=== PATIENT | female | born 1985 | race Caucasian/White ===

== ENCOUNTER 2018-03-12 16:42 | Outpatient (CLI) | payer MEDICAID, SELFPAY ==
[2018-03-12 17:05] LABS: Bilirubin Small (Negative); Blood Trace-intact (Negative); Clarity Sl Cloudy; Glucose 500 mg/dL (Negative); Ketones 15 mg/dL (Negative); Leukocyte Esterase Negative (Negative); Nitrite Negative (Negative); Specific Gravity >= 1.030 (1.005-1.025); Urobilinogen 0.2 EU/dL (Up TO 0.2)
[2018-03-12 17:17] LABS: Bacteria Moderate HPF (Negative); C & S Indicated? No/Sq. Contamination; Crystals Negative HPF (Negative); Epithelial Cells Many HPF (Negative); Mucus Trace (Negative); Other Cells Rare Renal (Negative)
[2018-03-12 18:11] LABS: CREATININE 0.64 mg/dL (0.55-1.02)
[2018-03-12 18:21] LABS: COMMENT (LAB VIEW ONLY) 282.91 mg/dL; Microalb ug/mg Crea 7.2 ug/mg Cr
[2018-03-12 18:53] LABS: Hemoglobin A1C 8.1 % (4.5-6.2)
== END 2018-03-12 17:02 ==
PROVIDERS: PCP Family Medicine; Visit Provider Family Medicine
DX: E11.9 Type 2 diabetes mellitus without complications (principal); Z79.84 Long term (current) use of oral hypoglycemic drugs
CPT/HCPCS: 36415; 81003; 81015; 82043; 82565; 82570; 83036

== ENCOUNTER 2018-07-11 13:03 | Outpatient (REF) | payer MEDICAID, SELFPAY ==
--- NOTE | 2018-07-11 11:45 | PAPFT_PTH ---
PATIENT: Ariela Foreman LOC: [facility] U#:[id number] AGE/SX: 32/F ROOM: RE07/11/[address]: ERIKA Chow : 1985 BED: DIS: 07/11/2018 SPEC #: [id number] RECD: 07/11/18 13:12 STATUS: LISA HOFFMAN #: [id number] NUSRAT: 07/11/18 11:[address]: Kathy Argueta DEPT: [facility] Cytology RECD BY: Sandra Lebron ENTERED: 07/11/18 13:12 SP TYPE: PAPFT OT DR: Pascual Forrest MD Tissues: 1 - CX/ENDOCX FOR PAP SMEARS Procedures: PAP THIN PREP/UVM Screening HPV DNA PROBE Comments: [id number]
== END 2018-07-11 13:23 ==
LOC: LBN 13:03
PROVIDERS: PCP Family Medicine; Visit Provider Nurse Practitioner Family
DX: Z12.4 Encounter for screening for malignant neoplasm of cervix (principal); Z11.51 Encounter for screening for human papillomavirus (HPV)
CPT/HCPCS: 88142; 87624

== ENCOUNTER 2019-01-30 11:51 | Outpatient (CLI) | payer MEDICAID, SELFPAY ==
[2019-01-30 12:48] LABS: Hemoglobin A1C 8.8 % (4.5-6.2)
[2019-01-30 14:57] LABS: Cholesterol 229 mg/dL (50-200); HDL Cholesterol 34 mg/dL (40-60); Triglyceride 556 mg/dL (30-150)
[2019-01-30 15:35] LABS: LDL CHOLESTEROL 118 mg/dL (<100)
== END 2019-01-30 12:11 ==
PROVIDERS: PCP Family Medicine; Visit Provider Family Medicine
DX: E11.9 Type 2 diabetes mellitus without complications (principal); E78.5 Hyperlipidemia, unspecified
CPT/HCPCS: 36415; 80061; 83721; 83036

== ENCOUNTER 2019-02-09 13:56 | Outpatient (CLI) | payer MEDICAID, SELFPAY ==
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
== END 2019-02-09 14:16 ==
PROVIDERS: PCP Family Medicine; Visit Provider Nurse Practitioner
DX: M79.605 Pain in left leg (principal); Z47.89 Encounter for other orthopedic aftercare; Z87.81 Personal history of (healed) traumatic fracture
CPT/HCPCS: 73590

== ENCOUNTER 2019-09-02 05:45 | Outpatient (CLI) | payer MEDICAID, SELFPAY ==
[2019-09-05 10:20] LABS: SARS-CoV-2 RNA Undetected (Undetected); SARS-CoV-2 Specimen Source Nasopharynx
== END 2019-09-02 06:05 ==
PROVIDERS: PCP Family Medicine; Visit Provider Family Medicine
DX: Z11.59 Encounter for screening for other viral diseases (principal)
CPT/HCPCS: U0003

== ENCOUNTER 2020-01-26 01:56 | Outpatient (CLI) | payer MEDICAID, SELFPAY ==
[2020-01-26 13:06] LABS: C-Reactive Protein 1.89 mg/dL (0.0-0.3)
[2020-01-26 13:35] LABS: ESR 22 mm/hr (0-20)
[2020-01-27 15:41] LABS: ANA Interpretation Negative (Negative)
[2020-01-29 17:56] LABS: Calculated LDL 170 mg/dL (<100); Cholesterol 278 mg/dL (<200); HDL Cholesterol 54 mg/dL (40-60); Triglyceride 271 mg/dL (<150)
[2020-01-29 18:03] LABS: Hemoglobin A1C 6.7 % (<5.7)
== END 2020-01-26 02:16 ==
PROVIDERS: PCP Family Medicine; Visit Provider Family Medicine
DX: M79.642 Pain in left hand (principal); E11.9 Type 2 diabetes mellitus without complications; M13.0 Polyarthritis, unspecified
CPT/HCPCS: 36415; 80061; 85652; 83036; 86038; 86140

== ENCOUNTER 2020-05-03 19:28 | Outpatient (REF) | payer MEDICAID, SELFPAY ==
[2020-05-03 22:15] LABS: Bilirubin Negative (Negative); Blood Small (Negative); Clarity Sl Cloudy (Clear); Glucose 500 mg/dL (Negative); Ketones Negative (Negative); Leukocyte Esterase Negative (Negative); Nitrite Negative (Negative); Urobilinogen 0.2 EU/dL (Up TO 0.2)
[2020-05-03 22:26] LABS: Bacteria Few HPF (Negative); C & S Indicated? Yes; Casts Negative LPF (Negative); Crystals Negative HPF (Negative); Epithelial Cells Few HPF (Negative); Mucus Negative (Negative); WBC 20-50 HPF (0-5)
== END 2020-05-03 19:48 ==
LOC: LBN 19:28
PROVIDERS: PCP Family Medicine; Visit Provider Family Medicine
DX: R30.0 Dysuria (principal)
CPT/HCPCS: 87077; 81003; 81015; 87086; 87186

== ENCOUNTER 2020-05-05 21:13 | Emergency (ER) | payer MEDICAID, SELFPAY ==
[2020-05-05 21:16] VITALS: BP 135/92; PULSE 99; RESP 16; TEMP 36.3; O2SAT 98
--- NOTE | 2020-05-05 21:19 | W.ED.GENAD ---
Discharge Plan Disposition Patient Disposition: HOME Condition: Good Discharge Details Clinical Impression: UTI (urinary tract infection) Primary Care Provider: Pascual Forrest ED Provider: Bryson Estrella Home Meds and New Rx's Prescriptions: New nitrofurantoin monohyd/m-cryst [Macrobid] 100 mg capsule 100 mg PO Q12H Qty: 8 RF: 0 phenazopyridine [Pyridium] 100 mg tablet 100 mg PO TID Qty: 4 RF: 0 No Action Victoza 3-Barry 0.6 mg/0.1 mL (18 mg/3 mL) pen injector 1.8 mg subcut DAILY Qty: 9 RF: 11 (DME) blood-glucose meter [Accu-Chek Shanta Plus Meter] Misc See Rx Instructions .ROUTE .MEDSUPPLY Qty: 1 RF: 0 Dramamine 50 mg tablet,chewable 50 mg PO Q4H PRN Qty: 15 RF: 0 meclizine 25 mg tablet 25 mg PO DAILY PRN (Reason: motion sickness) Qty: 30 RF: 0 (DME) pen needle, diabetic 29 gauge x 1/2 needle 1 ea Miscellaneous DAILY Qty: 100 RF: 3 propranolol 80 mg capsule,extended release 24 hr 80 mg PO DAILY Qty: 90 RF: 3 (DME) blood-glucose meter [OneTouch Ultra2 Meter] Misc See Rx Instructions .ROUTE .MEDSUPPLY Qty: 1 RF: 1 (DME) OneTouch Ultra Blue Test Strip Strip See Rx Instructions .ROUTE .MEDSUPPLY Qty: 300 RF: 3 (DME) lancets [OneTouch UltraSoft Lancets] Misc See Rx Instructions .ROUTE .MEDSUPPLY Qty: 300 RF: 3 albuterol sulfate [ProAir HFA] 90 mcg/actuation HFA aerosol inhaler 1 - 2 puff Inhalation q 4 h PRN (Reason: bronchospasm) Qty: 1 RF: 1 phentermine 15 mg capsule 15 mg PO DAILY Qty: 30 RF: 5 Jardiance 25 mg tablet 25 mg PO QAM Qty: 30 RF: 11 glipizide 10 mg tablet extended release 24hr 20 mg PO DAILY Qty: 180 RF: 3 metformin 1,000 mg tablet 1,000 mg PO BID Qty: 180 RF: 3 norgestimate-ethinyl estradiol 0.18/0.215/0.25 mg-35 mcg (28) tablet 1 tab PO DAILY Qty: 28 RF: 11 Claritin-D 12 Hour 1 EACH tablet extended release 12 hr 1 tab PO PRN PRNRF: 0 ibuprofen [Advil] 200 MG tablet 200 mg PO PRN RF: 0 montelukast [Singulair] 10 mg tablet 10 mg PO DAILY PRNRF: 0 Discharge Instructions Instructions: Urinary Tract Infection in Women (ED) Additional Instructions: Your urine culture from the office on the first is positive. Sensitivities for antibiotic are still pending. Macrobid should work. Pyridium should help your discomfort. May continue acetaminophen or ibuprofen as well. Contact primary care early next week if continued symptoms when medications are done. Return to ED if you develop spiking high fever, shaking chills, persistent vomiting or flank pain. Referrals: Pascual Forrest [Primary Care Provider] - Medical Decision Making In reviewing the patient's visit as well as labs, it appears that the urine was sent to lab despite negative dip at the office. The urine dip positive for blood in the lab. Micro reveals white cells. Culture currently growing greater than 100,000 staph species. Sensitivities pending. It would appear that Macrobid was called in. However, I cannot find a note confirming this. Patient unaware of results or the fact that antibiotics may have been called in. She is not here. She has no CVAT. She is not febrile. She does not look toxic. Her abdomen is completely benign. We will start her on Macrobid and provide prescription here just in case it is not available at the pharmacy. We will also start her on Pyridium for control of symptoms. Patient to follow-up with primary care next week if not doing better. Return to ED if worse. Medical Records Medical records reviewed: Yes I reviewed the patient's medical records. Lab Data Lab results reviewed: Yes I reviewed the patient's lab results. HPI General Mode of arrival: ambulatory. Date/Time Provider Initiated Documentation: 05/05/20 21:14. Limitations to Documentation: no limitations. Information obtained by: patient, RN notes reviewed and old records reviewed. HPI Narrative: Patient presents to ED with complaint of lower abdominal and back pain. 2 days ago patient was seen in primary care office. At that time she was complaining of dysuria. She was told her urine dip was negative. She has not heard back from the office any further. She has less dysuria but now constant dull ache in the suprapubic area and low back. She denies fevers or shaking chills. She has nausea but no vomiting. She has no mid back pain. She has had previous bladder infection and reports that this really feels the same. However she is under the assumption that her urine was negative. Patient denies . Related Data Home Medications Medication Instructions Recorded Confirmed Claritin-D 12 Hour 1 tab PO PRN PRN 11/16/13 05/05/20 ibuprofen [Advil] 200 mg PO PRN 11/16/13 05/05/20 dimenhydrinate 50 mg chewable 50 mg PO Q4H PRN #15 tab-cap 03/10/19 05/05/20 tablet meclizine 25 mg tablet 25 mg PO DAILY PRN #30 tab-cap 03/10/19 05/05/20 pen needle, diabetic 29 gauge x #100 ndl 03/10/19 05/03/20 1/2 blood-glucose meter #1 each 07/16/19 05/03/20 blood sugar diagnostic #300 each 07/20/19 05/03/20 blood-glucose meter #1 each 07/20/19 05/03/20 lancets #300 each 07/20/19 05/03/20 liraglutide 0.6 mg/0.1 mL (18 mg/3 1.8 mg SUBCUT DAILY #9 ml 08/19/19 05/05/20 mL) subcutaneous pen injector albuterol sulfate 90 mcg/actuation 1 - 2 puff INHALATION q 4 h PRN #1 09/01/19 05/05/20 aerosol inhaler inhaler propranolol 80 mg capsule,24 80 mg PO DAILY #90 cap 11/17/19 05/05/20 hr,extended release phentermine 15 mg capsule 15 mg PO DAILY #30 cap 12/21/19 05/05/20 empagliflozin 25 mg tablet 25 mg PO QAM #30 tab 02/15/20 05/05/20 glipizide 10 mg tablet, extended 20 mg PO DAILY #180 tab-cap 02/15/20 05/05/20 release 24 hr metformin 1,000 mg tablet 1,000 mg PO BID #180 tab 02/15/20 05/05/20 norgestimate-ethinyl estradiol 1 tab PO DAILY #28 tab-cap 02/19/20 05/05/20 0.18 mg/0.215mg/0.25mg-35 mcg(28)tablet montelukast [Singulair] 10 mg PO DAILY PRN 05/05/20 05/05/20 nitrofurantoin monohyd/m-cryst 100 mg PO Q12H #8 cap 05/05/20 [Macrobid] phenazopyridine [Pyridium] 100 mg PO TID #4 tab 05/05/20 Previous Rx's Medication Instructions Recorded dimenhydrinate 50 mg chewable 50 mg PO Q4H PRN #15 tab-cap 03/10/19 tablet meclizine 25 mg tablet 25 mg PO DAILY PRN #30 tab-cap 03/10/19 pen needle, diabetic 29 gauge x #100 ndl 03/10/19 1/2 blood-glucose meter #1 each 07/16/19 blood sugar diagnostic #300 each 07/20/19 blood-glucose meter #1 each 07/20/19 lancets #300 each 07/20/19 liraglutide 0.6 mg/0.1 mL (18 mg/3 1.8 mg SUBCUT DAILY #9 ml 08/19/19 mL) subcutaneous pen injector albuterol sulfate 90 mcg/actuation 1 - 2 puff INHALATION q 4 h PRN #1 09/01/19 aerosol inhaler inhaler propranolol 80 mg capsule,24 80 mg PO DAILY #90 cap 11/17/19 hr,extended release phentermine 15 mg capsule 15 mg PO DAILY #30 cap 12/21/19 empagliflozin 25 mg tablet 25 mg PO QAM #30 tab 02/15/20 glipizide 10 mg tablet, extended 20 mg PO DAILY #180 tab-cap 02/15/20 release 24 hr metformin 1,000 mg tablet 1,000 mg PO BID #180 tab 02/15/20 norgestimate-ethinyl estradiol 1 tab PO DAILY #28 tab-cap 02/19/20 0.18 mg/0.215mg/0.25mg-35 mcg(28)tablet nitrofurantoin monohyd/m-cryst 100 mg PO Q12H #8 cap 05/05/20 [Macrobid] phenazopyridine [Pyridium] 100 mg PO TID #4 tab 05/05/20 Allergies Allergy/AdvReac Type Severity Reaction Status Date / Time cefuroxime axetil Allergy Severe Anaphylaxsi Verified 05/03/20 14:03 [From Ceftin] s sodium nitrite Allergy Severe Throat Verified 05/03/20 14:03 Swelling Influenza Virus Vaccines Allergy Intermediate Verified 05/05/20 21:20 shellfish derived Allergy Unknown Verified 05/05/20 21:20 acetaminophen [From Tylenol] AdvReac Intermediate Nausea Verified 05/03/20 14:03 albuterol AdvReac Intermediate Tremor, Verified 05/03/20 14:03 weakness codeine AdvReac Intermediate Nausea Verified 05/03/20 14:03 morphine AdvReac Intermediate pains in Verified 05/03/20 14:03 her head Sulfa (Sulfonamide AdvReac Intermediate Nausea Verified 05/03/20 14:03 Antibiotics) sulfacetamide AdvReac Intermediate GI Symptoms Verified 05/03/20 14:03 maple Allergy Severe Anaphylaxsi Uncoded 05/03/20 14:03 s Review of Systems Narrative: As documented in HPI otherwise negative as below. Const: no fever, chills, weakness Resp: no cough, SOB, pleuritic pain CV: no CP, diaphoresis, edema, syncope GI: no vomiting, diarrhea Neuro: no headache, numbness, focal weakness, confusion PFSH Medical History Asthma Hypermobility arthralgia Obesity Polycystic ovarian syndrome Type II diabetes mellitus with complication, uncontrolled DX AGE 14 Surgical History Cholecystectomy Laparoscopic, Ovarian Cystectomy LEG FRACTURE 08/2014 Family History Mother Diabetes Hyperlipidemia Asthma Depression Father , AGE 56 Diabetes Depression Heart disease Sister Diabetes Maternal Grandfather Lung cancer Paternal Grandfather No problems noted. Maternal Grandmother , AGE 78 Diabetes Hyperlipidemia Brother No problems noted. Social History Smoking/Tobacco Use Status: Never Smoking risk assessment performed?: Yes Alcohol Intake: never Drug use: Never Household members: significant other Housing: apartment Communication Needs: Corrective Lenses Do you need help understanding health information?: Never current occupation: [employer] Pets and animals: Yes Pets and animals: cat(s) and dog(s) Sexually active: Yes Do you think of yourself as: straight/heterosexual Current gender identity: female What is your relationship status?: living with partner How often do you talk on the phone with friends or family?: three or more times per week How often do you get together with friends or relatives?: once per week How often do you attend voodoo or christianity services?: decline to answer Do you belong to any clubs or organized social groups?: no Panel score (0-1 are the most socially isolated patients): 2 What type of physical activity do you participate in: other Details: ELIPTICAL Duration: < 15 minutes/day Frequency: 3-4 times per week Joceline/Christianity: Other Special joceline needs: No Seatbelt use: always Helmet use: Yes Helmet use: always Drive intox or ride w/intox electric train driver: No Do you feel safe in your relationship?: Yes Exam Narrative Exam Narrative: Const: WDWN female in NAD. HEENT: NC/AT. Normal facial exam. Eyes: Normal conjunctiva and sclera. Neck: Supple. Trachea midline. Lungs: Normal respiratory effort. GI: Soft. NT/ND. No guarding or rebound. Back: No CVAT Neuro: A+O x 3. Normal speech, mentation, gait. Cranial nerves II - XII grossly intact. No gross motor or sensory deficit. Ext: No C/C/E. Skin: Warm and dry without rash.
[2020-05-05] MEDS: MacroBID 100 MG CAP, 2 CAPS/BTL PO (21:48)
[2020-05-05] MEDS: Phenazopyridine 100 MG TAB, 2 TABS/BTL PO (21:49)
== END 2020-05-05 21:50 | disposition home or self-care (01) ==
LOC: ER 21:43
PROVIDERS: Emergency Provider Emergency Medicine; PCP Family Medicine
DX: N39.0 Urinary tract infection, site not specified (principal); R10.30 Lower abdominal pain, unspecified; M54.5 Low back pain; Z87.440 Personal history of urinary (tract) infections; E11.9 Type 2 diabetes mellitus without complications; Z79.84 Long term (current) use of oral hypoglycemic drugs
CPT/HCPCS: 81025; 99283

== ENCOUNTER 2020-08-23 03:45 | Outpatient (CLI) | payer MEDICAID, SELFPAY ==
[2020-08-23 11:41] LABS: Hemoglobin A1C 7.3 % (<5.7)
[2020-08-23 12:16] LABS: Calculated LDL 69 mg/dL (<100); Cholesterol 179 mg/dL (<200); HDL Cholesterol 45 mg/dL (40-60); Triglyceride 325 mg/dL (<150)
[2020-08-23 17:00] LABS: Rheumatoid Factor <8.6 IU/mL (<12.0)
== END 2020-08-23 03:46 | disposition home or self-care (01) ==
LOC: LBO 03:45
PROVIDERS: PCP Family Medicine; Visit Provider Family Medicine
DX: R73.9 Hyperglycemia, unspecified (principal); E78.5 Hyperlipidemia, unspecified; M13.88 Other specified arthritis, other site
CPT/HCPCS: 36415; 80061; 83036; 86431

== ENCOUNTER 2021-01-12 15:37 | Outpatient (CLI) | payer MEDICAID, SELFPAY ==
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
--- NOTE | 2021-01-12 16:27 | DI.VRAD_ITS ---
PROCEDURE INFORMATION: Exam: XR Right Shoulder Exam date and time: 01/12/2021 3:52 PM Age: 35 years old Clinical indication: Pain; Shoulder; Right TECHNIQUE: Imaging protocol: XR Right shoulder. Views: 2 or more views. COMPARISON: No relevant prior studies available. FINDINGS: Bones/joints: Normal. Soft tissues: Normal. IMPRESSION: No acute findings. Dictated and Authenticated by: Sandee Davis MD. Ordering:TUTU Sahni MD
== END 2021-01-12 15:57 ==
PROVIDERS: PCP Family Medicine; Visit Provider Physician Assistant Medical
DX: M25.511 Pain in right shoulder (principal)
CPT/HCPCS: 73030

== ENCOUNTER 2021-01-28 14:32 | Outpatient (CLI) | payer MEDICAID, SELFPAY ==
--- NOTE | 2021-01-28 | DI.RAD_ITS ---
Exam(s) XR ANKLE RT COMPLETE EXAM: XR ANKLE RT COMPLETE CLINICAL HISTORY: ANKLE PAIN. TECHNIQUE: 2D digital imaging was performed. COMPARISON: No exams were available for comparison FINDINGS: BONES: No acute fracture is present. No bony destructive lesion is seen. JOINTS: The ankle mortise is normally aligned. SOFT TISSUE: Normal. IMPRESSION: Unremarkable radiographs of the right ankle. DATA REPOSITORY: RADIATION DOSE DELIVERED:
--- NOTE | 2021-01-28 15:40 | DI.VRAD_ITS ---
PROCEDURE INFORMATION: Exam: XR Right Ankle Exam date and time: 01/28/2021 2:37 PM Age: 35 years old Clinical indication: Other: Ankle pain TECHNIQUE: Imaging protocol: XR Right ankle. Views: 3 or more views. COMPARISON: CR RIGHT KNEE 3 VIEWS 05/10/2016 3:35 PM FINDINGS: Bones/joints: No acute fracture or dislocation. The ankle mortise is well preserved. Soft tissues: Normal. IMPRESSION: No acute fracture or dislocation. Dictated and Authenticated by: Layla Phillips MD. Ordering:KURT Bishop MD
== END 2021-01-28 14:52 ==
PROVIDERS: PCP Family Medicine; Visit Provider Nurse Practitioner Family
DX: M25.571 Pain in right ankle and joints of right foot (principal)
CPT/HCPCS: 73610

== ENCOUNTER 2021-03-07 03:44 | Outpatient (CLI) | payer BC, MEDICAID, SELFPAY ==
[2021-03-07 07:58] LABS: ESR 9 mm/hr (0-20)
[2021-03-07 08:43] LABS: Hemoglobin A1C 7.3 % (<5.7)
[2021-03-07 09:21] LABS: C-Reactive Protein 2.51 mg/dL (0.0-0.3)
== END 2021-03-07 03:45 | disposition home or self-care (01) ==
PROVIDERS: PCP Family Medicine; Visit Provider Family Medicine
DX: E11.9 Type 2 diabetes mellitus without complications (principal); R41.89 Other symptoms and signs involving cognitive functions and awareness; M25.50 Pain in unspecified joint
CPT/HCPCS: 36415; 85652; 83036; 86140

== ENCOUNTER 2021-05-01 11:09 | Outpatient (CLI) | payer BC, MEDICAID, SELFPAY ==
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
== END 2021-05-01 11:29 ==
PROVIDERS: PCP Family Medicine; Visit Provider Nurse Practitioner Family
DX: M25.521 Pain in right elbow (principal); M25.532 Pain in left wrist
CPT/HCPCS: 73080; 73110

== ENCOUNTER 2021-06-23 19:30 | Emergency (ER) | payer BC, SELFPAY ==
[2021-06-23] VITALS (8 sets, daily range): BP systolic 113–132; BP diastolic 62–95; PULSE 109–122; RESP 12–26; TEMP 37.4; O2SAT 97–98
--- NOTE | 2021-06-23 20:30 | DI.CT_ITS ---
Exam(s) CT NECK W EXAM: CT NECK W CLINICAL HISTORY: Sore throat R/O peritonsillar abscess. TECHNIQUE: Imaging Protocol: Axial computed tomography images with coronal and sagittal reformatted images were created and reviewed. CONTRAST MATERIAL: Intravenous: Omnipaque 350 Contrast volume:100 mL COMPARISON: No exams were available for comparison FINDINGS: Orbits and orbital soft tissues: Within normal limits. Visualized paranasal sinuses: There is complete opacification of the right maxillary sinus. The rem aining visualized paranasal sinuses and mastoid air cells are clear. Nasopharynx: Within normal limits. Oropharynx: Enlarged heterogeneous tonsils bilaterally, right greater than left. No definite focal f luid collection is identified. Hypopharynx: Within normal limits. Larynx: Within normal limits. Retropharyngeal space: Within normal limits. Parotids/submandibular: Within normal limits. Thyroid gland: Within normal limits. Lymphadenopathy: Mildly enlarged lymph nodes in the neck bilaterally. This is likely reactive. Trachea: Within normal limits. Lung apices: Within normal limits. Bones: Within normal limits. Carotids/Jugular: Within normal limits. Soft tissues: Within normal limits. IMPRESSION: 1. Bilateral heterogeneity of the palatine tonsils consistent with tonsillitis. No definite focal fl uid collection is seen to suggest an abscess. 2. Mildly enlarged lymph nodes in the neck which are likely reactive. 3. Right maxillary sinusitis. RADIATION DOSE DELIVERED: 456.28mGy.cm Total DLP 456.28mGy.cm Total DLP DATA REPOSITORY: All CT scans at this facility are submitted to the National Radiology Data Registry (NRDR) Dose Index Registry (DIR) with the [employer] ([employer]). RADIATION OPTIMIZATION: All CT scans at this facility use at least one of these dose optimization te chniques: automated exposure control; mA and/or kV adjustment per patient size (includes targeted exa ms where dose is matched to clinical indication); or iterative reconstruction.
[2021-06-23] MEDS: Omnipaque 350 MG/ML 100 ML BTL IJ (20:53)
[2021-06-23 21:02] LABS: HCT 50.2 % (36.0-46.0); HGB 15.9 g/dL (11.2-15.7); MCH 25.6 pg (27.0-33.0); MCHC 31.7 % (32.0-36.0); MCV 80.8 fL (80-95); MPV 9.6 fL (8.0-11.0); Nucleated RBC 0 %; Platelet Count 404 10^3/uL (130-400); RBC 6.21 10^6/uL (3.93-5.22); RDW 13.7 % (11.7-14.6); RDW-SD 39.4 fL
[2021-06-23 21:07] LABS: WBC 28.51 10^3/uL (4.4-10.8)
[2021-06-23 21:12] LABS: ALT 12 U/L (14-59); AST 12 U/L (15-37); Albumin 3.6 g/dL (3.4-5.0); Alkaline Phosphatase 123 U/L (46-116); Anion Gap 13.6 mmol/L (3-11); BUN 10 mg/dL (7-18); Bilirubin, Total 0.6 mg/dL (0.2-1.0); CO2 25.4 mmol/L (21.0-32.0); CREATININE 0.8 mg/dL (0.55-1.02); Calcium 9.7 mg/dL (8.5-10.1); Chloride 95 mmol/L (98-107); Glucose 148 mg/dL (74-106); Potassium 3.5 mmol/L (3.5-5.1); Sodium 134 mmol/L (136-145); Total Protein 9.6 g/dL (6.4-8.2)
--- NOTE | 2021-06-23 21:17 | DI.VRAD_ITS ---
PROCEDURE INFORMATION: Exam: CT Neck With Contrast Exam date and time: 06/23/2021 8:41 PM Age: 35 years old Clinical indication: Throat pain; Patient HX: Sore throat; Additional info: R/O peritonsillar abscess TECHNIQUE: Imaging protocol: Computed tomography images of the neck with contrast. COMPARISON: No relevant prior studies available. FINDINGS: Paranasal sinuses: Complete opacification of the right maxillary sinus with sinus atelectasis. Nasopharynx: Unremarkable. Oropharynx: Enlargement and striated hyperenhancement of the palatine tonsils consistent with acute tonsillitis. No evidence of tonsillar or peritonsillar abscess. Hypopharynx: Unremarkable. Larynx: Unremarkable. Normal epiglottis. Retropharyngeal space: Unremarkable. Submandibular/Parotid glands: Normal. Glands are normal in size. Thyroid: Normal. No enlarged or calcified nodules. Lymph nodes: Bilateral level 2A lymphadenopathy. There is more mild lymphadenopathy of the lower neck. Trachea: Visualized trachea is unremarkable. Lungs: Unremarkable as visualized. Bones/joints: Unremarkable. No acute fracture. Soft tissues: Unremarkable. No significant soft tissue swelling. IMPRESSION: 1. Findings consistent with palatine tonsillitis. No evidence of tonsillar abscess. 2. Cervical lymphadenopathy, likely reactive in nature. 3. Right maxillary sinus atelectasis. Dictated and Authenticated by: Bryson Mcclain MD. Ordering:FARTUN Ramos MD
[2021-06-23] MEDS: Normal Saline 1,000 ML 1000 ML IV (21:19)
[2021-06-23 21:23] LABS: Mono Screening Negative (Negative)
--- NOTE | 2021-06-23 21:28 | ED.GENADUL_ITS ---
Discharge Plan Disposition Patient Disposition: HOME Condition: Fair Discharge Details Clinical Impression: Acute tonsillitis, unspecified Primary Care Provider: Pascual Forrest ED Provider: Richard Segura Home Meds and New Rx's Prescriptions: New clindamycin HCl [Cleocin HCl] 150 mg capsule 450 mg PO TID 6 Days Qty: 54 RF: 0 Continued (DME) blood-glucose meter [Accu-Chek Shanta Plus Meter] Misc See Rx Instructions .ROUTE .MEDSUPPLY Qty: 1 RF: 0 glipizide 10 mg tablet extended release 24hr 20 mg PO DAILY Qty: 180 RF: 3 norgestimate-ethinyl estradiol 0.18/0.215/0.25 mg-35 mcg (28) tablet 1 tab PO DAILY Qty: 28 RF: 11 Dramamine 50 mg tablet,chewable 50 mg PO Q4H PRN Qty: 15 RF: 0 meclizine 25 mg tablet 25 mg PO DAILY PRN (Reason: motion sickness) Qty: 30 RF: 0 albuterol sulfate [ProAir HFA] 90 mcg/actuation HFA aerosol inhaler 1 - 2 puff Inhalation q 4 h PRN (Reason: bronchospasm) Qty: 1 RF: 1 Victoza 3-Barry 0.6 mg/0.1 mL (18 mg/3 mL) pen injector 1.8 mg subcut DAILY Qty: 9 RF: 11 meloxicam 15 mg tablet 15 mg PO DAILY PRNRF: 0 phentermine 30 mg capsule 30 mg PO DAILY Qty: 30 RF: 2 ondansetron 4 mg tablet,disintegrating 4 mg PO .Q6-8H PRNRF: 0 lidocaine 4 % aerosol,spray 1 spray topical Q2H PRN (Reason: sore throat) Qty: 113 RF: 0 (DME) blood-glucose meter [OneTouch Ultra2 Meter] Misc See Rx Instructions .ROUTE .MEDSUPPLY Qty: 1 RF: 1 (DME) OneTouch Ultra Blue Test Strip Strip See Rx Instructions .ROUTE .MEDSUPPLY Qty: 300 RF: 3 (DME) lancets [OneTouch UltraSoft Lancets] Misc See Rx Instructions .ROUTE .MEDSUPPLY Qty: 300 RF: 3 (DME) pen needle, diabetic 29 gauge x 1/2 needle 1 ea Miscellaneous DAILY Qty: 100 RF: 3 Jardiance 25 mg tablet 25 mg PO QAM Qty: 90 RF: 1 propranolol 80 mg capsule,extended release 24 hr 80 mg PO DAILY Qty: 90 RF: 3 montelukast [Singulair] 10 mg tablet 10 mg PO DAILY PRN (Reason: allergic symptoms) Qty: 90 RF: 1 metformin 1,000 mg tablet 1,000 mg PO BID Qty: 180 RF: 3 Claritin-D 12 Hour 1 EACH tablet extended release 12 hr 1 tab PO PRN PRNRF: 0 Discontinued amoxicillin 875 mg tablet 875 mg PO BID 7 Days Qty: 14 RF: 0 Discharge Instructions Instructions: Clindamycin (By mouth), Oxycodone, Rapid Release (By mouth), Pharyngitis (ED) Additional Instructions: It is very important that you stay well-hydrated and take medications as prescribed. Given that you were given steroids you should monitor your blood sugar very closely. Please return to the emergency department tomorrow morning for recheck of your lab work along with reassessment of your sore throat. Throughout the night if you have any significant worsening of your condition or any further concerns immediately return to the emergency department for reassess. Referrals: [facility] [Provider Group] - 1 day Discharge Data Discharge Date/Time-TO BE ENTERED AT DEPARTURE: 06/23/21 23:49 Medical Decision Making Patient presenting to the emergency department for chief complaint of worsening sore throat. She states over the last couple days she has had a headache, fever, and sore throat. Patient states that she has been seen [facility] and was prescribed antibiotics and had send out COVID test earlier today but has not started antibiotics and came here due to worsening of symptoms. Physical exam shows right tonsillary exudate with erythema and hypertrophy. Mild erythema noted on the left tonsil. Patient does have significant lymphadenopathy on the right side and muffled voice. I am concerned for possible peritonsillar abscess so labs and IV access was obtained. Patient swab for strep again along with strep culture. Did give patient IV fluids given tachycardia and steroids. Did discuss with patient need to monitor blood sugar given that she is a diabetic and received steroids. Review of radiologist interpretation and imaging from CT shows findings consistent with tonsillitis without abscess and reactive lymphadenopathy. Labs show significant leukocytosis of 28 with shift. There are also signs of dehydration and hemoconcentration. All other labs nondiagnostic at this point. Given significantly laboratory findings and complaint of worsening condition patient given IV clindamycin due to history of anaphylaxis with Ceftin. Did discuss with patient potential for C. difficile and to monitor symptoms. Patient's tachycardia did slightly improved with heart rate in the low teens after 2 L of fluid. Patient states normal heart rate is 100-1 05. I did offer admission to patient but at this time she is refusing admission and requesting to go home. We agreed upon a plan of care to include patient to go home with antibiotic medication to take immediately tomorrow morning and to return to the emergency department for reassessment and repeat blood work. Patient is tolerating p.o. intake and was given narcotics to go home with given that she has extensive allergies and intolerances to medications. After discussion of diagnosis and plan of care patient has no further needs, questions, or concerns and states clear understanding to return to the emergency department for any worsening symptoms. HPI General Mode of arrival: ambulatory . Date/Time Provider Initiated Documentation: 06/23/21 19:58 . Limitations to Documentation: no limitations . Information obtained by: patient . History of Present Illness 35 year old F presents to the emergency department with the chief complaint of Sore throat and headache, described as moderate, with intensity rated at 8. Quality is described as aching, and is localized to the neck. Patient reports no radiation. Patient started experiencing this day(s) (2) and it has been constant. No relieving factors improve symptom(s), No exacerbating factors reported . Patient notes no other symptoms.. Patient did receive the following treatments prior to arrival, none Related Data Home Medications Medication Instructions Recorded Confirmed Claritin-D 12 Hour 1 tab PO PRN PRN 11/16/13 06/24/21 dimenhydrinate 50 mg chewable 50 mg PO Q4H PRN #15 tab-cap 03/10/19 06/24/21 tablet meclizine 25 mg tablet 25 mg PO DAILY PRN #30 tab-cap 03/10/19 06/24/21 blood-glucose meter #1 each 07/16/19 06/24/21 blood sugar diagnostic #300 each 07/20/19 06/24/21 blood-glucose meter #1 each 07/20/19 06/24/21 lancets #300 each 07/20/19 06/24/21 pen needle, diabetic 29 gauge x #100 ndl 05/30/20 06/24/21 1/2 albuterol sulfate 90 mcg/actuation 1 - 2 puff INHALATION q 4 h PRN #1 08/23/20 06/24/21 aerosol inhaler inhaler liraglutide 0.6 mg/0.1 mL (18 mg/3 1.8 mg SUBCUT DAILY #9 ml 08/23/20 06/24/21 mL) subcutaneous pen injector ondansetron 4 mg disintegrating 4 mg PO .Q6-8H PRN tab 12/29/20 06/24/21 tablet empagliflozin 25 mg tablet 25 mg PO QAM #90 tab 01/03/21 06/24/21 propranolol 80 mg capsule,24 80 mg PO DAILY #90 cap 01/20/21 06/24/21 hr,extended release glipizide 10 mg tablet, extended 20 mg PO DAILY #180 tab-cap 02/01/21 06/24/21 release 24 hr norgestimate-ethinyl estradiol 1 tab PO DAILY #28 tab-cap 02/01/21 06/24/21 0.18 mg/0.215mg/0.25mg-35 mcg(28)tablet metformin 1,000 mg tablet 1,000 mg PO BID #180 tab 02/22/21 06/24/21 montelukast 10 mg tablet 10 mg PO DAILY PRN #90 tab 02/22/21 06/24/21 meloxicam 15 mg tablet 15 mg PO DAILY PRN tab 03/07/21 06/24/21 phentermine 30 mg capsule 30 mg PO DAILY #30 cap 03/07/21 06/24/21 clindamycin HCl [Cleocin HCl] 450 mg PO TID 6 Days #54 cap 06/23/21 06/24/21 lidocaine 4 % topical spray 1 spray TOPICAL Q2H PRN #113 g 06/23/21 06/24/21 Previous Rx's Medication Instructions Recorded dimenhydrinate 50 mg chewable 50 mg PO Q4H PRN #15 tab-cap 03/10/19 tablet meclizine 25 mg tablet 25 mg PO DAILY PRN #30 tab-cap 03/10/19 blood-glucose meter #1 each 07/16/19 blood sugar diagnostic #300 each 07/20/19 blood-glucose meter #1 each 07/20/19 lancets #300 each 07/20/19 pen needle, diabetic 29 gauge x #100 ndl 05/30/20 1/2 albuterol sulfate 90 mcg/actuation 1 - 2 puff INHALATION q 4 h PRN #1 08/23/20 aerosol inhaler inhaler liraglutide 0.6 mg/0.1 mL (18 mg/3 1.8 mg SUBCUT DAILY #9 ml 08/23/20 mL) subcutaneous pen injector empagliflozin 25 mg tablet 25 mg PO QAM #90 tab 01/03/21 propranolol 80 mg capsule,24 80 mg PO DAILY #90 cap 01/20/21 hr,extended release glipizide 10 mg tablet, extended 20 mg PO DAILY #180 tab-cap 02/01/21 release 24 hr norgestimate-ethinyl estradiol 1 tab PO DAILY #28 tab-cap 02/01/21 0.18 mg/0.215mg/0.25mg-35 mcg(28)tablet metformin 1,000 mg tablet 1,000 mg PO BID #180 tab 02/22/21 montelukast 10 mg tablet 10 mg PO DAILY PRN #90 tab 02/22/21 phentermine 30 mg capsule 30 mg PO DAILY #30 cap 03/07/21 clindamycin HCl [Cleocin HCl] 450 mg PO TID 6 Days #54 cap 06/23/21 lidocaine 4 % topical spray 1 spray TOPICAL Q2H PRN #113 g 06/23/21 Allergies Allergy/AdvReac Type Severity Reaction Status Date / Time cefuroxime axetil Allergy Severe Anaphylaxsi Verified 06/24/21 10:35 [From Ceftin] s sodium nitrite Allergy Severe Throat Verified 06/24/21 10:35 Swelling Influenza Virus Vaccines Allergy Intermediate arm Verified 06/24/21 10:52 swelling acetaminophen [From Tylenol] AdvReac Intermediate Nausea Verified 06/24/21 10:35 albuterol AdvReac Intermediate Tremor, Verified 06/24/21 10:35 weakness codeine AdvReac Intermediate Nausea Verified 06/24/21 10:35 morphine AdvReac Intermediate pains in Verified 06/24/21 10:35 her head Sulfa (Sulfonamide AdvReac Intermediate Nausea Verified 06/24/21 10:35 Antibiotics) sulfacetamide AdvReac Intermediate GI Symptoms Verified 06/24/21 10:35 shellfish derived AdvReac Unknown Nausea Verified 06/24/21 10:52 tramadol AdvReac Severe Verified 06/24/21 10:35 headache maple Allergy Severe Anaphylaxsi Uncoded 06/24/21 10:35 s General Stated Complaint: RespSymp MARISOL: 3 Review of Systems Constitutional Constitutional: Denies chills, Denies fever(s), Reports headache(s) and Reports malaise ENT Ears, Nose, Mouth, and Throat: Denies change in voice, Denies dysphagia, Denies otalgia, Reports headache(s), Denies hoarseness, Denies lip swelling, Denies mouth lesions, Denies nasal congestion, Reports odynophagia, Reports sore throat, Denies throat swelling and Denies tongue swelling Cardiovascular Cardiovascular: Denies chest pain Respiratory Respiratory: Denies chest congestion and Denies cough Gastrointestinal Gastrointestinal: Denies dysphagia and Reports odynophagia Neurologic Neurologic: Reports headache(s) Allergic/Immunologic Allergic/Immunologic: Denies lip swelling, Denies throat swelling and Denies tongue swelling PFSH All Active Problems (Updated 06/24/21 @ 10:45 by MAGI Johnson) Acute tonsillitis, unspecified (Acute) Diabetic retinopathy (Acute ~04/2021) 05/01/21 SHIPPEE-MILD IN THE RIGHT EYE-KB Hypermobile joint syndrome of multiple sites (Acute) Arthralgia (Acute) Chronic seasonal allergic rhinitis due to pollen (Acute) Migraine (Chronic) History of vertigo (Acute) Abnormal auditory perception of both ears (Acute) Vertigo (Acute) Asthma (Chronic) Polycystic ovarian syndrome (Chronic) Type II diabetes mellitus with complication, uncontrolled (Chronic) DX AGE 14 Dysuria (Acute) Pain, joint, hip, left (Acute) Hypermobility arthralgia (Acute) Ulcer of toe of right foot (Acute) Polyarthropathy (Acute) Left hand pain (Acute) Obesity (Chronic) Fracture of lower extremity (Acute) Gastroesophageal reflux disease (Acute) Patellofemoral stress syndrome (Acute) Status post cholecystectomy (Acute) Status post ovarian cystectomy (Acute) Leg pain, left (Chronic) LGSIL (low grade squamous intraepithelial dysplasia) (Acute) 04/19/15 Benign essential tremor (Acute) Surgical History Cholecystectomy Laparoscopic, Ovarian Cystectomy LEG FRACTURE 08/2014 Family History Mother Diabetes Hyperlipidemia Asthma Depression Father , AGE 56 Diabetes Depression Heart disease Sister Diabetes Maternal Grandfather Lung cancer Paternal Grandfather No problems noted. Maternal Grandmother , AGE 78 Diabetes Hyperlipidemia Brother No problems noted. Social History Smoking/Tobacco Use Status: Never Second Hand Exposure: Yes Smoking risk assessment performed?: Yes Alcohol Intake: never Drug use: Never Substance use type: does not use Household members: significant other Housing: apartment Communication Needs: Corrective Lenses Do you need help understanding health information?: Never current occupation: [employer] Pets and animals: Yes Pets and animals: cat(s) and dog(s) Sexually active: Yes Do you think of yourself as: straight/heterosexual Current gender identity: female What is your relationship status?: living with partner How often do you talk on the phone with friends or family?: three or more times per week How often do you get together with friends or relatives?: once per week How often do you attend sikhism or holiness services?: decline to answer Do you belong to any clubs or organized social groups?: no Panel score (0-1 are the most socially isolated patients): 2 What type of physical activity do you participate in: other Details: ELIPTICAL Duration: < 15 minutes/day Frequency: 3-4 times per week Joceline/Zoroastrianism: Other Special joceline needs: No Seatbelt use: always Helmet use: Yes Helmet use: always Drive intox or ride w/intox certified driver examiner: No Do you feel safe at home: Yes Do you feel safe in your relationship?: Yes Exam Const General: cooperative, no acute distress and not ill appearing Orientation: alert, awake and oriented x3 HENMT Head: normal to inspection and normocephalic Ears: hearing grossly normal bilaterally, external ears normal, TM's normal bilaterally and mastoids normal General nose exam: external nose normal and nares normal Face and sinus: normal facial exam and sinuses nontender Mouth: oral mucosae normal, lip normal, tongue normal, no audible dysphonia, no drooling, muffled voice and no trismus Throat: uvula midline, abnormal tonsil on the right erythema, exudates and hypertrophy and on the left erythema, no peritonsillar masses, uvula not displaced and no uvular edema Neck Neck: normal visual inspection, full ROM, lymphadenopathy noted and no meningeal signs Resp Effort & Inspection: normal respiratory effort, able to speak in complete sentences and no stridor Auscultation: clear to auscultation bilaterally Cardio Rate: tachycardic Rhythm: regular rhythm Heart Sounds: S1 normal and S2 normal Skin General skin exam: no rashes or lesions noted Course Vital Signs Vital signs: Vital Signs Temperature 37.4 C 06/23/21 19:51 Pulse 122 H 06/23/21 19:51 Respiratory Rate 16 06/23/21 19:51 Blood Pressure 125/95 H 06/23/21 19:51 Pulse Oximetry 98 06/23/21 19:51 Temperature 37.4 C 06/23/21 19:51 Temperature Source Temporal Artery Scan 06/23/21 19:51 Pulse 122 H 06/23/21 19:51 Respiratory Rate 16 06/23/21 19:51 Respiratory Effort Non-Labored 06/23/21 19:48 Blood Pressure 125/95 H 06/23/21 19:51 Blood Pressure Position Sitting 06/23/21 19:39 Pulse Oximetry 98 06/23/21 19:51 Oxygen Delivery Method Room Air 06/23/21 19:51 Oxygen Flow Rate 0 06/23/21 19:51 Pain Level 8 06/23/21 19:39 Lab/Test Results Lab/Test Results: 06/23/21 21:10 Pharynx Group A Streptococcus Culture - Pending Laboratory Tests Range/Units 06/23/21 06/23/21 06/23/21 20:50 20:50 20:50 WBC (4.4-10.8) 10^3/uL 28.51 H* RBC (3.93-5.22) 10^6/uL 6.21 H Hgb (11.2-15.7) g/dL 15.9 H Hct (36.0-46.0) % 50.2 H MCV (80-95) fL 80.8 MCH (27.0-33.0) pg 25.6 L MCHC (32.0-36.0) % 31.7 L RDW (11.7-14.6) % 13.7 Plt Count (130-400) 10^3/uL 404 H MPV (8.0-11.0) fL 9.6 Sodium (136-145) mmol/L 134 L Potassium (3.5-5.1) mmol/L 3.5 Chloride (98-107) mmol/L 95 L Carbon Dioxide (21.0-32.0) mmol/L 25.4 Anion Gap (3-11) mmol/L 13.6 H BUN (7-18) mg/dL 10 Creatinine (0.55-1.02) mg/dL 0.8 Estimated GFR/1.73 m2 (mL/min/1.73m2) >= 60.00 Glucose (74-106) mg/dL 148 H Calcium (8.5-10.1) mg/dL 9.7 Total Bilirubin (0.2-1.0) mg/dL 0.6 AST (15-37) U/L 12 L ALT (14-59) U/L 12 L Alkaline Phosphatase (46-116) U/L 123 H Total Protein (6.4-8.2) g/dL 9.6 H Albumin (3.4-5.0) g/dL 3.6 Monoscreen (Negative) Negative POC Strep Test-SHWETA(Rapid) Start: 06/23/21 20:36 Freq: .Rapid Strep Test Status: Active Protocol: Document 06/23/21 21:18 (Rec: 06/23/21 21:18 [id number]) Strep test-SHWETA(Rapid)-POC POC-Strep test-SHWETA (Rapid) Negative POC-Strep test-SHWETA (Rapid) Negative
[2021-06-23 21:36] LABS: Absolute Lymphocyte Count 4.85 10^3/uL (1.2-3.4); Absolute Monocyte Count 2.57 10^3/uL (0.1-0.8); Atypical Lymphocytes % 3; Bands % 1
[2021-06-23 21:37] LABS: Diff Comment Manual Differential; RBC Morphology Normal
[2021-06-23] MEDS: Dexamethasone 10 MG/ML VIAL IVP (22:12)
[2021-06-23] MEDS: Normal Saline 500 ML 1000 ML IV (22:12)
[2021-06-23] MEDS: CLINDAMYCIN 900 MG/50 ML BAG 50 MG IVPB (22:13)
[2021-06-23] MEDS: Clindamycin 150 MG CAP, 12 CAPS/BTL 450 MG PO (23:36)
[2021-06-25 15:23] LABS: COVID-19 RT-PCR UVMMC Result Negative (Negative)
== END 2021-06-23 23:49 | disposition home or self-care (01) ==
PROVIDERS: Family Medicine; Emergency Provider Nurse Practitioner Family; PCP Family Medicine
DX: J03.90 Acute tonsillitis, unspecified; D72.829 Elevated white blood cell count, unspecified; E86.0 Dehydration; R00.0 Tachycardia, unspecified
CPT/HCPCS: 36415; 70491; 80053; 87880; 96361; 96365; 96375; 99285; U0003; 85025; 86308; 87081; 99284; J1100; J3490

== ENCOUNTER 2021-06-24 10:18 | Emergency (ER) | payer BC, SELFPAY ==
[2021-06-24 10:25] VITALS: BP 108/75; PULSE 97; RESP 16; TEMP 35.8; O2SAT 98
[2021-06-24 10:40] VITALS: RESP 16
--- NOTE | 2021-06-24 10:40 | ED.GENADUL_ITS ---
Discharge Plan Disposition Patient Disposition: HOME Condition: Stable Discharge Details Clinical Impression: Acute tonsillitis, unspecified Primary Care Provider: Pascual Forrest ED Provider: Sandra Skelton Home Meds and New Rx's Prescriptions: Continued (DME) blood-glucose meter [Accu-Chek Shanta Plus Meter] Misc See Rx Instructions .ROUTE .MEDSUPPLY Qty: 1 RF: 0 glipizide 10 mg tablet extended release 24hr 20 mg PO DAILY Qty: 180 RF: 3 norgestimate-ethinyl estradiol 0.18/0.215/0.25 mg-35 mcg (28) tablet 1 tab PO DAILY Qty: 28 RF: 11 Dramamine 50 mg tablet,chewable 50 mg PO Q4H PRN Qty: 15 RF: 0 meclizine 25 mg tablet 25 mg PO DAILY PRN (Reason: motion sickness) Qty: 30 RF: 0 albuterol sulfate [ProAir HFA] 90 mcg/actuation HFA aerosol inhaler 1 - 2 puff Inhalation q 4 h PRN (Reason: bronchospasm) Qty: 1 RF: 1 Victoza 3-Barry 0.6 mg/0.1 mL (18 mg/3 mL) pen injector 1.8 mg subcut DAILY Qty: 9 RF: 11 meloxicam 15 mg tablet 15 mg PO DAILY PRNRF: 0 phentermine 30 mg capsule 30 mg PO DAILY Qty: 30 RF: 2 ondansetron 4 mg tablet,disintegrating 4 mg PO .Q6-8H PRNRF: 0 lidocaine 4 % aerosol,spray 1 spray topical Q2H PRN (Reason: sore throat) Qty: 113 RF: 0 (DME) blood-glucose meter [OneTouch Ultra2 Meter] Misc See Rx Instructions .ROUTE .MEDSUPPLY Qty: 1 RF: 1 (DME) OneTouch Ultra Blue Test Strip Strip See Rx Instructions .ROUTE .MEDSUPPLY Qty: 300 RF: 3 (DME) lancets [OneTouch UltraSoft Lancets] Misc See Rx Instructions .ROUTE .MEDSUPPLY Qty: 300 RF: 3 (DME) pen needle, diabetic 29 gauge x 1/2 needle 1 ea Miscellaneous DAILY Qty: 100 RF: 3 Jardiance 25 mg tablet 25 mg PO QAM Qty: 90 RF: 1 propranolol 80 mg capsule,extended release 24 hr 80 mg PO DAILY Qty: 90 RF: 3 montelukast [Singulair] 10 mg tablet 10 mg PO DAILY PRN (Reason: allergic symptoms) Qty: 90 RF: 1 metformin 1,000 mg tablet 1,000 mg PO BID Qty: 180 RF: 3 Claritin-D 12 Hour 1 EACH tablet extended release 12 hr 1 tab PO PRN PRNRF: 0 clindamycin HCl [Cleocin HCl] 150 mg capsule 450 mg PO TID 6 Days Qty: 54 RF: 0 Discharge Instructions Instructions: Pharyngitis (ED) Additional Instructions: Please continue with the regimen that was discussed yesterday during your visit Yogurt daily while on antibiotic Take ibuprofen and Tylenol if you are able Take this medication as prescribed on the bottle Follow-up with ENT should he have persistent symptoms Should you have worsening symptoms, please return to the emergency room Referrals: Juan Simmons MD [ [facility] STAFF PHYSICIAN] - Pascual Forrest MD [Primary Care Provider] - Discharge Data Discharge Date/Time-TO BE ENTERED AT DEPARTURE: 06/24/21 10:55 Medical Decision Making Note including physical exam and diagnostic evaluation revaluated from yesterday with CT scan does not show evidence of peritonsillar retropharyngeal abscess Patient with normal phonation today and overall feeling improved from yesterday's visit I did review patient's leukocytosis, she does have marked elevation in her white blood cell count, she is instructed to follow-up closely with her PCP regarding this She has good outpatient reassessment She is given ENT referral She was given a full dose of Decadron which will likely last between 48 to 72 hours Return precautions were discussed and patient expressed understanding, she is discharged home in stable condition with stable vital with normal phonation and symptomatic improvement Medical Records Medical records reviewed: Yes I reviewed the patient's medical records. Lab Data Lab results reviewed: Yes I reviewed the patient's lab results. HPI General Mode of arrival: ambulatory . Date/Time Provider Initiated Documentation: 06/24/21 10:26 . Limitations to Documentation: no limitations . Information obtained by: patient . HPI Narrative: This 35-year-old female presents for reassessment of her tonsillitis. Patient was assessed yesterday, she had Morbidities but is otherwise feeling symptomatically improved. She denies any fever or chills today. She has been able to eat and drink without difficulty. Denies any vomiting. Related Data Home Medications Medication Instructions Recorded Confirmed Claritin-D 12 Hour 1 tab PO PRN PRN 11/16/13 06/24/21 dimenhydrinate 50 mg chewable 50 mg PO Q4H PRN #15 tab-cap 03/10/19 06/24/21 tablet meclizine 25 mg tablet 25 mg PO DAILY PRN #30 tab-cap 03/10/19 06/24/21 blood-glucose meter #1 each 07/16/19 06/24/21 blood sugar diagnostic #300 each 07/20/19 06/24/21 blood-glucose meter #1 each 07/20/19 06/24/21 lancets #300 each 07/20/19 06/24/21 pen needle, diabetic 29 gauge x #100 ndl 05/30/20 06/24/21 1/2 albuterol sulfate 90 mcg/actuation 1 - 2 puff INHALATION q 4 h PRN #1 08/23/20 06/24/21 aerosol inhaler inhaler liraglutide 0.6 mg/0.1 mL (18 mg/3 1.8 mg SUBCUT DAILY #9 ml 08/23/20 06/24/21 mL) subcutaneous pen injector ondansetron 4 mg disintegrating 4 mg PO .Q6-8H PRN tab 12/29/20 06/24/21 tablet empagliflozin 25 mg tablet 25 mg PO QAM #90 tab 01/03/21 06/24/21 propranolol 80 mg capsule,24 80 mg PO DAILY #90 cap 01/20/21 06/24/21 hr,extended release glipizide 10 mg tablet, extended 20 mg PO DAILY #180 tab-cap 02/01/21 06/24/21 release 24 hr norgestimate-ethinyl estradiol 1 tab PO DAILY #28 tab-cap 02/01/21 06/24/21 0.18 mg/0.215mg/0.25mg-35 mcg(28)tablet metformin 1,000 mg tablet 1,000 mg PO BID #180 tab 02/22/21 06/24/21 montelukast 10 mg tablet 10 mg PO DAILY PRN #90 tab 09/22/21 01/22/22 meloxicam 15 mg tablet 15 mg PO DAILY PRN tab 03/07/21 06/24/21 phentermine 30 mg capsule 30 mg PO DAILY #30 cap 03/07/21 06/24/21 clindamycin HCl [Cleocin HCl] 450 mg PO TID 6 Days #54 cap 06/23/21 06/24/21 lidocaine 4 % topical spray 1 spray TOPICAL Q2H PRN #113 g 06/23/21 06/24/21 Previous Rx's Medication Instructions Recorded dimenhydrinate 50 mg chewable 50 mg PO Q4H PRN #15 tab-cap 03/10/19 tablet meclizine 25 mg tablet 25 mg PO DAILY PRN #30 tab-cap 03/10/19 blood-glucose meter #1 each 07/16/19 blood sugar diagnostic #300 each 07/20/19 blood-glucose meter #1 each 07/20/19 lancets #300 each 07/20/19 pen needle, diabetic 29 gauge x #100 ndl 05/30/20 1/2 albuterol sulfate 90 mcg/actuation 1 - 2 puff INHALATION q 4 h PRN #1 08/23/20 aerosol inhaler inhaler liraglutide 0.6 mg/0.1 mL (18 mg/3 1.8 mg SUBCUT DAILY #9 ml 08/23/20 mL) subcutaneous pen injector empagliflozin 25 mg tablet 25 mg PO QAM #90 tab 01/03/21 propranolol 80 mg capsule,24 80 mg PO DAILY #90 cap 01/20/21 hr,extended release glipizide 10 mg tablet, extended 20 mg PO DAILY #180 tab-cap 02/01/21 release 24 hr norgestimate-ethinyl estradiol 1 tab PO DAILY #28 tab-cap 02/01/21 0.18 mg/0.215mg/0.25mg-35 mcg(28)tablet metformin 1,000 mg tablet 1,000 mg PO BID #180 tab 02/22/21 montelukast 10 mg tablet 10 mg PO DAILY PRN #90 tab 02/22/21 phentermine 30 mg capsule 30 mg PO DAILY #30 cap 03/07/21 clindamycin HCl [Cleocin HCl] 450 mg PO TID 6 Days #54 cap 06/23/21 lidocaine 4 % topical spray 1 spray TOPICAL Q2H PRN #113 g 06/23/21 Allergies Allergy/AdvReac Type Severity Reaction Status Date / Time cefuroxime axetil Allergy Severe Anaphylaxsi Verified 06/24/21 10:35 [From Ceftin] s sodium nitrite Allergy Severe Throat Verified 06/24/21 10:35 Swelling Influenza Virus Vaccines Allergy Intermediate arm Verified 06/24/21 10:52 swelling acetaminophen [From Tylenol] AdvReac Intermediate Nausea Verified 06/24/21 10:35 albuterol AdvReac Intermediate Tremor, Verified 06/24/21 10:35 weakness codeine AdvReac Intermediate Nausea Verified 06/24/21 10:35 morphine AdvReac Intermediate pains in Verified 06/24/21 10:35 her head Sulfa (Sulfonamide AdvReac Intermediate Nausea Verified 06/24/21 10:35 Antibiotics) sulfacetamide AdvReac Intermediate GI Symptoms Verified 06/24/21 10:35 shellfish derived AdvReac Unknown Nausea Verified 06/24/21 10:52 tramadol AdvReac Severe Verified 06/24/21 10:35 headache maple Allergy Severe Anaphylaxsi Uncoded 06/24/21 10:35 s General Stated Complaint: GenMedical MARISOL: 3 Review of Systems All systems reviewed & are unremarkable except as noted in HPI and below PFSH All Active Problems (Updated 06/24/21 @ 10:45 by MAGI Johnson) Acute tonsillitis, unspecified (Acute) Diabetic retinopathy (Acute ~04/2021) 05/01/21 SHIPPEE-MILD IN THE RIGHT EYE-KB Hypermobile joint syndrome of multiple sites (Acute) Arthralgia (Acute) Chronic seasonal allergic rhinitis due to pollen (Acute) Migraine (Chronic) History of vertigo (Acute) Abnormal auditory perception of both ears (Acute) Vertigo (Acute) Asthma (Chronic) Polycystic ovarian syndrome (Chronic) Type II diabetes mellitus with complication, uncontrolled (Chronic) DX AGE 14 Dysuria (Acute) Pain, joint, hip, left (Acute) Hypermobility arthralgia (Acute) Ulcer of toe of right foot (Acute) Polyarthropathy (Acute) Left hand pain (Acute) Obesity (Chronic) Fracture of lower extremity (Acute) Gastroesophageal reflux disease (Acute) Patellofemoral stress syndrome (Acute) Status post cholecystectomy (Acute) Status post ovarian cystectomy (Acute) Leg pain, left (Chronic) LGSIL (low grade squamous intraepithelial dysplasia) (Acute) 04/19/15 Benign essential tremor (Acute) Surgical History Cholecystectomy Laparoscopic, Ovarian Cystectomy LEG FRACTURE 08/2014 Family History Mother Diabetes Hyperlipidemia Asthma Depression Father , AGE 56 Diabetes Depression Heart disease Sister Diabetes Maternal Grandfather Lung cancer Paternal Grandfather No problems noted. Maternal Grandmother , AGE 78 Diabetes Hyperlipidemia Brother No problems noted. Social History Smoking/Tobacco Use Status: Never Second Hand Exposure: Yes Smoking risk assessment performed?: Yes Alcohol Intake: never Drug use: Never Substance use type: does not use Household members: significant other Housing: apartment Communication Needs: Corrective Lenses Do you need help understanding health information?: Never current occupation: [employer] Pets and animals: Yes Pets and animals: cat(s) and dog(s) Sexually active: Yes Do you think of yourself as: straight/heterosexual Current gender identity: female What is your relationship status?: living with partner How often do you talk on the phone with friends or family?: three or more times per week How often do you get together with friends or relatives?: once per week How often do you attend evangelical or zoroastrianism services?: decline to answer Do you belong to any clubs or organized social groups?: no Panel score (0-1 are the most socially isolated patients): 2 What type of physical activity do you participate in: other Details: ELIPTICAL Duration: < 15 minutes/day Frequency: 3-4 times per week Joceline/Amish: Other Special joceline needs: No Seatbelt use: always Helmet use: Yes Helmet use: always Drive intox or ride w/intox bus driver/monitor: No Do you feel safe at home: Yes Do you feel safe in your relationship?: Yes Exam Const General: cooperative, comfortable and no acute distress HENMT Other: Tonsillar exudate and mild swelling without uvular deviation or tonsillar involvement, normal phonation, maintaining secretions, oropharynx patent Eyes Sclera: sclerae normal Neck Other: No stridor Resp Effort & Inspection: normal respiratory effort Cardio Rate: regular rate Skin General skin exam: no rashes or lesions noted Neuro General: patient alert Course Vital Signs Vital signs: Vital Signs Temperature 35.8 C L 06/24/21 10:25 Pulse 97 H 06/24/21 10:25 Respiratory Rate 16 06/24/21 10:25 Blood Pressure 108/75 06/24/21 10:25 Pulse Oximetry 98 06/24/21 10:25 Temperature 35.8 C L 06/24/21 10:25 Temperature Source Oral 06/24/21 10:25 Pulse 97 H 06/24/21 10:25 Respiratory Rate 16 06/24/21 10:25 Respiratory Effort 06/24/21 10:25 Blood Pressure 108/75 06/24/21 10:25 Blood Pressure Position Sitting 06/24/21 10:25 Pulse Oximetry 98 06/24/21 10:25 Oxygen Delivery Method Room Air 06/24/21 10:25 Oxygen Flow Rate 0 06/24/21 10:25 Pain Level 4 06/24/21 10:25
== END 2021-06-24 10:55 | disposition home or self-care (01) ==
PROVIDERS: Emergency Provider Physician Assistant; PCP Family Medicine
DX: J03.90 Acute tonsillitis, unspecified (principal); Z77.22 Contact with and (suspected) exposure to environmental tobacco smoke (acute) (chronic); D72.829 Elevated white blood cell count, unspecified
CPT/HCPCS: 99283

== ENCOUNTER 2021-07-14 02:34 | Outpatient (CLI) | payer BC, SELFPAY ==
[2021-07-14 16:27] LABS: Abs Immature Grans 0.04 10^3/uL (0.0-0.06); Absolute Basophil Count 0.06 10^3/uL (0.0-0.2); Absolute Eosinophil Count 0.14 10^3/uL (0.0-0.7); Absolute Lymphocyte Count 4.11 10^3/uL (1.2-3.4); Absolute Monocyte Count 0.57 10^3/uL (0.1-0.8); Absolute Neutrophil Count 6.47 10^3/uL (1.2-6.7); Basophils % 0.5; Eosinophils % 1.2; HCT 42.8 % (36.0-46.0); HGB 13.6 g/dL (11.2-15.7); Immature Grans % 0.4; Lymphocytes % 36.1; MCH 26.1 pg (27.0-33.0); MCHC 31.8 % (32.0-36.0); MCV 82.1 fL (80-95); MPV 9.5 fL (8.0-11.0); Neutrophils % 56.8; Nucleated RBC 0 %; Platelet Count 423 10^3/uL (130-400); RBC 5.21 10^6/uL (3.93-5.22); RDW 13.7 % (11.7-14.6); RDW-SD 40.2 fL; WBC 11.39 10^3/uL (4.4-10.8)
[2021-07-14 17:25] LABS: ALT 16 U/L (14-59); AST 8 U/L (15-37); Albumin 3.3 g/dL (3.4-5.0); Alkaline Phosphatase 80 U/L (46-116); Anion Gap 7.9 mmol/L (3-11); BUN 12 mg/dL (7-18); Bilirubin, Total 0.3 mg/dL (0.2-1.0); CO2 28.1 mmol/L (21.0-32.0); CREATININE 0.7 mg/dL (0.55-1.02); Calcium 9.3 mg/dL (8.5-10.1); Chloride 102 mmol/L (98-107); Glucose 214 mg/dL (74-106); Potassium 4.1 mmol/L (3.5-5.1); Sodium 138 mmol/L (136-145); Total Protein 7.7 g/dL (6.4-8.2)
== END 2021-07-14 02:35 | disposition home or self-care (01) ==
LOC: LBO 02:35
PROVIDERS: PCP Family Medicine; Visit Provider Family Medicine
DX: D72.829 Elevated white blood cell count, unspecified (principal); R10.9 Unspecified abdominal pain
CPT/HCPCS: 36415; 80053; 85025

== ENCOUNTER 2021-09-07 02:04 | Outpatient (CLI) | payer BC, SELFPAY ==
[2021-09-07 09:42] LABS: Abs Immature Grans 0.07 10^3/uL (0.0-0.06); Absolute Basophil Count 0.08 10^3/uL (0.0-0.2); Absolute Eosinophil Count 0.15 10^3/uL (0.0-0.7); Absolute Lymphocyte Count 4.47 10^3/uL (1.2-3.4); Absolute Monocyte Count 0.82 10^3/uL (0.1-0.8); Absolute Neutrophil Count 9.55 10^3/uL (1.2-6.7); Basophils % 0.5; HGB 14.3 g/dL (11.2-15.7); Immature Grans % 0.5; Lymphocytes % 29.5; MCH 25.8 pg (27.0-33.0); MCHC 31.8 % (32.0-36.0); MCV 81.1 fL (80-95); MPV 9.3 fL (8.0-11.0); Monocytes % 5.4; Neutrophils % 63.1; Nucleated RBC 0 %; Platelet Count 475 10^3/uL (130-400); RBC 5.55 10^6/uL (3.93-5.22); RDW 13.2 % (11.7-14.6); RDW-SD 38.6 fL; WBC 15.14 10^3/uL (4.4-10.8)
== END 2021-09-07 02:05 | disposition home or self-care (01) ==
LOC: LBO 02:04
PROVIDERS: PCP Family Medicine; Visit Provider Family Medicine
DX: D72.829 Elevated white blood cell count, unspecified (principal)
CPT/HCPCS: 36415; 85025

== ENCOUNTER 2021-09-22 01:53 | Outpatient (CLI) | payer BC, SELFPAY ==
[2021-09-22 11:45] LABS: Abs Immature Grans 0.09 10^3/uL (0.0-0.06); Absolute Basophil Count 0.09 10^3/uL (0.0-0.2); Absolute Eosinophil Count 0.17 10^3/uL (0.0-0.7); Absolute Lymphocyte Count 4.73 10^3/uL (1.2-3.4); Absolute Monocyte Count 0.78 10^3/uL (0.1-0.8); Basophils % 0.6; Eosinophils % 1.1; HCT 45.6 % (36.0-46.0); HGB 14.3 g/dL (11.2-15.7); Immature Grans % 0.6; Lymphocytes % 31.4; MCH 25.5 pg (27.0-33.0); MCHC 31.4 % (32.0-36.0); MCV 81.3 fL (80-95); MPV 9.6 fL (8.0-11.0); Monocytes % 5.2; Neutrophils % 61.1; Platelet Count 388 10^3/uL (130-400); RBC 5.61 10^6/uL (3.93-5.22); RDW 12.7 % (11.7-14.6); RDW-SD 37.4 fL; WBC 15.07 10^3/uL (4.4-10.8)
[2021-09-22 11:46] LABS: Absolute Neutrophil Count 9.21 10^3/uL (1.2-6.7)
[2021-09-22 12:03] LABS: Diff Comment Diff Reviewed; RBC Morphology Normal
== END 2021-09-22 01:54 | disposition home or self-care (01) ==
LOC: LBO 01:53
PROVIDERS: PCP Family Medicine; Visit Provider Family Medicine
DX: D72.829 Elevated white blood cell count, unspecified (principal)
CPT/HCPCS: 36415; 85025

== ENCOUNTER → 2022-01-18 11:42 | Outpatient (CLI) | payer BC, SELFPAY ==
--- NOTE | 2022-01-18 10:45 | DI.RAD_ITS ---
Exam(s) XR HAND LT COMPLETE EXAM: XR HAND LT COMPLETE CLINICAL HISTORY: PAIN IN LT HAND--[id number]--. TECHNIQUE: 2D digital imaging was performed. Three views. COMPARISON: No exams were available for comparison FINDINGS: BONES: No acute fracture is present. No bony destructive lesion is seen. JOINTS: No dislocation present. SOFT TISSUE: Normal. IMPRESSION: Unremarkable radiographs of the left hand. DATA REPOSITORY: RADIATION DOSE DELIVERED:
--- OUTSIDE RECORDS SUMMARY | 2022-01-18 11:46 | XMS_ITS | Clinical Summary ---
:1985 Author Organization [facility] [employer] [place] [address] Care Team Providers Name Role Phone Pascual Forrest MD Primary Care Provider [phone] Allergies Active Allergy Reactions Severity Noted Date Comments Acetaminophen Nausea And Vomiting Cefuroxime Axetil Anaphylaxis High Codeine Phosphate Nausea And Vomiting Morphine Sulfate Pain gets w orse Sulfa (Sulfonamide Nausea And Vomiting Antibiotics) Tramadol Nausea Only 04/17/2019 Medications Medication Sig Dispensed Refills Start Date End Date Status Blood Sugar 320 each by Other 320 each 3 08/27/2014 Active Diagnostic route 4 times daily. (FREESTYLE LITE by Other route. 1 STRIPS) Strip box = 100 test strips; 3 boxes = 300 test strips. lancets (FREESTYLE 320 each by Other 320 each 3 08/27/2014 Active LANCETS) 28 gauge route 4 times daily. Misc by Other route. 1 box = 100 lancets; 3 boxes = 300 lancets. Blood-Glucose Meter by Other route. 1 = 1 each 0 08/27/2014 Active (FREESTYLE LITE 1 blood glucose METER) Kit meter kit. VICTOZA 3-STEPHY 0.6 INJECT 1.8 MILLIGRAM 8 03/05/2019 Active mg/0.1 mL (18 mg/3 SUBCUTANEOUSLY DAILY mL) Pen Injector meclizine (ANTIVERT) TAKE 1 TABLET BY 0 03/10/2019 Active 25 mg Tablet MOUTH ONCE DAILY NEEDED FOR MOTION SICKNESS TRI-SPRINTEC, 28, TK 1 T PO DAILY. 11 03/07/2019 Active 0.18/0.215/0.[address] SND AFTER mg-35 mcg (28) ONSET OF MENSES Tablet BD ULTRA-FINE SHORT USE DAILY 2 03/06/2019 Active PEN NEEDLE 31 gauge x 5/16 Needle phentermine 15 mg TK 1 C PO D 2 HOURS 0 03/13/2019 Active Capsule AFTER BREAKFAST propranolol (INDERAL Take 80 mg by mouth 2 9 Active LA) 60 mg daily. Capsule,Sustained Action 24 hr JANUMET 50-1,000 mg TAKE 1 TABLET BY 2 02/17/2019 Active Tablet MOUTH TWICE A DAY glipiZIDE (GLUCOTROL 0 01/14/2019 Active XL) 10 mg Tablet Extended Rel 24 hr montelukast as needed. 0 04/03/2019 Active (SINGULAIR) 10 mg Tablet metFORMIN Take 1,000 mg by 0 Act oliverio (Glucophage) 1,000 mouth 2 times daily mg Tablet (with meals). empagliflozin Take 10 mg by mouth 0 Active (Jardiance) 10 mg daily. 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 CIS - familial gall bladder disease CIS - Raynauds Encounters Date Type Specialty Care Team Description 12/15/2021 Office Visit Rheumatology Bryson Amin Fibromnadine shea MD Generalized hyp ermobility of joints 12/11/2021 Transcribe Orders Primary Care Pascual Forrest Infl kirstin James MD arthritis 11/03/2021 Office Visit Hematology and Nurys, Leukocytosis, unspecified type (Primary Dx); Oncology Hu Berman Fatigue, unspecified type Nupur Medina, [employer] PRES[employer] OF [employer]UITING from Last 3 Months Family History Medical History Relation Comments Diabetes Father Diabetes Maternal Aunt Diabetes Maternal Grandmother Diabetes Mother Cancer Neg Hx Relation Status Comments Father Maternal Aunt Maternal Grandmother Mother Social History Tobacco Use Types Packs/Day Years Used Date Never Smoker Smokeless Tobacco: Never Used Alcohol Use Standard Drinks/Week Comments No 0 (1 standard drink = 0.6 oz pure alcoho l) occ Alcohol Habits Answer Date Recorded How often do you have a drink containing alcohol? Never 03/20/2019 How many drinks containing alcohol do you have on a typical Not asked day when you are drinking? How often do you have six or more drinks on one occasion? No t asked Comment: occ 03/20/2019 Financial Resource Strain Answer Date Recorded How hard is it for you to pay for the very basics like Not v taye hard 11/03/2021 food, housing, medical care, and heating? Food Insecurity Answer Date Recorded Within the past 12 months, you worried that your food would Never true 11/03/2021 run out before you got money to buy more. Within the past 12 months, the food you bought just didn't N ever true 11/03/2021 last and you didn't have money to get more. Transportation Needs Answer Date Recorded In the past 12 months, has lack of transportation kept you f rom No 11/03/2021 medical appointments or from getting medications? In the past 12 months, has lack of transportation kept you f rom No 11/03/2021 meetings, work, or getting things needed for daily living? Housing Stability Answer Date Recorded In the last 12 months, was there a time when you were not ab le No 11/03/2021 to pay the mortgage or rent on time? In the last 12 months, how many places have you lived? 1 11/03/2021 In the last 12 months, was there a time when you did not hav e a No 11/03/[address] or slept in a residential (including now)? Sex Assigned at Date Recorded Not on file Last Filed Vital Signs Vital Sign Reading Time Taken Comments Blood Pressure 128/82 12/15/2021 2:36 PM EDT Pulse 83 12/15/2021 2:36 PM EDT Temperature 36.5 ??C (97.7 ??F) 12/15/2021 2:36 PM EDT Respiratory Rate 16 11/03/2021 2:56 PM EDT Oxygen Saturation 98% 12/15/2021 2:36 PM EDT Inhaled Oxygen Concentration - - Weight 96.5 kg (212 lb 12.8 oz) 12/15/2021 2:36 PM EDT Height 167.6 cm (5' 6) 12/15/2021 2:36 PM EDT Body Mass Index 34.35 12/15/2021 2:36 PM EDT Plan of Treatment Upcoming Encounters Date Type Specialty Care Team Description 02/20/2022 TH Visit (TeleHealth) Rheumatology Jeffery Amin MD [facility] [address] [place], [place] [address] (Wo rk) Health Maintenance Due Date Last Done Comments Covid-19 Vaccine (#1) 1989 Pneumococcal Vaccine: At-Risk 1990 5-64yrs (1 - PCV) DM Opthalmology Exam 1994 DM Urine Microalbumin yearly 1994 HIV screen 2002 Hepatitis C Screening 2002 Lipid Screening 2002 Tdap adult 09/27/2003 Tetanus vaccine 09/27/2003 HPV test 2014 PAP Smear 2014 DM Hemoglobin A1c 11/26/2014 08/26/2014 Influenza (Flu) vaccine (1 of - 02/01/2022 Influenza standard series) DM Creatinine yearly 12/15/2022 12/15/2021, 11/03/2021, 08/28/2014, Additional history exists Medical Devices Implanted Type Area Uncrater Device Shelf Model / Identifier Expiration Serial / Date Lot Screw,Lck,Stap,Ti,T25,4x36mm ([id number]) ([employer]oreq) - [id number] PLANTS Left: DO NOT USE 07/30/2022 [id number] / Implanted: Qty: 1 on 08/27/2014 by Bryson Mo MD at [facility] [employer] - / [id number] 8mm Ti Donald Tibial Nail-Ex W/Prox Bend 345mm [id number] / Implanted: Qty: 1 on 08/27/2014 by Bryson Mo MD at [facility] / [id number] Procedures Procedure Name Priority Date/Time Associated Diagnosis Comme nts HC UA W/OUT Routine 12/15/2021 4:32 Fibromyalgia Results for this MICROSCOPIC PM EDT procedure are i n the results section. DIFFERENTIAL, Routine 12/15/2021 4:18 Fibromyalgia Results for this AUTOMATED PM EDT procedure are i n the results section. HEMOGRAM Routine 12/15/2021 4:18 Fibromyalgia Results for this PM EDT procedure are i n the results section. HC ESR-SEDIMENTATION Routine 12/15/2021 4:18 Fibromyalgia Resu lts for this RATE, BLOOD PM EDT procedure are i n the results section. HC C-REACTIVE PROTEIN Routine 12/15/2021 4:18 Fibromyalgia Res ults for this PM EDT procedure are i n the results section. COMPREHENSIVE Routine 12/15/2021 4:18 Fibromyalgia Results for this METABOLIC PANEL PM EDT procedure ar e in (NON-FASTING) the results section. HC CBC,PLT & AUTO DIFF Routine 12/15/2021 4:18 Fibromyalgia PM EDT HC PCH ANATITRE Routine 12/15/2021 4:18 Fibromyalgia Results f or this (ANDPATTERN) PM EDT procedure are i n the results section. HC CYCLIC CITRULLINE Routine 12/15/2021 4:18 Fibromyalgia Resu lts for this PEPTIDE PM EDT procedure are i n the results section. LAB SCAN 12/01/2021 12:00 Results for this AM EDT procedure are i n the results section. SCAN, PERIPHERAL BLOOD STAT 11/03/2021 4:07 Re sults for this PM EDT procedure are i n the results section. DIFFERENTIAL, STAT 11/03/2021 4:07 Leukocytosis, Results fo r this AUTOMATED PM EDT unspecified type procedure a re in the results section. HEMOGRAM STAT 11/03/2021 4:07 Leukocytosis, Results for this PM EDT unspecified type procedure a re in the results section. HC LACTIC Routine 11/03/2021 4:07 Leukocytosis, Results for this DEHYDROGENASE PM EDT unspecified type procedure are in the results section. HC CBC,PLT & AUTO DIFF STAT 11/03/2021 4:07 Leukocytosis, PM EDT unspecified type COMPREHENSIVE Routine 11/03/2021 4:07 Leukocytosis, Results fo r this METABOLIC PANEL PM EDT unspecified type procedur e are in (NON-FASTING) the results section. HC ESR-SEDIMENTATION STAT 11/03/2021 4:07 Leukocytosis, Res ults for this RATE, BLOOD PM EDT unspecified type procedure a re in the results section. HC C-REACTIVE PROTEIN Routine 11/03/2021 4:07 Leukocytosis, Re sults for this PM EDT unspecified type procedure a re in the results section. HC VENIPUNCTURE STAT 11/03/2021 4:07 Leukocytosis, Results for this PM EDT unspecified type procedure a re in the results section. from Last 3 Months Results (ABNORMAL) Urinalysis without microscopic (12/15/2021 4:32 PM EDT) [facility] Method Time Signature Glucose UA >=1000 Negative [facility] (Critical) mg/dL [facility] Comment: Urinalysis result NOT critical without a combination of Glucose greater than or equal to 500 mg/dL AND Ketones greate r than or equal to 80 mg/dL Protein UA Negative Negative mg/dL [facility] Bilirubin UA Negative Negative mg/dL [facility] Comment: Clinical correlation required for positi ve Urine Bilirubin results as false positive may occur with some drugs and d rug related products. If a false positive is suspected a serum total bili mancera should be considered if clinically indicated. Urobilinogen UA Normal Normal mg/dL [facility] pH UA 5.5 5.0 - 8.0 [facility] Blood UA Trace (A) Negative mg/dL [facility] Ketones UA Negative Negative mg/dL [facility] Nitrite UA Negative Negative [facility] Leukocytes UA Negative Negative [facility] Appearance UA Clear Clear [facility] Spec Blaine UA >=1.030 (A) 1.005 - 1.030 [facility] Color UA Yellow Yellow [facility] Specimen Anatomical Collection Method Collection Time Receive d Time (Source) Location / / Volume Laterality Urine 12/15/2021 4:32 PM 2 4:48 EDT PM EDT Resulting Agency Comment Spec In Lab Bryson Amin MD URINE ORDERABLES Performing Organization Address City/State/[place] [address] [facility] (ABNORMAL) CRP, acute inflammation (12/15/2021 4:18 PM EDT)Only the most recent of2 resultswithin the time period is included. athologist Signature CRP 44.8 (H) <=4.9 mg/L [facility] Specimen Anatomical Collection Method Collection Time Receive d Time (Source) Location / / Volume Laterality Blood 12/15/2021 4:18 PM 2 4:34 EDT PM EDT Resulting Agency Comment Spec In Lab Bryson Amin MD CHEMISTRY ORDERABLES Performing Organization Address City/[facility]/ZIP Code Phon e Number [address] Cyclic Citrullinated Peptide (12/15/2021 4:18 PM EDT) athologist Signature Anti-Cyc Cit <8.0 <=16.9 [facility] Peptide unit/mL [facility] Specimen Anatomical Collection Method Collection Time Receive d Time (Source) Location / / Volume Laterality Blood 12/15/2021 4:18 PM 2 4:34 EDT PM EDT Resulting Agency Comment Spec In Lab Bryson Amin MD CHEMISTRY ORDERABLES Performing Organization Address City/[facility]/ZIP Code Phon e Number [address] (ABNORMAL) Hemogram (12/15/2021 4:18 PM EDT)Only the most recent of2 results within the time period is included. Analysis Performed At Patho logist Time Signature WBC 13.4 (H) 4.0 - 9.5 [facility] x10(3)/[facility] LABORATORY RBC 5.56 (H) 4.00 - [facility] 5.21 [facility] x10(6)/[facility] LABORATORY Hemoglobin 14.2 11.7 - [facility] 15.5 g/dL [facility] Hematocrit 43.7 35.7 - [facility] 45.8 % [facility] MCV 78.6 (L) 82.6 - [facility] 94.4 fL [facility] MCH 25.5 (L) 27.1 - [facility] 32.0 pg [facility] MCHC 32.5 31.7 - [facility] 35.[facility] g/dL [facility] Platelets 379 (H) 145 - 357 [facility] x10(3)/[facility] LABORATORY RDWSD 37.2 37.0 - [facility] 46.0 [facility] LABORATORY RDWCV 13.1 11.5 - [facility] 14.1 % [facility] MPV 9.8 7.6 - 12.9 [facility] LABORATORY nRBC % Auto 0.0 % [facility] nRBC Abs Auto 0.000 0.000 - [facility] 0.000 [facility] x10(3)/[facility] LABORATORY Specimen Anatomical Collection Method Collection Time Receive d Time (Source) Location / / Volume Laterality Blood 12/15/2021 4:18 PM 4:34 EDT PM EDT Resulting Agency Comment Spec In Lab Bryson Amin MD HEMATOLOGY ORDERABLES Performing Organization Address City/State/[place] [address] (ABNORMAL) Differential, Automated (12/15/2021 4:18 PM EDT)Only the most recent of2 resultswithin the time period is included. [facility] gist Method Time Signature Neutrophils % 58.1 % [facility] Neutr Abs (ANC) 7.79 (H) 1.70 - CHANELLE OLIVEROS 6.10 [facility] x10(3)/[facility] LABORATORY Lymphocytes % 33.6 % [facility] Lymphocytes Abs 4.5 (H) 0.9 - 3.2 [facility] x10(3)/[facility] LABORATORY Monocytes % 5.9 % [facility] Monocyte Abs 0.8 0.3 - 0.9 [facility] x10(3)/[facility] LABORATORY Eosinophils % 1.4 % [facility] Eosinophils Abs 0.2 0.0 - 0.4 [facility] x10(3)/[facility] LABORATORY Basophils % 0.6 % [facility] Basophils Abs 0.1 0.0 - 0.1 [facility] x10(3)/[facility] LABORATORY Immature Gran % 0.40 % [facility] Comment: Immature granulocytes(IG's)percentage an d absolute count will include metamyelocytes, myelocytes, and promyelo cytes. Blood smears from CBCs yielding IG's will be scanned manually for concor dance. If this scan disagrees with the automated IG or if promyelocytes are not ed, a manual differential will be performed. Rosamaria Gran Abs 0.06 (H) 0.00 - 0.04 x10(3)/[facility] LABORATORY Specimen Anatomical Collection Method Collection Time Receive d Time (Source) Location / / Volume Laterality Blood 12/15/2021 4:18 PM 2 4:34 EDT PM EDT Resulting Agency Comment Spec In Lab Bryson Amin MD HEMATOLOGY ORDERABLES Performing Organization Address City/[facility]/ZIP Code Phon e Number [address] (ABNORMAL) Sedimentation rate (12/15/2021 4:18 PM EDT)Only the most recent of2 resultswithin the time period is included. P athologist Signature Sed Rate 38 (H) 2 - 37 [facility] mm/hr [facility] Comment: Effective May 13, 2019 new capillar y photometric technology has resulted in a change in reference ranges. It is r ecommended that each ESR result be reviewed with its own age appropriate re ference range. Specimen Anatomical Collection Method Collection Time Receive d Time (Source) Location / / Volume Laterality Blood 12/15/2021 4:18 PM 2 4:34 EDT PM EDT Resulting Agency Comment Spec In Lab Bryson Amin MD HEMATOLOGY ORDERABLES Performing Organization Address City/[facility]/ZIP [place] [address] SHERRI (12/15/2021 4:18 PM EDT) Component Value Ref Test Analysis Performed At Patholo gist Range Method Time Signature Antinuclear Ab CHANELLE Test ?Result ? Flag ??Unit ??RefValue ARLIN [facility] Antinuclear Ab, HEp-2 ? <1:80 (Negative) ? <1:80 (Negative) HOSPITAL ??Substrate, S LABORATORY ? ADDITIONAL INFORMATION ------ ?Method: Immunofluorescence using HEp-2 cellular substr ate. ?Test Performed by: ?[facility] ?[address] [place] [address] ?Meat Curer: Ashwin Billings M.D. Ph.D.; CLIA# [id number] Specimen Anatomical Collection Method Collection Time Receive d Time (Source) Location / / Volume Laterality Blood 12/15/2021 4:18 PM 2 9:23 EDT AM EDT Resulting Agency Comment Spec In Lab Bryson Amin MD IMMUNOLOGY ORDERABLES Performing Organization Address City/State/[place] [address] (ABNORMAL) Comprehensive metabolic panel (non-fasting) (12/15/2021 4:18 PM EDT) Only the most recent of2 resultswithin the time period is included. athologist Signature Glucose Lvl 207 (H) 65 - 199 [facility] mg/dL [facility] Comment: Diabetes: >=200 mg/dL plus symp toms BUN 9 8 - 18 mg/dL [facility] Creatinine 0.67 (L) 0.70 - 1.20 mg/dL [facility] Sodium 135 135 - 145 mmol/L [facility] Potassium 3.9 3.5 - 5.0 mmol/L [facility] Comment: Please note: ??Patients with WBC >100,00 0 may have falsely elevated Potassium levels. ??For accurate Potassium quantif ication in these patients send serum separator tube (gold top) for subsequent determinations. ??Contact the Clinical Chemistry Laboratory if there are any qu estions. Chloride 99 98 - 107 mmol/L [facility] CO2 24 22 - 31 mmol/L [facility] Anion Gap 12 5 - 15 mmol/L [facility] Calcium 9.4 8.5 - 10.5 mg/dL [facility] Total Protein 7.4 6.1 - 8.0 g/dL [facility] Albumin 3.9 3.2 - 5.2 g/dL [facility] AST 10 0 - 30 unit/L [facility] ALT 8 0 - 30 unit/L [facility] Alk Phos 85 35 - 105 unit/L [facility] Total Bilirubin 0.4 0.2 - 1.3 mg/dL [facility] Estimated GFR 115 >=60 mL/min/1.73 m?? [facility] Comment: This patient's estimated GFR was calcula arpan using the 2020 CKD-EPI equation. The estimated GFR can vary from the christal ured GFR by up to 30% in the absence of rapidly changing kidney function. Assess ment of the estimated GFR is not appropriate when creatinine concentratio ns are rapidly changing. For clinical situations in which a more precise estim ate of GFR is necessary, consider alternative methods of GFR estimation hooks ch as a 24-hour urine creatinine clearance. Assignment of CKD stage 1-5 for patients with an eGFR near the transition point between stages may be based on clinical assessment of muscle mass and symptoms in addition to eGFR. Specimen Anatomical Collection Method Collection Time Receive d Time (Source) Location / / Volume Laterality Blood 12/15/2021 4:18 PM 2 4:34 EDT PM EDT Resulting Agency Comment Spec In Lab Bryson Amin MD CHEMISTRY ORDERABLES Performing Organization Address City/[facility]/ZIP [place] [address] SCAN DOC: LAB (12/01/2021 12:00 AM EDT) Narrative This result has an attachment that is no t available. Unknown MEDIA MGR SCAN EXT ORDR/RSLT Scan, Peripheral Blood (11/03/2021 4:07 PM EDT) Patholo gist Method Time Signature Plat Estimate Increased [facility] RBC Morphology Normal [facility] Specimen Anatomical Collection Method Collection Time Receive d Time (Source) Location / / Volume Laterality Blood 11/03/2021 4:07 PM 2 4:17 EDT PM EDT Resulting Agency Comment Spec In Lab Tanmay Nuno MD HEMATOLOGY ORDERABLES Performing Organization Address City/[facility]/ZIP [place] [address] TSH (11/03/2021 4:07 PM EDT) P athologist Signature TSH 1.73 0.27 - 4.20 [facility] mcIU/mL [facility] Comment: Reference Interval (mcIU/mL): Females: ??First Trimester: 0.23-3.88 ??Second Trimester: 0.22-3.90 ??Third Trimester: 0.44-4.66 Specimen Anatomical Collection Method Collection Time Receive d Time (Source) Location / / Volume Laterality Blood 11/03/2021 4:07 PM 2 4:17 EDT PM EDT Resulting Agency Comment Spec In Lab Tamnay Nuno MD CHEMISTRY ORDERABLES Performing Organization Address City/[facility]/ZIP [place] [address] Lactate Dehydrogenase (11/03/2021 4:07 PM EDT) P athologist Signature LDH 116 110 - 220 [facility] unit/L [facility] Specimen Anatomical Collection Method Collection Time Receive d Time (Source) Location / / Volume Laterality Blood 11/03/2021 4:07 PM 4:17 EDT PM EDT Resulting Agency Comment Spec In Lab Tanmay Nuno MD CHEMISTRY ORDERABLES Performing Organization Address City/State/ZIP [place] [address] from Last 3 Months Insurance Payer Benefit Plan Subscriber ID Effective Dates Phone Address Type / Group [employer] [place] [facility] [id number] 2021-Prese [phone] [address] [facility] [address] [place] [address] Advance Directives Latest Code Status on File Code Status Date Activated Date Inactivated Comments Full Code 08/26/2014 3:07 PM 08/28/2014 8:20 PM Order Status: Initial Order Does patient have decision making capacity? Yes, Order is based on Patients wishes. Care Teams Residential Program Manager Relationship Specialty Start Date End Date Pascual Forrest MD PCP - General Family Medicine 03/12/[address] [place] [address]
--- OUTSIDE RECORDS SUMMARY | 2022-01-18 11:47 | XMS_ITS | Encounter Summary ---
:1985 Author Organization [place] [address] Care Team Providers Name Role Phone Roxanna Sarmiento Primary Care Provider Reason for Visit Reason Onset Date Comments Appointment 02/14/2015 Encounter Details Date Type Department Care Team Description 02/14/2015 Telephone Orthopaedics at [facility] Bryson Mo MD Appointment [facility] [place] [address] ORTHOPAEDIC SURGERY [phone] [place], [place] [address] (Wo rk) Social History Tobacco Use Types Packs/Day Years Used Date Never Smoker Smokeless Tobacco: Never Used Alcohol Use Standard Drinks/Week Comments No 0 (1 standard drink = 0.6 oz pure alcoho l) Alcohol Habits Answer Date Recorded How often do you have a drink containing alcohol? Never 03/20/2019 How many drinks containing alcohol do you have on a typical Not asked day when you are drinking? How often do you have six or more drinks on one occasion? No t asked Comment: Not asked Financial Resource Strain Answer Date Recorded How [...] Assigned at Date Recorded Not on file documented as of this encounter Miscellaneous Notes Telephone Encounter - Emily Greenberg - 02/18/2015 10:21 AM EDT Unable to contact, letter sent Telephone Encounter - Emily Greenberg - 02/16/2015 9:41 AM EDT LM#2 to reschedule appt with Dr Mo Telephone Encounter - Emily Greenberg - 02/14/2015 11:32 AM EDT Lm#1 to reschedule appt with Dr Mo documented in this encounter Plan of Treatment Upcoming Encounters Date Type Specialty Care Team Description 02/20/2022 TH Visit (TeleHealth) Rheumatology Jeffery Amin MD [facility] [address] [place], [place] [address] (Wo rk) documented as of this encounter Visit Diagnoses Not on filedocumented in this encounter Care Teams Chrome Polisher Relationship Specialty Start Date End Date Roxanna Sarmiento PA PCP - General 06/14/10 05/02/[address] [place] [id number] documented as of this encounter
--- OUTSIDE RECORDS SUMMARY | 2022-01-18 11:47 | XMS_ITS | Encounter Summary ---
:1985 Author Organization [facility] [address] Care Team Providers Name Role Phone Roxanna Sarmiento Primary Care Provider Reason for Referral Physical Therapy (Routine) - Closed Specialty Diagnoses / Procedures Referred By Contact Refer red To Contact Physical Therapy Diagnoses Closed left tibial fracture, with routine healing, subsequent encounter Bryson Mo MD [facility] [place] [address] Referral ID Status Reason Start Date Expiration Date Visits V isits Requested Authorized [id number] Closed Evaluate and 10/19/2014 04/17/2015 12 12 Treat Reason for Visit Reason Comments Left Leg Fracture DOI 08/25/2014 IMN 5 Encounter Details Date Type Department Care Team Description 10/19/2014 Office Visit Orthopaedics at [facility] Bryson Mo V, Closed left tibial [facility] fracture, with [facility] routine healing, [place] [address] subsequent encounter [phone] ORTHOPAEDIC SURGERY [place] [id number] Social History Tobacco Use Types Packs/Day Years [...] to pay for the very basics like Jose kothari hard 11/03/2021 food, housing, medical care, and [...] place to sleep or slept in a care home (including now)? Sex Assigned at Date Recorded Not on file documented as of this encounter Last Filed Vital Signs Vital Sign Reading Time Taken Comments Blood Pressure 117/76 10/19/2014 1:36 PM EDT Pulse 101 10/19/2014 1:36 PM EDT Temperature - - Respiratory Rate - - Oxygen Saturation - - Inhaled Oxygen Concentration - - Weight 90.7 kg (200 lb) 10/19/2014 1:36 PM EDT Height 167.6 cm (5' 6) 10/19/2014 1:36 PM EDT Body Mass Index 32.28 10/19/2014 1:36 PM EDT documented in this encounter Progress Notes Bryson Mo MD - 10/19/2014 1:54 PM EDT Ms. Foreman returns in followup. Date of injury is 08/25/2014. She reports she is doing reasonably well. Her pain is well controlled. PHYSICAL EXAM: In general, well-developed female, in no apparent distress. Examination of the left ankle reveals incisions are well healed. Range of motion is 5 degrees dorsiflexion and 40 degrees plantarflexion. Calf is nontender. EHL and FHL are intact. X-RAYS: X-rays show hardware is intact. Alignment is well maintained. Fractures lines are less visible. ASSESSMENT AND PLAN: A 29-year-old female who is two months status post intramedullary nailing of her left distal tibial fracture. Clinically and radiographically, she is doing well. Plan at this point is to refer to outpatient physical therapy, 25% weightbearing events 25% per week. We will plan to see her back in two months with repeat x-rays. documented in this encounter Plan of Treatment Upcoming Encounters Date Type Specialty Care Team Description 02/20/2022 TH Visit (TeleHealth) Rheumatology Jeffery Amin MD [facility] [address] [place] [address] (Wo rk) Scheduled Referrals Name Type Priority Associated Diagnoses Order S chedule Referral to Outpatient Referral Routine Closed left tibial Or dered: Physical Therapy fracture, with 5 routine healing, subsequent encounter documented as of this encounter Results XR tibia fibula AP & lateral (12/21/2014 10:28 AM EDT) Anatomical Region Laterality Modality N/A Radiographic Imaging Specimen (Source) Anatomical Collection Method Collection Time Re ceived Time Location / / Volume Laterality 12/21/2014 10:28 AM EDT Impressions 12/21/2014 11:00 AM EDT IMPRESSION: Status post ORIF of distal tibial fracture which shows further interval healing and no radiographic lili dence of complication. Narrative 12/21/2014 11:00 AM EDT EXAMINATION: TIBIA and FIB AP and LAT/LEFT CLINICAL HISTORY: s/p fx TECHNIQUE: TIBIA and FIB AP and LAT/LEFT COMPARISON: 10/19/2014. FINDINGS: Patient is status post ORIF wi th an intramedullary tibial arabella and proximal and distal fixation screws brid ging a distal tibial fracture. There is been no interval change in position or a lignment. There has been further interval healing at the fracture site. T he adjacent fibular fracture appears solidly united. Procedure Note Riley Granados MD - 12/21/2014Format ting of this note might be different from the original. EXAMINATION: TIBIA and FIB AP and LAT/LE FT CLINICAL HISTORY: s/p fx TECHNIQUE: TIBIA and FIB AP and LAT/LEFT COMPARISON: 10/19/2014. FINDINGS: Patient is status post ORIF wi th an intramedullary tibial arabella and proximal and distal fixation screws brid ging a distal tibial fracture. There is been no interval change in position or a lignment. There has been further interval healing at the fracture site. T he adjacent fibular fracture appears solidly united. IMPRESSION IMPRESSION: Status post ORIF of distal t ibial fracture which shows further interval healing and no radiographic lili dence of complication. Bryson Abdi MD IMG DX ORDERABLES documented in this encounter Visit Diagnoses Diagnosis Closed left tibial fracture, with routin e healing, subsequent encounter Closed left tibial fracture, with routin e healing, subsequent encounter documented in this encounter Care Teams Seismic Prospecting Observer Relationship Specialty Start Date End Date Roxanna Sarmiento PA PCP - General 06/14/10 05/02/[address] [place] [phone] documented as of this encounter
--- OUTSIDE RECORDS SUMMARY | 2022-01-18 11:47 | XMS_ITS | Encounter Summary ---
:1985 Author Organization [facility] [address] Care Team Providers Name Role Phone Pascual Forrest MD Primary Care Provider [phone] Reason for Visit Consultation (Routine) - Authorized Specialty Diagnoses / Procedures Referred By Contact Refer red To Contact Rheumatology Diagnoses Inflammatory arthritis Pain in unspecified joint Pascual Forrest, [facility] [address] [id number] [place], [place] [address] 1 Referral ID Status Reason Start Expiration Visits Visits Date Date Requested Authorized [id number] Authorized Consult, 12/11/2021 12/11/2022 6 6 Test & Treat PCP Updated and/or Approved Encounter Details Date Type Department Care Team Description 12/15/2021 Office Visit Rheumatology at [facility] Bryson Amin, Fibromyalgia; [facility] Generalized [place] [address] Center [phone] [place], [place] [address] Social History Tobacco Use Types Packs/Day Years [...] place to sleep or slept in a [place] facility (including now)? Sex Assigned at Date Recorded Not on file documented as of this encounter Last Filed Vital Signs Vital Sign Reading Time Taken Comments Blood Pressure 128/82 12/15/2021 2:36 PM EDT Pulse 83 12/15/2021 2:36 PM EDT Temperature 36.5 ??C (97.7 ??F) 12/15/2021 2:36 PM EDT Respiratory Rate - - Oxygen Saturation 98% 12/15/2021 2:36 PM EDT Inhaled Oxygen Concentration - - Weight 96.5 kg (212 lb 12.8 oz) 12/15/2021 2:36 PM EDT Height 167.6 cm (5' 6) 12/15/2021 2:36 PM EDT Body Mass Index 34.35 12/15/2021 2:36 PM EDT documented in this encounter Progress Notes Bryson Amin MD - 12/15/2021 3:00 PM EDT This is an initial rheumatology consultation visit for Ms. Foreman who is a 36-year-old woman who is referred for evaluation of an elevated white blood count and inflammatory markers (ESR 53 CRP 52 11/03/2021). Ms. Foreman reports that a voice had weird joint pain: Rolling my ankles dislocating my kneecaps and chronic pain in the shoulders elbows and fingers. She reports that many family members have joint hypermobility and possible EDS. She describes having pain all over primarily in the joints and this is been associated with easy bruisability. She reports having pain virtually 24/ and the absence of days off from chronic pain. She also reports longstanding chronic fatigue. Additionally she reports cold induced urticaria and Raynaud's phenomenon for many years without ulceration. She has a history ofstretch miranda/striae but is also had weight loss. She reports that meloxicam at 15 mg daily helps take the edge off her chronic joint pain. She reports no history of recurrent mouth sores, hair loss, photosensitivity. Past medical history: Essential tremor, asthma, type 2 diabetes mellitus since age 4 with retinopathy. Status post hardware removal following tibial fracture 2014. History of Raynaud's phenomenon diabetic retinopathy, joint hypermobility syndrome, polycystic ovary syndrome, GERD. Medications were reviewed: Current Outpatient Medications on File Prior to Visit Medication Sig Dispense Refill ??? metFORMIN (GLUCOPHAGE) 1,000 mg Tablet Take 1,000 mg by mouth 2 times daily (with meals). ??? empagliflozin (Jardiance) 10 mg Tablet Take 10 mg by mouth daily. ??? montelukast (SINGULAIR) 10 mg Tablet as needed. 0 ??? VICTOZA 3-STEPHY 0.6 mg/0.1 mL (18 mg/3 mL) Pen Injector INJECT 1.8 MILLIGRAM SUBCUTANEOUSLY DAILY 8 ??? meclizine (ANTIVERT) 25 mg Tablet TAKE 1 TABLET BY MOUTH ONCE DAILY NEEDED FOR MOTION SICKNESS 0 ??? TRI-SPRINTEC, 28, 0.18/0.215/0.25 mg-35 mcg (28) Tablet TK 1 T PO DAILY. START [address] ST SND AFTER ONSET OF MENSES 11 ??? BD ULTRA-FINE SHORT PEN NEEDLE 31 gauge x 5/16 Needle USE DAILY 2 ??? phentermine 15 mg Capsule TK 1 C PO D 2 HOURS AFTER BREAKFAST 0 ??? propranolol (INDERAL LA) 60 mg Capsule,Sustained Action 24 hr TK ONE C PO ONCE D 2 ??? JANUMET 50-1,000 mg Tablet TAKE 1 TABLET BY MOUTH TWICE A DAY 2 ??? glipiZIDE (GLUCOTROL XL) 10 mg Tablet Extended Rel 24 hr 0 ??? Blood Sugar Diagnostic (FREESTYLE LITE STRIPS) Strip 320 each by Other route 4 times daily. by Other route. 1 box = 100 test strips; 3 boxes = 300 test strips. 320 each 3 ??? lancets (FREESTYLE LANCETS) 28 gauge Misc 320 each by Other route 4 times daily. by Other route.1 box = 100 lancets; 3 boxes = 300 lancets. 320 each 3 ??? Blood-Glucose Meter (FREESTYLE LITE METER) Kit by Other route. 1 = 1 blood glucose meter kit. 1 each 0 No current facility-administered medications on file prior to visit. 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 Family history: Father of untreated diabetes mother with diabetes question fibromyalgia syndrome, half sister with PCOS, prediabetes. Physical examination:BP 128/82 Pulse 83 Temp 36.5 ??C (97.7 ??F) (Temporal) Ht 167.6 cm (5' 6) Wt 96.5 kg (212 lb 12.8 oz) SpO2 98% BMI 34.35 kg/m?? The skin examination showed multiple areas of striae especially numbness on the trunk but also thighs. There was no sclerodactyly no proximal skin sclerosis and no digital tip ulcers, telangiectasia orpetechiae. The chest showed clear lung sarah the cardiac examination normal heart sounds. The comprehensive musculoskeletal examination showed no synovitis or deformity either in the upper or lower extremities. The trigger point examination showed multiple areas of increased trigger point tenderness at sites typical of fibromyalgia syndrome, including the lateral epicondyles the biceps tendon insertion, the midpoint of the trapezius, the posterior superior iliac crests and the anserine bursa bilaterally. There was evidence of significant joint hypermobility, the Beighton score (thumb to forearm, elbow and knee hyperextension ability to touch palms to floor) measured at least 7. Review of outside laboratory data: ESR 53, CRP 52, 11/03/2021. Rheumatoid factor - 08/23/2020 SHERRI - 01/26/2020 white blood count 14.1 hemoglobin 13.1 hematocrit 39.5 platelet count 362 11/25/2017. White blood count 15.7 hemoglobin 14.3, platelets 423 09/22/2021. 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 The etiology of the patient's elevated ESR and CRP is uncertain but there appears to be no inflammatory arthropathy clinically apparent chronic infection or clear history of nephrotic syndrome. Diabetic nephropathy and obesity certainly produce elevated inflammatory markers but not to the degree seen in Ms. Foreman typically. At this time further evaluation is indicated and we will plan repeat inflammatory markers as well as serologic studies andurinalysis today. We discussed treatment of fibromyalgia syndrome and Ms. Foreman's questions were answ ered she would like to hold off on pharmacologic treatment at this time. We will plan on a follow-uptelehealth visit to review the laboratory results from today's visit within the next few weeks. Total visit time 60 minutes. documented in this encounter Plan of Treatment Upcoming Encounters Date Type Specialty Care Team Description 02/20/2022 TH Visit (TeleHealth) Rheumatology Jeffery Amin MD [facility] [place] [address] (Wo rk) documented as of this encounter Procedures Procedure Name Priority Date/Time Associated Diagnosis [...] are i n the results section. HC CBC,PLT & AUTO DIFF Routine 12/15/2021 4:18 Fibromyalgia PM EDT HC PCH ANATITRE Routine 12/15/2021 4:18 Fibromyalgia Results f or this (ANDPATTERN) PM EDT procedure are i n the results section. COMPREHENSIVE Routine 12/15/2021 4:18 Fibromyalgia Results for this METABOLIC PANEL PM EDT procedure ar e in (NON-FASTING) the results section. documented in this encounter Results (ABNORMAL) Urinalysis without microscopic (12/15/2021 4:32 PM EDT) [facility] Method Time Signature Glucose UA >=1000 Negative [facility] (Critical) mg/dL [facility] Comment: Urinalysis result NOT critical without a combination of Glucose greater than or equal to 500 mg/dL AND Ketones greate r than or equal to 80 mg/dL Protein UA Negative Negative mg/dL [facility] Bilirubin UA Negative Negative mg/dL [facility] Comment: Clinical correlation required for positi ve Urine Bilirubin results as false positive may occur with some drugs and d rug related products. If a false positive is suspected a serum total bili mancera should be considered if clinically indicated. Urobilinogen UA Normal Normal mg/dL [facility] pH UA 5.5 5.0 - 8.0 [facility] Blood UA Trace (A) Negative mg/dL [facility] Ketones UA Negative Negative mg/dL [facility] Nitrite UA Negative Negative [facility] Leukocytes UA Negative Negative [facility]ORY Appearance UA Clear Clear [facility] Spec [place] UA >=1.030 (A) 1.005 - 1.030 [facility] Color UA Yellow Yellow [facility] Specimen Anatomical Collection Method Collection Time Receive d Time (Source) Location / / Volume Laterality Urine 12/15/2021 4:32 PM 2 4:48 EDT PM EDT Resulting Agency Comment Spec In Lab Bryson Amin MD URINE ORDERABLES Performing Organization Address City/State/[place] [address] (ABNORMAL) Differential, Automated (12/15/2021 4:18 PM EDT) [facility] Method Time Signature Neutrophils % 58.1 % [facility] Neutr Abs (ANC) 7.79 (H) 1.70 - [facility] 6.10 [facility] x10(3)/[facility] LABORATORY Lymphocytes % 33.6 % [facility] Lymphocytes Abs 4.5 (H) 0.9 - 3.2 [facility] x10(3)/[facility] LABORATORY Monocytes % 5.9 % [facility] Monocyte Abs 0.8 0.3 - 0.9 [facility] x10(3)/[facility] LABORATORY Eosinophils % 1.4 % [facility] Eosinophils Abs 0.2 0.0 - 0.4 [facility] x10(3)/[facility] LABORATORY Basophils % 0.6 % [facility] Basophils Abs 0.1 0.0 - 0.1 [facility] x10(3)/[facility] LABORATORY Immature Gran % 0.40 % [facility] [...] Gran Abs 0.06 (H) 0.00 - 0.04 x10(3)/[facility] LABORATORY Specimen Anatomical Collection Method Collection Time Receive d Time (Source) Location / / Volume Laterality Blood 12/15/2021 4:18 PM 2 4:34 EDT PM EDT Resulting Agency Comment Spec In Lab Bryson Amin MD HEMATOLOGY ORDERABLES Performing Organization Address City/State/[place] [address] (ABNORMAL) Hemogram (12/15/2021 4:18 PM EDT) Analysis Performed At Patho logist Time Signature WBC 13.4 (H) 4.0 - 9.5 [facility] x[facility](3[facility] LABORATORY RBC 5.56 (H) 4.00 - CHANELLE [place] 5.21 [facility] x10(6)/[facility] LABORATORY Hemoglobin 14.2 11.7 - [facility] 15.5 g/dL [facility] Hematocrit 43.7 35.7 - [facility] 45.8 % [facility] MCV 78.6 (L) 82.6 - [facility] 94.4 [facility]ORATORY MCH 25.5 (L) 27.1 - [facility] 32.0 pg [facility] MCHC 32.5 31.7 - [facility] 35.0 g/dL [facility] Platelets 379 (H) 145 - 357 [facility] x10(3)/[facility] LABORATORY RDWSD 37.2 37.0 - [facility] 46.0 [facility] LABORATORY RDWCV 13.1 11.5 - [facility] 14.1 % [facility] MPV 9.8 7.6 - 12.9 [facility] LABORATORY nRBC % Auto 0.0 % [facility] nRBC Abs Auto 0.000 0.000 - [facility] [place]RLIN 0.000 [facility] x10(3)/[facility] LABORATORY Specimen Anatomical Collection Method Collection Time Receive d Time (Source) Location / / Volume Laterality Blood 12/15/2021 4:18 PM 4:34 EDT PM EDT Resulting Agency Comment Spec In Lab Bryson Amin MD HEMATOLOGY ORDERABLES Performing Organization Address City/State/[place] [address] Cyclic Citrullinated Peptide (12/15/2021 4:18 PM EDT) P athologist Signature Anti-Cyc Cit <8.0 <=16.9 [facility] Peptide unit/mL [facility] Specimen Anatomical Collection Method Collection Time Receive d Time (Source) Location / / Volume Laterality Blood 12/15/2021 4:18 PM 2 4:34 EDT PM EDT Resulting Agency Comment Spec In Lab Bryson Amin MD CHEMISTRY ORDERABLES Performing Organization Address City/State/ZIP Code Phon [place] [address] SHERRI (12/15/2021 4:18 PM EDT) Component Value Ref Test Analysis Performed At [facility] Method Time Signature Antinuclear Ab [facility] Test ?Result ? Flag ??Unit ??RefValue [place] [facility] Antinuclear Ab, HEp-2 ? <1:80 (Negative) ? <1:80 (Negative) HOSPITAL ??Substrate, S LABORATORY ? ADDITIONAL INFORMATION ------ ?Method: Immunofluorescence using HEp-2 cellular substr ate. ?Test Performed by: ?[facility] ?[address] [place] [address] ?[employer]plane Mechanic Apprentice: Ashwin Billings M.D. Ph.D.; CLIA# [id number] Specimen Anatomical Collection Method Collection Time Receive d Time (Source) Location / / Volume Laterality Blood 12/15/2021 4:18 PM 2 9:23 EDT AM EDT Resulting Agency Comment Spec In Lab Bryson Amin MD IMMUNOLOGY ORDERABLES Performing Organization Address City/State/[place] [address] (ABNORMAL) Comprehensive metabolic panel (non-fasting) (12/15/2021 4:18 PM EDT) P athologist Signature Glucose Lvl 207 (H) 65 - 199 [facility] mg/dL [facility] Comment: Diabetes: >=200 mg/dL plus symp toms BUN 9 8 - 18 mg/dL [facility] Creatinine 0.67 (L) 0.70 - 1.20 mg/dL [facility] Sodium 135 135 - 145 mmol/L [facility] Potassium 3.9 3.5 - 5.0 mmol/L [facility] Comment: Please note: ??Patients with [...] Anion Gap 12 5 - 15 mmol/L [facility] Calcium 9.4 8.5 - 10.5 mg/dL [facility] Total Protein 7.4 6.1 - 8.0 g/dL [facility] Albumin 3.9 3.2 - 5.2 g/dL [facility] AST 10 0 - 30 unit/L [facility] ALT 8 0 - 30 unit/L [facility] Alk Phos 85 35 - 105 unit/L [facility] Total Bilirubin 0.4 0.2 - 1.3 mg/dL [facility] Estimated GFR 115 >=60 mL/min/1.73 m?? [...] Amin MD CHEMISTRY ORDERABLES Performing Organization Address City/State/[place] [address] (ABNORMAL) CRP, acute inflammation (12/15/2021 4:18 PM EDT) P athologist Signature CRP 44.8 (H) <=4.9 mg/L [facility] Specimen Anatomical Collection Method Collection Time Receive d Time (Source) Location / / Volume Laterality Blood 12/15/2021 4:18 PM 2 4:34 EDT PM EDT Resulting Agency Comment Spec In Lab Bryson Amin MD CHEMISTRY ORDERABLES Performing Organization Address City/State/[place] [address] (ABNORMAL) Sedimentation rate (12/15/2021 4:18 PM EDT) P athologist Signature Sed Rate 38 (H) 2 - 37 [facility] mm/hr [facility] Comment: Effective May 13, 2019 new [...] Organization Address City/State/[place] [address] documented in this encounter Visit Diagnoses Diagnosis Fibromyalgia Mylagia and myositis, unspecified Generalized hypermobility of joints Other joint derangement, not elsewhere c lassified, multiple sites documented in this encounter Care Teams Production Control Coordinator Relationship Specialty Start Date End Date Pascual Forrest MD PCP - General Family Medicine 03/12/[address] [place] [address] documented as of this encounter
--- OUTSIDE RECORDS SUMMARY | 2022-01-18 11:47 | XMS_ITS | Encounter Summary ---
:1985 Author Organization [facility] Address [address] [facility] [place] [address] Care Team Providers Name Role Phone Pascual Forrest MD Primary Care Provider [phone] Encounter Details Date Type Department Care Team Description 03/20/2019 [place] En[place] [facility] Gabi Paul Closed fracture of [address] Patricia MD proximal end of left [place], [place] [facility] [place] [address] evans, unspecified [phone] [facility] fracture morpho logy, SUR[place]ERY [place] [address] Social History Tobacco Use Types Packs/Day Years [...] place to sleep or slept in a jail (including now)? Sex Assigned at Date Recorded Not on file documented as of this encounter Medications at Time of Discharge Medication Sig Dispensed Refills Start Date End Date VICTOZA 3-STEPHY 0.6 INJECT 1.8 MILLIGRAM 8 03/05/20 19 mg/0.1 mL (18 mg/3 SUBCUTANEOUSLY DAILY mL) Pen Injector meclizine (ANTIVERT) TAKE 1 TABLET BY MOUTH 0 01/2019 25 mg Tablet ONCE DAILY NEEDED FOR MOTION SICKNESS TRI-SPRINTEC, 28, TK 1 T PO DAILY. START 1 11 10/2018 0.18/0.215/0.25 mg-35 ST SND AFTER ONSET OF mcg (28) Tablet MENSES BD ULTRA-FINE SHORT USE DAILY 2 03/06/2019 PEN NEEDLE 31 gauge x 16 Needle phentermine 15 mg TK 1 C PO D 2 HOURS 0 9 Capsule AFTER BREAKFAST propranolol (INDERAL Take 80 mg by mouth 2 2018 LA) 60 mg daily. Capsule,Sustained Action 24 hr glipiZIDE (GLUCOTROL 0 01/14/2019 XL) 10 mg Tablet Extended Rel 24 hr Blood Sugar 320 each by Other route 320 each 3 08/27/2014 Diagnostic (FREESTYLE 4 times daily. by Other LITE STRIPS) Strip route. 1 box = 100 test strips; 3 boxes = 300 test strips. lancets (FREESTYLE 320 each by Other route 320 each 3 08/02 LANCETS) 28 gauge 4 times daily. by Other Misc route. 1 box = 100 lancets; 3 boxes = 300 lancets. Blood-Glucose Meter by Other route. 1 = 1 1 each 0 08/27 (FREESTYLE LITE blood glucose meter kit. METER) Kit JANUMET 50-1,000 mg TAKE 1 TABLET BY MOUTH 2 02/01 Tablet TWICE A DAY glipiZIDE (GLUCOTROL) Take 15 mg by mouth 0 04/17/2019 5 mg Tablet daily. documented as of this encounter Plan of Treatment Upcoming Encounters Date Type Specialty Care Team Description 02/20/2022 TH Visit (TeleHealth) Rheumatology Jeffery Amin MD [facility] [address] [place], [place] [address] (Wo rk) documented as of this encounter Procedures Procedure Name Priority Date/Time Associated Diagnosis Comme nts XR TIBIA FIBULA Routine 03/20/2019 1:56 PM Closed fracture of Results for this LEFT EDT proximal end of left procedu re are in tibia with routine the resul ts healing, unspecified section . fracture morphology, subsequent encounter documented in this encounter Results XR Tibia Fibula Left (Generic) (03/20/2019 1:56 PM EDT) Anatomical Region Laterality Modality Left Digital Radiography Specimen (Source) Anatomical Location Collection Method / Collectio n Time Received Time / Laterality Volume Impressions 03/20/2019 3:03 PM EDT Distal tibia and fibula deformities consistent with healed post ORIF fracture sites. No new fracture or other hardware complication identified. Thank you for letting us participate in the care of this patient. For questions regarding this report, please contact e number below. ? Electronically signed by: Jessa Devries [facility] ([phone]), at 03/20/2019 3:03 PM Narrative 03/20/2019 3:03 PM EDT EXAMINATION: XR TIBIA FIBULA LEFT (GENERIC) CLINICAL HISTORY: distal third tib fib f x post IMN placement. evalute for fx/hardware complication TECHNIQUE: 2 views LEFT tibia and fibula COMPARISON: 02/09/2019 radiographs at [facility]. FINDINGS: Intramedullary nail of the left tibia wi th proximal and distal transverse fixation screws in unchanged position. U nchanged osseous alignment. Findings compatible with distal tibia and fibula deformities consistent with healed fracture sites. No new fracture or other hardware complication is seen. Procedure Note Jessa Devries MD - 03/20/2019Formatt ing of this note might be different from the original. EXAMINATION: XR TIBIA FIBULA LEFT (GENER IC) CLINICAL HISTORY: distal third tib fib f x post IMN placement. evalute for fx/hardware complication TECHNIQUE: 2 views LEFT tibia and fibula COMPARISON: 02/09/2019 radiographs at [facility]. FINDINGS: Intramedullary nail of the left tibia wi th proximal and distal transverse fixation screws in unchanged position. U nchanged osseous alignment. Findings compatible with distal tibia and fibula deformities consistent with healed fracture sites. No new fracture or other hardware complication is seen. IMPRESSION Distal tibia and fibula deformities cons istent with healed post ORIF fracture sites. No new fracture or other hardware complication identified. Thank you for letting us participate in the care of this patient. For questions regarding this report, please contact e number below. Electronically signed by: Jessa Devries [facility] ([phone]), at 03/20/2019 3:03 PM Gabi Paul MD IMG DX ORDERABLES documented in this encounter Visit Diagnoses Diagnosis Closed fracture of proximal end of left tibia with routine healing, unspecified fracture morphology, subsequent encounte r documented in this encounter Care Teams Tax Examining Technician Relationship Specialty Start Date End Date Pascual Forrest MD PCP - General Family Medicine 03/12/[address] [place] [address] documented as of this encounter
--- OUTSIDE RECORDS SUMMARY | 2022-01-18 11:47 | XMS_ITS | Encounter Summary ---
:1985 Author Organization [facility] [place] [address] Care Team Providers Name Role Phone Roxanna Sarmiento Primary Care Provider Reason for Referral Consultation (Routine) - Closed Specialty Diagnoses / Procedures Referred By Contact Refer red To Contact Endocrinology Diagnoses Tibia fracture, left, initial encounter Riri Quinonez [facility] Endocrino logy 3b [facility] A[facility] [place] [address] [place] [address] Referral ID Status Reason Start Date Expiration Date Visits V isits Requested Authorized [id number] Closed Specialty 08/27/2014 08/27/2015 3 3 Service Requested Consultation (Routine) - Closed Specialty Diagnoses / Procedures Referred By Contact Refer red To Contact Endocrinology Diagnoses Tibia fracture, left, initial encounter Riri Quinonez [facility] Endocrino logy 3b [place] [address] [place] [address] Referral ID Status Reason Start Date Expiration Date Visits V isits Requested Authorized [id number] Closed Consult, 08/27/2014 08/27/2015 3 3 Test & Treat Encounter Details Date Type Department Care Team Description 08/26/2014 - Hospital Encounter 3 Enrrique Calderon MD [facility] [place] [address] Tibia fracture, 08/28/2014 [facility] Bryson Mo MD [facility] [place] [address] left, [place] [id number] Social History Tobacco Use Types Packs/Day Years [...] place to sleep or slept in a nursing home (including now)? Sex Assigned at Date Recorded Not on file documented as of this encounter Last Filed Vital Signs Vital Sign Reading Time Taken Comments Blood Pressure 120/75 08/28/2014 1:25 PM EDT Pulse 111 08/28/2014 1:25 PM EDT Temperature 36.7 ??C (98.1 ??F) 08/28/2014 1:25 PM EDT Respiratory Rate 16 08/28/2014 1:25 PM EDT Oxygen Saturation 99% 08/28/2014 1:25 PM EDT Inhaled Oxygen Concentration - - Weight 99.8 kg (220 lb) 08/26/2014 3:00 PM EDT Height 167.6 cm (5' 5.98) 08/26/2014 3:00 PM EDT Body Mass Index 35.53 08/26/2014 3:00 PM EDT documented in this encounter Discharge Summaries Katelin Fowler, [facility] AIDE - 08/27/2014 4:14 PM EDT Discharge Summary Patient Name: Ariela Foreman Patient Age: 28 y.o. Language: Citizen Of [place] Race: White Ethnicity: OR Admit date: 08/26/2014 Discharge date and time: 08/28/2014 Attending Physician: Bryson Mo MD Discharge Physician: Bryson Mo MD Follow-up Recommendations for Providers: See discharge instructions for additional details. Future Appointments Date Time Provider Department Center 09/09/2014 11:30 AM Enrrique Schreiber MD [facility] None 09/14/2014 11:00 AM Antonella Monet LD [facility] 09/14/2014 1:00 PM Paul Leyva MD [facility] 09/14/2014 1:30 PM Nancie Obrien MD [facility] Inpatient Provider Contact Information: Bryson Mo MD Trauma: [phone] After hours and weekends, call [facility] Meeting Coordinator, , and have the Orthopedic resident paged. Discharge Diagnoses (Hospital Problems) and Secondary Diagnoses (Chronic Problems): Active Hospital Problems Diagnosis ??? Closed left tibial fracture s/p IMN 08/27/14 ??? Type 2 diabetes mellitus Resolved Hospital Problems Diagnosis Date Resolved No resolved problems to display. Active Non-Hospital Problems Diagnosis ??? Tremor, essential ??? CIS - asthma ??? CIS - familial gall bladder disease ??? CIS - Raynauds ??? CIS - MDR bacterial overgrowth ??? CIS - PCOS ??? CIS - spinal injury Operations/Major Procedures: 08/27/2014 Surgeon(s) and Role: * Bryson Mo MD - Primary * Tunde Armstrong MD Procedure(s): INTRAMEDULLARY NAILING, TIBIA MODIFIER TIBIAL NAIL SYNTHES History of Presentation: Ariela Foreman is a 28 y.o. female who slipped and fell on the ice on 08/25/2014. She suffered a tibial shaft fracture. She was seen in [facility] and placed in a splint. She was home overnight and had significant and difficult to control pain. She has been taking oxycodone 10 mg every 4 hours. She denies numbness or tingling in her toes. She has a history of PCOS and diabetes mellitus diet controlled. We discussed in detail both operative and nonoperative management of her fracture. We discussed nonoperative management with a long-leg cast, and close monitoring. We discussed operative treatment with IM nailing. We discussed the ability for early her knee range of motion and some weightbearing with IM nailing. We discussed the operative risk of bleeding, infection, damage to nerves and vessels, need for reoperation. We discussed the risks of knee pain from IM nailing. Given her difficult to control pain, her long trip home, and the concern for excessive swelling, we will plan on admitting her to the hospital tonight for monitoring and pain control. We'll plan on IM nailing tomorrow with percutaneous screw fixation of the medial malleolus. Hospital Course: rAiela Foreman was admitted for evaluation and treatment of the above injury. On HD#2 she was taken to surgery for the above procedure. She tolerated the procedure and did well post-operatively. On POD#1 the LOCK MAINTENANCE SUPERVISOR was discontinued and the patient was started on oral pain medications. Thepatient was referred to PT for mobility training - touchdown weight bearing of left leg. She did nothave a bowel movement prior to discharge but was passing flatus and was taking po without difficulty. Patient was voiding spontaneously without issue. On POD#1 the patient was medically clear with stable vital signs and determined safe for discharge to home. Of Note: 1. Patient was seen by the Endocrinology Diabetes Management team while an inpatient. Metformin was started as well as SS Insulin while in the hospital. A prescription for Metformin was called in to her pharmacy by the Endocrinology TICKET BROKER and an appointment made for f/u with Endocrinology for lobsterman management. She is in the process of finding a PCP. Vital Signs at Discharge: Weight: Wt Readings from Last 1 Encounters: 08/26/ 99.791 kg (220 lb) Height: Ht Readings from Last 1 Encounters: // 167.6 cm (5' 5.98) HC: HC Readings from Last 1 Encounters: No data found for HC BMI: Body mass index is 35.53 kg/(m^2). Last value Range last 24 hrs Temperature Temp: 36.7 ??C (98.1 ??F) Temp: [36.6 ??C (97.9 ??F)-36.8 ??C (98.2 ??F)] Heart Rate Heart Rate: 111 Heart Rate: [83-111] Blood Pressure BP: 120/75 mmHg BP: (98-138)/(61-82) Respiratory Rate Resp: 16 Resp: [16] SpO2 SpO2: 99 % SpO2: [94 %-99 %] Art BP BP (Arterial Line): -- Functional and Cognitive Status: Patient mobilizing with a walker/crutches, cognitively intact. Important Studies and Lab Data: Labs: Last 3 wbc, hgb, hct plt Recent Labs 08/28/14 1042 08/26/14 1700 WBC 11.5* 14.0* HGB 11.6 14.0 HCT 34.7 41.2 PLATELET 223 283 Last 3 Lytes Recent Labs 08/28/14 1042 08/26/14 1700 NA 136 133* K 3.5 Not Perf CL 98 94* CO2 24 23 BUN 5* 8 CREATININE 0.51* 0.65* Last 3 LFTs No results for input(s): AST, ALT, ALKPHOS, BILITOT, BILIDIR in the last 7068 hours. Last 3 HgbA1C Recent Labs 08/26/14 1700 HA1C 10.5* Studies: Xr Left Tibia Fibula 08/27/2014 FINDINGS: Interval intramedullary arabella and interlocking screw fixation across the comminuted fracturethe distal tibia noted involving the posterior and medial malleolus. The fixation is intact. There is slightly improved alignment of the tibial metadiaphyseal fracture component. There is however slightly increased displacement of the posterior malleolar fracture fragment as seen on the lateral projection.A comminuted minimally displaced fracture of the distal third of the fibular diaphysis is similar to perhaps a slightly improved in overall alignment. No new fracture. IMPRESSION: 1. Interval ORIF of the tibial shaft fracture with intact fixation. The known fracture through the posterior malleolus appears slightly more displaced than on the preoperative comparison. Ct Left Lower Extremity Wo Contrast 08/26/2014 FINDINGS: As seen on the x-ray examination comminuted fractures are present at the distal third of the tibia and fibula. The tibial fracture is associated with approximately 50% anterior lateral displacement of the dominant distal fragment. The displaced portion of the fracture extends distally to position approximately 3 cm proximal to the joint line. Additional nondisplaced fractures are evident atthe joint line. Transverse fracture extends across the medial malleolus. A coronal plain fracture ispresent at the posterior malleolus. An additional coronal plane fracture extends across the width ofthe plafond. These 3 nondisplaced fracture lines are likely connected to one another. While I am unab le to see definite extension to the more proximal displaced fractures, I suspect that there is a communication between the intra-articular fracturing in the more proximal fracture. IMPRESSION: In addition to the comminuted and displaced distal third fractures of the fibula and tibia there are nondisplaced fractures involving the articular surface of the tibia. Transfusions: No Discharge Conditions/Prognosis: Stable, awake, and alert. Mobilizing with a walker/crutches, pain controlled on oral medications. Discharge to: Home with VNA. Updated Allergies/ADRs: Allergies Allergen Reactions ??? Cefuroxime Axetil Anaphylaxis ??? Acetaminophen Nausea And Vomiting ??? Codeine Phosphate Nausea And Vomiting ??? Morphine Sulfate Pain gets worse ??? Sulfa (Sulfonamide Antibiotics) Nausea And Vomiting Immunizations Given this Hospitalization: There is no immunization history on file for this patient. Discharge Medications: Your Medications New Medications Dose Details aspirin 325 mg Tbec Take 1 tablet by mouth 2 times daily. 325 mg Quantity: 30 tablet Refills: 1 Blood Sugar Diagnostic Strp Commonly known as: FREESTYLE LITE STRIPS 320 each by Other route 4 times daily. by Other route. 1 box = 100 test strips; 3 boxes = 300 test strips. 320 each Quantity: 320 each Refills: 3 Blood-Glucose Meter Kit Commonly known as: FREESTYLE LITE METER by Other route. 1 = 1 blood glucose meter kit. Quantity: 1 each Refills: 0 diaZEPam 5 mg Tab Commonly known as: VALIUM Take 1 tablet by mouth every 6 hours as needed (muscle spasms). 5 mg Quantity: 5 tablet Refills: 0 lancets 28 gauge Misc Commonly known as: FREESTYLE LANCETS 320 each by Other route 4 times daily. by Other route. 1 box = 100 lancets; 3 boxes = 300 lancets. 320 each Quantity: 320 each Refills: 3 metFORMIN 500 mg Tr24 Commonly known as: FORTAMET Take 2 tablets by mouth 2 times daily (with meals). Replaces: GLUCOPHAGE 1,000 mg Tab 1000 mg Quantity: 60 tablet Refills: 3 multivitamin Repx-Nv-HH-Min 27-0.4 mg Tab Commonly known as: THERAPEUTIC-M Take 1 tablet by mouth daily. 1 tablet Refills: 0 polyethylene glycol 17 gram Pwpk Commonly known as: MIRALAX Take 17 g by mouth 2 times daily. 17 g Refills: 0 senna-docusate 8.6-50 mg Tab Commonly known as: PERICOLACE Take 2 tablets by mouth 2 times daily. 2 tablet Quantity: 60 tablet Refills: 0 Continued medications with new dosing Dose Details oxyCODONE 5 mg Tab Commonly known as: ROXICODONE Take 1-3 tablets by mouth every 3 hours as needed for Pain (mild pain (1-3) take 5 mg, moderate pain(4-6) take 10 mg, severe pain (7-10) take 15 mg). What changed: - medication strength - how much to take - how to take this - when to take this - reasons to take this 5-15 mg Quantity: 90 tablet Refills: 0 STOPPED Medications GLUCOPHAGE 1,000 mg Tab Generic drug: metFORMIN Replaced by: metFORMIN 500 mg Tr24 ibuprofen 800 mg Tab Commonly known as: ADVIL;MOTRIN primidone 50 mg Tab Commonly known as: MYSOLINE Smoking Status at Discharge: History Smoking status ??? Never Smoker Smokeless tobacco ??? Never Used Instructions Given to Patient at Discharge: There are no Patient Instructions on file for this visit. General Instructions Activity level: 1. Touchdown weight bearing Left lower extremity. Remember to keep your Left leg elevated as much aspossible to decrease swelling and control pain. 2. Use the walker or crutches for safety and stability. 2. If possible, you should wear BALJIT hose on your right leg, until you are seen in followup. These should be removed at least once per day to inspect your skin. DVT Prevention: Aspirin - You are being discharged on enteric-coated Aspirin 325mg by mouth twice a day. Continue this until your follow-up appointment or are told to stop by your Orthopedic surgeon. Take the Aspirin with food or large amounts (240 ml) of water or milk to minimize GI irritation. Diet: Resume usual (diabetic diet) but increase your intake of fluids and fiber while you are on narcotic pain meds to prevent constipation. To help with wound healing increase your intake of high protein foods and fluids. Because your potassium is on the lower side of normal, increase your intake of foods higher in potassium for the next couple of days (see handout). Driving: None until you are cleared to do so by your Orthopedic surgeon. You should not drive while you are on narcotic pain meds as they can affect your judgement and reaction time. Call your surgeon with any questions/concerns. Medications: 1. The pain medication you are on can cause constipation so increase your intake of fluids and fiberwhile you are on them. The stool softener, Sennakot, that has been prescribed can also be taken to facilite a bowel movement. You can also take an dvbe-kvn-wtjaktc medication, Miralax if needed to combat constipation. 2. If you need a renewal on your narcotic pain medication, you need to give the Orthopedic clinic enough time to process your request. This can take up to three days, so plan accordingly. 3. Continue Tylenol 1,000mg every 8 hours around the clock until 09/06/14 - this can be effective in controlling pain along with your other medications. After that you can take Tylenol as needed per package insert. 4. You have been discharged on a short acting narcotic, Oxycodone. You will be on this medication for a limited period of time only. Take only enough pain medication to control your pain. As your pain lessens, taper down and off this medication as tolerated. 5. A prescription for Metformin as well as blood sugar testing supplies have been called in to your [facility] and are ready for you to case picker. Take the Meformin as prescribed and test your blood sugars as instructed by the Diabetes Nurse Practitioner. More Instructions From Endocrinology: Monitoring - continue BG three times a day, before meals and at bedtime. Diet - low fat/low carb diet Exercise - weight-bearing exercise 30 min/day, as tolerated Cast/Splint Care: 1. Keep the splint in place until your follow-upappointment with Orthopedics. 2. Keep the cast clean and dry. 3. It is easiest to sponge bathe, but if you must bathe, protect the cast/splint with a plastic bag high above the splint or cast and secure with adhesive tape. 4. Do not submerge the cast in water at anytime. 5. If the cast accidently gets wet, call the office immediately to have it replaced. A wet cast can cause severe skin and wound problems. Shower/Bath: See above, remember to observe your weight bearing status, (TDWB) when you shower so use a shower chair. A sponge bath may be easier. Wound Care: Suture/staple removal 12-14 days post-op. (approx September 10) Call your doctor (#[phone]) if you develop: 1. Fevers greater than 100.5 2. Severe nausea or vomiting 3. Increasing pain not controlled by pain medications 4. Increasing redness or drainage from incisions 5. Change in sensation Misc: 1. If you are a smoker, quitting is very important to help your fracture heal. You should contact your PCP to assist you with setting up a cessation program. FOLLOW-UP APPOINTMENTS: 1. You will have followup appointments at [facility] as indicated below in Future Appointment and Orders. 2. You will have x-rays prior to your appointment so please come to Radiology, desk 3T, at 8:30 AM, 1 hour BEFORE your appointment for those x-rays on 09/14/2014. Future Appointments Date Time Provider Department Center 09/14/2014 9:30 AM Bryson Mo MD [facility] 09/14/2014 11:00 AM Antonella Monet LD [facility] 09/14/2014 1:00 PM Paul Leyva MD [facility] 09/14/2014 1:30 PM Nancie Obrien MD [facility] If you have questions or concerns: Saturday through Saturday, 8 AM - 5 PM, please call Dr. Mo's office at . If it is after 5 PM or on the weekend, please call and ask to speak with the Orthopedic resident on-call. Referral to Home Health - at DISCHARGE Routine, Clinic Performed Agency name and contact information: [facility] Patient location post discharge: Home What services are requested: Registered Nurse, Physical Therapy, Occupational Therapy, Home Health Aide Start date: 08/30/2014 Responsible MD post discharge contact info: PCP/[facility] Orthopaedic Service DOCUMENTATION FOR VNA SERVICES PATIENT'S LOCATION: Ariela Foreman [address] [place] [address], [address] [place] [phone] (home) Supervisor Wall [employer] Department's Name: Self In discussion with the attending physician, it is certified that this patient is under their care and that they, or a Nurse Practitioner,Clinical Nurse specialist or Physician Supervisor [employer] who is working directly with them, had a face to faceencounter that meets the physician face to face encounter requirements with this patient on 08/28/2014. The encounter with the patient was in whole, or in part, for the following medical condition, which is the primary reason for home health care services: closed left tibial fracture s/p IMN. In discussion with the provider, it is certified that, based on their findings, the following services are medically necessary for home health services. To provide the following care/treatments with the clinicalfindings supporting the need for services as follows: HOME CARE ORDERS: RN ORDERS: Assess wound or incision, vital signs, cardiopulmonary status, nutrition, hydration, elimination, meds effectiveness and management; reinforce education re health issues. Reinforce checking blood sugars and taking Metformin as ordered. PT ORDERS: Continue rehab for endurance, gait stability and strength with mobility and transfers. Home safety evaluation. Home exercise program if appropriate. OT ORDERS: Assess and continue rehab for managing ADLs. CLINICAL DIETICIAN ORDERS: Assist with I/ADLs. HOME HEALTH CARE AGENCY: [facility], PHONE: [phone] FAX: [phone] Start of care: Wednesday 08/30 Please note that any additional orders needs or changes will need to be obtained from this patient's PCP: [facility] [place] [address] / [facility] [address] All VNA agencies which cover the area of patient's residence have been reviewed, either verbally or in writing, and patient/family have chosen the home health care agency noted. Future Appointments and Orders Future Appointments Provider Department Dept Phone 09/09/2014 11:30 AM Enrrique Schreiber MD Orthopaedics [phone] 09/14/2014 11:00 AM Antonella Monet LD Endocrinology [phone] 09/14/2014 1:00 PM Paul Leyva MD Endocrinology [phone] 09/14/2014 1:30 PM Nancie Obrien MD Endocrinology [phone] Future Orders Complete By Expires XR tibia fibula AP & lateral [77252 Custom] 09/10/2014 (Approximate) 08/28/2015 Process Instructions: Scheduling Instructions: Questions: Where will study be performed?: [facility] Laterality: Left Portable exam?: Reason for exam and clinical history: s/p left tibia IMN, eval alignment Other pertinent information: Is the patient ?: No Stat read required?: Date of injury if applicable: Requested Time: Should this service/procedure be billed to the research sponsor?: Referral to Diabetic Education [REF20 Custom] As directed Process Instructions: If requesting Insulin initiation, please provide Insulin order in the comments field. Scheduling Instructions: Questions: Date of diagonsis: Diabetes treated with: Exercise restrictions: Does patient have Complications or Comorbidities?: Yes (See Problem List) Type of Session: Special Needs for Individual Training: Type of Diabetes Self-Management Training: Initial DSMT DSMT Content: All content areas as appropriate Type Of Medical Nutrition Therapy (MNT): Initial MNT Referral to Endocrinology [REF22 Custom] As directed Process Instructions: If no progress note charted, please enter Clinical details in comments. Scheduling Instructions: Questions: My question or request is: PCOS age 12 DMT2 age 14 See my note 08/27/14 for details Referral to Home Health - at DISCHARGE [APR2481 CPT(R)] As directed Process Instructions: Scheduling Instructions: Questions: Agency name and contact information: [facility] Patient location post discharge: Home What services are requested: Registered Nurse Physical Therapy Occupational Therapy Home Health Aide Start date: 08/30/2014 Responsible MD post discharge contact info: PCP/[facility] Orthopaedic Service Primary Care Provider: [facility] [phone] Discharge References/Attachments None documented in this encounter Discharge Instructions Discharge InstructionsSaKatelin chung APRN - 08/28/2014 5:38 PM EDT Activity level: 1. Touchdown weight bearing Left lower extremity. Remember to keep your Left leg elevated as much aspossible to decrease swelling and control pain. 2. Use the walker or crutches for safety and stability. 2. If possible, you should wear BALJIT hose on your right leg, until you are seen in followup. These should be removed at least once per day to inspect your skin. DVT Prevention: Aspirin - You are being discharged on enteric-coated Aspirin 325mg by mouth twice a day. Continue this until your follow-up appointment or are told to stop by your Orthopedic surgeon. Take the Aspirin with food or large amounts (240 ml) of water or milk to minimize GI irritation. Diet: Resume usual (diabetic diet) but increase your intake of fluids and fiber while you are on narcotic pain meds to prevent constipation. To help with wound healing increase your intake of high protein foods and fluids. Because your potassium is on the lower side of normal, increase your intake of foods higher in potassium for the next couple of days (see handout). Driving: None until you are cleared to do so by your Orthopedic surgeon. You should not drive while you are on narcotic pain meds as they can affect your judgement and reaction time. Call your surgeon with any questions/concerns. Medications: 1. The pain medication you are on can cause constipation so increase your intake of fluids and fiberwhile you are on them. The stool softener, Sennakot, that has been prescribed can also be taken to facilite a bowel movement. You can also take an rsvm-dhk-dquxxqp medication, Miralax if needed to combat constipation. 2. If you need a renewal on your narcotic pain medication, you need to give the Orthopedic clinic enough time to process your request. This can take up to three days, so plan accordingly. 3. Continue Tylenol 1,000mg every 8 hours around the clock until 09/06/14 - this can be effective in controlling pain along with your other medications. After that you can take Tylenol as needed per package insert. 4. You have been discharged on a short acting narcotic, Oxycodone. You will be on this medication for a limited period of time only. Take only enough pain medication to control your pain. As your pain lessens, taper down and off this medication as tolerated. 5. A prescription for Metformin as well as blood sugar testing supplies have been called in to your [facility] and are ready for you to case picker. Take the Meformin as prescribed and test your blood sugars as instructed by the Diabetes Nurse Practitioner. More Instructions From Endocrinology: Monitoring - continue BG three times a day, before meals and at bedtime. Diet - low fat/low carb diet Exercise - weight-bearing exercise 30 min/day, as tolerated Cast/Splint Care: 1. Keep the splint in place until your follow-upappointment with Orthopedics. 2. Keep the cast clean and dry. 3. It is easiest to sponge bathe, but if you must bathe, protect the cast/splint with a plastic bag high above the splint or cast and secure with adhesive tape. 4. Do not submerge the cast in water at anytime. 5. If the cast accidently gets wet, call the office immediately to have it replaced. A wet cast can cause severe skin and wound problems. Shower/Bath: See above, remember to observe your weight bearing status, (TDWB) when you shower so use a shower chair. A sponge bath may be easier. Wound Care: Suture/staple removal 12-14 days post-op. (approx September 10) Call your doctor (#[phone]) if you develop: 1. Fevers greater than 100.5 2. Severe nausea or vomiting 3. Increasing pain not controlled by pain medications 4. Increasing redness or drainage from incisions 5. Change in sensation Misc: 1. If you are a smoker, quitting is very important to help your fracture heal. You should contact your PCP to assist you with setting up a cessation program. FOLLOW-UP APPOINTMENTS: 1. You will have followup appointments at [facility] [place] as indicated below in Future Appointment and Orders. 2. You will have x-rays prior to your appointment so please come to Radiology, desk 3T, at 8:30 AM, 1 hour BEFORE your appointment for those x-rays on 09/14/2014. Future Appointments Date Time Provider Department Center 09/14/2014 9:30 AM Bryson Mo MD [facility] 09/14/2014 11:00 AM Antonella Monet LD [facility] 09/14/2014 1:00 PM Paul Leyva MD [facility] 09/14/2014 1:30 PM Nancie Obrien MD [facility] If you have questions or concerns: Saturday through Saturday, 8 AM - 5 PM, please call Dr. Mo's office at . If it is after 5 PM or on the weekend, please call and ask to speak with the Orthopedic resident on-call. Referral to Home Health - at DISCHARGE Routine, Clinic Performed Agency name and contact information: [facility] Patient location post discharge: Home What services are requested: Registered Nurse, Physical Therapy, Occupational Therapy, Home Health Aide Start date: 08/30/2014 Responsible MD post discharge contact info: PCP/[facility] [facility] Orthopaedic Service DOCUMENTATION FOR VNA SERVICES PATIENT'S LOCATION: Ariela Foreman [address] [place] [address], [address] [facility] [phone] (home) Supervisor [employer] Department's Name: Self In discussion with the attending physician, it is certified that this patient is under their care and that they, or a Nurse Practitioner,Clinical Nurse specialist or Physician Supervisor Ben[employer] who is working directly with them, had a face to faceencounter that meets the physician face to face encounter requirements with this patient on 08/28/2014. The encounter with the patient was in whole, or in part, for the following medical condition, which is the primary reason for home health care services: closed left tibial fracture s/p IMN. In discussion with the provider, it is certified that, based on their findings, the following services are medically necessary for home health services. To provide the following care/treatments with the clinicalfindings supporting the need for services as follows: HOME CARE ORDERS: RN ORDERS: Assess wound or incision, vital signs, cardiopulmonary status, nutrition, hydration, elimination, meds effectiveness and management; reinforce education re health issues. Reinforce checking blood sugars and taking Metformin as ordered. PT ORDERS: Continue rehab for endurance, gait stability and strength with mobility and transfers. Home safety evaluation. Home exercise program if appropriate. OT ORDERS: Assess and continue rehab for managing ADLs. CLINICAL DIETICIAN ORDERS: Assist with I/ADLs. HOME HEALTH CARE AGENCY: [facility], PHONE: [phone] FAX: [phone] Start of care: Wednesday 08/30 Please note that any additional orders needs or changes will need to be obtained from this patient's PCP: [facility] [place] [id number] All VNA agencies which cover the area of patient's residence have been reviewed, either verbally or in writing, and patient/family have chosen the home health care agency noted. documented in this encounter Medications at Time of Discharge Medication Sig Dispensed Refills Start Date End Date Blood Sugar Diagnostic 320 each by Other 320 each 3 2014 (FREESTYLE LITE STRIPS) route 4 times daily. Strip by Other route. 1 box = 100 test strips; 3 boxes = 300 test strips. lancets (FREESTYLE 320 each by Other 320 each 08/27/2014 LANCETS) 28 gauge Misc route 4 times daily. by Other route. 1 box = 100 lancets; 3 boxes = 300 lancets. Blood-Glucose Meter by Other route. 1 = 1 each 0 015 (FREESTYLE LITE METER) 1 blood glucose Kit meter kit. multivitamin Take 1 tablet by 0 08/28/20142018 Nyav-Ap-DB-Min mouth daily. (THERAPEUTIC-M) 27-0.4 mg Tablet oxyCODONE (ROXICODONE) 5 Take 1-3 tablets by 90 tablet 0 09/06/2014 mg Tablet mouth every 3 hours as needed for Pain (mild pain (1-3) take 5 mg, moderate pain (4-6) take 10 mg, severe pain (7-10) take 15 mg). polyethylene glycol Take 17 g by mouth 2 0 201409/09/2014 (MIRALAX) 17 gram Powder times daily. in Packet diaZEPam (VALIUM) 5 mg Take 1 tablet by 5 tablet 0 015 10/19/2014 Tablet mouth every 6 hours as needed (muscle spasms). senna-docusate Take 2 tablets by 60 tablet 0 08/28/2014 (PERICOLACE) 8.6-50 mg mouth 2 times daily. Tablet aspirin 325 mg Tablet, Take 1 tablet by 30 tablet 1 015 10/19/2014 Delayed Release (E.C.) mouth 2 times daily. metFORMIN (FORTAMET) 500 Take 2 tablets by 60 tablet 3 08/0203/20/2019 mg Tablet Extended Rel 24 mouth 2 times daily hr (with meals). documented as of this encounter Progress Notes Fede Bird RN - 08/28/2014 6:06 PM EDT IV's removed. After visit summary reviewed @ bedside, verbalized understanding of material and follow up appointments dates/times. Discussed at length with patient's mother and patient pertaining to changes in medication (aspirin BID starting tomorrow a.m.) and OTC medications the patient should starttaking. Dressing kit given along with instruction on wound care and wound care completed prior to discharge. VNA faxed instructions, called and given report. Pt discharged with family member, providingtransportation with family owned vehicle. Pt denies SOB, chest pain, or nausea. Beto Segura RN - 08/28/2014 3:06 PM EDT Office of Care Management/Clinical Yard Associate (CRC)/Discharge Planning Note CRC Beto Segura, RN (pager [phone]) Patient: Ariela Foreman : 1985 (28 y.o.) Home: [facility] [id number]* LOS: 2 days Care reviewed with Katelin Fowler APRN and Roma Bailey PT. Reviewed record and interviewed patient. Reviewed CRC role and services accepted. ?? Anticipated barriers to discharge: None. Patient and family have arranged for patient to have / assistance at home between her friends Aroldo and Riley. ?? Identified patient/family concerns r/t discharge: None ?? Baseline functional status/mobility: Independent ?? Current functional status/mobility: Independent with walker ?? Admission status: 08/26/14 IPI Order to Admit is appropriate and signed by attending provider Dr. Enrrique Schreiber. ?? Anticipated discharge date: Today, Monday 08/28 ?? Anticipated discharge place: Home into care of roommate Aroldo ?? Anticipated discharge needs: Patient has own walker. She plans to acquire an elevated toilet seatfrom her local retail store. ?? Home health agency: [facility] RN/PT/OT/CLINICAL DIETICIAN orders pended. ?? Transportation at discharge: Parents ?? Family involved in discharge planning: Parents are at the bedside, supportive, and involved in discharge planning. ?? PCP: [facility], Future Appointments Date Time Provider Department Center 09/09/2014 11:30 AM Enrrique Schreiber MD [facility] 09/14/2014 11:00 AM Antonella Monet LD [facility] 09/14/2014 1:00 PM Paul Leyva MD [facility] 09/14/2014 1:30 PM Nancie Obrien MD [facility] Plan: Care Management will continue to monitor progress, follow for continuity of care, and assist with discharge planning. Patient Active Problem List Diagnosis Code ??? CIS - asthma T999.0 ??? Type 2 diabetes mellitus 250.00 ??? 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 CIS - PCOS T999.0 ??? CIS - Raynauds T999.0 ??? CIS - spinal injury T999.0 ??? Tremor, essential 333.1 ??? Closed left tibial fracture s/p IMN 08/27/14 823.80 Bryson Mo MD - 08/28/2014 6:40 AM EDT Orthopaedic Surgery Inpatient Progress Note Ariela Foreman is a 28 y.o. female who was admitted on 08/26/2014 with the following injuries: ?? Left tibia fracture s/p IMN on 08/27 Subjective: Did well post-op. Pain better controlled. Sugars have still been high. No new numbness or tingling. She has baseline limited motion of the foot and some decreased sensation. Objective: Last value Range last 24 hrs Temperature Temp: 36.7 ??C (98.1 ??F) Temp: [36.7 ??C (98.1 ??F)-37.1 ??C (98.8 ??F)] Heart Rate Heart Rate: 83 Heart Rate: [83-117] Blood Pressure BP: 103/61 mmHg BP: (103-163)/(61-99) Respiratory Rate Resp: 16 Resp: [13-19] SpO2 SpO2: 94 % SpO2: [94 %-100 %] Art BP BP (Arterial Line): -- I/O last 3 completed shifts: In: 3475.3 [P.O.:1460; I.V.:2015.3] Out: 2250 [Urine:2150; Blood:100] I/O this shift: In: 1293 [P.O.:360; I.V.:933] Out: 500 [Urine:500] Physical Exam: General: Well appearing, no acute distress LLE Extremity Exam: Sensation intact in toes and through leg, but diminished per baseline. +EHL/FHL No pain with passive stretch Compartments soft Brisk cap refill in toes. Laboratory Recent Labs 08/26/14 1700 WBC 14.0* HGB 14.0 HCT 41.2 PLATELET 283 NA 133* K Not Perf CL 94* CO2 23 BUN 8 CREATININE 0.65* INR 1.0 Assessment: 28 y.o. female with left tibia fractures s/p IMN. Dong well. Will continue to work on transition to PO pain meds and better glucose control. Home when clears PT and pain controlled. Plan: ?? NWB LLE, splint at all times. ?? Lovenox 40mg daily ?? Mod SSI ?? Physical Therapy consult ?? 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 Voiding spontaneously Gianluca Coon MD 08/28/2014 08/28/14 6:45am Patient seen and examined. Agree with findings and note by Dr. Coon. Coleen Choi RN - 08/27/2014 8:36 PM EDT Patient C/O left leg spasms from top to bottom. Would like something for it. paged. [phone]: Patient C/O increasing pain and spasms. Foot swollen, unable to do more thorough assessment because of cast and merlin wraps. paged. [phone]: MDs at bedside. Merlin wrap removed. Leg elevated. Per MDs, compartments are soft. Patient is more comfortable. Will monitor. Sharda Jewell RN - 08/27/2014 4:31 PM EDT 28 y.o. year old female POD#0 s/p left tibial nail with Dr Schreiber. Pt has [place] Primary care plus. Met briefly with pt and mom. Pt reclined in bed with IVF, ice grinder and o2 via NC. Pt not medically ready for d/c. Discharge needs to be determined. Fede Bird RN - 08/27/2014 12:52 PM EDT Patient returned to room via bed after LLE IMN. Patient A&O x 3, lungs clear, heart rate regular. Patient has a semi-hard merlin wrapped dressing to LLE, noted to be clean dry and intact. + DP pulse bilaterally, good CSMT to distal LLE. Patient has an IV of NS infusing at 100 mL/hr and has a dilaudidPCA @ .. Patient states their pain level is controlled at this time and is using dilaudid LOCK MAINTENANCE SUPERVISOR appropriately. Patient denies chest pain, shortness of breath, numbness or tingling. Patient oriented to room, call delroy IS. RN will monitor patient. Chandra Robin - 08/27/2014 12:39 PM EDT Orthopaedic Surgery Post-Op Check Note Surgery: Left tibial nail Patient Active Problem List Diagnosis Date Noted ??? Closed left tibial fracture s/p IMN 08/27/14 08/26/2014 ??? Tremor, essential 12/08/2010 ??? CIS - asthma ??? Type 2 diabetes mellitus ??? CIS - familial gall bladder disease ??? CIS - Raynauds ??? 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 CIS - PCOS 06/03/1999 ??? CIS - spinal injury 06/03/1987 S/Events: Denies CP, SOB, nausea, vomiting, abd pain, dizziness, headache. Patient reports that pain is increasing but reports she just hit her button. Patient did void since surgery. O: Vitals: Temp: [36.6 ??C (97.9 ??F)-37.1 ??C (98.8 ??F)] Heart Rate: [108-124] Resp: [13-19] BP: (124-163)/(79-99) SpO2: [96 %-100 %] I/O last 3 completed shifts: In: 740 [P.O.:740] Out: 550 [Urine:550] I/O this shift: In: 1133.3 [I.V.:1133.3] Out: 400 [Urine:300; Blood:100] Exam: General: NAD, awake/alert Resp: Breathing comfortably Abd: S/NT/ND LLE: Dressing c/d/i. Splint in place limiting exam. Sensation intact on dorsal and plantar toes thatcan be accessed distally. Toes wwp with brisk cap refill. Patient able to wiggle toes slightly but limited by splint and positioning. Compartments are soft to palpation. No pain with extension of greattoe. No ability to flex great toe in splint. Labs: Recent Labs 08/26/14 1700 WBC 14.0* HGB 14.0 HCT 41.2 PLATELET 283 NA 133* K Not Perf CL 94* CO2 23 BUN 8 CREATININE 0.65* Imagine: AP and lateral views show intramedullary nail in left tibia with interval reduction of fracture. Lateral and posterior malleoli fractures continue to be visualized with minimal interval displacement of posterior malleolus component. A/P: 28 y.o. year old female POD#0 s/p left tibial nail, progressing well with stable vitals and uop. - Orders reviewed - continue all post-operative care Maritza Tucker PT - 08/27/2014 8:29 AM EDT Physical Therapy Note PT consult received, chart received. Pt pending OR today for IMN of left tibia s/p left tibial fx. Will continue to follow pt and initiate evaluation when appropriate. Maritza Tucker PT Pager: [phone] Physical Therapy Inpatient Rehabilitation Tunde Armstrong - 08/27/2014 6:21 AM EDT Orthopaedic Surgery Inpatient Progress Note Ariela Foreman is a 28 y.o. female who was admitted on 08/26/2014 with the following injuries: ?? Left tibia fracture Subjective: Admitted yesterday. No acute issues overnight. Pain well-controlled. Had some nausea overnight. Denies CP/Sob. Sliding scale insulin increased overnight to moderate for elevated blood sugars. Objective: Last value Range last 24 hrs Temperature Temp: 36.6 ??C (97.9 ??F) Temp: [36.6 ??C (97.9 ??F)-37 ??C (98.6 ??F)] Heart Rate Heart Rate: 124 Heart Rate: [83-124] Blood Pressure BP: 124/79 mmHg BP: (118-140)/(78-90) Respiratory Rate Resp: 16 Resp: [16] SpO2 SpO2: 98 % SpO2: [97 %-99 %] Art BP BP (Arterial Line): -- I/O last 3 completed shifts: In: 240 [P.O.:240] Out: 200 [Urine:200] I/O this shift: In: 480 [P.O.:480] Out: 350 [Urine:350] Physical Exam: General: Well appearing, no acute distress LLE Extremity Exam: Sensation intact in toes. Long leg cast intact. Wiggles toes. Thigh soft Brisk cap refill in toes. Laboratory Recent Labs 08/26/14 1700 WBC 14.0* HGB 14.0 HCT 41.2 PLATELET 283 NA 133* K Not Perf CL 94* CO2 23 BUN 8 CREATININE 0.65* INR 1.[address] of L tibia demonstrates the distal 1/3 tibia fracture as seen on xrays as well as non-displaced medial and posterior malleoli fractures. Assessment: 28 y.o. female with left tibia fractures. NPO. Booked, marked, consented for surgery today. Plan: ?? NWB LLE ?? NPO for OR ?? Will begin lovenox starting Monday 08/28 Tunde Armstrong MD 08/27/2014 Coleen Choi RN - 08/27/2014 4:16 AM EDT Patient has been NPO since midnight. IV infusing as ordered. Patient has had 3 loose stools overnight. Pain medication adjusted and patient is comfortable. ISS also adjusted. Voiding without issue. Hasbeen OOB to the bathroom with a walker. Needs cues on safe use of same. Will monitor. Trevor Banda APRN - 08/26/2014 5:10 PM EDT Ariela Foreman is a 28 y.o. female with PMH notable for asthma, PCOS and DM2 who was just admitted w/a closed Left tibia fracture on-call for OR tomorrow for fixation. Interval History Long standing h/o DM2, reports she was worked up for both Type 1 and 2 and was dx w/ Type 2. In pasthas used Metformin (1000mg po bid) but not for past year as she was without insurance. She lives in [facility] and now has insurance but no PCP yet, working in this. Her random POCT BG was 273 todayupon admission. A Ha1c and BMP is pending. She reports insulin resistance in past. Denies excessive thirst or urination, does report cotton mouth past few days but attributes this to narcotic pain medication. Active Hospital Problems Diagnosis ??? Closed left tibial fracture Resolved Hospital Problems Diagnosis Date Resolved No resolved problems to display. Vitals last 8 hours: Temp: [36.7 ??C (98.1 ??F)] Heart Rate: [83-96] Resp: [16] BP: (118-140)/(84-90) SpO2: [97 %] A/P 28 y.o. female w/ PCOS, DM2 not currently on medication. #DM type 2- -Ha1c pending -SSI Q4h w/ sensitive scale, may need to increase scale -Hold off on oral agents for now, consider restarting Metformin -DM team cx (ordered) -Nutrition & Diabetes ACID TREATER cx (ordered) Trevor Banda APRN Inpatient Orthopaedics Pager #[phone] Fede Bird RN - 08/26/2014 3:32 PM EDT Patient arrived to floor via bed. Patient A&O x 3, lungs clear, heart rate regular. Patient has active bowel sounds and states their last BM was 08/24. Patient has a hard cast from below left knee to toes, noted to be clean dry and intact with no external damage present. Patient has no IV access and team paged to obtain one. Patient states their pain is controlled at this time. Patient states that her sensation to toes on left side are as numb as they usually are (pt has peripheral neuropathy and Raynaud's Disease). Patient denies chest pain, shortness of breath, numbness or tingling. Patient oriented to room, call LUIS M potts. RN will monitor patient. documented in this encounter Miscellaneous Notes Initial Assessments - Tom Katelin Arik, OT - 08/28/2014 2:12 PM EDT Occupational Therapy Evaluation Patient profile: Ariela Foreman is a 28 y.o. female patient of Bryson Lopez MD, admitted on 08/26/2014 with tibial shaft fracture, sustained in a fall on the ice while walking her dog. Seen in [facility], placed in a splint. To OR 08/27 for IM nail L Tibia fracture. Past Medical History Diagnosis Date ??? Tremor, essential 12/08/2010 Past Surgical History Procedure Laterality Date ??? Created by interface cholecystectomy Procedure Date: 1999 Social History: Patient lives with her roommate. Aunt will be arriving Saturday to assist. Home Setup: house. 4 steps to enter. Tub/shower, needs to step up and over. Low toilet. DME: walker, crutches Baseline ADL/Mobility: Independent with ADL???s and IADL???s. 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 Cognitive Status/Behavior: alert, oriented to person, place, and time Communication: No deficits Vision & Perception: functional with glasses Range of motion, strength, coordination: Hand dominance: left Bilateral UEs are within functional limitations Decreased ROM LLE Sensation: hands okay Activities of Daily Living: Self-feeding: independent Hygiene grooming: independent Upper and lower body dressing and bathing: ?? pt dressed in stretch pants. Discussed clothing options. Toileting: Toilet Transfer: modified independent Toilet Hygiene: Independent, including clothing management Functional Mobility: Supine to sit: not assessed Sit to stand: not assessed, was in bathroom when therapist arrived Ambulation: modified independent with walker, able to maintain NWB LLE Stand to sit: independent Sit to supine: min assist to lift LLE onto bed. 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 Fair+standing with BUE support on walker. IADL???s: Assistance available to patient. Endurance: Information taken from last recorded vitals in flowsheet. Last value Range last 8 hrs Heart Rate Heart Rate: 111 Heart Rate: [85-111] Blood Pressure BP: 120/75 mmHg BP: (98-120)/(64-75) SpO2 SpO2: 99 % SpO2: [96 %-99 %] Pain: Did not assign number but stated L knee was the worst, was killing her Skin: incision over L knee, splint on L foot Informed Consent: The patient agrees to and understands the OT treatment plan and goals. Education: patient educated on Role of occupational therapy/rehabilitation, Transfers, Adaptive equipment training, ADL, Positioning, Safety, Precautions/Protocol, Functional Mobility, Activity pacing/Energy conservation, Home Management, Balance and Recommendations and verbalizes and demonstrates understanding. Patient status, treatment, and mobility recommendations discussed with nursing. Assessment: Pt POD #1 IMN L tibia fracture. Pt able to maintain NWB LLE with functional mobility to/from bathroom. Pt with high pain in L knee this afternoon, hasn't yet found a happy medium. Has supportive familyat home, d/c either this afternoon or tomorrow. May benefit from home OT safety assessment. Recommendations: Equipment needs at discharge: raised toilet seat Discharge Recommendations: may benefit from home OT safety assessment Other Recommendations: none Plan: Pt with possible d/c home this afternoon. Has walker, issued groundskeeping maintenance. Declined need for walkerbag. Eval Date: 08/28/2014 Total time spent with patient: 24 minutes Total timed interventions: 0 minutes Pager: [phone] Katelin Santos OT 08/28/2014 Occupational Therapy Rehabilitation Department Initial Assessments - Emilee Bailey, PT - 08/28/2014 10:00 AM EDT Physical Therapy Evaluation Patient profile: Pt. is a 28 y.o. female admitted on 08/26/[address] Mo, Bryson Abdi MD . Pt slipped and fell on the ice 08/25/14 . She suffered a tibial shaft fracture. She was seen in [facility] placed in a splint. She was home overnight and had significant and difficult to control pain. She has been taking oxycodone 10 mg every 4 hours. She denies numbness or tingling in her toes. She hasa history of PCOS and diabetes mellitus diet controlled. Left tibia fracture s/p IMN on 08/27. PMH: Active Non-Hospital Problems Diagnosis ??? Tremor, essential ??? CIS - asthma ??? CIS - familial gall bladder disease ??? CIS - Raynauds ??? CIS - MDR bacterial overgrowth ??? CIS - PCOS ??? CIS - spinal injury Past Medical History Diagnosis Date ??? Tremor, essential 12/08/2010 Past Surgical History Procedure Laterality Date ??? Created by interface cholecystectomy Procedure Date: 1999 Social History: Patient lives with a male roommate. Her Aunt is also arriving on Saturday to assist Stairs: 4 with a rail to enter. Baseline Mobility: ind amb prior to slip on the ice. Pt had been mobilizing with FWW at home. Up anddown steps on buttock Equipment at home: has FWW Precautions/Special Considerations: TDWB L L/E Subjective: ???I was going up and down the steps on my bottom. I used a milk crate to help me get from the floor to a chair. . . . I haven't been drinking a lot because I don't want to have to get up Objective: Pt seen for evaluation today. Pain: mild, 3/10 at rest, 6/10 with mobilizing, premedicated Vital Signs: Sp02: WNL HR: WNL Mental Status: alert, oriented to person, place, and time Musculoskeletal: ROM: Impaired L ankle immobilized Strength: Impaired L ankle, +SAQ, +SLR Sensation: WFL Bed Mobility: Supine to Sit: ind, increase time Sit to Supine: ind Transfers: Sit to Stand: With supervision , FWW and NWB L L/E Stand to Sit: ind Bed <>Chair: ind with FWW Gait: Distance: approx 10 ft to and from BR (ind toileting) then approx 60 ft with FWW, NWB L L/E Device used: rolling walker Level of assist: supervision Gait pattern: NWB L L/E Pt instructed in how to go up and down steps using 1 railing and 1 crutch but declined to practice because her railing at home is very low. Instead she is planning to go up and down on her buttock as she had been doing. Instruction and demonstration provided. Pt 's male roommate can also assist. Pt. to utilize rolling walker and supervision for ambulation with nursing. Balance: Sitting: good Standing: good with FWW and NWB-TDWB L L/E Informed Consent: The patient agrees to and understands the PT treatment plan and goals. Education: patient have been educated on Bed mobility, Transfers, Assistive device/technique, Stairs, Exercise, Safety , Precautions/protocol, Gait , Role of therapy and Discharge planning and verbalizes understanding. Pt instructed in static quads/knee extension and knee flexion in sitting. Patient status, treatment, and mobility recommendations discussed with nursing. Assessment: Pt tolerated today???s evaluation well and is safe for d/c to home from the PT standpoint. She was somewhat lightheaded and admits to not drinking a lot of fluids. Plan: Home pending medical readiness Equipment needs: Patient has FWW. May benefit from 3 in -1 -commode (reports she was having trouble getting of toilet at home) Discharge Recommendations: No VNA PT indicated Total time spent with patient: 25 minutes Total timed interventions: 0 minutes eval Emilee Bailey, PT 08/28/2014 Pager: [phone] Physical Therapy Rehabilitation Department Plan of Care - Coleen Choi RN - 08/28/2014 2:06 AM EDT Problem: General Plan of Care Goal: Plan of Care Review Outcome: Ongoing (Interventions Implemented as Appropriate) 08/27/14 1437 08/28/14 0046 08/28/14 0205 Plan of Care Review Plan of Care Outcome Status -- -- ongoing (interventions implemented as appropriate) Progress improving -- -- Coping/Psychosocial Response Interventions Plan of Care Reviewed with -- patient -- OUTCOME EVALUATION NOTE: OUTCOME SUMMARY: Patient struggled with pain control and left leg spasms at the start of the shift. MDs prescribed some additional medications and once these were administered, she became very comfortable and has remained so. PLAN MOVING FORWARD: Stay on top of pain control, ambulation, PT/OT, discharge planning INDIVIDUALIZED FALL PREVENTION: Assistance: Patient is a 1 assist with a walker. She has not yet had PT and needs cueing for safety Supervision: Patient needs very little assistance with her ADLs Surveillance: Masimo, VS, blood glucose management, rounding CPG GOAL OUTCOME EVALUATION: Goal: Individualization and Mutuality Outcome: Ongoing (Interventions Implemented as Appropriate) 08/26/14 1500 08/27/145508/28/14204 Individualization Individualize the Plan of Care: -- -- keep ahead of pain Patient Specific Goals -- patient would like to go home after her surgery later this morning -- Mutuality/Individual Preferences What anxieties, fears or concerns do you have about your health or care? -- has some anxiety about pain -- What questions do you have about your health or care? -- surgery is at 0830 this morning -- What information would help us give you more personalized care? None -- -- Goal: Fall Prevention-Safe Patient Handling Outcome: Ongoing (Interventions Implemented as Appropriate) 08/28/141108/28/1445 Safety Interventions Safety Precautions/Fall Reduction assistive device;commode/urinal/bedpan at bedside;fall reduction program maintained;lighting adjusted for task/safety;low bed;nonskid shoes/slippers when out of bed -- Antony Fall Risk History of Falling -- 25 Secondary Diagnosis -- 15 Ambulatory Aids -- 15 Intravenous Therapy/Heparin/Saline Lock -- 20 Gait/Transferring -- 10 Mental Status -- 0 Score -- 85 Activity and Safety Assistive Device Front wheel walker -- OTHER Antony Fall Risk -- High Musculoskeletal Interventions Activity/Level of Assistance up in room;ambulated;with walker;with 1-person assist -- Positioning supine;other (see comments) (shifts weight in bed) -- Goal: Infection Control Outcome: Ongoing (Interventions Implemented as Appropriate) 08/28/141108/28/1445 Safety Interventions Isolation Precautions standard precautions maintained -- Infection Prevention -- blood glucose management;environmental surveillance Goal: Discharge Needs Assessment Outcome: Ongoing (Interventions Implemented as Appropriate) 08/27/1455 Discharge Needs Assessment Concerns to be Addressed no discharge needs identified Readmission Within the Last 30 Days no previous admission in last 30 days Equipment Needed After Discharge crutches, axillary;walker, rolling Current Discharge Risk dependent with mobility/activities of daily living Current Health Anticipated Changes Related to Illness inability to care for self;inability to work Living Environment Transportation Available car;family or friend will provide Problem: Pain, Acute (Adult, Obstetrics) Goal: Identify Signs and Symptoms and Related Risk Factors Signs and symptoms and related risk factors are identified upon initiation of Human Response Clinical Practice Guideline (CPG) Outcome: Ongoing (Interventions Implemented as Appropriate) 08/27/1455 Pain, Acute Related Risk Factors (Acute Pain) anxiety;fatigue;stress;surgery;trauma injury Signs and Symptoms (Acute Pain) facial mask of pain/grimace;sleep pattern alteration;verbalization of pain descriptors Goal: Acceptable Pain Control/Comfort Level Patient will demonstrate the desired outcomes. Outcome: Ongoing (Interventions Implemented as Appropriate) 08/27/1455 Pain, Acute (Adult, Obstetrics) Acceptable Pain Control/Comfort Level making progress toward outcome Consult Note - Riri Bauman APRN - 08/27/2014 3:50 PM EDT Diabetes Management Team Inpatient Consult Date of Consultation: 08/27/2014 Consult Requested by: Trevor Banda APRN orthopaedics Reason for Consultation: Ariela Foreman is a 28 y.o. years old female with PMH significant for PCOS and T2DM who was admitted on 08/26/2014 currently being treated for Closed left tibial fracture s/p IM/. We are being consulted to assist with diabetes management and to provide a review of [facility]. Diabetes History: Ariela Foreman has had diabetes since age 14. She was diagnosed with PCOS at age 12 and was told she was insulin resistant. They were able to control her BG with diet and exercise until age 14 when she started on Metformin. This was titrated up over time and she was taking the extended release 1000 mg po bid. She does experience 1 week of nausea when started or dose increased with the regular metformin, tolerates the extended release much better. The most recent Hgb A1C she had prior to today was 6.something > 1 year ago. She stopped taking her metformin and testing her BG about 1 year ago as shehad no insurance and no one to prescribe this medication for her. She is working with [facility] to obtain a PCP. 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 Current outpatient diabetes regimen: Medications: none Monitoring is not done Most recent HA1c was done on 08/26/14 and was 10.5%, suggesting an average glucose of 255 mg/dL for the past 6-8 weeks. Typical diet is: 2 meals and 1-2 snacks a day Breakfast- skips or scrambled eggs and bagel Lunch- skips snacks on cheese curls and pretzels Supper- meat veggies and rice or potato Typical exercise regimen is walks 20 twice daily on work days 45 min 4-5 times a day on non work days Trouble with hypoglycemia no Diabetes Complications Status: Eyes: None Kidneys: None Feet: None Sensory: None Autonomic: None Cardiac: None Current Hospital Diabetes Care: Medications: Novolog resistant sliding scale q 4 hrs Monitoring: q 4 hrs Diet: carb control level 2 ROS: Constitutional: No recent weight change Endocrine: No thyroid problems Eyes: No recent vision change ENT: No dysphagia, dental issues Cardiovascular: No chest pain Respiratory: No wheezing , shortness of breath GI: No nausea, vomiting, diarrhea, constipation : No frequent urinary tract infections Neurological: No weakness or numbness PMH Past Medical History Diagnosis Date ??? Tremor, essential 12/08/2010 Current Hospital Medications: ??? clindamycin 900 mg Intravenous Q8H ??? [START ON 08/28/2014] enoxaparin 40 mg Subcutaneous Daily ??? metFORMIN 500 mg Oral BID WC ??? insulin aspart 3-12 Units Subcutaneous Q4H VIRAL ??? [START ON 08/28/2014] metFORMIN 1,000 mg Oral BID WC ??? insulin detemir 20 Units Subcutaneous Once ??? primidone 25 mg Oral BID ??? sodium chloride 0.9 % 5 mL Intravenous BID ??? polyethylene glycol 17 g Oral BID ??? senna-docusate 2 tablet Oral BID ??? multivitamin Uvfr-Ri-IR-Min 1 tablet Oral Daily PRN: diphenhydrAMINE, ondansetron, nalOXone, LOCK MAINTENANCE SUPERVISOR eldridge, sodium chloride 0.9 %, lidocaine, ondansetron, dextrose 50% OR glucagon (human recombinant), oxyCODONE OR oxyCODONE OR oxyCODONE Allergy: Allergies Allergen Reactions ??? Cefuroxime Axetil Anaphylaxis ??? Acetaminophen Nausea And Vomiting ??? Codeine Phosphate Nausea And Vomiting ??? Morphine Sulfate Pain gets worse ??? Sulfa (Sulfonamide Antibiotics) Nausea And Vomiting Social history: History Substance Use Topics ??? Smoking status: Never Smoker ??? Smokeless tobacco: Never Used ??? Alcohol Use: No Family history: Family History Problem Relation Age of Onset ??? Cancer Neg Hx Vitals Last value Range last 24 hrs Temperature Temp: 36.9 ??C (98.4 ??F) Temp: [36.6 ??C (97.9 ??F)-37.1 ??C (98.8 ??F)] Heart Rate Heart Rate: 107 Heart Rate: [107-124] Blood Pressure BP: 138/90 mmHg BP: (121-163)/(78-99) Respiratory Rate Resp: 16 Resp: [13-19] SpO2 SpO2: 98 % SpO2: [96 %-100 %] Physical Exam: Gen: NAD, talking in clear sentences, groggy from anesthesia/pain meds Laying in bed comfortably HEENT: no LAD, no thyromegaly Heart: RRR, no murmurs. Radial pulses +2. Lungs: CTAB, breathing non-labored. No wheezes or rhonchi. Good aeration Abd: Soft, non-distended, non-tender x4 quadrants, +bs Ext: No edema LLE dressing cdi Neuro: Moving all extremities. Grossly non-focal Labs: Recent Labs 08/26/14 1700 WBC 14.0* HGB 14.0 HCT 41.2 PLATELET 283 NEUTROABS 8.60* Recent Labs 08/26/14 1700 NA 133* K Not Perf CL 94* CO2 23 BUN 8 CREATININE 0.65* GLUCOSE 270* Recent Labs 08/26/14 1700 CALCIUM 8.9 No results for input(s): PROT, ALBUMIN, AST, ALT, ALKPHOS, BILITOT, BILIDIR in the last 168 hours. Recent Labs 08/26/14 1700 INR 1.0 PT 13.8 No results for input(s): TROPONINT, CK in the last 168 hours. Recent Labs 08/26/14 1700 GLUCOSE 270* Assessment: Patient is a 28 y.o. years old female with PMH significant for DM (Last A1C of 10.5) who was admitted on 08/26/2014 for Left tibia fracture POD#0 left tibial nailing. Diabetes not controlled and complicated by inability to obtain medication, decadron given intraoperatively and decreased mobility due to fracture. . Currently with variability of blood glucose levels while hospitalized requiring adjustment of insulin regimen and DM medications. Ariela is motivated to regain control of her diabetes. Freestyle BG monitor provided. Hyperglycemia due to decadron and uncontrolled diabetes, one time dose of aspart 15 units and units to attempt to break glucose toxicity. The effects of decadron will continue for 2 to 3 daysincreasing BG levels. On discharge we hope to control BG with orals only. Will continue to monitor during hospital stay. Rx for Metformin ER 1000 mg po bid with meals and Freestyle lite meter [facility]. Appointment to establish care with [facility] [place] Endocrinology clinic, and with informatics educator made for 09/14/14 Plan: 1. Lantus 10 units once for steroid induced hyperglycemia 2. Novolog resistant sliding scale for BG>140 3. Metformin 500 mg po bid x 2 doses if tolerated increase to 1000 mg po bid 4. If additional medication needed consider glimepiride 2 mg po qd [facility] diabetes care: Medications - Outpatient treatment regimen recommendations pending based on the hospital course. Monitoring - continue BG tid ac & hs Diet - low fat/low carb diet Exercise - weight-bearing exercise 30 min/day, as tolerated Thank you for allowing us to provide care for your patient Consult Note - Palak Bernard LD - 08/27/2014 3:00 PM EDT Nutrition Consult Note: S: Per pt: Has been dealing with DM for a long time, knows what she needs to do Appetite: Fair Chewing/Swallowing: No issues reported N/V: None reported O: Patient Active Problem List Diagnosis Code ??? CIS - asthma T999.0 ??? Type 2 diabetes mellitus 250.00 ??? 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 CIS - PCOS T999.0 ??? CIS - Raynauds T999.0 ??? CIS - spinal injury T999.0 ??? Tremor, essential 333.1 ??? Closed left tibial fracture s/p IMN 08/27/14 823.80 Past Medical History Diagnosis Date ??? Tremor, essential 12/08/2010 Diet: CHO2 Admit Weight: 99.79 kg Estimated body mass index is 35.53 kg/(m^2) as calculated from the following: Height as of this encounter: 167.6 cm (5' 5.98). Weight as of this encounter: 99.791 kg (220 lb). Labs: Lab Results Component Value Date NA 133* 08/26/2014 K Not Perf 08/26/2014 CL 94* 08/26/2014 CO2 23 08/26/2014 BUN 8 08/26/2014 CREATININE 0.65* 08/26/2014 GLUCOSE 270* 08/26/2014 CALCIUM 8.9 08/26/2014 CRP 41.1 08/10/2010 Medications: Insulin, MVI, miralax, pericolace, others noted A: Pt seen for nutrition consult r/t DM2 diet education. Pt reports that she has been dealing with diabetes for many years now and that she has a good understanding of what she needs to do in terms of nutrition to manage it. R/t insurance issues, pt reports that she was, for a time, unable to get her metformin. Pt denies further nutrition education at this time. In conversation, pt notes that she is very sensitive to nitrites and maple containing products. Will make a note in computrition making dietary aware of these sensitivities. Encouraged pt to contact Food and Nutrition services with any questions that may arise. P: Please continue current diet Per pt request, no standard trays will not be sent civil engineering assistant will see pt daily to assist with menu choices Nutrition to follow throughout hospital stay [facility] Hernandez Plan of Care - Fede Bird RN - 08/27/2014 2:39 PM EDT Problem: General Plan of Care Goal: Plan of Care Review 08/27/14 3666 Plan of Care Review Plan of Care Outcome Status ongoing (interventions implemented as appropriate) Progress improving Coping/Psychosocial Response Interventions Plan of Care Reviewed with patient OUTCOME EVALUATION NOTE: OUTCOME SUMMARY: Patient was started on oral pain medication upon arrival from PACU. Patient tolerated 10 mg PO denying drowsiness, LOCK MAINTENANCE SUPERVISOR being used appropriately by patient (no education needed on use of this). Patient receiving 3 L O2 via NC with O2 sat >95%. PLAN MOVING FORWARD: Continue PRN pain medication, mobilize as tolerated, encourage coughing/deep breathing, d/c LOCK MAINTENANCE SUPERVISOR in the morning. INDIVIDUALIZED FALL PREVENTION: Assistance: x1 stand assist with a walker when out of bed Supervision: Hands on assist with all ADL's Surveillance: duy Colinful rounding CPG GOAL OUTCOME EVALUATION: Goal: Individualization and Mutuality 08/26/14 1500 08/27/14 005 Individualization Patient Specific Goals -- patient would like to go home after her surgery later this morning Mutuality/Individual Preferences What anxieties, fears or concerns do you have about your health or care? -- has some anxiety about pain What questions do you have about your health or care? -- surgery is at 0830 this morning What information would help us give you more personalized care? None -- Goal: Fall Prevention-Safe Patient Handling 08/26/14234408/27/14 1255 Safety Interventions Safety Precautions/Fall Reduction -- assistive device;environmental modification;fall reduction program maintained;nonskid shoes/slippers when out of bed Antony Fall Risk History of Falling -- 25 Secondary Diagnosis -- 15 Ambulatory Aids -- 15 Intravenous Therapy/Heparin/Saline Lock -- 20 Gait/Transferring -- 10 Mental Status -- 0 Score -- 85 Activity and Safety Assistive Device Front wheel walker -- OTHER Antony Fall Risk -- High Musculoskeletal Interventions Activity/Level of Assistance -- up in room;with stand by assist;with walker Positioning -- independent Goal: Infection Control 08/26/14 2345 08/27/14 0000 Safety Interventions Isolation Precautions standard precautions maintained -- Infection Prevention -- blood glucose management;environmental surveillance Goal: Discharge Needs Assessment 08/27/14 0056 Discharge Needs Assessment Concerns to be Addressed no discharge needs identified Readmission Within the Last 30 Days no previous admission in last 30 days Equipment Needed After Discharge crutches, axillary;walker, rolling Current Discharge Risk dependent with mobility/activities of daily living Current Health Anticipated Changes Related to Illness inability to care for self;inability to work Living Environment Transportation Available car;family or friend will provide Problem: Pain, Acute (Adult, Obstetrics) Intervention: Pain Management Interventions 08/27/14 0000 Pain/Comfort Interventions Pain Management Interventions multimodal measures utilized;pain care plan reviewed with patient/caregiver;awakened for pain meds per patient preference;multiple medication modalities Op Note - Bryson Mo MD - 08/27/2014 10:25 AM EDT [facility] [place] Operative Note Patient Name: Ariela Foreman : [id number] MR#: [id number] Case Date: 08/27/2014 Surgeon: Surgeon(s) and Role: * Bryson Mo MD - Primary * Tunde Armstrong MD Preoperative diagnosis: left tibia fracture Postoperative diagnosis: left tibia fracture Procedure(s): INTRAMEDULLARY NAILING, TIBIA left MODIFIER TIBIAL NAIL SYNTHES Anesthesia: General Estimated Blood Loss: * No values recorded between 08/27/2014 8:51 AM and 08/27/2014 10:18 AM * Specimens removed during surgery: None Drains: Surgical Closure: Primary Closure - closure of ALL tissue levels during the original surgery regardless of wires, wickes, drains, or other devices extruding through the incision Disposition: awakened from anesthesia, extubated and taken to the recovery room in a stable condition, having suffered no apparent untoward event. Condition: doing well without problems (Please see the Surgical Encounter Summary for any Implant and Specimen details pertinent to this patient.) HPI/Surgical Indications: Procedure Description: Attestation: Case Date: 08/27/2014 I was present and I participated during the entire procedure (does not need to include opening and closing). PREOPERATIVE DIAGNOSIS: Left distal tib fib fracture. POSTOPERATIVE DIAGNOSIS: Left distal tib fib fracture. PROCEDURE: IM nailing, left tibia (Synthes EX tibial nail 8 x 345 mm statically locked). SURGEON: Bryson Mo MD POLICY INTERN: Tunde Armstrong MD ANESTHESIA: General. EBL: 25 mL COMPLICATIONS: None. INDICATIONS: We were asked by Dr. Enrrique Abdoul to assist with the orthopedic care of this patient who fell sustaining a left distal tib fib fracture with nondisplaced medial and posterior malleolus fractures. Treatment options were discussed with the patient. Risk and benefits of the surgery were discussed. This include but not limited to pain, bleeding, infection, nonunion, malunion, injury to nerves or vessels, blood clots, and need for further surgery. She understood these risks and wished to proceed. SUMMARY OF PROCEDURE PERFORMED: The patient was taken to the operating room and given general anesthesia. The patient was given IV antibiotics. Left leg was prepped and draped in the usual sterile fashion. A 2-cm incision was made just interior to the patella. The incision was carried through the patellar tendon. Guide pin was then advance to the proximal tibia and confirmed with C-arm. This was then overdrilled. Beaded guidewire was advanced on the intramedullary canal and advanced across the fracture. The tibia was then reamed. The patient did have a very narrow canal and did require the use of an 8-mm reamer to began reaming. Good chatter was achieved. Throughout the reaming process, care was taken to restore proper length, rotation, and alignment. Synthes tibial EX nail was then placed over the guidewire and was locked proximally with one dynamic and one static screw. Nails then tapped to help compress the fracture. The nail was then locked distally using perfect match-e-be-nash-she-wish band technique with total of three screws. Again, care was taken throughout the case to maintain proper length, rotation, and alignment. Once the fracture was securely fixed, the incisions were copiously irrigated with saline. The patellar tendon was closed with 0 Vicryl, subcu with 3-0 Vicryl, and the skin was then closed with 3-0 nylon. The patient's calf was soft and easily compressible. A dry sterile dressing was placed, and a well-padded splint applied. The patient was awakened, transferred to a stretcher, and returned to the recovery room in stable condition. As the attending physician, I was present for the entire case. PROGNOSIS: The patient has now undergone IM nailing for left tibia fracture. Overall prognosis for healing is relatively good. The patient did receive preoperative antibiotics to try and minimize the risks for infection. Given the fact that there are fractures involving the posterior malleolus and medial malleolus, it does pose some risk for posttraumatic arthritis. This fractures remain essentially nondisplaced throughout the nailing process. The patient will be kept on Lovenox and then aspirin for DVT prophylaxis. Bryson Abdi MD 08/27/2014 Plan of Care - Coleen Choi RN - 08/27/2014 12:56 AM EDT Problem: General Plan of Care Goal: Plan of Care Review Outcome: Ongoing (Interventions Implemented as Appropriate) 08/26/14 1614 08/27/14 0000 Plan of Care Review Plan of Care Outcome Status ongoing (interventions implemented as appropriate) -- Progress improving -- Coping/Psychosocial Response Interventions Plan of Care Reviewed with -- patient OUTCOME EVALUATION NOTE: OUTCOME SUMMARY: Patient has had a good night. There have been some adjustments to her pain medication regimen and she now had good pain control. Her ISS had to be adjusted as her finger sticks have been high. PLAN MOVING FORWARD: Surgery, pain control post-op, INDIVIDUALIZED FALL PREVENTION: Assistance: Patient has been a SBA to the bathroom with the walker Supervision: Patient has needed minimal assistance with her ADLs Surveillance: Masimo, blood glucose management, VS, rounding CPG GOAL OUTCOME EVALUATION: Goal: Individualization and Mutuality Outcome: Ongoing (Interventions Implemented as Appropriate) 08/27/14 0056 Individualization Patient Specific Goals patient would like to go home after her surgery later this morning Mutuality/Individual Preferences What anxieties, fears or concerns do you have about your health or care? has some anxiety about pain What questions do you have about your health or care? surgery is at 0830 this morning Goal: Fall Prevention-Safe Patient Handling Outcome: Ongoing (Interventions Implemented as Appropriate) 08/26/14 2345 08/27/14 0000 Safety Interventions Safety Precautions/Fall Reduction assistive device;environmental modification;fall reduction programmaintained;lighting adjusted for task/safety;low bed;nonskid shoes/slippers when out of bed -- Antony Fall Risk History of Falling -- 25 Secondary Diagnosis -- 15 Ambulatory Aids -- 15 Intravenous Therapy/Heparin/Saline Lock -- 20 Gait/Transferring -- 10 Mental Status -- 0 Score -- 85 Activity and Safety Assistive Device Front wheel walker -- OTHER Antony Fall Risk -- High Musculoskeletal Interventions Activity/Level of Assistance up in room;ambulated;with walker;with stand by assist -- Positioning HOB up 30-45 degrees;supine;independent (shifts own weight in bed) -- Goal: Infection Control Outcome: Ongoing (Interventions Implemented as Appropriate) 08/26/14 2345 08/27/14 0000 Safety Interventions Isolation Precautions standard precautions maintained -- Infection Prevention -- blood glucose management;environmental surveillance Goal: Discharge Needs Assessment Outcome: Ongoing (Interventions Implemented as Appropriate) 08/27/1455 Discharge Needs Assessment Concerns to be Addressed no discharge needs identified Readmission Within the Last 30 Days no previous admission in last 30 days Equipment Needed After Discharge crutches, axillary;walker, rolling Current Discharge Risk dependent with mobility/activities of daily living Current Health Anticipated Changes Related to Illness inability to care for self;inability to work Living Environment Transportation Available car;family or friend will provide Problem: Pain, Acute (Adult, Obstetrics) Goal: Identify Signs and Symptoms and Related Risk Factors Signs and symptoms and related risk factors are identified upon initiation of Human Response Clinical Practice Guideline (CPG) Outcome: Ongoing (Interventions Implemented as Appropriate) 08/27/1455 Pain, Acute Related Risk Factors (Acute Pain) anxiety;fatigue;stress;surgery;trauma injury Signs and Symptoms (Acute Pain) facial mask of pain/grimace;sleep pattern alteration;verbalization of pain descriptors Goal: Acceptable Pain Control/Comfort Level Patient will demonstrate the desired outcomes. Outcome: Ongoing (Interventions Implemented as Appropriate) 08/27/1455 Pain, Acute (Adult, Obstetrics) Acceptable Pain Control/Comfort Level making progress toward outcome Plan of Care - Fede Bird RN - 08/26/2014 4:17 PM EDT Problem: General Plan of Care Goal: Plan of Care Review 08/26/14 7294 Plan of Care Review Plan of Care Outcome Status ongoing (interventions implemented as appropriate) Progress improving Coping/Psychosocial Response Interventions Plan of Care Reviewed with patient OUTCOME EVALUATION NOTE: OUTCOME SUMMARY: Patient has mobilized with x1 stand by assist and a walker, tolerated well with minimal complaints of increased pain. Has verbalized to RN that she has been taking 10 mg of oxycodone on a q4 hour PRN basis. Next due @ 1830, made patient aware if her pain increases at any time to alert staff. PLAN MOVING FORWARD: Continue PRN pain medication, mobilize as tolerated, encourage coughing/deep breathing, OR tomorrow for IMN. INDIVIDUALIZED FALL PREVENTION: Assistance: x1 stand assist when out of bed Supervision: Hands on assist with all ADL's Surveillance: Abbyimo, purposeful rounding CPG GOAL OUTCOME EVALUATION: Goal: Individualization and Mutuality 08/26/14 1500 Mutuality/Individual Preferences What anxieties, fears or concerns do you have about your health or care? Just being in the hospital in general What questions do you have about your health or care? When is my surgery? What information would help us give you more personalized care? None Goal: Fall Prevention-Safe Patient Handling 08/26/14 1600 Safety Interventions Safety Precautions/Fall Reduction assistive device;environmental modification;fall reduction programmaintained;nonskid shoes/slippers when out of bed Antony Fall Risk History of Falling 25 Secondary Diagnosis 15 Ambulatory Aids 15 Intravenous Therapy/Heparin/Saline Lock 0 Gait/Transferring 10 Mental Status 0 Score 65 OTHER Antony Fall Risk High Musculoskeletal Interventions Activity/Level of Assistance up in room;with stand by assist;with walker Positioning independent Goal: Infection Control 08/26/14 1614 Safety Interventions Isolation Precautions standard precautions maintained Goal: Discharge Needs Assessment 08/26/14 1500 Living Environment Transportation Available car;family or friend will provide Problem: Pain, Acute (Adult, Obstetrics) Intervention: Pain Management Interventions 08/26/14 1614 Pain/Comfort Interventions Pain Management Interventions multimodal measures utilized;[id number] dosing utilized;medication dose titrated to patient response;ambulated documented in this encounter Plan of Treatment Upcoming Encounters Date Type Specialty Care Team Description 02/20/2022 TH Visit (TeleHealth) Rheumatology Jeffery Amin MD [facility] [address] [place], [place] [address] (Wo rk) Pending Results Name Type Priority Associated Diagnoses Date/Ti me XR Fluoro OR c-arm Imaging Routine 5 10:05 AM EDT storage only Scheduled Orders Name Type Priority Associated Diagnoses Order S chedule XR Fluoro OR c-arm Imaging Routine Once PRN (for Radiant storage only use) for 1 Occu rrences starting 2014 until 08/27/2014 Scheduled Referrals Name Type Priority Associated Order Schedule Diagnoses Referral to Outpatient Referral Routine Tibia fracture, Order ed: Endocrinology left, initial 08/27/2014 encounter Referral to Diabetic Outpatient Referral Routine Tibia fractur e, Ordered: Education left, initial 08/27/2014 encounter documented as of this encounter Procedures Procedure Name Priority Date/Time Associated Comments Diagnosis IMPLANTABLE DEVICES 08/31/2014 12:00 SCAN AM EDT SHOE HANDLER SCAN 08/31/2014 12:00 AM EDT POCT GLUCOSE Routine 08/28/2014 4:05 PM Results f or this EDT procedure are i n the results section. POCT GLUCOSE Routine 08/28/2014 11:43 Results for this AM EDT procedure are i n the results section. HEMOGRAM Routine 08/28/2014 10:42 Results for this AM EDT procedure are i n the results section. DIFFERENTIAL, AUTOMATED Routine 08/28/2014 10:42 Results for this AM EDT procedure are i n the results section. CBC (WITH DIFF) Routine 08/28/2014 10:42 AM EDT BASIC METABOLIC PANEL Routine 08/28/2014 10:42 Re sults for this (NON-FASTING) AM EDT procedure are in the results section. POCT GLUCOSE Routine 08/28/2014 7:04 AM Results f or this EDT procedure are i n the results section. URINE, Routine 08/28/2014 4:19 AM Resul ts for this QUALITATIVE EDT procedure are i n ([place] [place]/[facility]) the res ults section. POCT GLUCOSE Routine 08/28/2014 3:47 AM Results f or this EDT procedure are i n the results section. POCT GLUCOSE Routine 08/27/2014 11:27 Results for this PM EDT procedure are i n the results section. POCT GLUCOSE Routine 08/27/2014 7:03 PM Results f or this EDT procedure are i n the results section. POCT GLUCOSE Routine 08/27/2014 6:03 PM Results f or this EDT procedure are i n the results section. POCT GLUCOSE Routine 08/27/2014 4:10 PM Results f or this EDT procedure are i n the results section. POCT GLUCOSE Routine 08/27/2014 3:05 PM Results f or this EDT procedure are i n the results section. XR TIBIA FIBULA AP AND STAT 08/27/2014 12:00 R esults for this LATERAL PM EDT procedure are i n the results section. POCT GLUCOSE Routine 08/27/2014 10:27 Results for this AM EDT procedure are i n the results section. MODIFIER TIBIAL NAIL Yes 08/27/2014 8:26 AM Tibia fracture , SYNTHES EDT left, initial encounter INTRAMEDULLARY NAILING, Yes 08/27/2014 8:26 AM Tibia fract ure, TIBIA (WRVU 14.45) EDT left, initial encounter POCT GLUCOSE Routine 08/27/2014 6:48 AM Results f or this EDT procedure are i n the results section. POCT GLUCOSE Routine 08/27/2014 4:22 AM Results f or this EDT procedure are i n the results section. POCT GLUCOSE Routine 08/27/2014 1:55 AM Results f or this EDT procedure are i n the results section. POCT GLUCOSE Routine 08/26/2014 11:43 Results for this PM EDT procedure are i n the results section. POCT GLUCOSE Routine 08/26/2014 9:10 PM Results f or this EDT procedure are i n the results section. POCT GLUCOSE Routine 08/26/2014 7:01 PM Results f or this EDT procedure are i n the results section. HEMOGRAM STAT 08/26/2014 5:00 PM Results f or this EDT procedure are i n the results section. DIFFERENTIAL, AUTOMATED STAT 08/26/2014 5:00 PM Results for this EDT procedure are i n the results section. ABO/RH TYPING STAT 08/26/2014 5:00 PM Results for this EDT procedure are i n the results section. PROTHROMBIN TIME STAT 08/26/2014 5:00 PM Resul ts for this EDT procedure are i n the results section. CBC (WITH DIFF) STAT 08/26/2014 5:00 PM EDT ANTIBODY SCREEN STAT 08/26/2014 5:00 PM Result s for this EDT procedure are i n the results section. TYPE AND SCREEN STAT 08/26/2014 5:00 PM ([facility]) EDT HEMOGLOBIN A1C STAT 08/26/2014 5:00 PM Results for this EDT procedure are i n the results section. BASIC METABOLIC PANEL STAT 08/26/2014 5:00 PM Results for this (NON-FASTING) EDT procedure are in the results section. POCT GLUCOSE Routine 08/26/2014 4:25 PM Results f or this EDT procedure are i n the results section. CT LOWER EXTREMITY WO Routine 08/26/2014 12:21 Tibia fracture, Results for this CONTRAST PM EDT left, initial procedure are in encounter the results section. documented in this encounter Results XR tibia fibula AP & lateral (09/09/2014 10:36 AM EDT) Anatomical Region Laterality Modality N/A Radiographic Imaging Specimen (Source) Anatomical Collection Method Collection Time Re ceived Time Location / / Volume Laterality 09/09/2014 10:36 AM EDT Impressions 09/09/2014 11:58 AM EDT IMPRESSION: Unchanged fracture alignment. Question m inimal/early healing change. Narrative 09/09/2014 11:58 AM EDT EXAMINATION: TIBIA and FIB AP and LAT/LEFT CLINICAL HISTORY: s/p left tibia IMN, ev al alignment TECHNIQUE: AP and lateral views of the l eft tibia and fibula. COMPARISON: 08/27/2014. FINDINGS: Splint material is present as before. Unchanged position of intramedullary nail and fixation screws of the tibia, with no appreciable change in distal tibia and fibular fracture sit es, including by the posterior malleolus, allowing for slight differenc es in patient positioning/radiographic projection. On the lateral view, questio n minimal/very early callus formation. Procedure Note Jessa Devries MD - 09/09/2014Formatt ing of this note might be different from the original. EXAMINATION: TIBIA and FIB AP and LAT/LE FT CLINICAL HISTORY: s/p left tibia IMN, ev al alignment TECHNIQUE: AP and lateral views of the l eft tibia and fibula. COMPARISON: 08/27/2014. FINDINGS: Splint material is present as before. Unchanged position of intramedullary nail and fixation screws of the tibia, with no appreciable change in distal tibia and fibular fracture sit es, including by the posterior malleolus, allowing for slight differenc es in patient positioning/radiographic projection. On the lateral view, questio n minimal/very early callus formation. IMPRESSION IMPRESSION: Unchanged fracture alignment. Question m inimal/early healing change. Enrrique Schreiber MD IMG DX ORDERABLES SCAN DOC: SHOE HANDLER (08/31/2014 12:00 AM EDT) Narrative This result has an attachment that is no t available. Scanning Provider MEDIA MGR SCAN EXT ORDR/RSLT SCAN DOC: IMPLANTABLE DEVICES (08/31/2014 12:00 AM EDT) Narrative This result has an attachment that is no t available. Scanning Provider MEDIA MGR SCAN EXT ORDR/RSLT (ABNORMAL) POCT Glucose (08/28/2014 4:05 PM EDT) athologist Signature POC Glucose 218 (H) 60 - 199 CERNER mg/dL MILLENNIUM Comment: Supplemental ranges: <140 mg/dL before meals <180 mg/dL all other times of the day Specimen Anatomical Collection Method Collection Time Receive d Time (Source) Location / / Volume Laterality Blood specimen 08/28/2014 4:05 PM 015 4:05 (specimen) EDT PM EDT Enrrique Schreiber MD POINT OF CARE TEST ORDERABLE S Performing Organization Address City/[facility]/[place] [address] CERNER MILLENNIUM (ABNORMAL) POCT Glucose (08/28/2014 11:43 AM EDT) athologist Signature POC Glucose 222 (H) 60 - 199 CERNER mg/dL MILLENNIUM Comment: Supplemental ranges: <140 mg/dL before meals <180 mg/dL all other times of the day Specimen Anatomical Collection Method Collection Time Receive d Time (Source) Location / / Volume Laterality Blood specimen 08/28/2014 11:43 5 (specimen) AM EDT 11:43 AM EDT Enrrique Schreiber MD POINT OF CARE TEST ORDERABLE S Performing Organization Address City/[facility]/ZIP Code Phon e Number [address] CERNER MILLENNIUM (ABNORMAL) Differential, Automated (08/28/2014 10:42 AM EDT) [facility] gist Method Time Signature Neutrophils % 58.7 % CERNER MILLENNIUM Neutr Abs (ANC) 6.75 (H) 1.50 - CERNER 6.30 MILLENNIUM x10(3)/mc L Lymphocytes % 32.4 % CERNER MILLENNIUM Lymphocytes Abs 3.7 (H) 1.0 - 3.6 CERNER x10(3)/mc MILLENNIUM L Monocytes % 7.7 % CERNER MILLENNIUM Monocyte Abs 0.9 0.2 - 1.0 CERNER x10(3)/mc MILLENNIUM L Eosinophils % 0.6 % CERNER MILLENNIUM Eosinophils Abs 0.1 0.0 - 0.5 CERNER x10(3)/mc MILLENNIUM L Basophils % 0.3 % CERNER MILLENNIUM Basophils Abs 0.0 0.0 - 0.2 CERNER x10(3)/mc MILLENNIUM L Immature Gran % 0.30 % CERNER MILLENNIUM Comment: Immature granulocytes(IG's)percentage an d absolute count will include metamyelocytes, myelocytes, and promyelo cytes. Blood smears from CBCs yielding IG's will be scanned manually for concor dance. If this scan disagrees with the automated IG or if promyelocytes are not ed, a manual differential will be performed. Rosamaria Gran Abs 0.03 0.00 - 0.05 x10(3)/mcL CER NER MILLENNIUM Specimen Anatomical Collection Method Collection Time Receive d Time (Source) Location / / Volume Laterality Blood specimen 08/28/2014 10:42 5 (specimen) AM EDT 10:48 AM EDT Resulting Agency Comment Spec In Lab Bryson Abdi MD HEMATOLOGY ORDERABLES Performing Organization Address City/State/ZIP Code Phon e Number [place] [phone] CERNER MILLENNIUM (ABNORMAL) Hemogram (08/28/2014 10:42 AM EDT) P athologist Signature WBC 11.5 (H) 4.0 - 10.0 CERNER x10(3)/mcL MILLENNIUM RBC 4.29 3.93 - CERNER 5.22 MILLENNIUM x10(6)/mcL Hemoglobin 11.6 11.2 - CERNER 15.7 gm/dL MILLENNIUM Hematocrit 34.7 34.0 - CERNER 45.0 % MILLENNIUM MCV 80.9 79.0 - CERNER 94.0 fL MILLENNIUM MCH 27.0 26.6 - CERNER 32.2 pg MILLENNIUM MCHC 33.4 32.0 - CERNER 36.5 gm/dL MILLENNIUM Platelets 223 145 - 370 CERNER x10(3)/mcL MILLENNIUM RDWSD 37.2 35.0 - CERNER 46.0 fL MILLENNIUM RDWCV 12.8 10.9 - CERNER 14.4 % MILLENNIUM MPV 10.3 9.0 - 12.0 CERNER fL MILLENNIUM Specimen Anatomical Collection Method Collection Time Receive d Time (Source) Location / / Volume Laterality Blood specimen 08/28/2014 10:42 5 (specimen) AM EDT 10:48 AM EDT Resulting Agency Comment Spec In Lab Bryson Abdi MD HEMATOLOGY ORDERABLES Performing Organization Address City/State/[place] [address] CERNER MILLENNIUM (ABNORMAL) Basic Metabolic Panel (non-fasting) (08/28/2014 10:42 AM EDT) athologist Signature Glucose Lvl 228 (H) 60 - 199 CERNER mg/dL MILLENNIUM Comment: Diabetes: >=200 mg/dL plus symp toms BUN 5 (L) 8 - 18 mg/dL CERNER MILLENNIUM Creatinine 0.51 (L) 0.70 - 1.20 mg/dL CERNER MILL ENNIUM Comment: Please note that the pediatric reference intervals supplied above were not validated at [facility] [place]. Results from pediatri c patients should be interpreted in conjunction to the patient's age, height and muscle mass. Sodium 136 135 - 145 mmol/L CERNER TYSHAWN NIUM Potassium 3.5 3.5 - 5.0 mmol/L CERNER TYSHAWN NIUM Comment: Please note: ??Patients with WBC >100,00 0 may have falsely elevated Potassium levels. ??For accurate Potassium quantif ication in these patients send serum separator tube (gold top) for subsequent determinations. ??Contact the Clinical Chemistry Laboratory if there are any qu estions. Chloride 98 98 - 107 mmol/L CERNER MILLENN IUM CO2 24 22 - 31 mmol/L CERNER MILLENNI UM Anion Gap 14 5 - 15 mmol/L CERNER MILLENNIU M Calcium 8.3 (L) 8.5 - 10.5 mg/dL CERNER TYSHAWN NIUM Estimated GFR >60 >=60 SHIVANI TREJO M Comment: This estimated GFR (eGFR) value was calc ulated using the MDRD equation which has been validated on patients between t he ages of 18 and 70. The MDRD should not be used to assess kidney function in patients < 18 years of age or in patients with extremes of body mass, or in patients with acute kidney failure. This value should be multiplied by 1.2 f or patients. For further information please copy and past e the following links into your internet browser. [email or web address] [email or web address] Specimen Anatomical Collection Method Collection Time Receive d Time (Source) Location / / Volume Laterality Blood specimen 08/28/2014 10:42 5 (specimen) AM EDT 10:48 AM EDT Resulting Agency Comment Spec In Lab Bryson Abdi MD CHEMISTRY ORDERABLES Performing Organization Address City/[facility]/ZIP Code Phon e Number [address] [facility] MILLENNIUM POCT Glucose (08/28/2014 7:04 AM EDT) athologist Signature POC Glucose 151 60 - 199 CERNER mg/dL MILLENNIUM Comment: Supplemental ranges: <140 mg/dL before meals <180 mg/dL all other times of the day Specimen Anatomical Collection Method Collection Time Receive d Time (Source) Location / / Volume Laterality Blood specimen 08/28/2014 7:04 AM 015 7:04 (specimen) EDT AM EDT Enrrique Schreiber MD POINT OF CARE TEST ORDERABLE S Performing Organization Address City/[facility]/ZIP Code Phon e Number [address] [facility] urine, qualitative (08/28/2014 4:19 AM EDT) athologist Signature SG Urine 1.025 1.002 - CERNER 1.030 MILLENNIUM HCG Qual Negative CERNER MILLENNIUM Comment: If Specific [place] is less than 1.010, a negative result is obtained, and is still suspect ed, a repeat on a first morning specimen is recommended. Specimen Anatomical Collection Method Collection Time Receive d Time (Source) Location / / Volume Laterality Urine specimen 08/28/2014 4:19 AM 015 4:47 (specimen) EDT AM EDT Resulting Agency Comment Spec In Lab Bryson Abdi MD URINE ORDERABLES Performing Organization Address City/[facility]/ZIP Code Phon e Number [address] CERNER MILLENNIUM POCT Glucose (08/28/2014 3:47 AM EDT) athologist Signature POC Glucose 156 60 - 199 CERNER mg/dL MILLENNIUM Comment: Supplemental ranges: <140 mg/dL before meals <180 mg/dL all other times of the day Specimen Anatomical Collection Method Collection Time Receive d Time (Source) Location / / Volume Laterality Blood specimen 08/28/2014 3:47 AM 015 3:47 (specimen) EDT AM EDT Enrrique Schreiber MD POINT OF CARE TEST ORDERABLE S Performing Organization Address City/[facility]/ZIP Code Phon e Number [address] CERNER MILLENNIUM POCT Glucose (08/27/2014 11:27 PM EDT) athologist Signature POC Glucose 177 60 - 199 CERNER mg/dL MILLENNIUM Comment: Supplemental ranges: <140 mg/dL before meals <180 mg/dL all other times of the day Specimen Anatomical Collection Method Collection Time Receive d Time (Source) Location / / Volume Laterality Blood specimen 08/27/2014 11:27 08/27/ 5 (specimen) PM EDT 11:27 PM EDT Enrrique Schreiber MD POINT OF CARE TEST ORDERABLE S Performing Organization Address City/State/ZIP Code Phon e Number [address] CERNER MILLENNIUM POCT Glucose (08/27/2014 7:03 PM EDT) athologist Signature POC Glucose 160 60 - 199 CERNER mg/dL MILLENNIUM Comment: Supplemental ranges: <140 mg/dL before meals <180 mg/dL all other times of the day Specimen Anatomical Collection Method Collection Time Receive d Time (Source) Location / / Volume Laterality Blood specimen 08/27/2014 7:03 PM 015 7:03 (specimen) EDT PM EDT Enrrique Schreiber MD POINT OF CARE TEST ORDERABLE S Performing Organization Address City/State/ZIP Code Phon e Number [address] CERNER MILLENNIUM (ABNORMAL) POCT Glucose (08/27/2014 6:03 PM EDT) P athologist Signature POC Glucose 216 (H) 60 - 199 CERNER mg/dL MILLENNIUM Comment: Supplemental ranges: <140 mg/dL before meals <180 mg/dL all other times of the day Specimen Anatomical Collection Method Collection Time Receive d Time (Source) Location / / Volume Laterality Blood specimen 08/27/2014 6:03 PM 015 6:03 (specimen) EDT PM EDT Enrrique Schreiber MD POINT OF CARE TEST ORDERABLE S Performing Organization Address City/[facility]/ZIP Code Phon e Number [address] CERNER MILLENNIUM (ABNORMAL) POCT Glucose (08/27/2014 4:10 PM EDT) athologist Signature POC Glucose 251 (H) 60 - 199 CERNER mg/dL MILLENNIUM Comment: Supplemental ranges: <140 mg/dL before meals <180 mg/dL all other times of the day Specimen Anatomical Collection Method Collection Time Receive d Time (Source) Location / / Volume Laterality Blood specimen 08/27/2014 4:10 PM 015 4:10 (specimen) EDT PM EDT Enrrique Schreiber MD POINT OF CARE TEST ORDERABLE S Performing Organization Address City/[facility]/ZIP Code Phon e Number [address] CERNER MILLENNIUM (ABNORMAL) POCT Glucose (08/27/2014 3:05 PM EDT) P athologist Signature POC Glucose 288 (H) 60 - 199 CERNER mg/dL MILLENNIUM Comment: Supplemental ranges: <140 mg/dL before meals <180 mg/dL all other times of the day Specimen Anatomical Collection Method Collection Time Receive d Time (Source) Location / / Volume Laterality Blood specimen 08/27/2014 3:05 PM 015 3:05 (specimen) EDT PM EDT Enrrique Schreiber MD POINT OF CARE TEST ORDERABLE S Performing Organization Address City/State/ZIP Code Phon e Number [place] [phone] CERNER MILLENNIUM XR tibia fibula AP & lateral (08/27/2014 12:00 PM EDT) Anatomical Region Laterality Modality N/A Radiographic Imaging Specimen (Source) Anatomical Collection Method Collection Time Re ceived Time Location / / Volume Laterality 08/27/2014 12:00 PM EDT Impressions 08/27/2014 12:21 PM EDT IMPRESSION: 1. Interval ORIF of the tibial shaft fra cture with intact fixation. The known fracture through the posterior malleolus appears slightly more displaced than on the preoperative comparison. Narrative 08/27/2014 12:21 PM EDT EXAMINATION: TIBIA and FIB AP and LAT/LEFT CLINICAL HISTORY: to be done in PACU, s/ p IMN left tibia TECHNIQUE: AP and crosstable lateral vie ws of the left tibia and fibula taken portably COMPARISON: 08/25/2014 FINDINGS: Interval intramedullary arabella and interloc mushtaq screw fixation across the comminuted fracture the distal tibia not ed involving the posterior and medial malleolus. The fixation is intact. There is slightly improved alignment of the tibial metadiaphyseal fracture component . There is however slightly increased displacement of the posterior malleolar fracture fragment as seen on the lateral projection.A comminuted minimally displa nicki fracture of the distal third of the fibular diaphysis is similar to perhaps a slightly improved in overall alignment. No new fracture. Procedure Note Lucio Tirado MD - 08/27/2014Formatti ng of this note might be different from the original. EXAMINATION: TIBIA and FIB AP and LAT/LE FT CLINICAL HISTORY: to be done in PACU, s/ p IMN left tibia TECHNIQUE: AP and crosstable lateral vie ws of the left tibia and fibula taken portably COMPARISON: 08/25/2014 FINDINGS: Interval intramedullary arabella and interloc mushtaq screw fixation across the comminuted fracture the distal tibia not ed involving the posterior and medial malleolus. The fixation is intact. There is slightly improved alignment of the tibial metadiaphyseal fracture component . There is however slightly increased displacement of the posterior malleolar fracture fragment as seen on the lateral projection.A comminuted minimally displa nicki fracture of the distal third of the fibular diaphysis is similar to perhaps a slightly improved in overall alignment. No new fracture. IMPRESSION IMPRESSION: 1. Interval ORIF of the tibial shaft fra cture with intact fixation. The known fracture through the posterior malleolus appears slightly more displaced than on the preoperative comparison. Enrrique Schreiber MD IMG DX ORDERABLES (ABNORMAL) POCT Glucose (08/27/2014 10:27 AM EDT) athologist Signature POC Glucose 256 (H) 60 - 199 CERNER mg/dL MILLENNIUM Comment: Supplemental ranges: <140 mg/dL before meals <180 mg/dL all other times of the day Specimen Anatomical Collection Method Collection Time Receive d Time (Source) Location / / Volume Laterality Blood specimen 08/27/2014 10:27 201 5 (specimen) AM EDT 10:27 AM EDT Enrrique Schreiber MD POINT OF CARE TEST ORDERABLE S Performing Organization Address City/[facility]/[place] [address] [address] Drive CERNER MILLENNIUM (ABNORMAL) POCT Glucose (08/27/2014 6:48 AM EDT) athologist Signature POC Glucose 204 (H) 60 - 199 CERNER mg/dL MILLENNIUM Comment: Supplemental ranges: <140 mg/dL before meals <180 mg/dL all other times of the day Specimen Anatomical Collection Method Collection Time Receive d Time (Source) Location / / Volume Laterality Blood specimen 08/27/2014 6:48 AM 015 6:48 (specimen) EDT AM EDT Enrrique Schreiber MD POINT OF CARE TEST ORDERABLE S Performing Organization Address City/State/[place] [address] CERNER MILLENNIUM (ABNORMAL) POCT Glucose (08/27/2014 4:22 AM EDT) athologist Signature POC Glucose 234 (H) 60 - 199 CERNER mg/dL MILLENNIUM Comment: Supplemental ranges: <140 mg/dL before meals <180 mg/dL all other times of the day Specimen Anatomical Collection Method Collection Time Receive d Time (Source) Location / / Volume Laterality Blood specimen 08/27/2014 4:22 AM 015 4:22 (specimen) EDT AM EDT Enrrique Schreiber MD POINT OF CARE TEST ORDERABLE S Performing Organization Address City/State/ZIP Code Phon e Number [address] CERNER MILLENNIUM POCT Glucose (08/27/2014 1:55 AM EDT) athologist Signature POC Glucose 196 60 - 199 CERNER mg/dL MILLENNIUM Comment: Supplemental ranges: <140 mg/dL before meals <180 mg/dL all other times of the day Specimen Anatomical Collection Method Collection Time Receive d Time (Source) Location / / Volume Laterality Blood specimen 08/27/2014 1:55 AM 015 1:55 (specimen) EDT AM EDT Enrrique Schreiber MD POINT OF CARE TEST ORDERABLE S Performing Organization Address City/[facility]/ZIP Code Phon e Number [address] CERNER MILLENNIUM (ABNORMAL) POCT Glucose (08/26/2014 11:43 PM EDT) athologist Signature POC Glucose 252 (H) 60 - 199 CERNER mg/dL MILLENNIUM Comment: Supplemental ranges: <140 mg/dL before meals <180 mg/dL all other times of the day Specimen Anatomical Collection Method Collection Time Receive d Time (Source) Location / / Volume Laterality Blood specimen 08/26/2014 11:43 5 (specimen) PM EDT 11:43 PM EDT Enrrique Schreiber MD POINT OF CARE TEST ORDERABLE S Performing Organization Address City/State/[place] [address] CERNER MILLENNIUM (ABNORMAL) POCT Glucose (08/26/2014 9:10 PM EDT) athologist Signature POC Glucose 257 (H) 60 - 199 CERNER mg/dL IUM Comment: Supplemental ranges: <140 mg/dL before meals <180 mg/dL all other times of the day Specimen Anatomical Collection Method Collection Time Receive d Time (Source) Location / / Volume Laterality Blood specimen 08/26/2014 9:10 PM 015 9:10 (specimen) EDT PM EDT Enrrique Schreiber MD POINT OF CARE TEST ORDERABLE S Performing Organization Address City/[facility]/ZIP Code Phon e Number [address] CERNER MILLENNIUM (ABNORMAL) POCT Glucose (08/26/2014 7:01 PM EDT) athologist Signature POC Glucose 285 (H) 60 - 199 CERNER mg/dL Comment: Supplemental ranges: <140 mg/dL before meals <180 mg/dL all other times of the day Specimen Anatomical Collection Method Collection Time Receive d Time (Source) Location / / Volume Laterality Blood specimen 08/26/2014 7:01 PM 015 7:01 (specimen) EDT PM EDT Enrrique Schreiber MD POINT OF CARE TEST ORDERABLE S Performing Organization Address City/[facility]/ZIP Code Phon e Number [address] C[facility]ER [facility] (ABNORMAL) Hemoglobin A1c (08/26/2014 5:00 PM EDT) [facility] Method Time Signature Hemoglobin A1C 10.5 (H) 4.3 - 5.6 CERNER % IUM Comment: Reference Range: 4.3 - 5.6% 5.7 - 6.4% - Increased Risk of Developin g Diabetes Mellitus >= 6.5% - Consistent with diagnosis of D iabetes Mellitus In the absence of hyperglycemia (i.e. pl asma glucose > 200 mg/dL) or classic symptoms of hyperglycemia a repeat measu rement of HbA1c should be performed on a separate sample to confirm the diagnos is. Diagnosis and Classification of Diabetes Mellitus, Diabetes Care 2013; 36: Suppl. 1, S67-10 Est Avg Gluc 255 mg/dL [facility] Comment: eAG equivalents for HbA1c percentages: HbA1c(%) ?eAG(mg/dL) 6.0 ?126 6.5 ?140 7.0 ?154 7.5 ?169 8.0 ?183 8.5 ?197 9.0 ?212 9.5 ?226 10.0 ? 240 Limitations: The eAG calculation has not been validated on women, individuals below 18 years old and above 70 years old, and individuals with hemoglobinopathies. Additional resources are available on [facility] website: [email or web address] Godfrey BAHENA, Ryan J, Kylie R, et al. ??Tr anslating the A1C assay into estimated average glucose values. ??Diabetes Care 2008:31(8):2854-9566. Specimen Anatomical Collection Method Collection Time Receive d Time (Source) Location / / Volume Laterality Blood specimen Venous Draw / 08/26/2014 5:00 PM 2014 5:30 (specimen) Unknown EDT PM EDT Resulting Agency Comment Spec In Lab Enrrique Schreiber MD CHEMISTRY ORDERABLES Performing Organization Address City/State/[place] [address] SHIVANI PUTNAM Antibody screen (08/26/2014 5:00 PM EDT) Analysis Performed At Patho logist Time Signature Ab Screen Negative SHIVANI Braden [facility] Expires at [id number] [facility] [id number] on: [facility] Specimen Anatomical Collection Method Collection Time Receive d Time (Source) Location / / Volume Laterality Blood specimen 08/26/2014 5:00 PM 015 5:31 (specimen) EDT PM EDT Resulting Agency Comment Spec In Lab Enrrique Schreiber MD BLOOD BANK ORDERABLES Performing Organization Address City/State/ZIP Code Phon e Number [address] CERNER MILLENNIUM ABO/Rh Typing (08/26/2014 5:00 PM EDT) P athologist Signature ABORh Type O Pos CERNER MILLENNIUM Specimen Anatomical Collection Method Collection Time Receive d Time (Source) Location / / Volume Laterality Blood specimen 08/26/2014 5:00 PM 015 5:31 (specimen) EDT PM EDT Resulting Agency Comment Spec In Lab Enrrique Schreiber MD BLOOD BANK ORDERABLES Performing Organization Address City/[facility]/ZIP Code Phon e Number [address] CERNER MILLENNIUM (ABNORMAL) Differential, Automated (08/26/2014 5:00 PM EDT) Patholo gist Method Time Signature Neutrophils % 61.5 % CERNER MILLENNIUM Neutr Abs (ANC) 8.60 (H) 1.50 - CERNER 6.30 MILLENNIUM x10(3)/mc L Lymphocytes % 30.5 % CERNER MILLENNIUM Lymphocytes Abs 4.3 (H) 1.0 - 3.6 CERNER x10(3)/mc MILLENNIUM L Monocytes % 6.4 % CERNER MILLENNIUM Monocyte Abs 0.9 0.2 - 1.0 CERNER x10(3)/mc MILLENNIUM L Eosinophils % 1.1 % CERNER MILLENNIUM Eosinophils Abs 0.2 0.0 - 0.5 CERNER x10(3)/mc MILLENNIUM L Basophils % 0.2 % CERNER MILLENNIUM Basophils Abs 0.0 0.0 - 0.2 CERNER x10(3)/mc MILLENNIUM L Immature Gran % 0.30 % CERNER MILLENNIUM Comment: Immature granulocytes(IG's)percentage an d absolute count will include metamyelocytes, myelocytes, and promyelo cytes. Blood smears from CBCs yielding IG's will be scanned manually for concor dance. If this scan disagrees with the automated IG or if promyelocytes are not ed, a manual differential will be performed. Rosamaria Gran Abs 0.04 0.00 - 0.05 x10(3)/mcL CER NER MILLENNIUM Specimen Anatomical Collection Method Collection Time Receive d Time (Source) Location / / Volume Laterality Blood specimen 08/26/2014 5:00 PM 015 5:18 (specimen) EDT PM EDT Resulting Agency Comment Spec In Lab Enrrique Schreiber MD HEMATOLOGY ORDERABLES Performing Organization Address City/[facility]/[place] [address] CERNER MILLENNIUM (ABNORMAL) Hemogram (08/26/2014 5:00 PM EDT) athologist Signature WBC 14.0 (H) 4.0 - 10.0 CERNER x10(3)/mcL MILLENNIUM RBC 5.11 3.93 - CERNER 5.22 MILLENNIUM x10(6)/mcL Hemoglobin 14.0 11.2 - CERNER 15.7 gm/dL MILLENNIUM Hematocrit 41.2 34.0 - CERNER 45.0 % MILLENNIUM MCV 80.6 79.0 - CERNER 94.0 fL MILLENNIUM MCH 27.4 26.6 - CERNER 32.2 pg MILLENNIUM MCHC 34.0 32.0 - CERNER 36.5 gm/dL MILLENNIUM Platelets 283 145 - 370 CERNER x10(3)/mcL MILLENNIUM RDWSD 37.4 35.0 - CERNER 46.0 fL MILLENNIUM RDWCV 12.8 10.9 - CERNER 14.4 % MILLENNIUM MPV 10.9 9.0 - 12.0 CERNER fL MILLENNIUM Specimen Anatomical Collection Method Collection Time Receive d Time (Source) Location / / Volume Laterality Blood specimen 08/26/2014 5:00 PM 015 5:18 (specimen) EDT PM EDT Resulting Agency Comment Spec In Lab Enrrique Schreiber MD HEMATOLOGY ORDERABLES Performing Organization Address City/[facility]/[place] [address] CERNER MILLENNIUM Prothrombin Time (08/26/2014 5:00 PM EDT) athologist Signature PT 13.8 12.5 - 15.5 CERNER sec MILLENNIUM Comment: Transfusion Committee Guidelines: INR less than 2.0, PTT less than OR equal to 43.5 seconds, or Fibrinogen greater t allred or equal to 100 mg/dl indicate adequate procoagulant activity for hemos tasis in patients without underlying bleeding disorders. INR 1.0 0.9 - 1.1 CERNER MILLENNIUM Specimen Anatomical Collection Method Collection Time Receive d Time (Source) Location / / Volume Laterality Blood specimen 08/26/2014 5:00 PM 015 5:18 (specimen) EDT PM EDT Resulting Agency Comment Spec In Lab Enrrique Schreiber MD HEMATOLOGY ORDERABLES Performing Organization Address City/State/[place] [address] CERNER JAYSONENNIUM (ABNORMAL) Basic Metabolic Panel (non-fasting) (08/26/2014 5:00 PM EDT) athologist Signature Glucose Lvl 270 (H) 60 - 199 CERNER mg/dL MILLENNIUM Comment: Diabetes: >=200 mg/dL plus symp toms BUN 8 8 - 18 mg/dL CERNER MILLENNIUM Creatinine 0.65 (L) 0.70 - 1.20 mg/dL CERNER MILL ENNIUM Comment: Please note that the pediatric reference intervals supplied above were not validated at [facility] [place]. Results from pediatri c patients should be interpreted in conjunction to the patient's age, height and muscle mass. Sodium 133 (L) 135 - 145 mmol/L CERNER TYSHAWN NIUM Potassium Not Perf 3.5 - 5.0 mmol/L CERNER TYSHAWN NIUM Comment: Called by: janak, Read back by: freda , Date/Time:08/26/14 17:46. Unable to quantitate due to sample hemol ysis. ??Sample redraw suggested. Please note: ??Patients with WBC >100,00 0 may have falsely elevated Potassium levels. ??For accurate Potassium quantif ication in these patients send serum separator tube (gold top) for subsequent determinations. ??Contact the Clinical Chemistry Laboratory if there are any qu estions. Chloride 94 (L) 98 - 107 mmol/L CERNER MILLENN IUM CO2 23 22 - 31 mmol/L CERNER MILLENNI UM Anion Gap 16 (H) 5 - 15 mmol/L CERNER MILLENNIU M Calcium 8.9 8.5 - 10.5 mg/dL CERNER TYSHAWN NIUM Estimated GFR >60 >=60 CERNER MILLENNIU M Comment: This estimated GFR (eGFR) value was calc ulated using the MDRD equation which has been validated on patients between t he ages of 18 and 70. The MDRD should not be used to assess kidney function in patients < 18 years of age or in patients with extremes of body mass, or in patients with acute kidney failure. This value should be multiplied by 1.2 f or patients. For further information please copy and past e the following links into your internet browser. [email or web address] Specimen Anatomical Collection Method Collection Time Receive d Time (Source) Location / / Volume Laterality Blood specimen 08/26/2014 5:00 PM 015 5:18 (specimen) EDT PM EDT Resulting Agency Comment Spec In Lab Enrrique Schreiber MD CHEMISTRY ORDERABLES Performing Organization Address City/[facility]/ZIP Code Phon e Number [address] CERNER MILLENNIUM (ABNORMAL) POCT Glucose (08/26/2014 4:25 PM EDT) P athologist Signature POC Glucose 273 (H) 60 - 199 CERNER mg/dL MILLENNIUM Comment: Supplemental ranges: <140 mg/dL before meals <180 mg/dL all other times of the day Specimen Anatomical Collection Method Collection Time Receive d Time (Source) Location / / Volume Laterality Blood specimen 08/26/2014 4:25 PM 015 4:25 (specimen) EDT PM EDT Enrrique Schreiber MD POINT OF CARE TEST ORDERABLE S Performing Organization Address City/State/[place] [address] lower extremity WO contrast (08/26/2014 12:21 PM EDT) Anatomical Region Laterality Modality Hip, Leg, Knee, Thigh, Ankle, Foot Compu baljit Tomography Specimen (Source) Anatomical Collection Method Collection Time Re ceived Time Location / / Volume Laterality 08/26/2014 12:21 PM EDT Impressions 08/26/2014 1:39 PM EDT IMPRESSION: In addition to the comminuted and displa nicki distal third fractures of the fibula and tibia there are nondisplaced fractur es involving the articular surface of the tibia. Narrative 08/26/2014 1:39 PM EDT EXAMINATION: CT Lower Extremity Without Contrast/LEFT CLINICAL HISTORY: Tib fib fractures- ? i f into the ankle joint TECHNIQUE: CT images of the left ankle w ere acquired without contrast. Images were reconstructed into multiplanar 2-di mensional images. In addition 3-dimensional model was created and revi ewed. COMPARISON: Comparison is made to x-rays performed on 08/25/2014. FINDINGS: As seen on the x-ray examination comminu baljit fractures are present at the distal third of the tibia and fibula. The tibia l fracture is associated with approximately 50% anterior lateral displ acement of the dominant distal fragment. The displaced portion of the fracture ex tends distally to position approximately 3 cm proximal to the joint line. Additional nondisplaced fractures are ev ident at the joint line. Transverse fracture extends across the m edial malleolus. A coronal plain fracture is present at t he posterior malleolus. An additional coronal plane fracture ext ends across the width of the plafond. These 3 nondisplaced fracture lines are likely connected to one another. While I am unable to see definite extension to t he more proximal displaced fractures, I suspect that there is a communication be tween the intra-articular fracturing in the more proximal fracture. Procedure Note Jerry Byrne MD - 08/26/2014Forma tting of this note might be different from the original. EXAMINATION: CT Lower Extremity Without Contrast/LEFT CLINICAL HISTORY: Tib fib fractures- ? i f into the ankle joint TECHNIQUE: CT images of the left ankle w ere acquired without contrast. Images were reconstructed into multiplanar 2-di mensional images. In addition 3-dimensional model was created and revi ewed. COMPARISON: Comparison is made to x-rays performed on 08/25/2014. FINDINGS: As seen on the x-ray examination comminu baljit fractures are present at the distal third of the tibia and fibula. The tibia l fracture is associated with approximately 50% anterior lateral displ acement of the dominant distal fragment. The displaced portion of the fracture ex tends distally to position approximately 3 cm proximal to the joint line. Additional nondisplaced fractures are ev ident at the joint line. Transverse fracture extends across the m edial malleolus. A coronal plain fracture is present at t he posterior malleolus. An additional coronal plane fracture ext ends across the width of the plafond. These 3 nondisplaced fracture lines are likely connected to one another. While I am unable to see definite extension to t he more proximal displaced fractures, I suspect that there is a communication be tween the intra-articular fracturing in the more proximal fracture. IMPRESSION IMPRESSION: In addition to the comminuted and displa nicki distal third fractures of the fibula and tibia there are nondisplaced fractur es involving the articular surface of the tibia. Enrrique Schreiber MD IMG CT ORDERABLES documented in this encounter Visit Diagnoses Diagnosis Closed left tibial fracture s/p IMN 08/27 - Primary Closed fracture of unspecified part of t ibia Tibia fracture, left, initial encounter Type 2 diabetes mellitus Type II or unspecified type diabetes emmett litus without mention of complication, not stated as uncontrolled Tibia fracture, left, initial encounter documented in this encounter Administered Medications Inactive Administered Medications - up to 3 most recent administrations Medication Order MAR Action Action Date Dose Rate Site clindamycin (CLEOCIN) 900mg Given 08/28/2014 8:12 AM EDT 900 mg 100 mL/hr in dextrose 5% 50mL 900 mg, Intravenous, EVERY 8 HOURS, 3 doses, First dose on Sat08/27/14 at 1630, Last dose on Sat08/28/14 at 0830, Administer over 30 Minutes, skein yarn drier to OR please, Indication for (Active or Suspected): Prophylaxis Given 08/28/2014 12:47 AM EDT 900 mg 100 mL/hr Given 08/27/2014 3:58 PM EDT 900 mg 100 mL/hr diaZEPam (VALIUM) tablet 5 mg Given 08/28/2014 8:14 AM EDT 5 mg 5 mg, Oral, EVERY 6 HOURS PRN, Starting on Sat08/27/14 at 2124, Until 08/28/14 at 2020, muscle spasms, Routine Given 08/27/2014 9:38 PM EDT 5 mg enoxaparin (LOVENOX) injection 40 mg Given 08/28/2014 8:12 AM EDT 40 mg 40 mg, Subcutaneous, EVERY 24 HOURS SCHEDULED (Daily), First dose on 08/28/14 at 0900, Until Discontinued, Routine HYDROmorphone (DILAUDID) 1 New Syringe/Cartridge 08/27/2014 10:41 AM 30 mg mg/mL [employer]OCK [employer]INTE[employer]CE SUPERVISOR 30 mL EDT Intravenous, LOCK MAINTENANCE SUPERVISOR ONLY, Starting on Sat08/27/14 at 1100, Until Sat08/27/14 at 2127, Recovery (Recovery-Hospital Unit) HYDROmorphone (DILAUDID) 1 mg/mL LOCK MAINTENANCE SUPERVISOR 30 Rate/Dose Change 015 9:44 PM EDT mL Intravenous, LOCK MAINTENANCE SUPERVISOR ONLY, Starting on Sat08/27/14 at 2145, Until 08/28/14 at 0645, Recovery (Recovery-Hospital Unit) HYDROmorphone (DILAUDID) syringe 0.2-0.4 mg Given 08/27/2014 11:10 AM EDT 0.4 mg 0.2-0.4 mg, Intravenous, EVERY 5 MIN PRN, Pain, Starting on Sat08/27/14 at 1007, Until Sat08/27/14 at 1208, For moderate pain (4-6) give: 0.2 mg every 5 minute prn For severe pain (7-10) give: 0.4 mg every 5 minutes prn Maximum dose: 4 mg per hour Hold for respiratory rate less than 10 per minute., PACU Recovery Given 08/27/2014 11:03 AM EDT 0.4 mg Given 08/27/2014 10:51 AM EDT 0.4 mg insulin aspart (novoLOG) VIAL injection 1-4 Given 08/02 7:04 PM EDT 4 Units Units 1-4 Units, Subcutaneous, EVERY 4 HOURS SCHEDULED, First dose on Sarah 08/26/14 at 1730, Until Discontinued, CORRECTION BOLUS Sensitive to insulin lean patient or total daily dose of all insulin needed to achieve glycemic control less than 30 units BG 140 - 160 Give 1 unit BG 161 - 200 Give 2 units BG 201 - 240 Give 3 units BG greater than 240, give 4 units and recheck BG in 2 hours. If BG remains greater than 240, repeat 4 units (no more than three times) & call for new basal insulin orders. If less than 240 after two hours, give no insulin and resume prior schedule. Given 08/26/2014 5:22 PM EDT 4 Units insulin aspart (novoLOG) VIAL injection 15 Given 08/27 3:15 PM EDT 15 Units Units 15 Units, Subcutaneous, ONCE, On Sat08/27/14 at 1530, 1 dose insulin aspart (novoLOG) VIAL injection 2-8 Given 08/02 11:21 AM EDT 8 Units Units 2-8 Units, Subcutaneous, EVERY 4 HOURS SCHEDULED, First dose on Sat08/26/14 at 2145, Until Discontinued, CORRECTION BOLUS Moderate BG 140 - 160 Give 2 units BG 161 - 200 Give 4 units BG 201 - 240 Give 6 units BG greater than 240, give 8 units and recheck BG in 2 hours. If BG remains greater than 240, repeat 8 units (no more than three times) & call for new basal insulin orders. If less than 240 after two hours, give no insulin and resume prior schedule. Given 08/27/2014 7:14 AM EDT 6 Units Given 08/27/2014 4:29 AM EDT 6 Units insulin aspart (novoLOG) VIAL injection 3-12 Given 4:10 PM EDT 9 Units Units 3-12 Units, Subcutaneous, EVERY 4 HOURS SCHEDULED, First dose (after last modification) on Sat08/27/14 at 1600, Until Discontinued, CORRECTION BOLUS Moderate BG 140 - 160 Give 3 units BG 161 - 200 Give 6 units BG 201 - 240 Give 9 units BG greater than 240, give 12 units and recheck BG in 2 hours. If BG remains greater than 240, repeat 12 units (no more than three times) & call for new basal insulin orders. If less than 240 after two hours, give no insulin and resume prior schedule. Given 08/28/2014 11:44 AM EDT 9 Units Given 08/28/2014 7:14 AM EDT 3 Units insulin detemir (LEVEMIR) VIAL injection 20 Given 08/02 4:54 PM EDT 20 Units Units 20 Units, Subcutaneous, ONCE, 1 dose, On Sat08/27/14 at 1700, STAT ketorolac (TORADOL) injection 15 mg Given 08/27/2014 9:38 PM EDT 15 mg 15 mg, Intravenous, ONCE, 1 dose, On Sat08/27/14 at 2145, Routine metFORMIN (GLUCOPHAGE) tablet 1,000 mg Given 08/28/2014 4:10 PM EDT 1,000 mg 1,000 mg, Oral, 2 TIMES DAILY WITH MEALS, First dose on Sat08/28/14 at 1700, Until Discontinued, Routine metFORMIN (GLUCOPHAGE) tablet 500 mg Given 08/28/2014 7:14 AM EDT 500 mg 500 mg, Oral, 2 TIMES DAILY WITH MEALS, 2 doses, First dose on Sat08/27/14 at 1700, Last dose on Sat08/28/14 at 0800, STAT Given 08/27/2014 4:54 PM EDT 500 mg multivitamin Kqas-Gw-GX-Min (THERAPEUTIC-M) Given 08/02 8:12 AM EDT 1 tablet 27-0.4 mg tablet 1 tablet 1 tablet, Oral, DAILY, First dose on Sat08/26/14 at 1530, Until Discontinued oxyCODONE (ROXICODONE) immediate release Given 08/26/2014 7:04 P M EDT 10 mg tablet 10 mg 10 mg, Oral, EVERY 4 HOURS PRN, Starting on Sat08/26/14 at 1507, Until Sat08/26/14 at 2211, Pain, moderate pain (4-6), For Moderate pain (4-6). Do not exceed 15 mg in 4 hours. If pain not relieved, call provider., Routine oxyCODONE (ROXICODONE) immediate release Given 08/28/2014 11:43 AM EDT 10 mg tablet 10 mg 10 mg, Oral, EVERY 3 HOURS PRN, Starting on Sat08/26/14 at 2215, Until Sat08/28/14 at 2020, Pain, moderate pain (4-6), For Moderate pain (4-6). Do not exceed 15 mg in 4 hours. If pain not relieved, call provider., Routine Given 08/28/2014 8:12 AM EDT 10 mg Given 08/27/2014 11:28 PM EDT 10 mg oxyCODONE (ROXICODONE) immediate release Given 08/28/2014 5:56 P M EDT 15 mg tablet 15 mg 15 mg, Oral, EVERY 3 HOURS PRN, Starting on Sat08/26/14 at 2215, Until 08/28/14 at 2020, Pain, severe pain (7-10), For severe pain (7-10). Do not exceed 15 mg in 4 hours. If pain not relieved, call provider., Routine Given 08/28/2014 2:49 PM EDT 15 mg Given 08/28/2014 4:31 AM EDT 15 mg polyethylene glycol (MIRALAX) packet 17 g Given 08/28/2014 8:13 AM EDT 17 g 17 g, Oral, 2 TIMES DAILY, First dose on Sarah 08/26/14 at 2100, Until Discontinued, Routine Given 08/26/2014 9:06 PM EDT 17 g primidone (MYSOLINE) tablet 25 mg Given 08/28/2014 8:13 AM EDT 25 mg 25 mg, Oral, 2 TIMES DAILY, First dose on Sat08/26/14 at 2100, Until Discontinued, Take with Food, Routine Given 08/27/2014 8:13 PM EDT 25 mg Given 08/26/2014 9:00 PM EDT 25 mg senna-docusate (PERICOLACE) 8.6-50 mg per Given 2014 8:12 AM EDT 2 tablets tablet 2 tablet 2 tablet, Oral, 2 TIMES DAILY, First dose on Sat08/26/14 at 2100, Until Discontinued, Routine Given 08/26/2014 9:05 PM EDT 2 tablets sodium chloride 0.9 % flush 5 mL Given 08/27/2014 8:09 PM EDT 5 mLs 5 mL, Intravenous, 2 TIMES DAILY, First dose on Sat08/26/14 at 2100, Until Discontinued, Routine Given 08/26/2014 9:06 PM EDT 5 mLs sodium chloride 0.9% infusion New Bag 08/26/2014 11:42 PM EDT 1,000 mLs 100 mL/hr 1,000 mL, at 100 mL/hr, Intravenous, CONTINUOUS, Starting on Sat08/27/14 at 0015, Until 08/28/14 at 0014 sodium chloride 0.9% infusion New Bag 08/28/2014 1:00 AM EDT 100 mL/hr 100 mL/hr 100 mL/hr, Intravenous, CONTINUOUS, Starting on Sat08/27/14 at 1100, Until 08/28/14 at 0659, Recovery (Recovery-Hospital Unit) New Bag 08/27/2014 1:24 PM EDT 100 mL/hr 100 mL/hr Restarted 08/27/2014 10:40 AM EDT 100 mL/hr 100 mL/hr documented in this encounter Active and Recently Administered Medications Times are shown in EDT. Scheduled Medication Order 08/26/2014 08/27/2014 08/28/2014 clindamycin (CLEOCIN) 900mg in dextrose 5% 50mL (COMPLETED) 1558 (Given - Provider: Fede Bird, SUHA) 0047 (Given - Provider: Coleen heck RN)0812 (Given - Provider: Fede Bird RN) 900 mg, Intravenous, EVERY 8 HOURS, 3 do ses, First dose on Sat08/27/14 at 1630, Last dose on Sat08/28/14 at 0830, for 30 Minutes, skein yarn drier to OR please, Indication for (Active or Suspected): Prophylaxis enoxaparin (LOVENOX) injection 40 mg (CANCELED) 811 (Given - Provider: Fede Bird, SUHA) 40 mg, Subcutaneous, EVERY 24 HOURS SCHE DULED (Daily), First dose on Sat08/28/14 at 0900, Until Discontinued, Routine insulin aspart (novoLOG) VIAL injection 1-4 Units (CAN CELED) 1722 (Given - Provider: Fede Bird, SUHA)1904 (Given - Provider: Fede Bird RN - Comment: FS 285) 1-4 Units, Subcutaneous, EVERY 4 HOURS S CHEDULED, First dose on Sat08/26/14 at 1730, Until Discontinued, CORRECTION BOLUS Sensitive to insulin lean patient or total daily dose of all insulin needed to achieve glycemic control less than 30 units BG 140 - 160 Give 1 unit BG 161 - 200 Give 2 units BG 201 - 240 Give 3 units BG greater than 240, give 4 units and recheck BG in 2 hours. If BG remains gre ater than 240, repeat 4 units (no more t allred three times) & call for new basal insulin orders. If less than 240 after two hours, give no insulin and resume prior schedule., Routine insulin aspart (novoLOG) VIAL injection 15 Units (COMPLETED) 1515 (Given - Provider: Fede Bird, SUHA) 15 Units, Subcutaneous, ONCE, 1 dose, 08/27/14 at 1530, Routi ne insulin aspart (novoLOG) VIAL injection 2-8 Units (CAN CELED) 2147 (Given - Provider: Coleen Choi, RN)2349 (Given - Provider: Coleen Choi, RN) 0227 (Given - Provider: Coleen Choi, RN)0429 (Given - Provider: Coleen Choi, RN)0714 (Given - Provider: Fede Bird, SUHA)0800 (AUG Hold - Provider: Admin Adt - Reason: Transfer to a Procedural area) 2-8 Units, Subcutaneous, EVERY 4 HOURS S CHEDULED, First dose on Sarah 08/26/14 at 2145, Until Discontinued, CORRECTION BOLUS Moderate BG 140 - 160 Give 2 units BG 161 - 200 Give 4 units BG 201 - 240 Gi 0836 ( MAR Unhold - Provider: Admin Adt)0837 ([facility] Hold - Provider: Admin Adt - Reason: Transfer to a Procedural area)1036 ([facility] Unhold - Provider: Sharda Obregon, SUHA)1121 (Given - Provider: Sharda Obregon, SUHA) ve 6 units BG greater than 240, give 8 u nits and recheck BG in 2 hours. If BG remains greater than 240, repeat 8 units (no more than three times) & call for new basal insulin orders. If less than 24 0 after two hours, give no insulin and resume prior schedule., R outine insulin aspart (novoLOG) VIAL injection 3-12 Units (CANCELED ) 1600 (Not Given - Provider: Fede Bird RN - Reason: See comment - Comment: One time dose of 15 mg will be given in substitute)1616 (Given - Provider: Fede Bird RN - Comment: per Nursing communication order) 0352 (Given - Provider: Coleen Choi, SUHA)0714 (Given - Provider: Fede Bird, SUHA)1144 (Given - Provider: Fede Bird RN - Comment: FS 222)1610 (Given - Provider: Fede Bird RN) 3-12 Units, Subcutaneous, EVERY 4 HOURS SCHEDULED, First dose on Sat08/27/14 at 1600, Until Discontinued, CORRECTION BOLUS Moderate BG 140 - 160 Give 3 units BG 161 - 200 Give 6 units BG 201 - 240 G 1806 (G iven - Provider: Fede Bird RN - Comment: 2 hour re-check, ok to give this due to nursing communication order from Riri)1916 (Given - Provider: Fede Bird, SUHA)2330 (Given - Provider: Coleen Choi, SUHA) oliverio 9 units BG greater than 240, give 12 units and recheck BG in 2 hours. If BG remains greater than 240, repeat 12 units (no more than three times) & call for new basal insulin orders. If less than 240 after two hours, give no insulin and resume prior schedule. , Routine insulin detemir (LEVEMIR) VIAL injection 20 Units (COMPLETED ) 1653 (Given - Provider: Fede Bird RN) 20 Units, Subcutaneous, ONCE, 1 dose, Sat08/27/14 at 1700, STAT ketorolac (TORADOL) injection 15 mg (COMPLETED) 2137 (Given - Provider: Coleen Choi, SUHA) 15 mg, Intravenous, ONCE, 1 dose, Sat08/27/14 at 2145, Routine metFORMIN (GLUCOPHAGE) tablet 1,000 mg (CANCELED) 1609 (Given - Provider: Fede Bird, SUHA) 1,000 mg, Oral, 2 TIMES DAILY WITH MEALS , First dose on Sat08/28/14 at 1700, Until Discontinued, Routine metFORMIN (GLUCOPHAGE) tablet 500 mg (COMPLETED) 1653 (Given - Provider: Fede Bird RN) 0714 (Given - Provider: Fede Bird , SUHA) 500 mg, Oral, 2 TIMES DAILY WITH MEALS, 2 doses, First dose on Sat08/27/14 at 1700, Last dose on Sat08/28/14 at 0800, STAT multivitamin Pufw-Cu-AG-Min (THERAPEUTIC-M) 27-0.4 mg tablet 1 tablet 1530 (Not Given - Provider: Fede Bird RN - Reason: Order parameters not met) 0800 (AUG Hold - Provider: Admin Adt - Reason: Transfer to a Procedural area)0836 ([facility] Unhold - Provider: Admin Adt)0837 ([facility] Hold - Provider: Admin Adt - Reason: Transfer to a Procedural area)0900 (Automatically Held - Provider: Admin Adt) 0812 (Given - Provider: Fede Bird, RN) 1 tablet, Oral, DAILY, First dose on Sarah 08/26/14 at 1530, Until Discontinued, Routine 1241 ([facility] Unhold - Provider: Admin Adt) polyethylene glycol (MIRALAX) packet 17 g 2105 (Given - Provider: Coleen Choi, SUHA) 0800 ([facility] Hold - Provider: Admin Adt - R kenan: Transfer to a Procedural area)0836 ([facility] Unhold - Provider: Admin Adt)0837 ([facility] Hold - Provider: Admin Adt - Reason: Transfer to a Procedural area)0900 (Automatically Held - Provider: Admin Adt) 0813 (Given - Provider: Fede Bird , RN) 17 g, Oral, 2 TIMES DAILY, First dose on Sarah 08/26/14 at 2100, Until Discontinued, Routine 1241 ([facility] Unhold - Provider: Admin Adt)2002 (Not Given - Provider: Coleen Choi, SUHA - Reason: Patient/family refused - Comment: mult. loose stools) primidone (MYSOLINE) tablet 25 mg (CANCELED) 2099 (Giv en - Provider: Coleen Choi, RN) 0800 ([facility] Hold - Provider: Admin Adt - R kenan: Transfer to a Procedural area)0836 ([facility] Unhold - Provider: Admin Adt)0837 ([facility] Hold - Provider: Admin Adt - Reason: Transfer to a Procedural area)0900 (Automatically Held - Provider: Admin Adt) 0813 (Given - Provider: Fede Bird , RN) 25 mg, Oral, 2 TIMES DAILY, First dose o n Sarah 08/26/14 at 2100, Until Discontinued, Take with Food, Routine 1241 ([facility] Unhold - Provider: Admin Adt)2012 (Given - Provider: Coleen Choi, SUHA) senna-docusate (PERICOLACE) 8.6-50 mg per tablet 2 tab let 2104 (Given - Provider: Coleen Choi, SUHA) 0800 ([facility] Hold - Provider: Admin Adt - R kenan: Transfer to a Procedural area)0836 ([facility] Unhold - Provider: Admin Adt)0837 ([facility] Hold - Provider: Admin Adt - Reason: Transfer to a Procedural area)0900 (A utomatically Held - Provider: Admin Adt) 0812 (Given - Provider: Fede Bird RN) 2 tablet, Oral, 2 TIMES DAILY, First dos e on Sarah 08/26/14 at 2100, Until Discontinued, Routine 1241 ([facility] Unhold - Provider: Admin Adt)2001 (Not Given - Provider: Coleen Choi, SUHA - Reason: See comment - Comment: mult. loose stools) sodium chloride 0.9 % flush 5 mL (CANCELED) 210 (Give n - Provider: Coleen Choi, SUHA) 0800 ([facility] Hold - Provider: Admin Adt - R kenan: Transfer to a Procedural area)0836 ([facility] Unhold - Provider: Admin Adt)0837 ([facility] Hold - Provider: Admin Adt - Reason: Transfer to a Procedural area)0900 (Automatically Held - Provider: Admin Adt) 0900 (Not Given - Provider: Fede Rodriguez RN - Reason: See comment - Comment: ivf infusing) 5 mL, Intravenous, 2 TIMES DAILY, First dose on Sarah 08/26/14 at 2100, Until Discontinued, Routine 1058 ([facility] Unhold - Provider: Sharda Obregon RN)2008 (Given - Provider: Coleen Choi, SUHA) Continuous Medication Order 08/26/2014 08/27/2014 08/28/2014 HYDROmorphone (DILAUDID) 1 mg/mL LOCK MAINTENANCE SUPERVISOR 30 mL (CANCELED) 104 (New Syringe/Cartridge - Provider: Sharda Obregon RN) Intravenous, LOCK MAINTENANCE SUPERVISOR ONLY, Starting 08/27 at 1100, Until 08/27/14 at 2127, Recovery (Recovery-Hospital Unit) HYDROmorphone (DILAUDID) 1 mg/mL LOCK MAINTENANCE SUPERVISOR 30 mL (CANCELED) 2143 (Rate/Dose Change - Provider: Coleen Choi, SUHA)2144 (Not Given - Provider: Coleen Choi, SUHA - Reason: See comment - Comment: LOCK MAINTENANCE SUPERVISOR rate and dose were changed. A new LOCK MAINTENANCE SUPERVISOR was not placed) Intravenous, LOCK MAINTENANCE SUPERVISOR ONLY, Starting Fri 08/27 at 2145, Until 3/28/15 at 0645, Recovery (Recovery-Hospital Unit) sodium chloride 0.9% infusion () 2342 (New Bag - Provider: Coleen Choi RN) 0800 (AUG Hold - Provider: Admin Adt - R kenan: Transfer to a Procedural area)0836 (AUG Unhold - Provider: Admin Adt)0837 (AUG Hold - Provider: Admin Adt - Reason: Transfer to a Procedural area)1058 (AUG Unhold - Provider: Sharda Obregon, SUHA) 1,000 mL, at 100 mL/hr, Intravenous, CON TINUOUS, Starting Sat08/27/14 at 0015, Until 08/28/14 at 0014 sodium chloride 0.9% infusion () 1040 (Restarted - Provider: Sharda Obregon RN)1100 (Not Given - Provider: Sharda Obregon RN - Reason: See comment - Comment: bag from floor restarted)1324 (New Bag - Provider: Fede Bird, SUHA) 0100 (New Bag - Provider: Coleen miranda RN) 100 mL/hr, at 100 mL/hr, Intravenous, CO NTINUOUS, Starting Sat08/27/14 at 1100, Until 08/28/14 at 0659, Recovery (Recovery-Hospital Unit) PRN Medication Order 08/26/2014 08/27/2014 08/28/2014 diaZEPam (VALIUM) tablet 5 mg 2138 (Given - Prov ider: Coleen Choi RN) 0814 (Given - Provider: Fede Bird, SUHA) 5 mg, Oral, EVERY 6 HOURS PRN, Starting Sat08/27/14 at 2124, Until 08/28/14 at 2020, muscle spasms, Routine HYDROmorphone (DILAUDID) syringe 0.2-0.4 mg (CANCELED) 1032 (Given - Provider: Sharda Obregon RN)1040 (Given - Provider: Sharda Obregon, SUHA)1051 (Given - Provider: Sharda Obregon, SUHA)1103 (Given - Provider: Sharda Obregon, SUHA)1110 (Given - Provider: Sharda Obregon, SUHA) 0.2-0.4 mg, Intravenous, EVERY 5 MIN PRN , Starting Sat08/27/14 at 1007, Until 08/27/14 at 1208, Pain, For moderate pain (4-6) give: 0.2 mg every 5 minute prn For severe pain (7-10) give: 0.4 mg every 5 minutes prn Maximum dose: 4 mg per ho ur Hold for respiratory rate less than 10 per minute., PACU Recovery, Routine oxyCODONE (ROXICODONE) immediate release tablet 10 mg (CANCELED) 1904 (Given - Provider: Fede Bird RN) 10 mg, Oral, EVERY 4 HOURS PRN, Starting Sarah 08/26/14 at 1507, Until Sarah 08/26/14 at 2211, Pain, moderate pain (4-6), For Moderate pain (4-6). Do not exceed 15 mg in 4 hours. If pain not relieved, call provider., Routine oxyCODONE (ROXICODONE) immediate release tablet 10 mg (CANCELED) 2223 (See Alternative - Provider: Coleen Choi RN) 0211 (See Alternative - Provider: Coleen Choi RN)0553 (See Alternative - Provider: Coleen Choi RN)0800 (AUG Hold - Provider: Admin Adt - Reason: Transfer to a Procedural area)0836 (AUG Unhold - Provider: Admin Adt) 0431 (See Alternative - Provider: Coleen Choi RN)0812 (Given - Provider: Fede Bird RN)1143 (Given - Provider: Fede Bird RN)1449 (See Alternative - Provider: Fede Bird RN) 10 mg, Oral, EVERY 3 HOURS PRN, Starting Sarah 08/26/14 at 2215, Until 08/28/14 at 2020, Pain, moderate pain (4-6), For Moderate pain (4-6). Do not exceed 15 mg in 4 hours. If pain not relieved, call provider., Routine 0837 (AUG Hold - Provider: Admin Adt - Reason: Transfer to a Procedural area)1058 (AUG Unhold - Provider: Sharda Obregon RN)1324 (Given - Provider: Fede Bird RN)2010 (See Alternative - Provider: Coleen Choi RN) 1756 (See Alternative - Provider: Fede Bird RN) 2328 (Given - Provider: Coleen Choi RN) oxyCODONE (ROXICODONE) immediate release tablet 15 mg (CANCELED) 2223 (Given - Provider: Coleen Choi RN) 0211 (Given - Provider: Coleen heck RN)0553 (Given - Provider: Coleen Choi RN)0800 (AUG Hold - Provider: Admin Adt - Reason: Transfer to a Procedural area)0836 (AUG Unhold - Provider: Admin Adt) 0431 (Given - Provider: Coleen heck RN)0812 (See Alternative - Provider: Fede Bird RN)1143 (See Alternative - Provider: Fede Bird RN)1449 (Given - Provider: Fede Bird RN)1756 (Given - Provider: Fede Bird RN) 15 mg, Oral, EVERY 3 HOURS PRN, Starting Sarah 08/26/14 at 2215, Until 08/28/14 at 2020, Pain, severe pain (7-10), For severe pain (7-10). Do not exceed 15 mg in 4 hours. If pain not relieved, call provider., Routine 0837 (AUG Hold - Provider: Admin Adt - Reason: Transfer to a Procedural area)1058 (AUG Unhold - Provider: Sharda Obregon RN)1324 (See Alternative - Provider: Fede Bird RN)2009 (Given - Provider: Coleen Choi RN) 2328 (See Alternative - Provider : Coleen Choi RN) oxyCODONE (ROXICODONE) immediate release tablet 5 mg 2 223 (See Alternative - Provider: Coleen Choi RN) 0211 (See Alternative - Provider: Lucina Choi RN)0553 (See Alternative - Provider: Coleen Choi RN)0800 (AUG Hold - Provider: Admin Adt - Reason: Transfer to a Procedural area)0836 (AUG U nhold - Provider: Admin Adt) 0431 (See Alternative - Provider: Lucina Choi RN)0812 (See Alternative - Provider: Fede Bird RN)1143 (See Alternative - Provider: Fede Bird RN)1449 (See Alternative - Provider: Fede Bird RN) 5 mg, Oral, EVERY 3 HOURS PRN, Starting Sarah 08/26/14 at 2215, Until 08/28/14 at 2020, Pain, mild pain (1-3), For mild pain (1-3). Do not exceed 15 mg in 4 hours. If pain not relieved, call provider, Routine 08 37 (AUG Hold - Provider: Admin Adt - Reason: Transfer to a Procedural area)1058 (AUG Unhold - Provider: Sharda Obregon RN)1324 (See Alternative - Provider: Fede Bird RN)2009 (See Alternative - Provider: Coleen Choi RN) 1756 (See Alternative - Provider: Fede Bird RN) 2328 (See Alternative - Provider : Coleen Choi RN) documented in this encounter Care Teams Planting Material Carrier Relationship Specialty Start Date End Date Roxanna Sarmiento PA PCP - General 06/14/10 05/02/[address] [place] [id number] documented as of this encounter
--- OUTSIDE RECORDS SUMMARY | 2022-01-18 11:47 | XMS_ITS | Encounter Summary ---
:1985 [place] [address] Care Team Providers Name Role Phone Roxanna Sarmiento Primary Care Provider Encounter Details Date Type Department Care Team Description 05/10/2016 Ancillary Procedure [facility] [place], Lorenzo Stearns [facility] [place] [facility] [place] [address] ORTHOPAEDIC SURGERY [phone] [place], [place] [address] (Wo rk) Social History Tobacco [...] place to sleep or slept in a detention (including now)? Sex Assigned at Date Recorded Not on file documented as of this encounter Plan of Treatment Upcoming Encounters Date Type Specialty Care Team Description 02/20/2022 TH Visit (TeleHealth) Rheumatology Jeffery Amin MD [facility] er [place] [address] (Wo rk) documented as of this encounter Procedures Procedure Name Priority Date/Time Associated Diagnosis Comme nts FILM LIBRARY Routine 05/10/2016 12:00 AM Results for this STORAGE ONLY DX EST procedure ar e in KNEE the results section. documented in this encounter Results Film Library- Storage Only DX Knee (05/10/2016 12:00 AM EST) Specimen (Source) Anatomical Location Collection Method / Collectio n Time Received Time / Laterality Volume Narrative RAD - 03/16/2019 6:34 PM EDT This exam is auto-finalizing. It's purpo se is for storage only. Lyle Kelsey MD IMG FILM LIBRARY ORDERABLES Performing Organization Address City/State/ZIP Code Phon e Number RAD [place] documented in this encounter Visit Diagnoses Not on filedocumented in this encounter Care Teams Earrings Fabricator Relationship Specialty Start Date End Date Roxanna Sarmiento PA PCP - General 06/14/10 05/02/[address] [place] [id number] documented as of this encounter
--- OUTSIDE RECORDS SUMMARY | 2022-01-18 11:47 | XMS_ITS | Encounter Summary ---
:1985 Author Organization [facility] Address [facility] [place] [address] Care Team Providers Name Role Phone Roxanna Sarmiento Primary Care Provider Encounter Details Date Type Department Care Team Description 12/21/2014 [place] [facility] [place] [address] [place] [address] [place], [place] [address] healing, subsequent [phone] encounter Social History Tobacco Use Types Packs/Day Years [...] place to sleep or slept in a long-term (including now)? Sex Assigned at Date Recorded [...] each by Other 320 each 3 08/27/2014 LANCETS) 28 gauge Misc route 4 times daily. by Other route. 1 box = 100 lancets; 3 boxes = 300 lancets. Blood-Glucose Meter by Other route. 1 = 1 each 0 015 (FREESTYLE LITE METER) 1 blood glucose Kit meter kit. glipiZIDE (GLUCOTROL) 5 Take 15 mg by mouth 0 04/17/2019 mg Tablet daily. traMADol (ULTRAM) 50 mg Take 1 tablet by 120 tablet 0 201403/20/2019 Tablet mouth every 6 hours as needed for Pain. oxyCODONE (ROXICODONE) 5 Take 1-2 tablets by 40 tablet 0 03/20/2019 mg TabletIndications: mouth every 4 hours Post-op pain as needed for Pain (mild pain (1-3) take 5 mg, moderate pain (4-6) take 10 mg, severe pain (7-10) take 15 mg). multivitamin Take 1 tablet by 0 08/28/20142018 Iyxc-Di-DU-Min mouth daily. (THERAPEUTIC-M) 27-0.4 mg Tablet metFORMIN (FORTAMET) 500 Take 2 tablets by 60 tablet 3 08/0203/20/2019 mg Tablet Extended Rel mouth 2 times daily 24 hr (with meals). documented as of this encounter Plan of Treatment Upcoming Encounters Date Type Specialty Care Team Description 02/20/2022 TH Visit (TeleHealth) Rheumatology Jeffery Amin MD [facility] [address] [place], [place] [address] (Wo rk) documented as of this encounter Procedures Procedure Name Priority Date/Time Associated Diagnosis Comme nts XR TIBIA FIBULA AP Routine 12/21/2014 10:28 AM Closed left tib ial Results for this AND LATERAL EDT fracture, with procedure are in routine healing, the results subsequent encounter section . documented in this encounter Results XR tibia [...] encounter documented in this encounter Care Teams Ore Bridge Operator Relationship Specialty Start Date End Date Roxanna Sarmiento PA PCP - General 06/14/10 05/02/[address] [place] [id number] documented as of this encounter
--- OUTSIDE RECORDS SUMMARY | 2022-01-18 11:47 | XMS_ITS | Encounter Summary ---
:1985 Author Organization [facility] Address [address] [place] [address] Care Team Providers Name Role Phone Pascual Forrest MD Primary Care Provider Reason for Visit Reason Comments Left Leg Fracture REMOVAL OF IMPLANT, DEEP, LO WER EXTREMITY (WRVU 5.96) (Left) tib fib fx L DOI 08/2014 Encounter Details Date Type Department Care Team Description 06/26/2019 Office Visit Orthopaedics at [facility] [place] Lorene Webb Closed fracture of [facility], [place] proximal end of left Drive [facility] [place] [place] [address] [place], unspecified [phone] ORTHOPAEDIC fracture morpho logy, SURGERY subsequent encounter RENAE GUNTER 0375 Social History Tobacco Use Types Packs/Day Years Used Date Never Smoker Smokeless Tobacco: Never Used Alcohol Use Standard Drinks/Week Comments No 0 (1 standard drink = 0.6 oz pure alcoho l) [facility] Alcohol Habits Answer Date Recorded How often [...] place to sleep or slept in a fci (including now)? Sex Assigned at Date Recorded Not on file documented as of this encounter Last Filed Vital Signs Vital Sign Reading Time Taken Comments Blood Pressure 126/93 06/26/2019 1:38 PM EST Pulse 81 06/26/2019 1:38 PM EST Temperature 36.4 ??C (97.5 ??F) 06/26/2019 1:38 PM EST Respiratory Rate - - Oxygen Saturation - - Inhaled Oxygen Concentration - - Weight 102.5 kg (226 lb) 06/26/2019 1:38 PM EST pt repo rted Height 167.6 cm (5' 6) 06/26/2019 1:38 PM EST pt repor arpan Body Mass Index 36.48 06/26/2019 1:38 PM EST documented in this encounter Progress Notes Lorene Webb PA - 06/26/2019 1:30 PM EST PATIENT NAME: Ariela Foreman AGE: 33 y.o. MR#: [id number] DATE OF VISIT: 06/26/2019 CHIEF COMPLAINT: 2 weeks Hospital check post 08/27/14 (Mo) Left tibia IMN (Gitajn) left ankle, STACEY HISTORY OF PRESENT ILLNESS: Ms. Foreman is a 33 y.o. female who comes into clinic today for evaluationof the left leg .Ariela Foreman has been doing well since surgery. She has been compliant with WB with crutches. She does not use the crutches when walking short distance. Denies fever, chills, drenching night sweats, calf pain or tightness. She has been using Advil and icefor manageing pain. She took some Oxy however has weaned herself offof them. She was not taking anything for blood thinner. Past medical history: Patient Active Problem List Diagnosis Date Noted ??? Painful orthopaedic hardware 04/17/2019 ??? Closed left tibial fracture s/p IMN 08/27/14 08/26/2014 ??? Tremor, essential 12/08/2010 ??? CIS - asthma ??? Type 2 diabetes mellitus ??? CIS - familial gall bladder disease ??? CIS - Raynauds ??? 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 CIS - PCOS 06/03/1999 ??? CIS - spinal injury 06/03/1987 Medications: ??? oxyCODONE (ROXICODONE) 5 mg Tablet ??? montelukast (SINGULAIR) 10 mg Tablet ??? VICTOZA 3-STEPHY 0.6 mg/0.1 mL (18 mg/3 mL) Pen Injector ??? meclizine (ANTIVERT) 25 mg Tablet ??? TRI-SPRINTEC, 28, 0.18/0.215/0.25 mg-35 mcg (28) Tablet ??? BD ULTRA-FINE SHORT PEN NEEDLE 31 gauge x 5/16 Needle ??? phentermine 15 mg Capsule ??? propranolol (INDERAL LA) 60 mg Capsule,Sustained Action 24 hr ??? JANUMET 50-1,000 mg Tablet ??? glipiZIDE (GLUCOTROL XL) 10 mg Tablet Extended Rel 24 hr ??? Blood Sugar Diagnostic (FREESTYLE LITE STRIPS) Strip ??? lancets (FREESTYLE LANCETS) 28 gauge Misc ??? Blood-Glucose Meter (FREESTYLE LITE METER) Kit Allergies: Allergies Allergen Reactions ??? Cefuroxime Axetil Anaphylaxis ??? Acetaminophen Nausea And Vomiting ??? Codeine Phosphate Nausea And Vomiting ??? Morphine Sulfate Pain gets worse ??? Sulfa (Sulfonamide Antibiotics) Nausea And Vomiting ??? Tramadol Nausea Only Social history: Social History Tobacco Use ??? Smoking status: Never Smoker ??? Smokeless tobacco: Never Used Substance Use Topics ??? Alcohol use: No Frequency: Never Comment: occ Review of systems: No chest pain or shortness of breath No fevers, night sweats or chills Vital signs: Blood pressure (!) 126/93, pulse 81, temperature 36.4 ??C (97.5 ??F), height 167.6 cm (5' 6), weight 102.5 kg (226 lb). Physical exam: Ms. Foreman is a 33 y.o. female who is alert and oriented. She is in no acute discomfort and is resting comfortably in the exam room. Knee extension 0 Flexion 130 No goldie-incisional erythema noted No bogginess or drainage to palpation about the incision Skin feels no warmer than surrounding tissue I am not able to part the skin with gentle palpation Calf is supple and non tender PT/DP pulses 2+. Superficial peroneal, deep peroneal, sural, saphenous, and tibial nerves intact to touch. Assessment and plan:: 33 y.o. year-old female now roughly 2 weeks out post 08/27/14 (Mo) Left tibia IMN (Gitajn) left ankle, STACEY We had a long discussion regarding the nature of Ariela Foreman's chief complaint. We reviewed the imaging together which is described above. Clinically Ariela Foreman incisions are doing well. Sutures were removed today in clinic. The pt handled this well. Steri strips need to remain in placefor at least one week. Showers are ok, however please do not submerge the incision until the scabs have been replaced by scars. She will need to work on active ankle ROM. This plan was discussed with the patient and they are in agreement. All of the patient's questions were answered. The patient understand to contact us if they have any other questions or concerns. FU: MARIA ELENA Webb PA-C The above dictation was made with voice recogonition software documented in this encounter Plan of Treatment Upcoming Encounters Date Type Specialty Care Team Description 02/20/2022 TH Visit (TeleHealth) Rheumatology Jeffery Amin MD [facility] [place], [place] [address] (Wo rk) documented as of this encounter Visit Diagnoses Diagnosis Closed fracture of proximal end of left tibia with routine healing, unspecified fracture morphology, subsequent encounte r documented in this encounter Care Teams Habilitation Training Specialist Relationship Specialty Start Date End Date Pascual Forrest MD PCP - General Family Medicine 03/12/19 [facility] [address] [place] [address] documented as of this encounter
--- OUTSIDE RECORDS SUMMARY | 2022-01-18 11:47 | XMS_ITS | Encounter Summary ---
:1985 Author Organization [facility] [place] [address] Care Team Providers Name Role Phone Roxanna Sarmiento Primary Care Provider Reason for Visit Reason Onset Date Comments Medication Refill 09/03/2014 Encounter Details Date Type Department Care Team Description 09/03/2014 Telephone Orthopaedics at [facility] Enrrique [place] [phone] ORTHOPAEDIC SURG [place], [place] [address] (Wo rk) Social History Tobacco [...] place to sleep or slept in a longterm (including now)? Sex Assigned at Date Recorded Not on file documented as of this encounter Miscellaneous Notes Telephone Encounter - Misty Barrientos RN - 09/06/2014 8:45 AM EDT TELEPHONE VCALL Patient called requesting refill on the Oxycodone. She is using the medication as prescribed and using Acetamiophen, rest and elevation. She denies any fever, chills or other problems. New rx Oxycodone done for #30 pills Telephone Encounter - Megan Noble - 09/03/2014 4:00 PM EDT Person calling?PATIENT What medication are you refilling? OXYCODONE Would you like this called into a pharmacy? If so, which one? N/A If not, are you coming to pick this up? N/A Or, would you like this mailed to your home. [address] [place] [address] Best number to reach person calling? [phone] The nurse will call you when your prescription is ready, please allow up to 72 hrs for processing. documented in this encounter Plan of Treatment Upcoming Encounters Date Type Specialty Care Team Description 02/20/2022 TH Visit (TeleHealth) Rheumatology Jeffery Amin MD [facility] [place] [address] (Wo rk) documented as of this encounter Visit Diagnoses Diagnosis Post-op pain Other acute postoperative pain documented in this encounter Care Teams Learning Disabilities Teacher Relationship Specialty Start Date End Date Roxanna Sarmiento PA PCP - General 06/14/10 05/02/[address] [place] [id number] documented as of this encounter
--- OUTSIDE RECORDS SUMMARY | 2022-01-18 11:47 | XMS_ITS | Encounter Summary ---
:1985 Author Organization [facility] [place] [address] Care Team Providers Name Role Phone Pascual Forrest MD Primary Care Provider [phone] Reason for Visit Auth/Cert Specialty Diagnoses / Procedures Referred By Contact Refer red To Contact Diagnoses left leg symptomatic hardware Procedures PRO REMOVAL DEEP IMPLANT REMOVAL OF IMPLANT, DEEP, LOWER EXTREMITY (WRVU 5.96) Referral ID Status Reason Start Date Expiration Date Visits Requ ested Visits Authorized [id number] 1 1 Encounter Details Date Type Department Care Team Description 06/15/2019 Surgery Main Operating Room Gabi Paul MD REMOVAL OF IMPLANT, [facility], LOWER EXTREMITY [facility] (WRVU 5.96) [place] [address] [place] [address] [phone] Social History Tobacco Use Types Packs/Day Years [...] place to sleep or slept in a senior living (including now)? Sex Assigned at Date Recorded Not on file documented as of this encounter Last Filed Vital Signs Vital Sign Reading Time Taken Comments Blood Pressure 107/68 06/15/2019 9:00 AM EST Pulse 94 06/15/2019 8:55 AM EST Temperature 36.2 ??C (97.2 ??F) 06/15/2019 8:55 AM EST Respiratory Rate 16 06/15/2019 9:00 AM EST Oxygen Saturation 100% 06/15/2019 9:00 AM EST Inhaled Oxygen Concentration - - Weight 102.8 kg (226 lb 11.2 oz) 06/15/2019 6:32 AM EST Height 167.6 cm (5' 6) 06/15/2019 6:32 AM EST Body Mass Index 36.59 06/15/2019 6:32 AM EST documented in this encounter Discharge Instructions Discharge InstructionsHannah Contreras RN - 06/15/2019 9:51 AM EST Next dose of narcotic pain med, __oxycodone can be taken at _1:30pm . Patient InstructionsWright, Enrrique Elise MD - 06/15/2019 8:57 AM EST Orthopaedic Discharge Instructions Below are general guidelines. You will need to be aware that these guidelines are only general, eachperson???s recovery may vary. If you have any questions after reading this sheet, please call us. 1. Problem: symptomatic hardware 2. Recommendations: ?? You are Weight bearing as tolerated in the left lower extremity. ?? Remember to keep your left lower extremity elevated as much as possible to decrease swelling and control pain. ?? You may use an over the counter analgesic as needed for pain control. You were also given a smallscript for a narcotic to supplement for the first few days. Taper off this medication as soon as possible. 3. Precautions: ?? Please contact your physician or present to the emergency department if you have any of the following: Fevers, redness, drainage, excessive pain, numbness, tingling, weakness 4. Follow-up: ?? 06/26/19 in the orthopaedic clinic at [facility] 5. Contact Info: ?? If you have any questions or concerns, please call the following: Orthopaedic Clinic Saturday thru Saturday 8am - 5pm: [phone] Orthopaedic Physician injection mold tooling technician - After 5pm and Weekends: [phone] Your care today was provided by Enrrique Seo MD documented in this encounter Medications at Time of Discharge Medication Sig Dispensed Refills Start Date End Date montelukast as needed. 0 04/03/2019 (SINGULAIR) 10 mg Tablet VICTOZA 3-STEPHY 0.6 INJECT 1.8 MILLIGRAM 8 [...] 2 03/06/2019 PEN NEEDLE 31 gauge x 5/16 Needle [...] MOUTH 2 02/01 Tablet TWICE A DAY oxyCODONE Take 1 tablet by mouth 10 tablet 0 06/15/2019 (ROXICODONE) 5 mg every 4 hours as needed Tablet for Pain. documented as of this encounter H&P Notes Enrrique Seo MD - 06/15/2019 7:23 AM EST PRE-OPERATIVE HISTORY AND PHYSICAL for ADMISSION, OBSERVATION OR PROCEDURE Date of : 1985 Age: 33 y.o. PCP: Pascual Forrest MD Presenting Diagnosis/Chief Complaint: symptomatic left tibia hardware History of Present Illness: Ariela Foreman is a 33 y.o. female who presents for removal of hardware for symptomatic L tibia nail. PMHx: Patient Active Problem List Diagnosis Code ??? CIS - asthma ??? Type 2 diabetes mellitus E11.9 ??? CIS - familial gall bladder disease ??? CIS - MDR bacterial overgrowth ??? CIS - PCOS ??? CIS - Raynauds ??? CIS - spinal injury ??? Tremor, essential G25.0 ??? Closed left tibial fracture s/p IMN 08/27/14 S82.202A ??? Painful orthopaedic hardware T84.84XA Past Medical History: Diagnosis Date ??? Tremor, essential 12/08/2010 Past Surgical History: Procedure Laterality Date ??? CREATED BY INTERFACE cholecystectomy Procedure Date: 1999 ??? PRO TREAT TIBIAL SHAFT FX, INTRAMED IMPLANT Left 08/27/2014 INTRAMEDULLARY NAILING, TIBIA performed by Bryson Mo MD at [facility] MAIN OR Home Medications: Medications Prior to Admission Medication Sig Dispense Refill Last Dose ??? VICTOZA 3-STEPHY 0.6 mg/0.1 mL (18 mg/3 mL) Pen Injector INJECT 1.8 MILLIGRAM SUBCUTANEOUSLY DAILY 8 06/14/2019 at Unknown time ??? TRI-SPRINTEC, 28, 0.18/0.215/0.25 mg-35 mcg (28) Tablet TK 1 T PO DAILY. START 1 [address] SND AFTER ONSET OF MENSES 11 06/14/2019 at Unknown time ??? phentermine 15 mg Capsule TK 1 C PO D 2 HOURS AFTER BREAKFAST 0 06/14/2019 at Unknown time ??? propranolol (INDERAL LA) 60 mg Capsule,Sustained Action 24 hr TK ONE C PO ONCE D 2 06/14/2019 at Unknown time ??? JANUMET 50-1,000 mg Tablet TAKE 1 TABLET BY MOUTH TWICE A DAY 2 06/14/2019 at Unknown time ??? glipiZIDE (GLUCOTROL XL) 10 mg Tablet Extended Rel 24 hr 0 06/14/2019 at Unknown time ??? montelukast (SINGULAIR) 10 mg Tablet TK 1 T PO D 0 More than a month at Unknown time ??? meclizine (ANTIVERT) 25 mg Tablet TAKE 1 TABLET BY MOUTH ONCE DAILY NEEDED FOR MOTION SICKNESS 0 More than a month at Unknown time ??? BD ULTRA-FINE SHORT PEN NEEDLE 31 gauge x 5/16 Needle USE DAILY 2 Unknown at Unknown time ??? Blood Sugar Diagnostic (FREESTYLE LITE STRIPS) Strip 320 each by Other route 4 times daily. by Other route. 1 box = 100 test strips; 3 boxes = 300 test strips. 320 each 3 Unknown at Unknown time ??? lancets (FREESTYLE LANCETS) 28 gauge Misc 320 each by Other route 4 times daily. by Other route.1 box = 100 lancets; 3 boxes = 300 lancets. 320 each 3 Unknown at Unknown time ??? Blood-Glucose Meter (FREESTYLE LITE METER) Kit by Other route. 1 = 1 blood glucose meter kit. 1 each 0 Unknown at Unknown time Allergies: Allergies Allergen Reactions ??? Cefuroxime Axetil Anaphylaxis ??? Acetaminophen Nausea And Vomiting ??? Codeine Phosphate Nausea And Vomiting ??? Morphine Sulfate Pain gets worse ??? Sulfa (Sulfonamide Antibiotics) Nausea And Vomiting ??? Tramadol Nausea Only Family History: Non contributory Family History Problem Relation Age of Onset ??? Diabetes Mother ??? Diabetes Father ??? Diabetes Maternal Aunt ??? Diabetes Maternal Grandmother ??? Cancer Neg Hx Social History: Alcohol: social drinker Tobacco: unknown tobacco use Drug: no history of illicit drug use Review of Systems: complete 10 system ROS performed with pertinent findings below. A comprehensive review of systems was negative. Physical Exam: VITALS: Temperature Temp: 36.4 ??C (97.5 ??F) Heart Rate Heart Rate: 97 Blood Pressure BP: 123/81 Respiratory Rate Resp: 16 SpO2 No intake/output data recorded. General: alert, appears stated age and cooperative Pulmonary: equal, clear breath sounds bilaterally Cardiovascular: Regular rate and rhythm or without murmur or extra heart sounds Assessment and Plan: 33 y.o. female with the above problem, plan to proceed to OR for STACEY L tibia. Enrrique Seo MD Orthopaedic Surgery, PGY-2 Associated attestation - Gabi Paul MD - 06/22/2019 9:25 AM EST I have seen the patient and reviewed the attached history/physical and I agree with the details as written. The assessment and plan were formulated in discussion with me and I agree with them as documented. Patricia Paul MD Department of Orthopaedics 06/22/2019 documented in this encounter Miscellaneous Notes Op Note - Enrrique Seo MD - 06/15/2019 11:[address] [facility] Operative Note Patient Name: Ariela Foreman : [id number] MR#: [id number] Case Date: 06/15/2019 Surgeon: Surgeon(s) and Role: * Gabi Paul MD - Primary * Enrrique Seo MD - Resident Preoperative diagnosis: left leg symptomatic hardware Postoperative diagnosis: left leg symptomatic hardware Procedure(s) (LRB): REMOVAL OF IMPLANT, DEEP, LOWER EXTREMITY (WRVU 5.96) (Left) Findings: 5 interlock screws removed (2 proximal, 3 distal) Anesthesia: General Estimated Blood Loss: 5 mL Specimens removed during surgery: * No orders in the log * Drains: none Surgical Closure: Primary Closure - skin incision is completely closed without any wires, micheline, drains or other devices Disposition: awakened from anesthesia, extubated and taken to the recovery room in a stable condition, having suffered no apparent untoward event. Condition: doing well without problems (Please see the Surgical Encounter Summary for any Implant and Specimen details pertinent to this patient.) HPI/Surgical Indications: This is a 33-year-old woman who underwent left tibia IMN in 2014 for a tibia shaft fracture. She has had continued pain referable to her hardware. After thorough discussion ofrisk benefits and alternatives to surgery she has decided to undergo removal of hardware. Written informed consent was obtained. Procedure Description: Patient was met and identified in the preoperative holding area. The correct operative extremity was marked. Written informed consent was reviewed. An updated history and physical exam was performed. She was taken to the operating room where she was transferred to the operative t able. All bony prominences were well-padded. General anesthesia was induced. She was prepped and draped in usual sterile fashion. A timeout was performed per [facility] protocol. All present were in agreement to proceed. Screw location was confirmed using C-arm fluoroscopy. Using the scars from her prior surgical fixation as a guide one incision was made over the anterior proximal aspect of the leg and three small incisions over the distal aspect of the leg approximately overlying the screw heads. Tissue was spread down to bone and bovie electrocautery was used to clear the screw heads of overlying tissue. Three interlocking screws were removed from the distal tibia. Two interlocking screws were removed from the proximal tibia. Hemostasis was achieved using bovie electrocautery. Wounds were thoroughly irrigated. They are then closed in a layered fashion using 0 Vicryl, 2-0 Vicryl, and 3-0 nylon sutures. The wound was then dressed with Xeroform gauze and sterile web roll. A short leg splint was applied. Patient was then awakened from anesthesia and transferred back to the hospital stretcher. She was taken to the postoperative recovery unit having suffered no apparent untoward events. All sponge and instrument counts were correct at the end of the case. Dr. Paul was present and scrubbed for all critical portions of the procedure. Infection Bundle used? N/A Associated attestation - Gabi Paul MD - 06/22/2019 3:14 PM EST Attestation: Case Date: 06/15/2019 I was present and I participated during the entire procedure (does not need to include opening and closing). Gbai Paul MD 06/22/2019 Brief Op Note - Enrrique Seo MD - 06/15/2019 9:04 AM EST Brief Operative Note Patient Name: Ariela Foreman : [id number] MR#: [id number] Case Date: 06/15/2019 Surgeon: Surgeon(s) and Role: * Gabi Paul MD - Primary * Enrrique Seo MD - Resident Preoperative diagnosis: left leg symptomatic hardware Postoperative diagnosis: left leg symptomatic hardware Procedure(s) (LRB): REMOVAL OF IMPLANT, DEEP, LOWER EXTREMITY (WRVU 5.96) (Left) Anesthesia: General Findings: 5 interlock screws removed (2 proximal, 3 distal) Complications: none Estimated Blood Loss: 5 mL Specimens removed during surgery: * No orders in the log * Fluids: Intraprocedure Crystalloid Total None PRBCs: none (See Anesthesia Record/Report for Other Blood Products) Urine Output: (no urine output recorded) Drains: none Disposition: awakened from anesthesia, extubated and taken to the recovery room in a stable condition, having suffered no apparent untoward event. Condition: doing well without problems (Please see the Surgical Encounter Summary for any Implant and Specimen details pertinent to this patient.) Infection Bundle used? N/A documented in this encounter Plan of Treatment Upcoming Encounters Date Type Specialty Care Team Description 02/20/2022 TH Visit (TeleHealth) Rheumatology Jeffery Amin MD [facility] [place], [place] [address] (Wo rk) documented as of this encounter Procedures Procedure Name Priority Date/Time Associated Diagnosis Comme nts POCT GLUCOSE Routine 06/15/2019 8:59 AM Results f or this EST procedure are i n the results section. XR FLUORO NO RAD Routine 06/15/2019 8:20 AM Resul ts for this <1HR - OR USE EST procedure are in the results section. REMOVAL OF IMPLANT, 06/15/2019 7:30 AM Painful orthopa edic DEEP, LOWER EST hardware EXTREMITY (WRVU 5.96) POCT GLUCOSE Routine 06/15/2019 6:57 AM Results f or this EST procedure are i n the results section. documented in this encounter Results POCT Glucose (06/15/2019 8:59 AM EST) P athologist Signature POC Glucose 138 65 - 199 [facility] mg/dL [facility] Comment: Supplemental ranges: <140 mg/dL before meals <180 mg/dL all other times of the day Specimen Anatomical Collection Method Collection Time Receive d Time (Source) Location / / Volume Laterality Blood specimen 06/15/2019 8:59 AM 020 8:59 (specimen) EST AM EST Gabi Paul MD POINT OF CARE TEST ORDERABLE S Performing Organization Address City/State/[place] [address] XR Fluoro No Rad <1Hr - OR Use (06/15/2019 8:20 AM EST) Specimen (Source) Anatomical Location Collection Method / Collectio n Time Received Time / Laterality Volume Narrative RAD - 06/15/2019 8:24 AM EST This exam is auto-finalizing. No interpr etation was done. Gabi Paul MD IMG FLUORO ORDERABLES Performing Organization Address City/State/ZIP Code Phon e Number [place], [place] POCT Glucose (06/15/2019 6:57 AM EST) P athologist Signature POC Glucose 142 65 - 199 [facility] mg/dL [facility] Comment: Supplemental ranges: <140 mg/dL before meals <180 mg/dL all other times of the day Specimen Anatomical Collection Method Collection Time Receive d Time (Source) Location / / Volume Laterality Blood specimen 06/15/2019 6:57 AM 020 6:57 (specimen) EST AM EST Gabi Paul MD POINT OF CARE TEST ORDERABLE S Performing Organization Address City/State/[place] [address] documented in this encounter Visit Diagnoses Diagnosis Painful orthopaedic hardware documented in this encounter Administered Medications Inactive Administered Medications - up to 3 most recent administrations Medication Order MAR Action Action Date Dose Rate Site BUpivacaine (PF) Given 06/15/2019 8:47 AM 10 mLs 19- Surgical Site (MARCAINE) 0.5 % (5 EST mg/mL) injection ONCE PRN, Starting on Sat06/15/19 at 0847, Until Sat06/15/19 at 1346, Intra-Operative (Intra-Procedure), Routine HYDROmorphone (DILAUDID) injection 0.2-0 .4 mg Given 06/15/2019 9:54 AM EST 0.4 mg 0.2-0.4 mg, Intravenous, EVERY 5 MIN PRN, Starting on Sat06/15/19 at 0859, Until Sat06/15/19 at 1025, Pain, Give 0.2 mg every 5 minutes PRN for mild to moderate pain (1-5) Give 0.4 mg every 5 minutes PRN for moderate to severe pain (6-10). Hold for respiratory rate less than 10 per minute. Maximum dose 4 mg over one hour. If multiple pain medications are ordered, start with hydromorphone or morphine and use fentanyl for breakthrough pain., PACU Recovery, Routine Given 06/15/2019 9:41 AM EST 0.4 mg Given 06/15/2019 9:30 AM EST 0.4 mg lactated ringers infusion New Bag 06/15/2019 7:30 AM EST 1,000 mL, at 100 mL/hr, Intravenous, CONTINUOUS, Starting on Sat06/15/19 at 0645, Until Sat06/15/19 at 1025, Day of Surgery (Day of Procedure) New Bag 06/15/2019 6:59 AM EST 1,000 mLs 100 mL/hr lidocaine (XYLOCAINE) 10 mg/mL (1 %) injection Given 0 06/15/2019 6:59 AM EST 3 mg 3 mg 3 mg (0.3 mL), Subcutaneous, ONCE PRN, 1 dose, Starting on Sat06/15/19 at 0628, Until Sat06/15/19 at 0659, for discomfort with PIV insertion, Day of Surgery (Day of Procedure), Routine oxyCODONE (Roxicodone) tablet 5 mg Given 06/15/2019 9:30 AM EST 5 mg 5 mg, Oral, ONCE, 1 dose, On Sat06/15/19 at 0945, STAT documented in this encounter Active and Recently Administered Medications Times are shown in EST. Scheduled Medication Order 06/13/2019 06/14/2019 06/15/2019 oxyCODONE (Roxicodone) tablet 5 mg (COMPLETED) 0930 (Given - Provider: Hannah Contreras RN) 5 mg, Oral, ONCE, 1 dose, On Sat06/15/19 at 0945, STAT Continuous Medication Order 06/13/2019 06/14/2019 06/15/2019 lactated ringers infusion (CANCELED) 0659 (New Bag - Provider: Abel Welch RN)0730 (New Bag - Provider: Mary Hunter CRNA)0817 (Anesthesia Volume Adjustment - Provider: Mary Hunter CRNA)0849 (Anesthesia Volume Adjustment - Provider: Mary Hunter CRNA) 1,000 mL, at 100 mL/hr, Intravenous, CON TINUOUS, Starting Sat06/15/19 at 0645, Until Sat06/15/19 at 1025, Day of Surgery (Day of Procedure) PRN Medication Order 06/13/2019 06/14/2019 06/15/2019 BUpivacaine (PF) (MARCAINE) 0.5 % (5 mg/mL) injection (CANCELED) 0847 (Given - Provider: Enrrique Seo MD) ONCE PRN, Starting Sat06/15/19 at 0847, Until Sat06/15/19 at 1346, Intra- Operative (Intra-Procedure), Routine HYDROmorphone (DILAUDID) injection 0.2-0.4 mg (CANCELED) 0912 (Given - Provider: Hannah Contreras RN)0919 (Given - Provider: Hannah Contreras, SUHA)0930 (Given - Provider: Hannah Contreras, SUHA)0941 (Given - Provider: Hannah Contreras, USHA)0954 (Given - Provider: Hannah Contreras RN) 0.2-0.4 mg, Intravenous, EVERY 5 MIN PRN , Starting Sat06/15/19 at 0859, Until Sat06/15/19 at 1025, Pain, Give 0.2 mg every 5 minutes PRN for mild to moderate pain (1-5) Give 0.4 mg every 5 minutes PRN f or moderate to severe pain (6-10). Hold for respiratory rate less than 10 per minute. Maximum dose 4 mg over one hour. If multiple pain medications are ordered, start with hydromorphone or morphine and use fentanyl for breakthrough pain., PACU Recovery, Routine lidocaine (XYLOCAINE) 10 mg/mL (1 %) injection 3 mg (COMPLETED) 0659 (Given - Provider: Abel Welch RN) 3 mg (0.3 mL), Subcutaneous, ONCE PRN, 1 dose, Starting Sat06/15/19 at 0628, Until Sat06/15/19 at 0659, for discomfort with PIV insertion, Day of Surgery (Day of Procedure), Routine documented in this encounter Care Teams Set Up Mechanic Stamping Machines Relationship Specialty Start Date End Date Pascual Forrest MD PCP - General Family Medicine 03/12/[address] [place] [address] [address] [place] [address] documented as of this encounter
--- OUTSIDE RECORDS SUMMARY | 2022-01-18 11:47 | XMS_ITS | Encounter Summary ---
:1985 Author Organization [facility] [place] [address] Care Team Providers Name Role Phone Pascual Forrest MD Primary Care Provider [phone] Reason for Visit Auth/Cert Specialty Diagnoses / Procedures Referred By Contact Refer red To Contact Diagnoses left leg symptomatic hardware Procedures PRO REMOVAL DEEP IMPLANT REMOVAL OF IMPLANT, DEEP, LOWER EXTREMITY (WRVU 5.96) Referral ID Status Reason Start Date Expiration Date Visits Requ ested Visits Authorized [id number] 1 1 Encounter Details Date Type Department Care Team Description 06/15/2019 Hospital Encounter Same Day Program [place] [address] [place] [address] [phone] Social History Tobacco Use Types Packs/Day Years Used Date Never Smoker Smokeless Tobacco: Never Used Alcohol Use Standard Drinks/Week Comments No 0 (1 standard drink = 0.6 oz pure alcoho l) [facility] Alcohol Habits Answer Date Recorded How often [...] to sleep or slept in a senior care (including now)? Sex Assigned at Date Recorded Not on file documented as of this encounter Last Filed Vital Signs Vital Sign Reading Time Taken Comments Blood Pressure 110/69 06/15/2019 9:45 AM EST Pulse 94 06/15/2019 8:55 AM EST Temperature 36.2 ??C (97.2 ??F) 06/15/2019 8:55 AM EST Respiratory Rate 16 06/15/2019 9:45 AM EST Oxygen Saturation 94% 06/15/2019 9:45 AM EST Inhaled Oxygen Concentration - - Weight 102.8 kg (226 lb 11.2 oz) 06/15/2019 6:32 AM EST Height 167.6 cm (5' 6) 06/15/2019 6:32 AM EST Body Mass Index 36.59 06/15/2019 6:32 AM EST documented in this encounter Discharge Instructions Discharge InstructionsPhiHannah khan RN - 06/15/2019 9:51 AM EST Next dose of narcotic pain med, __oxycodone can be taken at _1:30pm . Patient InstructionsWrEnrrique nguyen MD - 06/15/2019 8:57 AM EST Orthopaedic [...] ?? 06/26/19 in the orthopaedic clinic at [facility] [place] [place] 5. Contact Info: ?? If you have any questions or concerns, please call the following: Orthopaedic Clinic Saturday thru Saturday 8am - 5pm: [phone] Orthopaedic Physician distribution manager - After 5pm and Weekends: [phone] Your care today was provided by Enrrique [...] TIBIA performed by Bryson Mo MD at [facility] MAIN OR Home Medications: Medications Prior to [...] Seo MD - 06/15/2019 11:46 AM EST [facility] [place] [place] Operative Note Patient Name: Ariela Foreman : [id number] MR#: [id number] Case Date: 06/15/2019 Surgeon: Surgeon(s) and Role: [...] incision is completely closed without any wires, mciheline, drains or other devices Disposition: awakened from anesthesia, extubated and taken to the recovery room in a stable condition, having suffered no apparent untoward event. Condition: doing well without problems (Please see the Surgical Encounter Summary for any Implant and Specimen details pertinent to this patient.) HPI/Surgical Indications: This is a 33-year-old woman who underwent left tibia IMN in 2015 for a tibia shaft fracture. She has [...] sterile fashion. A timeout was performed per [facility] [place] [place] protocol. All present were in agreement to [...] not need to include opening and closing). Gabi Paul MD 06/22/2019 Brief Op Note - Enrrique Seo MD - 06/15/2019 9:04 AM EST Brief Operative Note Patient Name: Ariela Foreman : [id number] MR#: [id number] Case Date: 06/15/2019 Surgeon: Surgeon(s) and Role: [...] TH Visit (TeleHealth) Rheumatology Jeffery Amin MD [facility] [address] [place] [address] (Wo rk) documented as of [...] Signature POC Glucose 138 65 - 199 [facility] mg/dL [facility] Comment: Supplemental ranges: <140 mg/dL before meals <180 mg/dL all other times of the day Specimen Anatomical Collection Method Collection Time Receive d Time (Source) Location / / Volume Laterality Blood specimen 06/15/2019 8:59 AM 020 8:59 (specimen) EST AM EST Gabi Paul MD POINT OF CARE TEST ORDERABLE S Performing Organization Address City/[facility]/ZIP [place] [address] XR Fluoro No Rad <1Hr - OR Use (06/15/2019 8:20 AM EST) Specimen (Source) Anatomical Location Collection Method / Collectio n Time Received Time / Laterality Volume Narrative DH RAD - 06/15/2019 8:24 AM EST This exam is auto-finalizing. No interpr etation was done. Gabi Paul MD IMG FLUORO ORDERABLES Performing Organization Address City/[facility]/ZIP Code Phon e Number RAD [place], [place] POCT Glucose (06/15/2019 6:57 AM EST) P athologist Signature POC Glucose 142 65 - 199 [facility]dL [facility] Comment: Supplemental ranges: <140 mg/dL before meals <180 mg/dL all other times of the day Specimen Anatomical Collection Method Collection Time Receive d Time (Source) Location / / Volume Laterality Blood specimen 06/15/2019 6:57 AM 020 6:57 (specimen) EST AM EST Gabi Paul MD POINT OF CARE TEST ORDERABLE S Performing Organization Address City/State/ZIP [place] [address] documented in this encounter Visit Diagnoses Not on filedocumented in this encounter Administered Medications Inactive Administered Medications - up to 3 most recent administrations Medication Order MAR Action Action Date Dose Rate Site HYDROmorphone (DILAUDID) injection Given 06/15/2019 9:54 AM EST 0.4 mg 0.2-0.4 mg 0.2-0.4 mg, Intravenous, EVERY 5 MIN [...] Hannah Contreras RN)0919 (Given - Provider: Hannah Contreras RN)0930 (Given - Provider: Hannah Contreras RN)0941 (Given - Provider: Hannah Contreras, SUHA)0954 (Given - Provider: Hannah Contreras RN) 0.2-0.4 mg, Intravenous, EVERY 5 MIN PRN , Starting 06/15/19 at 0859, Until Sat06/15/19 at 1025, Pain, [...] Routine documented in this encounter Care Teams Shellfish Checker Relationship Specialty Start Date End Date Pascual Forrest MD PCP - General Family Medicine 03/12/[address] [place] [address] [address] [place] [address] documented as of this encounter
--- OUTSIDE RECORDS SUMMARY | 2022-01-18 11:47 | XMS_ITS | Encounter Summary ---
:1985 Author Organization [facility] Address [address] [place] [address] Care Team Providers Name Role Phone Roxanna Sarmiento Primary Care Provider Encounter Details Date Type Department Care Team Description 09/09/2014 Hospital Encounter XRay at [facility], DR OTERO Tibia fracture, [address] [place] [address] Dr Schreiber, Enrrique Zee MD [facility] [place] [address] left, [place] encounter [id number] Social History Tobacco Use Types Packs/Day Years [...] place to sleep or slept in a penitentiary (including now)? Sex Assigned at Date Recorded [...] METER) 1 blood glucose Kit meter kit. oxyCODONE (ROXICODONE) 5 Take 1-2 tablets by 40 tablet 0 03/20/2019 mg TabletIndications: mouth every 4 hours Post-op pain as needed for Pain (mild pain (1-3) take 5 mg, moderate pain (4-6) take 10 mg, severe pain (7-10) take 15 mg). multivitamin Take 1 tablet by 0 08/28/20142018 Rdih-Za-VA-Min mouth daily. (THERAPEUTIC-M) 27-0.4 mg Tablet diaZEPam (VALIUM) 5 mg Take 1 tablet [...] Visit (TeleHealth) Rheumatology Jeffery Amin MD [address] [facility] [address] [place], [place] [address] (Wo rk) documented as of this encounter Procedures Procedure Name Priority Date/Time Associated Diagnosis Comme nts XR TIBIA FIBULA AP Routine 09/09/2014 10:36 AM Tibia fracture, Results for this AND LATERAL EDT left, initial procedure are in encounter [...] patient positioning/radiographic projection. On the lateral view, ashvinio n minimal/very early callus formation. Procedure Note [...] alignment. Question m inimal/early healing change. Enrrique Scrheiber MD IMG DX ORDERABLES documented in this encounter Visit Diagnoses Diagnosis Tibia fracture, left, initial encounter documented in this encounter Care Teams Wired Music Operator Relationship Specialty Start Date End Date Roxanna Sarmiento PA PCP - General 06/14/10 05/02/[address] [place] [address] documented as of this encounter
--- OUTSIDE RECORDS SUMMARY | 2022-01-18 11:47 | XMS_ITS | Encounter Summary ---
:1985 Author Organization [facility] Address [address] [facility] [place] [address] Care Team Providers Name Role Phone Roxanna Sarmiento Primary Care Provider Encounter Details Date Type Department Care Team Description 10/19/2014 Hospital Encounter XRay at [facility] Tibia fracture, left, [address] [facility] [address] with routine healing, [place] [address] subsequent encounter [phone] Social History Tobacco Use Types Packs/Day Years [...] place to sleep or slept in a [facility] (including now)? Sex Assigned at Date Recorded [...] multivitamin Take 1 tablet by 0 08/28/20142018 Zddo-Mr-SM-Min mouth daily. (THERAPEUTIC-M) 27-0.4 mg Tablet metFORMIN (FORTAMET) 500 Take 2 tablets by 60 tablet 3 08/0203/20/2019 mg Tablet Extended Rel mouth 2 times daily 24 hr (with meals). documented as of this encounter Plan of Treatment Upcoming Encounters Date Type Specialty Care Team Description 02/20/2022 TH Visit (TeleHealth) Rheumatology Jeffery Amin MD [facility] [address] [place], [place] [address] (Wo rk) documented as of this encounter Procedures Procedure Name Priority Date/Time Associated Diagnosis Comme nts XR TIBIA FIBULA AP Routine 10/19/2014 1:10 PM Tibia fracture, Results for this AND LATERAL EDT left, with routine procedure are in healing, subsequent the resu lts encounter section. documented in this encounter Results XR tibia fibula AP & lateral (10/19/2014 1:10 PM EDT) Anatomical Region Laterality Modality N/A Radiographic Imaging Specimen (Source) Anatomical Collection Method Collection Time Re ceived Time Location / / Volume Laterality 10/19/2014 1:10 PM EDT Impressions 10/19/2014 1:58 PM EDT IMPRESSION: Interval healing. Alignment is stable. Narrative 10/19/2014 1:58 PM EDT EXAMINATION: TIBIA and FIB AP and LAT/LEFT CLINICAL HISTORY: s/p fx TECHNIQUE: Frontal and lateral left tibi a/fibula. COMPARISON: 09/09/2014. FINDINGS: Left tibia intramedullary arabella in place a nd stable. Hardware is stable without complication. Mildly displaced oblique d istal tibial fracture again noted, with mild interval bridging callus. The mildl y displaced,, and comminuted angular high distal fibular fractures again appr eciated, with interval bony remodeling. Stable posterior malleolus fracture. Reg ional osteopenia. Procedure Note Tunde Mcgill MD - 10/19/2014Format ting of this note might be different from the original. EXAMINATION: TIBIA and FIB AP and LAT/LE FT CLINICAL HISTORY: s/p fx TECHNIQUE: Frontal and lateral left tibi a/fibula. COMPARISON: 09/09/2014. FINDINGS: Left tibia intramedullary arabella in place a nd stable. Hardware is stable without complication. Mildly displaced oblique d istal tibial fracture again noted, with mild interval bridging callus. The mildl y displaced,, and comminuted angular high distal fibular fractures again appr eciated, with interval bony remodeling. Stable posterior malleolus fracture. Reg ional osteopenia. IMPRESSION IMPRESSION: Interval healing. Alignment is stable. Bryson Abdi MD IMG DX ORDERABLES documented in this encounter Visit Diagnoses Diagnosis Tibia fracture, left, with routine heali ng, subsequent encounter documented in this encounter Care Teams Transport Analyst Relationship Specialty Start Date End Date Roxanna Sarmiento PA PCP - General 06/14/10 05/02/[address] [place] [address] documented as of this encounter
--- OUTSIDE RECORDS SUMMARY | 2022-01-18 11:47 | XMS_ITS | Encounter Summary ---
:1985 Author Organization [facility] [place] [address] Care Team Providers Name Role Phone Roxanna Sarmiento Primary Care Provider Encounter Details Date Type Department Care Team Description 09/22/2014 Office Visit Endocrinology at [facility] C Micheleunbaldemar, Diabetes mellitus [facility] Hu Godinez type 2, [place] [address] [place] [address] ENDOCRINOLOGY DEPT. [place], [place] [address] Social History Tobacco Use Types [...] on file documented as of this encounter Progress Notes Dee Santiago MD - 09/22/2014 3:19 PM EDT I saw this patient with Dr. Pham . I reviewed the eldridge portions of the history and physical exam, and reviewed pertinent lab data. I answered all patient questions. I was involved in all medical decision making and agree with this plan. Bc Pham MD - 09/22/2014 8:47 AM EDT Endocrinology Consult Note Reason for Visit: Consult requested by MAGI Senior for evaluation of T2DM HPI: The patient is a 28-y/o lady with a PMH significant for PCOS and T2DM who presents in consultation for evaluation of her T2DM. She was recently admitted to the [facility] after a leg fracture with a twisting fall, which led to her referral to this clinic after her A1C was found to be above 10%. She hashad diabetes nearly 15 years. She ran out of insurance two years ago and was not able to take any medications, leading to hyperglycemia. During her hospitalization, she was started on metformin 1000 BID. She was started on glipizide 5 mg daily last week, with improvement in her glucose into the 100s. - Glucoses (last week, from memory): - Fastin-170s - Post-lunch: 170-190s - Bedtime: 180-190s - Complication Monitoring - Nephropathy: None - Retinopathy: None - Neuropathy: Mild symptoms - Cardiac: None PMH: - T2DM - PCOS - Asthma Medications: - Metformin 1000 BID - Glipizide 5 mg daily FH: - Grandmother, mother, and aunt with T2DM - Father with T1DM SH: - No tobacco - Rare EtOH ROS: - Some recent fatigue with achy joints - 10-point ROS performed and negative, except as above PE: - Gen: Awake and alert, NAD - HEENT: EOMI, moist MM - Neck: No thyromegaly - CV: RRR, no M/C/R; 2+ LE pulses - Pulm: CTAB - Abd: +BS, NTTP - Ext: No edmea - Derm: No rashes - Neuro: Decreased sensation to monofilament exam in great toe of right foot; 2+ reflexes, mild tremor Labs (08/26/2014): - A1C 10.5% - eGFR >60 Assessment: The patient is a 28-y/o lady with a PMH significant for PCOS and T2DM who presents in consultation for evaluation of her T2DM. With her age and lack of complications, an appropriate A1C goal is 6.0-7.0%. Her glucose control has improved with metformin and glipizide, though she is not quiteat goal. Her goal is to return to glucose control with metformin alone. While relatively immobile, she will likely need higher doses of glipizide. If her glucose control does not improve with resumption of exercise, a GLP-1 may be a good choice for her. Plan: - Continue metformin 1000 BID - Continue glipizide 5 mg daily, increase to 10 mg (to a maximum of 20 mg) over the next weeks as nausea allows to get fasting glucoses <130 and post-prandial glucoses <180 - Checking glucoses two to three times daily - To meet with Clerical Office Worker to review diet, exercise, and adjustment of glipizide - Complication Monitoring: - Renal: Suggest to PCP that an albuminuria screen be performed at her next appointment - Retinal: Reports normal exam two years ago, patient to schedule a f/u appointment - Neurological: Mildly abnormal exam today - Cardiac: Suggest to PCP that a fasting lipid panel be performed at her next appointment, statin therapy would only be indicated if LDL >190 with her age - F/U in 6 months Patient seen and discussed with the attending Dr. Jazz Pham M.D. Fellow, Endocrinology Resident, Leadership Preventive Medicine 09/22/2014 documented in this encounter Miscellaneous Notes Addendum Note - Bc Pham MD - 09/24/2014 11:13 AM EDT Addended by: BC PHAM on: 09/24/2014 11:13 AM Modules accepted: Level of Service documented in this encounter Plan of Treatment Upcoming Encounters Date Type Specialty Care Team Description 02/20/2022 TH Visit (TeleHealth) Rheumatology Jeffery Amin MD [facility] [address] [place], [place] [address] (Wo rk) documented as of this encounter Visit Diagnoses Diagnosis Diabetes mellitus type 2, uncontrolled Type II or unspecified type diabetes emmett litus without mention of complication, uncontrolled documented in this encounter Care Teams Envelope Machine Operator Relationship Specialty Start Date End Date Roxanna Sarmiento PA PCP - General 06/14/10 05/02/[address] [place] [address] documented as of this encounter
--- OUTSIDE RECORDS SUMMARY | 2022-01-18 11:47 | XMS_ITS | Encounter Summary ---
:1985 Author Organization [facility] [place] [address] Care Team Providers Name Role Phone Roxanna Sarmiento Primary Care Provider Reason for Visit Reason Comments Follow Up Surgery L TIB IMN DOS 08/27/14 DOI Encounter Details Date Type Department Care Team Description 09/09/2014 Office Visit Orthopaedics at [facility] Enrrique Schreiber MD Tibia fracture, left, with routine heali ng, subsequent encounter; [facility] Post-op [facility] [place] [address] ORTHOPAEDIC [phone] SURGERY [place], [place] [address] Social History Tobacco Use Types [...] Sign Reading Time Taken Comments Blood Pressure - - Pulse - - Temperature 36.5 ??C (97.7 ??F) 09/09/2014 11:38 AM EDT Respiratory Rate - - Oxygen Saturation - - Inhaled Oxygen Concentration - - Weight 99.8 kg (220 lb) 09/09/2014 11:38 AM EDT Height 167.6 cm (5' 6) 09/09/2014 11:38 AM EDT Body Mass Index 35.51 09/09/2014 11:38 AM EDT documented in this encounter Progress Notes Bryson Mo MD - 09/09/2014 11:58 AM EDT Ms. Foreman returns in followup. DATE OF INJURY: 08/25/14 DATE OF SURGERY: 08/27/14 She reports she is doing reasonably well. Her pain is controlled, although is requiring narcotic medications. PHYSICAL EXAM: In general, well-developed female in no apparent distress. Examination of the left leg reveals all incisions are clean, dry, and intact. There is no erythema, no fluctuance. EHL and FHL are intact. Calf is nonswollen. X-RAYS: X-rays today show hardware is intact. Alignment is well maintained. ASSESSMENT: A 28-year-old female two weeks' status post intramedullary nailing, left femur. Clinically and radiographically, she is doing well. PLAN: Sutures removed. Steri-Strips applied. The patient was fitted with a large Aircast boot. She was instructed on some gentle range of motion but advised to remain either non or touch down weightbearing. We will plan to see her back in one month with repeat x-rays. documented in this encounter Plan of Treatment Upcoming Encounters Date Type Specialty Care Team Description 02/20/2022 TH Visit (TeleHealth) Rheumatology Jeffery Amin MD [facility] [address] [place], [place] [address] (Wo rk) documented as of this encounter Results XR [...] left, with routine heali ng, subsequent encounter Post-op pain Other acute postoperative pain Tibia fracture, left, with routine heali ng, subsequent encounter documented in this encounter Care Teams Cook Supervisor Relationship Specialty Start Date End Date Roxanna Sarmiento PA PCP - General 06/14/10 05/02/[address] [place] [id number] documented as of this encounter
--- OUTSIDE RECORDS SUMMARY | 2022-01-18 11:47 | XMS_ITS | Encounter Summary ---
:1985 Author Organization [facility] [place] [address] Care Team Providers Name Role Phone Unknown Primary Care Provider Unavailable Encounter Details Date Type Department Care Team Description 02/09/2019 Ancillary Procedure Radiology Library at [place], Lorenzo Stearns, [facility] [place] [address] ORTHOPAEDIC SURGERY [phone] [place] [id number] (Wo rk) Social History Tobacco Use Types [...] (TeleHealth) Rheumatology Jeffery Amin MD [facility] [place] [address] (Wo rk) documented as of this encounter Procedures Procedure Name Priority Date/Time Associated Diagnosis Comme nts FILM LIBRARY Routine 02/09/2019 12:00 AM Results for this STORAGE ONLY DX EDT procedure ar e in LOWER EXTREMITY the results section. documented in this encounter Results Film Library- Storage Only DX Lower Extremity (02/09/2019 12:00 AM EDT) Specimen (Source) Anatomical Location Collection Method / Collectio n Time Received Time / Laterality Volume Narrative JN - 03/16/2019 6:37 PM EDT This exam is auto-finalizing. It's purpo se is for storage only. Lyle Kelsey MD IMEstuardo FILM LIBRARY ORDERABLES Performing Organization Address City/State/ZIP Code Phon e Number JN JN [place] [address] documented in this encounter Visit Diagnoses Not on filedocumented in this encounter Care Teams Speech Teacher Relationship Specialty Start Date End Date Unknown PCP - General 05/03/18 03/11/19 None documented as of this encounter
--- OUTSIDE RECORDS SUMMARY | 2022-01-18 11:47 | XMS_ITS | Encounter Summary ---
:1985 Author Organization [facility] [place] [address] Care Team Providers Name Role Phone Pascual Forrest MD Primary Care Provider [phone] Encounter Details Date Type Department Care Team Description 03/27/2019 Telephone Orthopaedics at [facility] Lorene Webb [place] [facility] [place] [address] ORTHOPAEDIC SURGERY [phone] [place], [place] [address] (Wo rk) Social History Tobacco [...] this encounter Miscellaneous Notes Telephone Encounter - Dee Steinberg RN - 04/10/2019 2:46 PM EST Patient called back. Will make appointment. Thanks. Telephone Encounter - Lorene Webb PA - 03/27/2019 8:27 AM EDT I called Ariela regarding my discussion with Dr Paul. We could have her come in for discussion withthe surgeon for removal of the screws. I called the number in the chart however no one picked up andthere was no voice mail. Lorene Webb PA-C documented in this encounter Plan of Treatment Upcoming Encounters Date Type Specialty Care Team Description 02/20/2022 TH Visit (TeleHealth) Rheumatology Jeffery Amin MD [facility] [address] [place], [place] [address] (Wo rk) documented as of this encounter Visit Diagnoses Not on filedocumented in this encounter Care Teams Occupational Medicine Physician Relationship Specialty Start Date End Date Pascual Forrest MD PCP - General Family Medicine 03/12/[address] [place] [address] documented as of this encounter
--- OUTSIDE RECORDS SUMMARY | 2022-01-18 11:47 | XMS_ITS | Encounter Summary ---
:1985 Author Organization [facility] [place] [address] Care Team Providers Name Role Phone Roxanna Sarmiento Primary Care Provider Reason for Referral Consultation (Routine) - Closed Specialty Diagnoses / Procedures Referred By Contact Refer red To Contact Endocrinology Diagnoses Type II or unspecified type diabetes mellitus without mention of complication, uncontrolled Dee Santiago, [facility] 3b MD [facility] [address] [place] [address] Referral ID Status Reason Start Date Expiration Date Visits V isits Requested Authorized [id number] Closed Specialty 09/22/2014 09/22/2015 3 3 Service Requested Encounter Details Date Type Department Care Team Description 09/22/2014 Office Visit Endocrinology at [facility] Antonella Pak, Type II or One [facility] LD unspecified type [facility] [place] [address] without mention of [phone] ENDOCRINOLOGY complication, DEPT. uncontrolled [place], [place] [address] Social History Tobacco Use Types [...] on file documented as of this encounter Patient Instructions Patient InstructionsAntonella Monet, LD - 09/22/2014 4:05 PM EDT Toolkit enclosed Nutrition: see if you can eliminate the drinks with carb. If so tthis may lower your blood sugars enough that your current medication would be sufficient to keep your levels in the target range of 90 -130 before meals (I would recommend 50 - 60 gms carb per meal for a total of 150 - 180 gms carb per day) Per Dr. Pedraza - go up by 5 mg glipizide per week (up to a maximum dose of 20 mg) until pre meal BG levels are 90 -130. You may need to split the dose between breakfast and dinner if you need morethan 10 mg. a day. documented in this encounter Progress Notes Antonella Monet LD - 09/22/2014 3:48 PM EDT Assessment of Diabetes Management and Medical Nutrition Therapy Ariela has had type 2 diabetes since age 14. She was recently admitted to the [facility] after a leg fracture with a twisting fall, which led to her referral to this clinic after her A1C was found to be above10%. During her hospitalization, she was started on metformin 1000 BID. She was started on glipizide5 mg daily last week, with improvement in her glucose into the 100s. - Glucoses (last week, from memory): - Fastin-170s - Post-lunch: 170-190s - Bedtime: 180-190s Patient Information: She lives with 2 roommates. Works at [employer] currently from home with her broken leg. She controlled her diabetes partially with walking her dog 2 or more miles a day before breaking herleg. Nutrition History: Typical Intake: Breakfast: egg, cheese, bagel, 12 oz oj = 110 gms carb or smoothie or pnb an dj sandwich = 60 gms carb Lunch: pretzels or fruit or leftovers or big salad. Did not eat much while working. Drinks water or coke zero or sugared iced tea. = 20 - 80 gms carb at lunch Dinner: meat, starch and vegetables, diet drink = 40 - 60 gms carb Weight today 220 pounds with BMI of 35 Education - Nutrition and Diabetes Toolkit. Nutrition: if she were to eliminate the drinks with carb, this may lower BG enough that current medication would be sufficient to keep BG levels in target range of 90 -130 before meals I would recommend 50 - 60 gms carb per meal for a total of 150 - 180 gms carb per day Per Dr. Pedraza to go up by 5 mg glipizide per week (up to a maximum dose of 20 mg) until pre meal BG levels are 90 -130. Reviewed symptoms and [place] of hypoglycemia. Amount of one-on-one diabetes education and medical nutrition therapy time spent:: of this 40 mins appt, 20 mins was spent on MNT documented in this encounter Plan of Treatment Upcoming Encounters Date Type Specialty Care Team Description 02/20/2022 TH Visit (TeleHealth) Rheumatology Jeffery Amin MD [facility] Medical [facility] [address] [place], [place] [address] (Wo rk) Scheduled Referrals Name Type Priority Associated Diagnoses Order S chedule Referral to Outpatient Referral Routine Type II or Ordered: Diabetic Education unspecified type 09/22 diabetes mellitus without mention of complication, uncontrolled documented as of this encounter Visit Diagnoses Diagnosis Type II or unspecified type diabetes emmett litus without mention of complication, uncontrolled documented in this encounter Care Teams Physicist Light [employer]ics Relationship Specialty Start Date End Date Roxanna Sarmiento PA PCP - General 06/14/10 05/02/[address] [place] [id number] documented as of this encounter
--- OUTSIDE RECORDS SUMMARY | 2022-01-18 11:47 | XMS_ITS | Encounter Summary ---
:1985 Author Organization [facility] [place] [address] Care Team Providers Name Role Phone Pascual Forrest MD Primary Care Provider Reason for Visit Reason Comments Follow Up Fracture NXR, Left Leg Continued Pain s/p Closed Left Tib/Fib fx DOI: 08/25/14 DOS: 08/27/14 (Chepe) ?Hardware Removal Consultation (Routine) - Specialty Diagnoses / Procedures Referred By Contact Refer red To Contact Orthopaedics Diagnoses Left leg pain Left leg pain s/p Closed left tibial fracture s/p IMN 08/27/[address] Mo-retained hardware Pascual Forrest, [facility] Orthopaedics 3a [facility] [address] [place] [address] [address] [place], [place] [address] Referral ID Status Reason Start Date Expiration Date Visits V isits Requested Authorized [id number] Consult, Test 03/10/2019 09/09/2019 6 6 & Treat PCP Updated and/or Approved Encounter Details Date Type Department Care Team Description 03/20/2019 Office Visit Orthopaedics at [facility] Lorene Webb Closed [facility], [place] proximal end of left [address] [facility] [place] [address] evans, unspecified [phone] ORTHOPAEDIC fracture morpho logy, SURGERY subsequent encounter [place], [place] [address] Social History Tobacco Use Types [...] Sign Reading Time Taken Comments Blood Pressure 117/75 03/20/2019 1:11 PM EDT Pulse 87 03/20/2019 1:11 PM EDT Temperature - - Respiratory Rate - - Oxygen Saturation - - Inhaled Oxygen Concentration - - Weight 106.1 kg (234 lb) 03/20/2019 1:11 PM EDT Height 167.6 cm (5' 6) 03/20/2019 1:11 PM EDT Body Mass Index 37.77 03/20/2019 1:11 PM EDT documented in this encounter Progress Notes Lorene Webb PA - 03/20/2019 1:00 PM EDT PATIENT NAME: Ariela Foreman AGE: 33 y.o. MR#: [id number] DATE OF VISIT: 03/20/2019 CHIEF COMPLAINT: New pt, Continued pain of left distal third tib fib fracture post IMN 08/17/14 (Mo) HISTORY OF PRESENT ILLNESS: Ms. Foreman is a 33 y.o. female who comes into clinic today for evaluationof the left tibia. She comes to clinic complaining of pain both in the distal and proximal lower extremity in the area of the screw placement. She also has tendernss to palpation in these regions and along the mid calf. She has aching pain when she stands on her leg for any amount of time. She recently bought an elliptical, however is only able to use this for 10 minutes before she experiences pain. She has experienced a few falls onto her knee over the past few years and obtained XR in February due to a fall. No fracture or hardware complication noted. . She denies fever, chills, drenching night sweats. Past medical history: Patient Active Problem List Diagnosis Date Noted ??? Closed left tibial fracture s/p IMN 08/27/14 08/26/2014 ??? Tremor, essential 12/08/2010 ??? CIS - asthma ??? Type 2 diabetes mellitus ??? CIS - familial gall bladder disease ??? CIS - Raynauds ??? 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 CIS - PCOS 06/03/1999 ??? CIS - spinal injury 06/03/1987 Medications: ??? VICTOZA 3-STEPHY 0.6 mg/0.1 mL (18 [...] ??? Blood-Glucose Meter (FREESTYLE LITE METER) Kit ??? glipiZIDE (GLUCOTROL) 5 mg Tablet Allergies: Allergies Allergen Reactions ??? Cefuroxime Axetil Anaphylaxis ??? Acetaminophen Nausea And Vomiting ??? Codeine Phosphate Nausea And Vomiting ??? Morphine Sulfate Pain gets worse ??? Sulfa (Sulfonamide Antibiotics) Nausea And Vomiting Social history: Social History Tobacco Use ??? Smoking status: Never Smoker ??? Smokeless tobacco: Never Used Substance Use Topics ??? Alcohol use: No Frequency: Never Comment: occ Review of systems: No chest pain or shortness of breath No fevers, night sweats or chills Vital signs: Blood pressure 117/75, pulse 87, height 167.6 cm (5' 6), weight 106.1 kg (234 lb). Physical exam: Ms. Foreman is a 33 y.o. female who is alert and oriented. She is in no acute discomfort and is resting comfortably in the exam room. No erythema, edema, ecchymosis noted. Does reports TTP about the proximal tibial in the area of the screw hardware as well as the distal area about the screw hardware. Knee Extension 0 Flexion 130 No ttp about the lateral joint line Some TTP about the medial joint line Ankle dorsiflexion 15 Plantarflexion 40 Inversion 5 Eversion 5 Imaging studies: XR images were obtained today and compared with the images in February as well as her previous imaging. No evidence of new fracture, hardware lucency, or fracture. Assessment and plan:: 33 y.o. year-old female left distal third tib fib fracture post IMN 08/17/14 (Mo) with continued pain. We had a long discussion regarding the nature of Ariela Foreman's chief complaint.Clinically Ariela Foreman has maintained ROM of her knee and ankle. She Reports tenderness over the sites of screw placement . The proximal screws do seem prominent. She would like to know if she could have the screws removed. I will discuss this with Dr. Paul and report back. This plan was discussed with the patient and they are in agreement. All of the patient's questions were answered. The patient understand to contact us if they have any other questions or concerns. FU: PRN. Lorene Webb PA-C The above dictation was made with voice recogonition software documented in this encounter Plan of Treatment Upcoming Encounters Date Type Specialty Care Team Description 02/20/2022 TH Visit (TeleHealth) Rheumatology Jeffery Amin MD One [facility] [address] [place], [place] [address] (Wo rk) documented as of this encounter Results XR Tibia Fibula Left [...] For questions regarding this report, please contact [facility] number below. ? Narrative 03/20/2019 3:03 PM EDT EXAMINATION: XR TIBIA FIBULA LEFT (GENERIC) CLINICAL HISTORY: distal third tib fib f x post IMN placement. evalute for fx/hardware complication TECHNIQUE: 2 views LEFT tibia and fibula COMPARISON: 02/09/2019 radiographs at [facility]. FINDINGS: Intramedullary nail of the [...] tibia and fibula COMPARISON: 02/09/2019 radiographs at [facility]. FINDINGS: Intramedullary nail of the [...] this report, please contact e number below. Gabi Paul MD IMG DX ORDERABLES documented in this encounter Visit Diagnoses Diagnosis Closed fracture of proximal end of left tibia with routine healing, unspecified fracture morphology, subsequent encounte r Closed fracture of proximal end of left tibia with routine healing, unspecified fracture morphology, subsequent encounte r documented in this encounter Care Teams Dispatcher Automobile Rental Relationship Specialty Start Date End Date Pascual Forrest MD PCP - General Family Medicine 03/12/[address] [place] [address] documented as of this encounter
--- OUTSIDE RECORDS SUMMARY | 2022-01-18 11:47 | XMS_ITS | Encounter Summary ---
:1985 Author Organization [facility] [place] [address] Care Team Providers Name Role Phone Roxanna Sarmiento Primary Care Provider Reason for Visit Reason Comments Follow Up Fracture Encounter Details Date Type Department Care Team Description 12/21/2014 Office Visit Orthopaedics at [place] Bryson Mo V, Closed left tibial [facility] MD fracture, with Drive [facility] routine healing, [place] [address] subsequent encounter [phone] ORTHOPAEDIC SURGERY [place] [address] Social History Tobacco Use Types Packs/Day Years [...] for the very basics like Not v tyae hard 11/03/2021 food, housing, medical care, and [...] Sign Reading Time Taken Comments Blood Pressure 131/79 12/21/2014 10:38 AM EDT Pulse 84 12/21/2014 10:38 AM EDT Temperature 36.6 ??C (97.8 ??F) 12/21/2014 10:38 AM EDT Respiratory Rate - - Oxygen Saturation - - Inhaled Oxygen Concentration - - Weight - - Height - - Body Mass Index - - documented in this encounter Progress Notes Bryson Mo MD - 12/21/2014 10:52 AM EDT Ms. Foreman returns in followup. Date of injury 08/25/2014. She reports that overall she is doing well. She is eager to advance weightbearing out of the boot. PHYSICAL EXAMINATION: General: A well-developed female in no apparent distress. Examination of the left leg reveals incision is well healed. Range of motion of the ankle is 10 degrees dorsiflexion and 35 plantar flexion. EHL and FHL are intact. Calf is nonswollen. The patient is able to full weight bear on the leg using crutches for balance. X-RAYS: X-rays today show IM nail in good alignment. Fracture lines are less visible. ASSESSMENT AND PLAN: A 29-year-old female who is now almost four months status post intramedullary nailing left tibia fracture. Clinically and radiographically, the fracture appears to be healing in good alignment. Plan is to allow full weightbearing out of the boot. The patient was offered again referral for physical therapy, but feels she can do this on her own. We will plan to see her back in two months with a repeat x-ray. documented in this encounter Plan of Treatment Upcoming Encounters Date Type Specialty Care Team Description 02/20/2022 TH Visit (TeleHealth) Rheumatology Jeffery Amin MD [facility] Medical [facility] [place] [address] [place] [address] (Wo rk) documented as of this encounter Visit Diagnoses Diagnosis Closed left tibial fracture, with routin e healing, subsequent encounter documented in this encounter Care Teams [employer] Hazmat Tanker Driver Relationship Specialty Start Date End Date Roxanna Sarmiento PA PCP - General 06/14/10 05/02/[address] [place] [id number] documented as of this encounter
--- OUTSIDE RECORDS SUMMARY | 2022-01-18 11:47 | XMS_ITS | Encounter Summary ---
:1985 Author Organization [facility] [address] Care Team Providers Name Role Phone Pascual Forrest MD Primary Care Provider Encounter Details Date Type Department Care Team Description 06/16/2019 Telephone Orthopaedics at [facility] Adalgisa Campa, [place] [address] Social History Tobacco Use Types Packs/Day Years [...] this encounter Miscellaneous Notes Telephone Encounter - Adalgisa Campa RN - 06/16/2019 3:39 PM EST Spoke with Ariela and Dr Paul's instructions, she can remove dressing at that time and run water Over her incision but no soaking or scrubbing until her follow up. She verbalizes understanding, no further questions at this time Telephone Encounter - Adalgisa Campa RN - 06/16/2019 12:10 PM EST Ariela calls in after hardware removal yesterday with Dr Paul, she states her instructions do not indicate how to care for her bandages or when she can get them wet. She describes mepilex dressings, reviewed these are typically a 7 day dressing, we will reach out to her team to determine plan and we will call with their advice documented in this encounter Plan of Treatment Upcoming Encounters Date Type Specialty Care Team Description 02/20/2022 TH Visit (TeleHealth) Rheumatology Jeffery Amin MD [facility] [address] [place], [place] [address] (Wo rk) documented as of this encounter Visit Diagnoses Not on filedocumented in this encounter Care Teams Developer Evangelist Relationship Specialty Start Date End Date Pascual Forrest MD PCP - General Family Medicine 03/12/[address] [place] [address] documented as of this encounter
--- OUTSIDE RECORDS SUMMARY | 2022-01-18 11:47 | XMS_ITS | Encounter Summary ---
:1985 Author Organization [facility] [place] [address] Care Team Providers Name Role Phone Pascual Forrest MD Primary Care Provider [phone] Reason for Referral Consultation (Urgent) - Closed Specialty Diagnoses / Procedures Referred By Contact Refer red To Contact Hematology and Diagnoses Leukocytosis, unspecified type Pascual Forrest, [facility] Hem Onc 3k Oncology [place] [address] [address] [place] [phone] Fax: Referral ID Status Reason Start Date Expiration Date Visits V isits Requested Authorized [id number] Closed Consult, Test 2021 2022 6 6 & Treat PCP Updated and/or Approved Encounter Details Date Type Department Care Team Description 2021 Transcribe Orders eDH Incoming Pascual Forrest Leuk ocytosis, Referrals MD Erika unspecified type [phone] [facility] [employer] [address] [address] Social History Tobacco Use Types Packs/Day Years [...] TH Visit (TeleHealth) Rheumatology Jeffery Amin MD [facility] [address] [place] [address] (Wo rk) Scheduled Referrals Name Type Priority Associated Diagnoses Order S chedule Referral to Outpatient Referral Routine Leukocytosis, Ordered : Hematology and unspecified type 2 Oncology documented as of this encounter Visit Diagnoses Diagnosis Leukocytosis, unspecified type documented in this encounter Care Teams Museum Service Scheduler Relationship Specialty Start Date End Date Pascual Forrest MD PCP - General Family Medicine 03/12/[address] [place] [address] documented as of this encounter
--- OUTSIDE RECORDS SUMMARY | 2022-01-18 11:47 | XMS_ITS | Encounter Summary ---
:1985 Author Organization [place] [address] Care Team Providers Name Role Phone Pascual Forrest MD Primary Care Provider [phone] Reason for Referral Consultation (Routine) - Authorized Specialty Diagnoses / Procedures Referred By Contact Refer red To Contact Rheumatology Diagnoses Inflammatory arthritis Pain in unspecified joint Pascual Forrest, [facility] 5c MD [place] [address] [place] [address] [place], [place] [address] Referral ID Status Reason Start Expiration Visits Visits Date Date Requested Authorized [id number] Authorized Consult, 12/11/2021 12/11/2022 6 6 Test & Treat PCP Updated and/or Approved Encounter Details Date Type Department Care Team Description 12/11/2021 Transcribe Orders eDH Incoming Pascual Forrest Infl ammatory Referrals MD Erika arthritis [phone] [place], [place] [id number] Social History Tobacco Use Types Packs/Day Years [...] pay for the very basics like Not danis kothari hard 11/03/2021 food, housing, medical care, [...] place to sleep or slept in a fdc (including now)? Sex Assigned at Date Recorded Not on file documented as of this encounter Plan of Treatment Upcoming Encounters Date Type Specialty Care Team Description 02/20/2022 TH Visit (TeleHealth) Rheumatology Jeffery Amin MD [facility] [place] [address] (Wo rk) Scheduled Referrals Name Type Priority Associated Diagnoses Order S chedule Referral to Outpatient Referral Routine Inflammatory Ordered: Rheumatology arthritis 12/11/2021 documented as of this encounter Visit Diagnoses Diagnosis Inflammatory arthritis Unspecified inflammatory polyarthropathy documented in this encounter Care Teams Bicycle Ii Assembler Relationship Specialty Start Date End Date Pascual Forrest MD PCP - General Family Medicine 03/12/[address] [place] [address] [address] [place] [address] documented as of this encounter
--- OUTSIDE RECORDS SUMMARY | 2022-01-18 11:47 | XMS_ITS | Encounter Summary ---
:1985 Author Organization [facility] [place] [address] Care Team Providers Name Role Phone Pascual Forrest MD Primary Care Provider [phone] Reason for Visit Reason Comments Follow-up L Leg cont Pain S/P closed L tib/fib Fx DOS 08/27/14 Encounter Details Date Type Department Care Team Description 04/17/2019 Office Visit Orthopaedics at [facility] Gabi Paul, Painful orthopaedic hardware ; [facility] Closed fracture of proximal end of left tibia with routine healing, unspecified fracture morphology, [place] [address] [facility] [phone] ORTHOPAEDIC [facility] [place], [place] [address] Social History Tobacco Use Types [...] Sign Reading Time Taken Comments Blood Pressure 112/68 04/17/2019 9:47 AM EST Pulse 91 04/17/2019 9:47 AM EST Temperature - - Respiratory Rate - - Oxygen Saturation - - Inhaled Oxygen Concentration - - Weight 105.2 kg (232 lb) 04/17/2019 9:47 AM EST reporte d Height 167.6 cm (5' 6) 04/17/2019 9:47 AM EST reported Body Mass Index 37.45 04/17/2019 9:47 AM EST documented in this encounter Progress Notes Genevieve Gonzalez, PA - 04/17/2019 9:50 AM EST PATIENT NAME: Ariela Foreman AGE: 33 y.o. MR#: [id number] DATE OF VISIT: 04/17/2019 CHIEF COMPLAINT: Continued pain of left distal third tib fib fracture post IMN 08/17/14 (Mo) HISTORY OF PRESENT ILLNESS: Ms. Foreman is a 33 y.o. female who comes into clinic today for evaluationof the left leg. She has pain with weight bearing for a length of time, depending on the activity. She has pain with doing an elliptical machine for any longer than 10 minutes. She is able to tolerate a slow walk with her dog before she starts aching and hurting. She would like to be able to be moreactive. She is trying to be more active. Pain is rated at 6/10 depending on the day. She is taking advil prn and ice for pain. She says she is unable to take tylenol. She notices increased pain with cold weather. She says she has tried tall insulated boots which does help with her pain related to coldweather. Has not yet done formal PT. She says she does exercises at home. She does not use assistivedevice. She says ROM is pretty good. No fever, chills, nightsweats. No difficulty healing her wounds. She does have DM. She says last A1Cwas around 7 to 8. She endorses some peripheral neuropathy of the bilateral toes. 10-12 years ago tore a bunch of ligaments in her left ankle. She says she has decreased ROM at left ankle at baseline. Past medical history: Patient Active Problem List Diagnosis Date Noted ??? Closed left tibial fracture s/p IMN 08/27/14 08/26/2014 ??? Tremor, essential 12/08/2010 ??? CIS - asthma ??? Type 2 diabetes mellitus ??? CIS - familial gall bladder disease ??? CIS - Raynauds ??? 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 CIS - PCOS 06/03/1999 ??? CIS - spinal injury 06/03/1987 Medications: ??? montelukast (SINGULAIR) 10 mg Tablet ??? [...] fevers, night sweats or chills Vital signs: There were no vitals filed for this visit. Physical exam: Ms. Foreman is a 33 y.o. female who is alert and oriented. She is in no acute discomfort and is resting comfortably in the exam room. No use of accessory muscles or retraction. Normal respiratory rate. TTP overlying areas of hardware. TTP proximal tibia No TTP of middle tibia Appropriate DF and PF of left ankle Left DP pulse is 2+ but was difficult to find Able to wiggle all toes Decreased sensation left plantar and dorsal aspect of left toes. Absent sensation left anterior proximal tibia since surgery. SILT LLE elsewhere. Knee ROM is full extension to >120 degrees flexion Skin without erythema, ecchymoses, rash, lesion Imaging studies: Xrays taken 03/20/[address] without obvious complication. Tibia and fibula fractures are well healed with callus present. Assessment and plan:: 33 y.o. year-old female painful hardware in left tibia s/p IMN in 2014 We had a long discussion regarding her painful hardware. We discussed her risk of infection given her DM. Dr. Paul signed surgical consent with her and also saw patient. This plan was discussed with the patient and they are in agreement. All of the patient's questions were answered. The patient understand to contact us if they have any other questions or concerns. FU: For STACEY surgery by Dr. Humberto Gonzalez PA-C The above dictation was made with voice recogonition software documented in this encounter Plan of Treatment Upcoming Encounters Date Type Specialty Care Team Description 02/20/2022 TH Visit (TeleHealth) Rheumatology Jeffery Amin MD [facility] [place], [place] [address] (Wo rk) documented as of this encounter Procedures Procedure Name Priority Date/Time Associated Diagnosis Comme nts REMOVAL OF IMPLANT, Routine 04/17/2019 10:24 AM Painful orthop aedic DEEP, LOWER EXTREMITY EST hardware documented in this encounter Visit Diagnoses Diagnosis Painful orthopaedic hardware Closed fracture of proximal end of left tibia with routine healing, unspecified fracture morphology, subsequent encounte r documented in this encounter Care Teams Dependency Case Manager Relationship Specialty Start Date End Date Pascual Forrest MD PCP - General Family Medicine 03/12/[address] [place] [address] documented as of this encounter
--- OUTSIDE RECORDS SUMMARY | 2022-01-18 11:47 | XMS_ITS | Encounter Summary ---
:1985 Author Organization [facility] [place] [address] Care Team Providers Name Role Phone Pascual Forrest MD Primary Care Provider [phone] Reason for Visit Auth/Cert Specialty Diagnoses / Procedures Referred By Contact Refer red To Contact Diagnoses left leg symptomatic hardware Procedures PRO REMOVAL DEEP IMPLANT REMOVAL OF IMPLANT, DEEP, LOWER EXTREMITY (WRVU 5.96) Referral ID Status Reason Start Date Expiration Date Visits Requ ested Visits Authorized [id number] 1 1 Encounter Details Date Type Department Care Team Description 06/15/2019 Anesthesia Event Main Operating Room Delfina Dyer MD [facility] Laura veloz [place] [address] [place] [address] [phone] (Wo rk) Anesthesia Record Procedure Summary Procedure Name Responsible Anesthesia Start Anesthesia Stop Time Anesthesiologist Time REMOVAL OF IMPLANTToro Jennifer E, MD 06/15/19 0730 0 06/15/19 0857 DEEP, LOWER EXTREMITY (WRVU 5.96) (Left Leg) Events Date Time Event Comment 06/15/2019 0716 0730 AN Verify 0730 Start 0730 An Start Data 0730 Quick Note Patient declined taking . She is taking con trol and her partner has had a vasectomy. Pat ient verbalized understanding of risk of anest hesia is she were and would like t o proceed without HCG test 0735 An Induction 0737 An Intubation 0738 Anesthesia Ready 0755 Procedure Start 0847 Extubation/LMA Out 0852 an stop data 0854 Recovery or ICU Handoff Patient care was transferred to the destination unit staff after review of the patient's medica l history, current anesthetic/surgi mirna status and plan, according to the Provider Handoff Checklist. 0857 Stop Name Total Propofol 250 mg Propofol INF 195.32 mg fentaNYL 100 mcg Midazolam 2 mg IV Lidocaine 100 mg Ondansetron 4 mg Clindamycin 900 mg Dexmedetomidine 8 mcg lactated ringers infusion 600 mL Agents Name O2 Air N2O Sevoflurane (et) Blood No blood administrations on file. Lines, Drains, and Airways Type Details Placement Removal Incision 06/15/19; 0755; leg; 06/15/19 0755 by Heather, klaus Elise RN PIV 06/15/19; 0652; median 06/15/19 0652 by Yuri, 0 06/15/19 1025 by cubital vein (antecubital Abel Arnold RN Nevarez , Delfina Gillespie, SUHA fossa), right; [id number] catheter system; 20 gauge; Hector Welch RN; distraction, intradermal injection; 0; no longer indicated, catheter/device intact; 06/15/19; 1025 Supraglottic Mask Ventilation: Not 06/15/19 0737 by Dale, 0847 by Dale, Attempted (0); LMA Type: ABBIE Israel CRNA iGel; LMA Size: 4; Inserted by: Mary Hunter CRNA documented in this encounter Social History Tobacco Use Types Packs/Day [...] place to sleep or slept in a skilled nursing (including now)? Sex Assigned at Date Recorded Not on file documented as of this encounter OR Notes Anesthesia Postprocedure Evaluation - Delfina Engel MD - 06/15/2019 12:20 PM EST Department of Anesthesiology Post-procedure Note Patient: Ariela Foreman Procedure Summary Date: 06/15/19 Room / Location: [facility] OR [facility] MAIN OR Anesthesia Start: 729 Anesthesia Stop: 856 Procedure: REMOVAL OF IMPLANT, DEEP, LOWER EXTREMITY (WRVU 5.96) (Left Leg) Diagnosis: Painful orthopaedic hardware (left leg symptomatic hardware) Surgeon: Gabi Paul MD Responsible Provider: Delfina Engel MD Anesthesia Type: general ASA Status: 2 All Anesthesia Providers: Anesthesiologist: Delfina Engel MD FINAL CANOE INSPECTOR: Mary Hunter CRNA Vitals Value Taken Time BP 110/69 06/15/2019 9:45 AM Temp Pulse Resp 16 06/15/2019 9:45 AM SpO2 98 % 06/15/2019 9:53 AM Pain Level 4 06/15/2019 9:54 AM Vitals shown include unvalidated device data. Patient Location: PACU/[facility] Level of Consciousness: Awake and Alert Pain Management: Satisfactory Analgesia PONV: PONV Resolved with Rx Cardiovascular Status: At Baseline Respiratory Status: At Baseline Postoperative Fluid Status: Intravascular EUvolemia Possible Anesthetic Complications: NONE apparent at time of evaluation Final Primary Anesthesia Type: General (The anesthetic type performed was the same as planned.) Comments: Anesthesia Preprocedure Evaluation - Delfina Engel MD - 06/15/2019 7:48 AM EST Images from the original note were not included. Pre-Anesthesia Evaluation for: Ariela Foreman a 33 y.o. female. Procedure(s): REMOVAL OF IMPLANT, DEEP, LOWER EXTREMITY (VU 5.96) Patient Active Problem List Diagnosis ??? Painful orthopaedic hardware ??? Closed left tibial fracture s/p IMN 08/27/14 ??? Tremor, essential ??? CIS - asthma ??? Type 2 diabetes mellitus part of PCOS A1C <7 Type II but well controlled. ??? CIS - familial gall bladder disease ??? CIS - Raynauds ??? CIS - MDR bacterial overgrowth ??? CIS - PCOS ??? CIS - spinal injury bladder problems subsequently Past Medical History: Diagnosis Date ??? Tremor, essential 12/08/2010 Past Surgical History: Procedure Laterality Date ??? CREATED BY INTERFACE cholecystectomy Procedure Date: 1999 ??? PRO TREAT TIBIAL SHAFT FX, INTRAMED IMPLANT Left 08/27/2014 INTRAMEDULLARY NAILING, TIBIA performed by Bryson Mo MD at [facility] MAIN OR Social History Tobacco Use ??? Smoking status: Never Smoker ??? Smokeless tobacco: Never Used Substance Use Topics ??? Alcohol use: No Frequency: Never Comment: occ Social History Substance and Sexual Activity Drug Use No Allergies Allergen Reactions ??? Cefuroxime Axetil Anaphylaxis ??? Acetaminophen Nausea And Vomiting ??? Codeine Phosphate Nausea And Vomiting ??? Morphine Sulfate Pain gets worse ??? Sulfa (Sulfonamide Antibiotics) Nausea And Vomiting ??? Tramadol Nausea Only Medications: MAR and/or home medications have been reviewed. Physical Exam: Most Recent Vitals: 06/15/19 0632 BP: 123/81 Pulse: 97 Resp: 16 Temp: 36.4 ??C (97.5 ??F) Body mass index is 36.59 kg/m??. Height: 167.6 cm (5' 6) Weight: 102.8 kg (226 lb 11.2 oz) Airway Assessment: Mallampati: I TM distance: >3 FB Neck ROM: full Cardiovascular Assessment: Pulmonary Assessment: Dental Assessment: Comment: No loose teeth Misc Assessment: IV access: Peripheral line Anesthesia Plan: ASA 2 general, with a(n) intravenous induction 33 y.o. female with a history of RAD, DM2 and essential tremor scheduled for: Procedure(s): REMOVAL OF IMPLANT, DEEP, LOWER EXTREMITY (WRVU 5.96) Previous anesthetics without issue- 08/27/14 IM nail, Mill 3, grade 1 view Tobacco: no GERD: no She states that her normal BP is 90/60. Plan GA with routine monitors- LMA. Potential rescue block. Plans and risks reviewed. Questions answered. Region - Other Informed Consent: Anesthetic plan and risks discussed with patient and spouse. Plan discussed with FINAL CANOE INSPECTOR and attending. PAT Clinic Note documented in this encounter Plan of Treatment Upcoming Encounters Date Type Specialty Care Team Description 02/20/2022 TH Visit (TeleHealth) Rheumatology Jeffery Amin MD [facility] [address] [place] [address] (Wo rk) documented as of this encounter Visit Diagnoses Not on filedocumented in this encounter Administered Medications Inactive Administered Medications - up to 3 most recent administrations Medication Order MAR Action Action Date Dose Rate Site clindamycin (CLEOCIN) injection Given 06/15/2019 7:48 AM EST 900 mg PRN, Starting on Sat06/15/19 at 0748, Until Sat06/15/19 at 0857, Anesthesia Intra-op, Routine dexmedetomidine (PRECEDEX) injection Given 06/15/2019 8:41 AM EST 8 mcg PRN, Starting on Sat06/15/19 at 0841, Until Sat06/15/19 at 0857, Anesthesia Intra-op, Routine fentaNYL 50 mcg/mL multi-dose injection Given 06/15/2019 8:41 AM EST 50 mcg Intravenous, PRN, Starting on Sat06/15/19 at 0756, Until Sat06/15/19 at 0857, Anesthesia Intra-op, Routine Given 06/15/2019 8:19 AM EST 25 mcg Given 06/15/2019 7:56 AM EST 25 mcg lactated ringers infusion New Bag 06/15/2019 7:30 AM EST 1,000 mL, at 100 mL/hr, Intravenous, CONTINUOUS, Starting on Sat06/15/19 at 0645, Until Sat06/15/19 at 1025, Day of Surgery (Day of Procedure) New Bag 06/15/2019 6:59 AM EST 1,000 mLs 100 mL/hr lidocaine (PF) (XYLOCAINE) 100 mg/5 mL (2 %) Given 7:35 AM EST 100 mg injection Intravenous, PRN, Starting on Sat06/15/19 at 0735, Until Sat06/15/19 at 0857, Anesthesia Intra-op, Routine midazolam (PF) (VERSED) multi-dose injec tion Given 06/15/2019 7:30 AM EST 2 mg Intravenous, PRN, Starting on Sat06/15/19 at 0730, Until Sat06/15/19 at 0857, Anesthesia Intra-op, Routine ondansetron (ZOFRAN) injection Given 06/15/2019 8:21 AM EST 4 mg Intravenous, PRN, Starting on Sat06/15/19 at 0821, Until Sat06/15/19 at 0857, Anesthesia Intra-op, Routine propofol (DIPRIVAN) 10 mg/mL bolus injection Given 0 8:41 AM EST 50 mg (Anesthesia) Intravenous, PRN, Starting on Sat06/15/19 at 0735, Until Sat06/15/19 at 0857, Anesthesia Intra-op Given 06/15/2019 7:35 AM EST 200 mg propofol (DIPRIVAN) infusion New Bag 06/15/2019 7:42 AM 50 mcg/kg/min 30.8 mL/hr Intravenous, CONTINUOUS PRN, EST Starting on Sat06/15/19 at 0742, Until Sat06/15/19 at 0857, Anesthesia Intra-op, Routine documented in this encounter Care Teams Store Person Relationship Specialty Start Date End Date Pascual Forrest MD PCP - General Family Medicine 03/12/[address] [place] [address] [address] [place] [address] documented as of this encounter
--- OUTSIDE RECORDS SUMMARY | 2022-01-18 11:47 | XMS_ITS | Encounter Summary ---
:1985 Author Organization [facility] [place] [address] Care Team Providers Name Role Phone Pascual Forrest MD Primary Care Provider [phone] Reason for Referral Consultation (Routine) - Closed Specialty Diagnoses / Procedures Referred By Contact Refer red To Contact Endocrinology Diagnoses PCOS (polycystic ovarian syndrome) Pascual Forrest, [facility] 3b MD [facility] [address] [place] [address] [address] [place], [place] [address] Referral ID Status Reason Start Date Expiration Date Visits V isits Requested Authorized [id number] Closed Consult, Test 09/04/2021 09/04/2022 6 6 & Treat PCP Updated and/or Approved Encounter Details Date Type Department Care Team Description 09/04/2021 Transcribe Orders eDH Incoming Pascual Forrest PCOS (rudolph James MD ovarian syndrome) [phone] [place] [address] Social History Tobacco Use Types Packs/Day Years [...] place to sleep or slept in a custodial (including now)? Sex Assigned at Date Recorded Not on file documented as of this encounter Plan of Treatment Upcoming Encounters Date Type Specialty Care Team Description 02/20/2022 TH Visit (TeleHealth) Rheumatology Jeffery Amin MD [facility] [address] [place], [place] [address] (Wo rk) Scheduled Referrals Name Type Priority Associated Order Schedule Diagnoses Referral to Outpatient Referral Routine PCOS (polycystic Orde red: Endocrinology ovarian syndrome) 2 documented as of this encounter Visit Diagnoses Diagnosis PCOS (polycystic ovarian syndrome) Polycystic ovaries documented in this encounter Care Teams Focuser Relationship Specialty Start Date End Date Pascual Forrest MD PCP - General Family Medicine 03/12/[address] [place] [address] documented as of this encounter
--- OUTSIDE RECORDS SUMMARY | 2022-01-18 11:47 | XMS_ITS | Encounter Summary ---
:1985 Author Organization [facility] [place] [address] Care Team Providers Name Role Phone Pascual Forrest MD Primary Care Provider [phone] Reason for Visit Reason Comments Advice Only Consultation (Urgent) - Closed Specialty Diagnoses / Procedures Referred By Contact Refer red To Contact Hematology and Diagnoses Leukocytosis, unspecified type Pascual Forrest, [facility] Hem Onc 3k Oncology [address] [phone] Fax: Referral ID Status Reason Start Date Expiration Date Visits V isits Requested Authorized [id number] Closed Consult, Test 2021 2022 6 6 & Treat PCP Updated and/or Approved Encounter Details Date Type Department Care Team Description 11/03/2021 Office Visit Hematology and Tito Nuno MD [facility] DR HEMATOLOGY/[place] [address] Leukocytosis, unspecified type (Primary Dx); Oncology at [facility] Nupur Medina, [facility] HEMATOLOGY/ONCOLOGY DEPT. [place], [place] [id number] [place], [place] [address] Social History Tobacco Use Types Packs/Day Years [...] Sign Reading Time Taken Comments Blood Pressure 136/87 11/03/2021 2:56 PM EDT Pulse 87 11/03/2021 2:56 PM EDT Temperature 36.2 ??C (97.2 ??F) 11/03/2021 2:56 PM EDT Respiratory Rate 16 11/03/2021 2:56 PM EDT Oxygen Saturation 96% 11/03/2021 2:56 PM EDT Inhaled Oxygen Concentration - - Weight 94.4 kg (208 lb 1.6 oz) 11/03/2021 2:56 PM EDT Height 165.5 cm (5' 5.16) 11/03/2021 2:56 PM EDT Body Mass Index 34.46 11/03/2021 2:56 PM EDT documented in this encounter Progress Notes Tanmay Nuno MD - 11/03/2021 3:00 PM EDT HEMATOLOGY/BMT CONSULTATION VISIT NOTE CHIEF COMPLAINT: Ariela Foreman is a 36 y.o. female referred by Dr. Pascual Forrest for evaluation of leukocytosis. Data Review (From Pascual Forrest and [facility]) 08/23/20 [facility] Rheumatology evaluation - diagnoses of PMR and hypermobility arthralgia. SHERRI - NEG RF - NEG 07/14/21 Pharyngitis CBC - 11.39/13.6/423 ANC - 6,470 ALC - 4,110 09/22/21 CBC - 15.07/14.3/388 ANC - 9,210 ALC - 4,730 Other absolute leukocyte counts - wnl Medications Albuterol Dramamine Jardiance Glipizide Liraglutide Loratadine Meclizine meloxicam Metformin Montelukast Norgestimate ethinyl estradiol Ondansetron Phentermine Propranolol Medical problems Diabetes Leukocytosis Tonsillitis Diabetic retinopathy Hypermobile joint syndrome Arthralgias Seasonal allergies migraine history of vertigo Asthma Polycystic ovarian syndrome dysuria History of ulcer of toe on right foot Polyarthropathy Obesity GERD Status postcholecystectomy Status post ovariectomy Chronic leg pain HISTORY OF PRESENT ILLNESS Ariela Foreman dates the onset of her illness to June when she went to the ER with pharyngitis - COVID negative and mono negative. Her CBC was so high that the doctor called her the next day. Was given antibiotics. Says that she still has sore throat on occasion and feels exhausted ever since since March 2021 and worse sicne June. No new medications. Has been on Fentermine since 2018. Says she has had a lot of tests since June with no explanation for her sx. F/C/S - feels warm and night but occasionally is drenched in sweat Weight loss - has been intentionally trying to lose weight. Tobacco, vaping - none Recent infections - only as above COVID infection? - not aware that she has had it. COVID vaccinations - has had 3 vaccinations - October and December 2020 and booster Jun 2021 - 2 weeks before she became ill. 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 FH F - of untreated diabetes and maybe an OK. M - alive with multiple health issues - DM, ? 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 Trying to get back to elliptical but too tired after work. --Pain: always - joint pains, trying to get back in to see a audio/visual manager. Throat. Joint pains. --Fevers/chills/sweats: as above --Unexpected weight loss or gain: no Eyes - No change in vision Ears, nose, throat - No change hearing, no oral or throat pain or thrush Cardiovascular --SOB: No --HASSAN: No --chest pain: No Respiratory --Cough: No --SOB, HASSAN: as above Gastrointestinal --Appetite: good --Nausea/vomiting/diarrhea/constipation: occasional nausea, my gut has been surprisingly good since medication change for her DM. Genitourinary --Dysuria or hematuria: No Musculoskeletal --Muscle pain or weakness: as above --Joint pain or swelling: No Immune System --Recent infections: as above Hematology/Lymph --Bruising/bleeding/melena: No --Enlarged nodes or other masses: No Skin --Rashes or petechiae: hair is thinning Other ROS: All negative PROBLEM LIST Patient Active Problem List Diagnosis Code ??? CIS - asthma ??? Type 2 diabetes mellitus E11.9 ??? CIS - familial gall bladder disease ??? CIS - MDR bacterial overgrowth ??? CIS - PCOS ??? CIS - Raynauds ??? CIS - spinal injury ??? Tremor, essential G25.0 ??? Closed left tibial fracture s/p IMN 08/27/14 S82.202A ??? Painful orthopaedic hardware T84.84XA MEDICATIONS Current Outpatient Medications Medication Instructions ??? BD ULTRA-FINE SHORT PEN NEEDLE 31 gauge x 5/16 Needle USE DAILY ??? Blood Sugar Diagnostic (FREESTYLE LITE STRIPS) Strip 320 each, Other, 4 TIMES DAILY, by Other route. 1 box = 100 test strips; 3 boxes = 300 test strips. ??? Blood-Glucose Meter (FREESTYLE LITE METER) Kit by Other route. 1 = 1 blood glucose meter kit. ??? glipiZIDE (GLUCOTROL XL) 10 mg Tablet Extended Rel 24 hr No dose, route, or frequency recorded. ??? JANUMET 50-1,000 mg Tablet TAKE 1 TABLET BY MOUTH TWICE A DAY ??? lancets (FREESTYLE LANCETS) 28 gauge Misc 320 each, Other, 4 TIMES DAILY, by Other route. 1 box = 100 lancets; 3 boxes = 300 lancets. ??? meclizine (ANTIVERT) 25 mg Tablet TAKE 1 TABLET BY MOUTH ONCE DAILY NEEDED FOR MOTION SICKNESS ??? montelukast (SINGULAIR) 10 mg Tablet TK 1 T PO D ??? phentermine 15 mg Capsule TK 1 C PO D 2 HOURS AFTER BREAKFAST ??? propranolol (INDERAL LA) 60 mg Capsule,Sustained Action 24 hr TK ONE C PO ONCE D ??? TRI-SPRINTEC, 28, 0.18/0.215/0.25 mg-35 mcg (28) Tablet TK 1 T PO DAILY. START [address] SND AFTER ONSET OF MENSES ??? VICTOZA 3-STEPHY 0.6 mg/0.1 mL (18 mg/3 mL) Pen Injector INJECT 1.8 MILLIGRAM SUBCUTANEOUSLY DAILY ALLERGIES/ADR Allergies Allergen Reactions ??? Cefuroxime Axetil Anaphylaxis ??? Acetaminophen Nausea And Vomiting ??? Codeine Phosphate Nausea And Vomiting ??? Morphine Sulfate Pain gets worse ??? Sulfa (Sulfonamide Antibiotics) Nausea And Vomiting ??? Tramadol Nausea Only PHYSICAL EXAM VITAL SIGNS: Blood pressure 136/87, pulse 87, temperature 36.2 ??C (97.2 ??F), temperature source Temporal, resp. rate 16, height 165.5 cm (5' 5.16), weight 94.4 kg (208 lb 1.6 oz), SpO2 96 %. GENERAL: Ariela Foreman is a well-appearing 36 y.o. female in no acute distress. ENT: Sinuses non-tender. Oropharynx clear. No masses. No thrush. ENDOCRINE: No thyromegaly palpated. CARDIOVASCULAR: Heart with regular rate and rhythm without S3,S4 or murmurs. No cyanosis or peripheral edema. PULMONARY: Lungs are clear to auscultation without rales, rhonchi or wheezing. GASTROINTESTINAL: Abdomen soft and non-tender without palpable masses or hepatosplenomegaly. MUSCULOSKELETAL: Neck supple with full ROM. SKIN: No rashes, bruises or petechiae. LYMPH: No abnormal lymphadenopathy. NEUROLOGICAL: Alert and oriented to person, place and time. LABORATORY Latest Reference Range & Units 11/03/21 16:07 WBC 4.0 - 9.5 x10(3)/mcL 15.1 (H) RBC 4.00 - 5.21 x10(6)/mcL 5.59 (H) Hemoglobin 11.7 - 15.5 g/dL 14.4 Hematocrit 35.7 - 45.8 % 44.7 MCV 82.6 - 94.4 fL 80.0 (L) MCH 27.1 - 32.0 pg 25.8 (L) MCHC 31.7 - 35.0 g/dL 32.2 RDWSD 37.0 - 46.0 fL 38.4 RDWCV 11.5 - 14.1 % 13.4 Platelets 145 - 357 x10(3)/mcL 450 (H) MPV 7.6 - 12.9 fL 9.9 NRBC % Auto % 0.0 NRBC Abs Auto 0.000 - 0.000 x10(3)/mcL 0.000 Neutr Abs (ANC) 1.70 - 6.10 x10(3)/mcL 8.53 (H) Neutrophils % % 56.3 Immature Gran % % 0.80 [1] Lymphocytes % % 34.6 Monocytes % % 6.4 Eosinophils % % 1.4 Basophils % % 0.5 Rosamaria Gran Abs 0.00 - 0.04 x10(3)/mcL 0.12 (H) Lymphocytes Abs 0.9 - 3.2 x10(3)/mcL 5.2 (H) Monocyte Abs 0.3 - 0.9 x10(3)/mcL 1.0 (H) Eosinophils Abs 0.0 - 0.4 x10(3)/mcL 0.2 Basophils Abs 0.0 - 0.1 x10(3)/mcL 0.1 Plat Estimate Increased RBC Morphology Normal Sed Rate 2 - 37 mm/hr 53 (H) [2] Sodium 135 - 145 mmol/L 138 Potassium 3.5 - 5.0 mmol/L 4.5 [3] Chloride 98 - 107 mmol/L 100 CO2 22 - 31 mmol/L 23 Anion Gap 5 - 15 mmol/L 15 BUN 8 - 18 mg/dL 10 Creatinine 0.70 - 1.20 mg/dL 0.59 (L) Estimated GFR >=60 mL/min/1.73 m?? 117 [4] Calcium 8.5 - 10.5 mg/dL 9.5 Glucose Lvl 65 - 199 mg/dL 199 [5] Total Protein 6.1 - 8.0 g/dL 7.9 Albumin 3.2 - 5.2 g/dL 4.1 Total Bilirubin 0.2 - 1.3 mg/dL 0.3 Alk Phos 35 - 105 unit/L 85 AST 0 - 30 unit/L 11 ALT 0 - 30 unit/L 10 LDH 110 - 220 unit/L 116 CRP <=4.9 mg/L 52.0 (H) TSH 0.27 - 4.20 mcIU/mL 1.73 [6] RADIOLOGY - None ASSESSMENT & PLANS Summary: Ms. Foreman is a 36 YO woman with mutiiple medical problems including persistent joint pains.Her above evaluation shows moderate leukocytosis and thrombocytosis as well as elevated CRP and ESR suggesting that she has an active inflammatory process as the cause of her fatigue, her joint pains and her elevated blood counts. Recommendations: It is unlikely that Ms. Foreman has a primary underlying hematologic disorder and more likely that her counts are elevated secondary to inflammation. Given her symptoms, I would think ofreferring her back to rheumatology for further evaluation. I called Ariela and left a message with her results and my recommendations and asked her to call be back if she has any questions that I haven't answered. Best number to reach Ariela: [phone] Thank you very much for allowing us to share in the care of Ms. Foreman. It was a pleasure to meet her. Please don't hesitate to contact us should you have any questions that we haven't addressed. Tanmay Nuno MD Section of Hematology [facility] documented in this encounter Plan of Treatment Upcoming Encounters Date Type Specialty Care Team Description 02/20/2022 TH Visit (TeleHealth) Rheumatology Jeffery Amin MD [facility] [address] [place], [place] [address] (Wo rk) documented as of this encounter Procedures Procedure Name Priority Date/Time Associated Comments Diagnosis HC C-REACTIVE PROTEIN Routine 11/03/2021 4:07 PM Leukocytosis, Results for this EDT unspecified type procedure a re in the results section. SCAN, PERIPHERAL BLOOD STAT 11/03/2021 4:07 PM Results for this EDT procedure are i n the results section. HEMOGRAM STAT 11/03/2021 4:07 PM Leukocytosis, Results for this EDT unspecified type procedure a re in the results section. DIFFERENTIAL, STAT 11/03/2021 4:07 PM Leukocytosis, Results for this AUTOMATED EDT unspecified type procedure a re in the results section. HC ESR-SEDIMENTATION STAT 11/03/2021 4:07 PM Leukocytosis, Results for this RATE, BLOOD EDT unspecified type procedure a re in the results section. HC CBC,PLT & AUTO DIFF STAT 11/03/2021 4:07 PM Leukocytosis , EDT unspecified type HC VENIPUNCTURE STAT 11/03/2021 4:07 PM Leukocytosis, Resul ts for this EDT unspecified type procedure a re in the results section. HC LACTIC Routine 11/03/2021 4:07 PM Leukocytosis, Results for this DEHYDROGENASE EDT unspecified type procedure are in the results section. COMPREHENSIVE Routine 11/03/2021 4:07 PM Leukocytosis, Results for this METABOLIC PANEL EDT unspecified type procedur e are in (NON-FASTING) the results section. documented in this encounter Results Scan, Peripheral Blood (11/03/2021 4:07 PM EDT) [employer] gist Method Time Signature Plat Estimate Increased [facility] RBC Morphology Normal [facility] Specimen Anatomical Collection Method Collection Time Receive d Time (Source) Location / / Volume Laterality Blood 11/03/2021 4:07 PM 2 4:17 EDT PM EDT Resulting Agency Comment Spec In Lab Tanmay Nuno MD HEMATOLOGY ORDERABLES Performing Organization Address City/State/Z[place] [address] (ABNORMAL) Differential, Automated (11/03/2021 4:07 PM EDT) [facility] Method Time Signature Neutrophils % 56.3 % [facility] Neutr Abs (ANC) 8.53 (H) 1.70 - [facility] 6.10 [facility] x10(3)/[facility] LABORATORY Lymphocytes % 34.6 % [facility] Lymphocytes Abs 5.2 (H) 0.9 - 3.2 [facility] x10(3)/[facility] LABORATORY Monocytes % 6.4 % [facility] Monocyte Abs 1.0 (H) 0.3 - 0.9 [facility] x10(3)/[facility] LABORATORY Eosinophils % 1.4 % [facility] Eosinophils Abs 0.2 0.0 - 0.4 [facility] x10(3)/[facility] LABORATORY Basophils % 0.5 % [facility] Basophils Abs 0.1 0.0 - 0.1 [facility] x10(3)/[facility] LABORATORY Immature Gran % 0.80 % [facility] Comment: Immature granulocytes(IG's)percentage an d absolute count will include metamyelocytes, myelocytes, and promyelo cytes. Blood smears from CBCs yielding IG's will be scanned manually for concor dance. If this scan disagrees with the automated IG or if promyelocytes are not ed, a manual differential will be performed. Rosamaria Gran Abs 0.12 (H) 0.00 - 0.04 x10(3)/[facility] LABORATORY Specimen Anatomical Collection Method Collection Time Receive d Time (Source) Location / / Volume Laterality Blood 11/03/2021 4:07 PM 2 4:17 EDT PM EDT Resulting Agency Comment Spec In Lab Tanmay Nuno MD HEMATOLOGY ORDERABLES Performing Organization Address City/State/ZIP Code Phon e Number [address] (ABNORMAL) Hemogram (11/03/2021 4:07 PM EDT) Analysis Performed At Patho logist Time Signature WBC 15.1 (H) 4.0 - 9.5 [facility](3[facility] LABORATORY RBC 5.59 (H) 4.00 - [facility] 5.21 [facility] x10(6)/[facility] LABORATORY Hemoglobin 14.4 11.7 - [facility] 15.5 g/dL [facility] LABORATORY Hematocrit 44.7 35.7 - [facility] 45.8 % [facility] MCV 80.0 (L) 82.6 - [facility] 94.4 [facility] LABORATORY MCH 25.8 (L) 27.1 - [facility] 32.0 pg [facility] LABORATORY MCHC 32.2 31.7 - [facility] 35.0 g/dL [facility] LABORATORY Platelets 450 (H) 145 - 357 [facility] x10(3)/[facility] LABORATORY RDWSD 38.4 37.0 - [facility] 46.0 [facility] LABORATORY RDWCV 13.4 11.5 - [facility] 14.1 % [facility] LABORATORY MPV 9.9 7.6 - 12.9 [facility] LABORATORY nRBC % Auto 0.0 % [facility] nRBC Abs Auto 0.000 0.000 - [facility] 0.000 [facility] x10(3)/[facility] LABORATORY Specimen Anatomical Collection Method Collection Time Receive d Time (Source) Location / / Volume Laterality Blood 11/03/2021 4:07 PM 2 4:17 EDT PM EDT Resulting Agency Comment Spec In Lab Tanmay Nuno MD HEMATOLOGY ORDERABLES Performing Organization Address City/[facility]/[place] [address] TSH (11/03/2021 4:07 PM EDT) athologist Signature TSH 1.73 0.27 - 4.20 [facility] mcIU/mL [facility]ORY Comment: Reference Interval (mcIU/mL): Females: ??First Trimester: 0.23-3.88 ??Second Trimester: 0.22-3.90 ??Third Trimester: 0.44-4.66 Specimen Anatomical Collection Method Collection Time Receive d Time (Source) Location / / Volume Laterality Blood 11/03/2021 4:07 PM 2 4:17 EDT PM EDT Resulting Agency Comment Spec In Lab Tanmay Nuno MD CHEMISTRY ORDERABLES Performing Organization Address City/[facility]/[place] [address] (ABNORMAL) CRP, acute inflammation (11/03/2021 4:07 PM EDT) athologist Signature CRP 52.0 (H) <=4.9 mg/L [facility] Specimen Anatomical Collection Method Collection Time Receive d Time (Source) Location / / Volume Laterality Blood 11/03/2021 4:07 PM 2 4:17 EDT PM EDT Resulting Agency Comment Spec In Lab Tanmay Nuno MD CHEMISTRY ORDERABLES Performing Organization Address City/[facility] [place] [address] (ABNORMAL) Sedimentation rate (11/03/2021 4:07 PM EDT) athologist Signature Sed Rate 53 (H) 2 - 37 [facility] mm/hr [facility]ORY Comment: Effective May 13, 2019 new [...] Nuno MD HEMATOLOGY ORDERABLES Performing Organization Address City/State/ZIP [place] [address] [facility] [address] Lactate Dehydrogenase (11/03/2021 4:07 PM EDT) athologist Signature LDH 116 110 - 220 [facility] unit/L [facility] LABORATORY Specimen Anatomical Collection Method Collection Time Receive d Time (Source) Location / / Volume Laterality Blood 11/03/2021 4:07 PM 4:17 EDT PM EDT Resulting Agency Comment Spec In Lab Tnamay Nuno MD CHEMISTRY ORDERABLES Performing Organization Address City/[facility]/[place] [address] (ABNORMAL) Comprehensive metabolic panel (non-fasting) (11/03/2021 4:07 PM EDT) athologist Signature Glucose Lvl 199 65 - 199 [facility] mg/dL [facility] LABORATORY Comment: Diabetes: >=200 mg/dL plus symp toms BUN 10 8 - 18 mg/dL [facility] Creatinine 0.59 (L) 0.70 - 1.20 mg/dL [facility] Sodium 138 135 - 145 mmol/L [facility] Potassium 4.5 3.5 - 5.0 mmol/L [facility] Comment: Please note: ??Patients with WBC >100,00 0 may have falsely elevated Potassium levels. ??For accurate Potassium quantif ication in these patients send serum separator tube (gold top) for subsequent determinations. ??Contact the Clinical Chemistry Laboratory if there are any qu estions. Chloride 100 98 - 107 mmol/L [facility] CO2 23 22 - 31 mmol/L [facility] Anion Gap 15 5 - 15 mmol/L [facility] Calcium 9.5 8.5 - 10.5 mg/dL [facility] Total Protein 7.9 6.1 - 8.0 g/dL [facility] Albumin 4.1 3.2 - 5.2 g/dL [facility] AST 11 0 - 30 unit/L [facility] ALT 10 0 - 30 unit/L [facility] Alk Phos 85 35 - 105 unit/L [facility] Total Bilirubin 0.3 0.2 - 1.3 mg/dL [facility] Estimated GFR 117 >=60 mL/min/1.73 m?? [facility] Comment: This patient? s estimated glomerular filtration rate (eGFR) is between 117 mL/min/1.73 m2 (patients with less muscl e mass) and 136 mL/min/1.73 m2 (patients with more muscle mass) as dete rmined by the CKD-EPI equation. Assessment of eGFR is not appropriate wh en creatinine concentrations are rapidly changing. For clinical decisions where creatinine clearance will affect therapy, a 24-hour urine creatinine iván dick may be advised. Assignment of CKD stage 1 - 5 for patien ts with an eGFR near the transition point between stages may be based on cli nical assessment of muscle mass and symptoms in addition to eGFR. Specimen Anatomical Collection Method Collection Time Receive d Time (Source) Location / / Volume Laterality Blood 11/03/2021 4:07 PM 2 4:17 EDT PM EDT Resulting Agency Comment Spec In Lab Tanmay Nuno MD CHEMISTRY ORDERABLES Performing Organization Address City/State/[place] [address] documented in this encounter Visit Diagnoses Diagnosis Leukocytosis, unspecified type - Primary Fatigue, unspecified type documented in this encounter Care Teams International Student Counselor Relationship Specialty Start Date End Date Pascual Forrest MD PCP - General Family Medicine 03/12/[address] [place] [address] documented as of this encounter
--- OUTSIDE RECORDS SUMMARY | 2022-01-18 11:48 | XMS_ITS | Encounter Summary ---
:1985 Author Organization [facility] [place] [address] Care Team Providers Name Role Phone Roxanna Sarmiento Primary Care Provider Encounter Details Date Type Department Care Team Description 08/26/2014 Orders Only [facility]ed[place] [facility] Emily Vitale Tibia fracture, left, [facility] [place] [address] ORTHOPAEDIC SURGERY [place] [id number] Social History Tobacco Use Types Packs/Day Years [...] place to sleep or slept in a snf (including now)? Sex Assigned at Date Recorded Not on file documented as of this encounter Plan of Treatment Upcoming Encounters Date Type Specialty Care Team Description 02/20/2022 TH Visit (TeleHealth) Rheumatology Jeffery Amin MD [facility] [address] [place], [place] [address] (Wo rk) documented as of this encounter Procedures Procedure Name Priority Date/Time Associated Diagnosis Comme nts INTRAMEDULLARY NAILING, Routine 08/26/2014 12:31 PM Tibia Frac ture, Left, TIBIA EDT Initial Encounter documented in this encounter Visit Diagnoses Diagnosis Tibia fracture, left, initial encounter documented in this encounter Care Teams Data Management Consultant Relationship Specialty Start Date End Date Roxanna Sarmiento PA PCP - General 06/14/10 05/02/[address] [place] [id number] documented as of this encounter
--- OUTSIDE RECORDS SUMMARY | 2022-01-18 11:48 | XMS_ITS | Encounter Summary ---
:[address] [facility] Address [facility] [place] [address] Care Team Providers Name Role Phone Roxanna Sarmiento Primary Care Provider Encounter Details Date Type Department Care Team Description 08/10/2010 Office Visit Neurology at [facility] Michael Peter MD [facility] [place] [address] NEUROLOGY DEPT. [phone] [place], [place] [address] (Wo rk) Social History Tobacco Use Types Packs/Day Years Used Date Never Assessed Alcohol Habits Answer Date Recorded How often [...] place to sleep or slept in a intermediate (including now)? Sex Assigned at Date Recorded Not on file documented as of this encounter Progress Notes Yohan, Exhibit Builder - 09/19/2010 7:16 AM EDT Yohan, Exhibit Builder - 09/19/2010 7:09 AM EDT documented in this encounter Plan of Treatment Upcoming Encounters Date Type Specialty Care Team Description 02/20/2022 TH Visit (TeleHealth) Rheumatology Jeffery Amin MD [facility] [address] [place], [place] [address] (Wo rk) documented as of this encounter Procedures Procedure Name Priority Date/Time Associated Comments Diagnosis COPPER, SERUM Routine 08/10/2010 4:34 PM Results for this EST procedure are i n the results section. CERULOPLASMIN Routine 08/10/2010 4:34 PM Results for this EST procedure are i n the results section. SEDIMENTATION RATE Routine 08/10/2010 4:34 PM Res ults for this EST procedure are i n the results section. CRP, CARDIAC RISK (HS Routine 08/10/2010 4:34 PM Results for this CRP) EST procedure are i n the results section. SHERRI Routine 08/10/2010 4:34 PM Results f or this EST procedure are i n the results section. VITAMIN B12 Routine 08/10/2010 4:34 PM Results f or this EST procedure are i n the results section. documented in this encounter Results (ABNORMAL) COPPER, SERUM (08/10/2010 4:34 PM EST) athologist Signature Copper 1.64 (H) 0.75 - 1.45 CERNER mcg/mL MILLENNIUM Comment: Test Performed by: [facility] Dpt of Lab Med and Pathology [address] [place] [id number] [employer] Sales Representative: Waylon plama III, M.D. Specimen Anatomical Collection Method Collection Time Receive d Time (Source) Location / / Volume Laterality Blood specimen 08/10/2010 4:34 PM 011 5:21 (specimen) EST PM EST Michael Peter MD CHEMISTRY ORDERABLES Performing Organization Address City/[facility]/ZIP [facility] Phon e Number [address] CERNER MILLENNIUM CERULOPLASMIN (08/10/2010 4:34 PM EST) athologist Signature Ceruloplasmin 30.1 16.0 - CERNER 45.0 mg/dL MILLENNIUM Comment: Test Performed by: [place] [address] [employer] Sales Representative: Sandra Patel, Ph. D. Specimen Anatomical Collection Method Collection Time Receive d Time (Source) Location / / Volume Laterality Blood specimen 08/10/2010 4:34 PM 011 6:25 (specimen) EST PM EST Michael Peter MD CHEMISTRY ORDERABLES Performing Organization Address City/[facility]/ZIP Code Phon e Number [address] CERNER MILLENNIUM VITAMIN B12 (08/10/2010 4:34 PM EST) athologist Signature Vitamin B-12 [phone] CERNER pg/mL MILLENNIUM Specimen Anatomical Collection Method Collection Time Receive d Time (Source) Location / / Volume Laterality Blood specimen 08/10/2010 4:34 PM 011 5:06 (specimen) EST PM EST Michael Peter MD CHEMISTRY ORDERABLES Performing Organization Address City/State/[place] [address] CERNER MILLENNIUM HIGH SENSITIVITY CRP (08/10/2010 4:34 PM EST) athologist Signature CRP High Sens 41.1 mg/L [facility] Comment: Interpretations: 1) For cardiac risk assessment, two valu es (fasting or nonfasting sample acceptable) taken at least 2 weeks apart , should be averaged to provide a more reliable estimate of marker level. ??Thi s laboratory uses the recommendations from the AHA/CDC Scientific Statement fo r interpretations of future risks of cardiovascular events: ? <1.0 mg/L: low risk 1.0 - 3.0 mg/L: moderate risk >3.0 mg/L: high risk groups for future c ardiovascular events 2) The general reference range of appare ntly healthy individuals using this test is <5.0 mg/L (derived from the test package insert) A few words of caution: For cardiac asse ssment, when a value >10 mg/L is encountered, there should be a search fo r an acute inflammatory condition or infection (in patients with acute inflam mation, the concentration can increase to >500 mg/L). ??The >10 mg/L should be discarded if such a situation exists, since the risk for coronary heart diseas e cannot be provided, and a repeat specimen, taken at least two weeks after resolution of the acute inflammatory condition, may allow for appraisal of co ronary risk information. References: 1. Alessandro RUTHERFORD et. al. ??AHA/CDC Scientif ic Statement: Markers of Inflammation and Cardiovascular Disease. ??Circulatio n 2003; 107:499-511 2. Victor Manuel PM. ??Clinical applications of C-reactive protein for cardiovascular disease detection and prevention. ??Circ ulation 2003; 107:363-369 Specimen Anatomical Collection Method Collection Time Receive d Time (Source) Location / / Volume Laterality Blood specimen 08/10/2010 4:34 PM 011 5:06 (specimen) EST PM EST Michael Peter MD CHEMISTRY ORDERABLES Performing Organization Address City/State/[place] [address] [facility] SHERRI (08/10/2010 4:34 PM EST) athologist Signature SHERRI Neg Neg CERNER MILLENNIUM Specimen Anatomical Collection Method Collection Time Receive d Time (Source) Location / / Volume Laterality Blood specimen 08/10/2010 4:34 PM 011 8:04 (specimen) EST AM EST Michael Peter MD IMMUNOLOGY ORDERABLES Performing Organization Address City/[facility]/[place] [address] CERNER MILLENNIUM SEDIMENTATION RATE, AUTOMATED (08/10/2010 4:34 PM EST) P athologist Signature Sed Rate 12 0 - 20 CERNER mm/hr MILLENNIUM Specimen Anatomical Collection Method Collection Time Receive d Time (Source) Location / / Volume Laterality Blood specimen 08/10/2010 4:34 PM 011 5:06 (specimen) EST PM EST Michael Peter MD HEMATOLOGY ORDERABLES Performing Organization Address City/[facility]/[place] [address] CERNER MILLENNIUM documented in this encounter Visit Diagnoses Not on filedocumented in this encounter Care Teams Mosaic Layer Relationship Specialty Start Date End Date Roxanna Sarmiento PA PCP - General 06/14/10 05/02/[address] [place] [phone] documented as of this encounter
--- OUTSIDE RECORDS SUMMARY | 2022-01-18 11:48 | XMS_ITS | Encounter Summary ---
:1985 Author Organization [facility] [place] [address] Care Team Providers Name Role Phone Roxanna Sarmiento Primary Care Provider Encounter Details Date Type Department Care Team Description 08/25/2014 Orders Only Orthopaedics at [facility] Lyle Kelsey MD [facility] [place] [address] ORTHOPAEDIC SURGERY [phone] [place], [place] [address] (Wo rk) Social History Tobacco Use Types Packs/Day Years Used Date Never Smoker Alcohol Use Standard Drinks/Week Comments No 0 [...] place to sleep or slept in a mcc (including now)? Sex Assigned at Date Recorded Not on file documented as of this encounter Plan of Treatment Upcoming Encounters Date Type Specialty Care Team Description 02/20/2022 TH Visit (TeleHealth) Rheumatology Jeffery Amin MD [facility] [address] [place], [place] [address] (Wo rk) documented as of this encounter Procedures Procedure Name Priority Date/Time Associated Diagnosis Comme nts FILM LIBRARY Routine 08/25/2014 1:21 PM Results f or this STORAGE ONLY DX EDT procedure ar e in LOWER EXTREMITY the results section. documented in this encounter Results Film Library- Storage only DX Lower Extremity (08/25/2014 1:21 PM EDT) Anatomical Region Laterality Modality Other Specimen (Source) Anatomical Collection Method Collection Time Re ceived Time Location / / Volume Laterality 08/25/2014 1:21 PM EDT Narrative 08/25/2014 1:26 PM EDT This is a Non-reportable exam Procedure Note SARI, UNSIGNED REPORT - 08/25/2014Formatt ing of this note might be different from the original. This is a Non-reportable exam Lyle Kelsey MD IMG FILM LIBRARY ORDERABLES documented in this encounter Visit Diagnoses Not on filedocumented in this encounter Care Teams Specialty Sales Representative Relationship Specialty Start Date End Date Roxanna Sarmiento PA PCP - General 06/14/10 05/02/[address] [place] [address] documented as of this encounter
--- OUTSIDE RECORDS SUMMARY | 2022-01-18 11:48 | XMS_ITS | Encounter Summary ---
:1985 Author Organization [facility] Address [facility] [place] [address] Care Team Providers Name Role Phone Roxanna Sarmiento Primary Care Provider Reason for Visit Reason Comments Follow-up to tremors Encounter Details Date Type Department Care Team Description 10/12/2010 Follow-Up Neurology at [facility] Michael Peter MD Tremor, essential (Primary Dx); [facility] Art hralgia of multiple joints; [place] [address] NEUROLOGY DEPT. [phone] [place], [place] [address] (Wo rk) Social History Tobacco [...] Sign Reading Time Taken Comments Blood Pressure 119/77 10/12/2010 3:33 PM EDT Pulse 88 10/12/2010 3:33 PM EDT Temperature - - Respiratory Rate - - Oxygen Saturation - - Inhaled Oxygen Concentration - - Weight 105.7 kg (233 lb) 10/12/2010 3:33 PM EDT Height 167.6 cm (5' 6) 10/12/2010 3:33 PM EDT Body Mass Index 37.61 10/12/2010 3:33 PM EDT documented in this encounter Patient Instructions Patient InstructionsMichael Peter MD - 10/12/2010 4:37 PM EDT 1. Continue primidone 2. Sleep referral. 3. Rheumatology referral. 4. Lab work to followup on slightly below normal vitamin B12 level. #5. Followup as needed. documented in this encounter Progress Notes Michael Peter MD - 10/12/2010 4:11 PM EDT Neurology Outpatient Follow up note: Patient ID: Ariela Foreman is a 25 y.o. female, LH vs ambidextrous, originally referred by Dr. Kaur for tremor. First seen by me on 08/10/2010 and at that time, her most disabling symptom was day time somnolence, with an ESS of 17. Her symptoms of tremor were present, and past therapeutic trials consist only of propranolol 10 mg BID, but caused lightheadenesa nda fog and records in 2006 indicate atrial of mysoline 50 mg per day though the the patient did not recall that. Plan was to restart the primidone 1/2 tab BID. HPI Tremor: She now returns to report that symptoms are improved with the primidone. The nausea is improved with food after two weeks and is no longer an issue. Continues to complain of excessive sedation.She ran out of medication and noticed after being off it a week that the symptoms had returned. Typing is better with primidone. Sleepiness. She has problems with tiredness anyways. She now sleeps through the alarm. She is getting about 7-8 hours. She was pulling some all-nighters for school. Her plans for the summer is to work for the [employer] for a month. 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 She has trouble staying awake during work. Review of Systems reports pain in elbows and knees; as above Objective: Filed Vitals: 10/12/10 1533 BP: 119/77 Pulse: 88 Physical Exam General: Well-developed, well-nourished, overweight female in no distress. Head: Normocephalic ENT: No thyromegaly, no carotid bruits Eyes: Toya-Brandy rings were not appreciated Cardiovascular: Regular rate and rhythm without murmurs rubs or gallops Respiratory: Lungs are clear bilaterally without wheezing Abdominal: Soft nontender nondistended with normal active bowel sounds Extremities: No edema or cyanosis Skin: No livedo Neurologic Exam Neurological Exam : Mental Status: Intelligent and conversant with intact long-term and short-term memory Cranial nerves: Extraocular movements are intact. Full versions. Trigeminal sensation is intact. Facial motor strength is normal. No loss of expression. Palate elevates symmetrically. Shoulder shrug issymmetric. Tongue is without atrophy fasciculations or deviation. Motor: Strength 5 out of 5 throughout. Normal muscle mass. Normal tone. No impairment of fine motor function on finger tapping. No resting tremor. She has a very mild bilateral upper extremity posturaltremor. There is a very mild terminal tremor. No chorea. No dystonia. No myoclonus. Sensory: Light touch, pinprick, vibration, joint position sense are normal. Romberg is negative. Reflexes: Muscle stretch reflexes are symmetric, 2+ throughout. Coordination: No dystaxia on ghjqhk-pb-lqen or oeov-fy-xino. No dysdiadochokinesia. Gait: Able to rise to a standing position. Normal stride, normal arm swing. Assessment and Plan: Tremor: 1. Continue primidone Sleepiness: 2. Sleep referral. Diffuse joint pains and CRP in the 40s. 3. Consider Rheumatology referral. Recommend NSAIDs prn. Labs: 4. Lab work to followup on slightly below normal vitamin B12 level. Disposition: 5. Followup as needed. documented in this encounter Plan of Treatment Upcoming Encounters Date Type Specialty Care Team Description 02/20/2022 TH Visit (TeleHealth) Rheumatology Jeffery Amin MD [facility] [address] [place], [place] [address] (Wo rk) documented as of this encounter Procedures Procedure Name Priority Date/Time Associated Comments Diagnosis METHYLMALONIC ACID, Routine 10/12/2010 4:48 PM Tremor, essenti al Results for this SERUM EDT procedure are i n the results section. HOMOCYSTEINE TOTAL, Routine 10/12/2010 4:48 PM Tremor, essenti al Results for this PLASMA EDT procedure are i n the results section. documented in this encounter Results Homocysteine, serum (10/12/2010 4:48 PM EDT) athologist Signature Homocyst Tot 7 5 - 12 CERNER mcmol/L [facility] Comment: Reference Range applies to fasting speci mens only. Note change of reference range from 5-15 mcmol/L to 5-12 mcmol/L on 01/04/09. Specimen Anatomical Collection Method Collection Time Receive d Time (Source) Location / / Volume Laterality Blood specimen 10/12/2010 4:48 PM 011 8:33 (specimen) EDT AM EDT Michael Peter MD CHEMISTRY ORDERABLES Performing Organization Address City/State/ZIP Code [place] [address] CERNER MILLENNIUM Methylmalonic acid, serum (10/12/2010 4:48 PM EDT) [facility] gist Method Time Signature Methylmalonic Acid 0.10 <=0.40 CERNER nmol/mL MILLENNIUM Comment: Test Performed by: [facility] Dpt of Lab Med and Pathology [address] [place] [address] Manufacturers Representative: Waylon palma III, M.D. Specimen Anatomical Collection Method Collection Time Receive d Time (Source) Location / / Volume Laterality Blood specimen 10/12/2010 4:48 PM 011 5:28 (specimen) EDT PM EDT Michael Peter MD CHEMISTRY ORDERABLES Performing Organization Address City/State/ZIP Code Phon e Number [address] [facility] documented in this encounter Visit Diagnoses Diagnosis Tremor, essential - Primary Essential and other specified forms of t remor Arthralgia of multiple joints Pain in joint, multiple sites Excessive daytime sleepiness Hypersomnia, unspecified documented in this encounter Care Teams Career And Transition Teacher Relationship Specialty Start Date End Date Roxanna Sarmiento PA PCP - General 06/14/10 05/02/[address] [place] [phone] documented as of this encounter
--- OUTSIDE RECORDS SUMMARY | 2022-01-18 11:48 | XMS_ITS | Encounter Summary ---
:1985 [place] [address] Care Team Providers Name Role Phone Roxanna Sarmiento Primary Care Provider Encounter Details Date Type Department Care Team Description 08/27/2014 Anesthesia Event Main Operating Room Aroldo Tijerina MD [facility] [place] [address] [facility] Omar Crowley CRNA [facility] [place] [address] [place] [address] Anesthesia Record Procedure Summary Procedure Name Responsible Anesthesia Start Anesthesia Stop Anesthesiologist Time Time INTRAMEDULLARY NAILING, Aroldo Montez MD 08/27/14 0825 08/02 12/15 1030 TIBIA (WRVU 14.45) (Left Leg Lower) Events Date Time Event Comment 08/27/2014 0814 0825 Start 0829 AN Verify 0829 An Start Data 0833 An Induction 0837 An Intubation 0839 Anesthesia Ready 0843 Procedure Start 1019 Extubation/LMA Out 1020 an stop data 1030 Stop JCM Handoff endo rsed to RN @ Bedside. Oxygen/Monitors established. VSS/HD stable/Baseline. Natural A/W without distress. Breathing patter n easy and efficient. Actions appropriate.No a bnormal events throughout this Phase of Care. Name Total Midazolam 2 mg fentaNYL 250 mcg IV Lidocaine 60 mg Propofol 200 mg Rocuronium 50 mg Ondansetron 8 mg Dexamethasone 4 mg Clindamycin 900 mg Esmolol 100 mg Lactated Ringers 1,000 mL Agents Name O2 Air N2O Desflurane (et) Blood No blood administrations on file. Lines, Drains, and Airways Type Details Placement Removal PIV 08/26/14; 1702; median vein 08/26/14 1702 by Cam p, 09/16/17 0921 by [facility], right (underside of arm); Jessica Arevalo RN User [id number] catheter system; 20 gauge, 1 in length; Jessica Tejada RN; distraction, appears comfortable, tolerated well; 09/16/17 (Auto removal via utility); 09 (Auto removal via utility) Incision 08/27/14; knee; LDA not 08/27/14 0000 by Scelza, 06/15/19 0000 by present upon assessment; SUHA Gabriel, Hannah Bright RN 06/15/19 Incision 08/27/14; other (see 08/27/14 0000 by Scelza, 0000 by comments) (ankle); LDA not SUHA Gabriel Erica H, RN present upon assessment; 06/15/19 Incision 08/27/14; other (see 08/27/14 0000 by Scelza, 0000 by comments) (ankle); LDA not SUHA Gabriel Erica H, RN present upon assessment; 06/15/19 ETT Mask Ventilation: Easy (1); 08/27/14 0837 by Moo res, 08/27/14 1019 by ETT Type: Cuffed, Oral; ETT ABBIE Hunt Jason C, CRNA Size: 7.5 mm; Peterson Blade: 3; Notes: Asleep, Pre-O2, Cricoid Pressure; Attempts: 1; Laryngoscopy Grade: 1; ETT Placement Verified By: Auscultation, Capnometry; Secured at Teeth: 22 cm; Inserted by: ABBIE Crowley documented in this encounter Social History Tobacco [...] encounter OR Notes Anesthesia Postprocedure Evaluation - Aroldo Montez MD - 08/27/2014 11:20 AM EDT Patient: Ariela Foreman Procedure(s) Performed: Procedure(s): INTRAMEDULLARY NAILING, TIBIA MODIFIER TIBIAL NAIL SYNTHES Actual Anesthetic: general Patient location: PACU Post-op pain: Adequate analgesia Post-op nausea: no nausea or vomiting Last Vitals: Filed Vitals: 08/27/14 1100 BP: 161/99 Pulse: 116 Temp: Resp: 19 Post-op cardiovascular and respiratory status: is stable Level of consciousness: awake, alert and oriented Complications: no apparent complications and tolerated the procedure well Fluid Status: normal Anesthesia Preprocedure Evaluation - Aroldo Montez MD - 08/27/2014 8:08 AM EDT Pre-Anesthesia Evaluation for: Ariela Foreman a 28 y.o. female. Procedure(s): INTRAMEDULLARY NAILING, TIBIA MODIFIER TIBIAL NAIL SYNTHES MODIFIER 4.5 CANNULATED SCREW SYNTHES Patient Active Problem List Diagnosis ??? Closed left tibial fracture ??? Tremor, essential ??? CIS - asthma ??? Type 2 diabetes mellitus part of PCOS A1C <7 Type II but well controlled. ??? CIS - familial gall bladder disease ??? CIS - Raynauds ??? CIS - MDR bacterial overgrowth ??? CIS - PCOS ??? CIS - spinal injury bladder problems subsequently Past Medical History Diagnosis Date ??? Tremor, essential 12/08/2010 Past Surgical History Procedure Laterality Date ??? Created by interface cholecystectomy Procedure Date: 1999 History Substance Use Topics ??? Smoking status: Never Smoker ??? Smokeless tobacco: Never Used ??? Alcohol Use: No History Drug Use No Allergies Allergen Reactions ??? Cefuroxime Axetil Anaphylaxis ??? Acetaminophen Nausea And Vomiting ??? Codeine Phosphate Nausea And Vomiting ??? Morphine Sulfate Pain gets worse ??? Sulfa (Sulfonamide Antibiotics) Nausea And Vomiting Medications: MAR and/or home medications have been reviewed. Physical Exam: Filed Vitals: 08/27/14 0535 BP: 124/79 Pulse: 124 Temp: 36.6 ??C (97.9 ??F) Resp: 16 Body mass index is 35.53 kg/(m^2). Height: 167.6 cm (5' 5.98) Weight - Scale: 99.791 kg (220 lb) Airway Assessment: Mallampati: I TM distance: >3 FB Neck ROM: full Cardiovascular Assessment: cardiovascular exam normal Pulmonary Assessment: pulmonary exam normal Dental Assessment: - normal exam Misc Assessment: Anesthesia Plan: ASA 3 general, with a(n) intravenous induction 28year old with tibial fracture. Diabetic with history of orthostatic hypotension. Good functional tolerance, appropriately NPO. GA with ETT. Region - Other Informed Consent: Anesthetic plan and risks discussed with patient and mother. Plan discussed with DIRECTOR OF SALES AND MARKETING. Kassy. Assessment: documented in this encounter Plan of Treatment Upcoming Encounters Date Type Specialty Care Team Description 02/20/2022 TH Visit (TeleHealth) Rheumatology Jeffery Amin MD [facility] [place], [place] [address] (Wo rk) documented as of this encounter Visit Diagnoses Not on filedocumented in this encounter Administered Medications Inactive Administered Medications - up to 3 most recent administrations Medication Order MAR Action Action Date Dose Rate Site clindamycin (CLEOCIN) injection Given 08/27/2014 8:41 AM EDT 900 mg PRN, Starting on Sat08/27/14 at 0841, Until Sat08/27/14 at 1030, Anesthesia Intra-op, Routine dexamethasone (DECADRON) injection Given 08/27/2014 8:44 AM EDT 4 mg PRN, Starting on Sat08/27/14 at 0844, Until Sat08/27/14 at 1030, Anesthesia Intra-op, Routine esmolol (BREVIBLOC) injection Given 08/27/2014 9:45 AM EDT 20 mg PRN, Starting on Sat08/27/14 at 0854, Until Sat08/27/14 at 1030, Anesthesia Intra-op, Routine Given 08/27/2014 9:33 AM EDT 20 mg Given 08/27/2014 9:16 AM EDT 20 mg fentaNYL 50mcg/mL injection Given 08/27/2014 8:55 AM EDT 100 mcg PRN, Starting on Sat08/27/14 at 0831, Until Sat08/27/14 at 1030, Pain, Anesthesia Intra-op, Routine Given 08/27/2014 8:46 AM EDT 50 mcg Given 08/27/2014 8:41 AM EDT 50 mcg lactated ringers infusion New Bag 08/27/2014 7:58 AM EDT CONTINUOUS PRN, Starting on Sat08/27/14 at 0758, Until Sat08/27/14 at 1030, Anesthesia Intra-op lidocaine (PF) (XYLOCAINE) 100 mg/5 mL (2 %) Given 5 8:32 AM EDT 60 mg injection PRN, Starting on Sat08/27/14 at 0832, Until Sat08/27/14 at 1030, Anesthesia Intra-op, Routine midazolam (PF) (VERSED) 1 mg/mL injectio n Given 08/27/2014 8:16 AM EDT 2 mg PRN, Starting on Sat08/27/14 at 0816, Until Sat08/27/14 at 1030, Sleep, Anesthesia Intra-op, Routine ondansetron (ZOFRAN) injection Given 08/27/2014 10:03 AM EDT 8 mg PRN, Starting on Sat08/27/14 at 1003, Until Sat08/27/14 at 1030, Nausea, Anesthesia Intra-op, Routine propofol (DIPRIVAN) 10 mg/mL bolus injection Given 8:33 AM EDT 200 mg (Anesthesia) PRN, Starting on Sat08/27/14 at 0833, Until Sat08/27/14 at 1030, Anesthesia Intra-op rocuronium (ZEMURON) injection Given 08/27/2014 8:33 AM EDT 50 mg PRN, Starting on Sat08/27/14 at 0833, Until Sat08/27/14 at 1030, Anesthesia Intra-op, Routine documented in this encounter Care Teams Certified Pediatric Nurse Practitioner Relationship Specialty Start Date End Date Roxanna Sarmiento PA PCP - General 06/14/10 05/02/[address] [place] [id number] documented as of this encounter
--- OUTSIDE RECORDS SUMMARY | 2022-01-18 11:48 | XMS_ITS | Encounter Summary ---
:1985 Author Organization [facility] [place] [address] Care Team Providers Name Role Phone Roxanna Sarmiento Primary Care Provider Encounter Details Date Type Department Care Team Description 08/25/2014 Orders Only Orthopaedics at [facility] Lyle Kelsey MD [facility] [place] [address] ORTHOPAEDIC SURGERY [phone] [place], [place] [address] (Wo rk) Social History Tobacco [...] Visit (TeleHealth) Rheumatology Jeffery Amin MD [facility] [address] [place], [place] [address] (Wo rk) documented as of this encounter Procedures Procedure Name Priority Date/Time Associated Diagnosis Comme nts FILM LIBRARY Routine 08/25/2014 1:23 PM Results f or this STORAGE ONLY DX EDT procedure ar e in ANKLE the results section. documented in this encounter Results Film Library- Storage only DX Ankle (08/25/2014 1:23 PM EDT) Anatomical Region Laterality Modality Other Specimen (Source) Anatomical Collection Method Collection Time Re ceived Time Location / / Volume Laterality 08/25/2014 1:23 PM EDT Narrative 08/25/2014 1:28 PM EDT This is a Non-reportable exam Procedure Note SARI, UNSIGNED REPORT - 08/25/2014Formatt ing of this note might be different from the original. This is a Non-reportable exam Lyle Kelsey MD IMG FILM LIBRARY ORDERABLES documented in this encounter Visit Diagnoses Not on filedocumented in this encounter Care Teams Edge Beader Relationship Specialty Start Date End Date Roxanna Sarmiento PA PCP - General 06/14/10 05/02/[address] [place] [id number] documented as of this encounter
--- OUTSIDE RECORDS SUMMARY | 2022-01-18 11:48 | XMS_ITS | Encounter Summary ---
:1985 Author Organization [facility] [place] [address] Care Team Providers Name Role Phone Roxanna Sarmiento Primary Care Provider Encounter Details Date Type Department Care Team Description 08/25/2014 Telephone Orthopaedics Yris Waters, [place] [phone] Social History Tobacco Use Types Packs/Day [...] this encounter Miscellaneous Notes Telephone Encounter - Yris Rice RN - 08/25/2014 2:25 PM EDT TELEPHONE NOTE Responsible Provider: [facility] [place] this visit Caller: Daysi Piña APRN @ [facility] via [facility] Reason for call: Ms. Foreman sustained a L spiral distal tib/fib fx today while walking her dogs. Ms. Piña reports that Ms. Foreman has good distal pulses and voluntary plantar- and dorsiflexion albeit painful. Assessment: Appropriate for Dr. Schreiber in clinic tomorrow, reviewed with Dr. Gudino who is in clinic today. Plan/Instructions: Discussed with Ms. Piañ that Ms. Foreman is exhibiting no s/s of compartment syndrome. Compartments were soft, and toes not dusky when she was placed in a bulky Mandel dressing an hour earlier. Pain is no greater than what would be expected, is well-controlled by oral pain medications, and is not increasing. Ms. Piña will review s/s of compartment syndrome with Ms. Foreman and instruct her to return to [facility] ED immediately if they appear. documented in this encounter Plan of Treatment Upcoming Encounters Date Type Specialty Care Team Description 02/20/2022 TH Visit (TeleHealth) Rheumatology Jeffery Amin MD [facility] [place] [address] (Wo rk) documented as of this encounter Visit Diagnoses Not on filedocumented in this encounter Care Teams Division Plant Engineer Relationship Specialty Start Date End Date Roxanna Sarmiento PA PCP - General 06/14/10 05/02/[address] [place] [id number] documented as of this encounter
--- OUTSIDE RECORDS SUMMARY | 2022-01-18 11:48 | XMS_ITS | Encounter Summary ---
:1985 [place] [address] Care Team Providers Name Role Phone Roxanna Sarmiento Primary Care Provider Encounter Details Date Type Department Care Team Description 08/27/2014 Surgery Main Operating Room Vick Mo MD INTRAMEDULLARY NAILING, [facility] TIBIA ( WRVU 14.45) [facility] ORTHOPAEDIC [place] [id number] [phone] Social History Tobacco Use Types Packs/Day Years [...] in this encounter Discharge Summaries Katelin Fowler, TILE PROFESSIONAL - 08/27/2014 4:14 PM EDT Discharge Summary Patient Name: Ariela Foreman Patient Age: 28 y.o. Language: Cuban Race: White Ethnicity: OR Admit date: 08/26/2014 [...] Provider Contact Information: Bryson Mo MD Trauma: [phone] After hours and weekends, call [facility] Patient Ombudsperson, , and have the Orthopedic resident paged. [...] tibial shaft fracture. She was seen in [facility] and placed in a splint. She [...] fixation of the medial malleolus. Hospital Course: Ariela Foreman was admitted for evaluation and treatment of the above injury. On HD#2 she was taken to surgery for the above procedure. She tolerated the procedure and did well post-operatively. On POD#1 the ASSESSOR was discontinued and the patient was started [...] in to her pharmacy by the Endocrinology QUALITY CONTROL COORDINATOR and an appointment made for f/u with Endocrinology for exterminator management. She is in the process of finding a PCP. Vital Signs at Discharge: Weight: Wt Readings from Last 1 Encounters: 08/26/14 99.791 kg (220 lb) Height: Ht Readings from Last 1 Encounters: 08/26/ 167.6 cm (5' 5.98) HC: HC Readings [...] mg Quantity: 60 tablet Refills: 3 multivitamin Izcb-Zj-AW-Min 27-0.4 mg Tab Commonly known as: THERAPEUTIC-M [...] bowel movement. You can also take an njot-ayq-oglzzgu medication, Miralax if needed to combat constipation. [...] supplies have been called in to your [facility] and are ready for you to berry picker machine operator. Take the Meformin as prescribed and test [...] post-op. (approx September 10) Call your doctor (#[phone]) if you develop: 1. Fevers greater than [...] 1. You will have followup appointments at [facility] as indicated below in Future Appointment and Orders. 2. You will have x-rays prior to your appointment so please come to Radiology, desk 3T, at 8:30 AM, 1 hour BEFORE your appointment for those x-rays on 09/14/2014. Future Appointments Date Time Provider Department Center 09/14/2014 9:30 AM Byrson Mo MD [facility] [...] Clinic Performed Agency name and contact information: [facility] Patient location post discharge: Home What services are requested: Registered Nurse, Physical Therapy, Occupational Therapy, Home Health Aide Start date: 08/30/2014 Responsible MD post discharge contact info: PCP/[facility] Orthopaedic Service DOCUMENTATION FOR VNA SERVICES PATIENT'S LOCATION: Ariela Foreman [address] [place] [address], [address] [place] [phone] (home) Mandate Retail Service Merchandiser's Name: Self In discussion with the attending physician, it is certified that this patient is under their care and that they, or a Nurse Practitioner,Clinical Nurse specialist or Physician Doubler Helper who is working directly with them, had [...] Assess and continue rehab for managing ADLs. EMBROIDERY MACHINE OPERATOR ORDERS: Assist with I/ADLs. HOME HEALTH CARE AGENCY: [facility], PHONE: [phone] FAX: [phone] Start of care: Wednesday 08/30 Please note that any additional orders needs or changes will need to be obtained from this patient's PCP: [facility] #[address] [place] [id number] All VNA agencies which cover the area of patient's residence have been reviewed, either verbally or in writing, and patient/family have chosen the home health care agency noted. Future Appointments and Orders Future Appointments Provider Department Dept Phone 09/09/2014 11:30 AM Enrrique Schreiber MD Orthopaedics [phone] 09/14/2014 11:00 AM Antonella Monet LD Endocrinology [phone] 09/14/2014 1:00 PM Paul Leyva MD Endocrinology [phone] 09/14/2014 1:30 PM Nancie Obrien MD Endocrinology [phone] Future Orders Complete By Expires XR tibia fibula AP & lateral [23957 Custom] 09/10/2014 (Approximate) 08/28/2015 Process Instructions: Scheduling [...] Referral to Home Health - at DISCHARGE [[id number] CPT(R)] As directed Process Instructions: Scheduling Instructions: Questions: Agency name and contact information: [facility] Patient location post discharge: Home What services are requested: Registered Nurse Physical Therapy Occupational Therapy Home Health Aide Start date: 08/30/2014 Responsible MD post discharge contact info: PCP/[facility] Orthopaedic Service Primary Care Provider: [facility] [phone] Discharge References/Attachments None documented in this encounter [...] bowel movement. You can also take an kjmi-byn-cryetya medication, Miralax if needed to combat constipation. 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 Take the Meformin as prescribed and test [...] post-op. (approx September 10) Call your doctor (#[phone]) if you develop: 1. Fevers greater than [...] 1. You will have followup appointments at [facility] as indicated below in Future Appointment and [...] Clinic Performed Agency name and contact information: [facility] Patient location post discharge: Home What services are requested: Registered Nurse, Physical Therapy, Occupational Therapy, Home Health Aide Start date: 08/30/2014 Responsible MD post discharge contact info: PCP/[facility] Orthopaedic Service DOCUMENTATION FOR VNA SERVICES PATIENT'S LOCATION: Ariela Foreman [address] [place] [address], [address] [facility] [phone] (home) Mandate Retail Service Merchandiser's Name: Self In discussion with the attending physician, it is certified that this patient is under their care and that they, or a Nurse Practitioner,Clinical Nurse specialist or Physician Doubler Helper who is working directly with them, had [...] Assess and continue rehab for managing ADLs. EMBROIDERY MACHINE OPERATOR ORDERS: Assist with I/ADLs. HOME HEALTH CARE AGENCY: [facility], PHONE: [phone] FAX: [phone] Start of care: Wednesday 08/30 Please note that any additional orders needs or changes will need to be obtained from this patient's PCP: [facility] #[address] [place] [address] / [facility] [address] All VNA agencies which cover the area [...] 320 each 3 08/27/2014 LANCETS) 28 gauge [facility] route 4 times daily. by Other route. 1 box = 100 lancets; 3 boxes = 300 lancets. Blood-Glucose Meter by Other route. 1 = 1 each 0 015 (FREESTYLE LITE METER) 1 blood glucose Kit meter kit. multivitamin Take 1 tablet by 0 08/28/20142018 Wffg-Xa-YU-Min mouth daily. (THERAPEUTIC-M) 27-0.4 mg Tablet oxyCODONE [...] denies SOB, chest pain, or nausea. Beto Segura, SUHA - 08/28/2014 3:06 PM EDT Office of Care Management/Clinical It Integration Architect (CRC)/Discharge Planning Note CRC Beto Segura RN (pager [phone]) Patient: Ariela Foreman : 1985 (28 y.o.) Home: [facility] [address]* LOS: 2 days Care reviewed with Katelin Fowler APRN and Roma Bailey PT. Reviewed record and interviewed patient. Reviewed CRC role and services accepted. ?? Anticipated barriers to discharge: None. Patient and family have arranged for patient to have 24/ assistance at home between her friends Aroldo [...] local retail store. ?? Home health agency: [facility] RN/PT/OT/EMBROIDERY MACHINE OPERATOR orders pended. ?? Transportation at discharge: Parents ?? Family involved in discharge planning: Parents are at the bedside, supportive, and involved in discharge planning. ?? PCP: [facility], Future Appointments Date Time Provider Department Center 09/09/2014 11:30 AM Enrrique Schreiber MD [facility] None 09/14/2014 11:00 AM Antonella Monet LD [facility] 09/14/2014 1:00 PM Paul Leyva MD [facility] 09/14/2014 1:30 PM Nancie [facility] Plan: Care Management will continue to [...] SSI ?? Physical Therapy consult ?? D/C ASSESSOR and start orals ?? Voiding spontaneously Gianluca [...] because of cast and merlin wraps. paged. 3: MDs at bedside. Merlin wrap removed. Leg elevated. Per MDs, compartments are soft. Patient is more comfortable. Will monitor. Sharda Jewell RN - 08/27/2014 4:31 PM EDT 28 y.o. year old female POD#0 s/p left tibial nail with Dr Schreiber. Pt has [place] Primary care plus. Met briefly with pt and mom. Pt reclined in bed with IVF, manager port and o2 via NC. Pt not medically [...] at this time and is using dilaudid ASSESSOR appropriately. Patient denies chest pain, shortness of breath, numbness or tingling. Patient oriented to room, call potts, IS. RN will monitor patient. Chandra Robin [...] evaluation when appropriate. Maritza Tucker PT Pager: [phone] Physical Therapy Inpatient Rehabilitation Tunde Armstrong - [...] she was without insurance. She lives in [facility] and now has insurance but no [...] -DM team cx (ordered) -Nutrition & Diabetes OB/GYN PHYSICIAN cx (ordered) Trevor Banda APRN Inpatient Orthopaedics Pager #[phone] Fede Bird RN - 08/26/2014 3:32 PM [...] call delroy IS. RN will monitor patient. documented in this encounter Miscellaneous Notes Initial Assessments - Katelin Santos, OT - 08/28/2014 2:12 PM EDT Occupational Therapy Evaluation Patient profile: Ariela Foreman is a 28 y.o. female patient of Dr. Mo, Bryson Abdi MD, admitted on 08/26/2014 with tibial shaft fracture, sustained in a fall on the ice while walking her dog. Seen in [facility], placed in a splint. To OR [...] Independent with ADL???s and IADL???s. Runs the Dexetra in [facility] Code Status: Full Code Activity Orders: [...] to lift LLE onto bed. Has leg finance attorney but reports doesn't like it Balance: good [...] d/c home this afternoon. Has walker, issued lucerne farmer. Declined need for walkerbag. Eval Date: 08/28/2014 Total time spent with patient: 24 minutes Total timed interventions: 0 minutes Pager: [phone] Katelin Santos OT 08/28/2014 Occupational Therapy Rehabilitation Department Initial Assessments - Emilee Bailey, PT - 08/28/2014 10:00 AM EDT Physical Therapy Evaluation Patient profile: Pt. is a 28 y.o. female admitted on 08/26/2014 by Bryson Lopez MD . Pt slipped and fell on the ice 08/25/14 . She suffered a tibial shaft fracture. She was seen in [facility] placed in a splint. She was [...] minutes eval Emilee Bailey, PT 08/28/2014 Pager: [phone] Physical Therapy Rehabilitation Department Plan of Care [...] very little assistance with her ADLs Surveillance: CHIRAG Colin, blood glucose management, rounding CPG GOAL OUTCOME EVALUATION: Goal: Individualization and Mutuality Outcome: Ongoing (Interventions Implemented as Appropriate) 08/26/14 1500 08/27/14 0056 08/28/14 0205 Individualization Individualize the Plan of Care: -- [...] Handling Outcome: Ongoing (Interventions Implemented as Appropriate) 08/28/14 0012 08/28/14 0046 Safety Interventions Safety Precautions/Fall Reduction assistive device;commode/urinal/bedpan [...] Control Outcome: Ongoing (Interventions Implemented as Appropriate) 08/28/14 0012 08/28/14 0046 Safety Interventions Isolation Precautions standard precautions maintained [...] management and to provide a review of exterminator diabetes care. Diabetes History: Ariela Foreman has [...] medication for her. She is working with [facility] to obtain a PCP. She would like to establish care with an personnel security assistant. Current outpatient diabetes regimen: Medications: none Monitoring [...] senna-docusate 2 tablet Oral BID ??? multivitamin Tcwk-Sw-DB-Min 1 tablet Oral Daily PRN: diphenhydrAMINE, ondansetron, nalOXone, ASSESSOR eldridge, sodium chloride 0.9 %, lidocaine, ondansetron, [...] lite meter and supplies sent to [facility]. Appointment to establish care with [facility] Endocrinology clinic, and with coding educator made for 09/14/14 Plan: 1. Lantus 10 units once for steroid induced hyperglycemia 2. Novolog resistant sliding scale for BG>140 3. Metformin 500 mg po bid x 2 doses if tolerated increase to 1000 mg po bid 4. 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: Medications - Outpatient treatment regimen [...] no standard trays will not be sent distribution center assistant will see pt daily to assist with menu choices Nutrition to follow throughout hospital stay UCHE Hernandez Plan of Care - Fede Bird RN - 08/27/2014 2:39 PM EDT Problem: General Plan of Care Goal: Plan of Care Review 08/27/14 7987 Plan of Care Review Plan of Care Outcome Status ongoing (interventions implemented as appropriate) Progress improving Coping/Psychosocial Response Interventions Plan of Care Reviewed with patient OUTCOME EVALUATION NOTE: OUTCOME SUMMARY: Patient was started on oral pain medication upon arrival from PACU. Patient tolerated 10 mg PO denying drowsiness, ASSESSOR being used appropriately by patient (no education needed on use of this). Patient receiving 3 L O2 via NC with O2 sat >95%. PLAN MOVING FORWARD: Continue PRN pain medication, mobilize as tolerated, encourage coughing/deep breathing, d/c ASSESSOR in the morning. INDIVIDUALIZED FALL PREVENTION: Assistance: x1 stand assist with a walker when out of bed Supervision: Hands on assist with all ADL's Surveillance: duy Colinful rounding CPG GOAL OUTCOME EVALUATION: Goal: Individualization and Mutuality 08/26/14 1500 08/27/14 0056 Individualization Patient Specific Goals -- patient would [...] None -- Goal: Fall Prevention-Safe Patient Handling 08/26/14 3405 08/27/14 1255 Safety Interventions Safety Precautions/Fall Reduction -- [...] Mo MD - 08/27/2014 10:25 AM EDT [facility] Operative Note Patient Name: Ariela Foreman : [id number] MR#: [id number] Case Date: 08/27/2014 Surgeon: Surgeon(s) and Role: [...] x 345 mm statically locked). SURGEON: Bryson oM MD DIRECTOR OF ADMISSIONS: Tunde Armstrong MD ANESTHESIA: General. EBL: 25 mL COMPLICATIONS: None. INDICATIONS: We were asked by Dr. Enrrique Schreiber to assist with the orthopedic care of [...] nail was then locked distally using perfect stillaguamish technique with total of three screws. Again, [...] Handling Outcome: Ongoing (Interventions Implemented as Appropriate) 08/26/14234408/27/14 0000 Safety Interventions Safety Precautions/Fall Reduction assistive [...] Control Outcome: Ongoing (Interventions Implemented as Appropriate) 08/26/14234408/27/14 0000 Safety Interventions Isolation Precautions standard precautions [...] Care Goal: Plan of Care Review 08/26/14 1614 Plan of Care Review Plan of Care [...] Hands on assist with all ADL's Surveillance: Dixie purposeful rounding CPG GOAL OUTCOME EVALUATION: Goal: [...] Pain/Comfort Interventions Pain Management Interventions multimodal measures utilized;idvtgl-duf-cfesh dosing utilized;medication dose titrated to patient response;ambulated documented in this encounter Plan of Treatment Upcoming Encounters Date Type Specialty Care Team Description 02/20/2022 TH Visit (TeleHealth) Rheumatology Jeffery Amin MD [address] [facility] [address] [place], [place] [address] (Wo rk) Pending Results Name Type [...] IMPLANTABLE DEVICES 08/31/2014 12:00 SCAN AM EDT EGG GRADER SCAN 08/31/2014 12:00 AM EDT POCT GLUCOSE [...] this QUALITATIVE EDT procedure are i n (LARISA/[facility]P/NL) the res ults section. POCT GLUCOSE Routine [...] TYPE AND SCREEN STAT 08/26/2014 5:00 PM ([facility]/CGP/LARISA) EDT HEMOGLOBIN A1C STAT 08/26/2014 5:00 PM [...] Schreiber MD IMG DX ORDERABLES SCAN DOC: EGG GRADER (08/31/2014 12:00 AM EDT) Narrative This result [...] Organization Address City/State/[place] [address] CERNER MILLENNIUM (ABNORMAL) POCT [...] Organization Address City/State/ZIP Code Phon e Number [address] CERNER MILLENNIUM (ABNORMAL) Differential, Automated (08/28/2014 10:42 AM EDT) [facility] gist Method Time Signature Neutrophils % [...] Organization Address City/State/ZIP Code Phon e Number [address] CERNER MILLENNIUM (ABNORMAL) Hemogram (08/28/2014 [...] Organization Address City/State/[place] [address] CERNER MILLENNIUM (ABNORMAL) Basic [...] intervals supplied above were not validated at [facility]. Results from pediatri c patients should be [...] the following links into your internet browser. [email or web address]/DHnkdep [email or web address] Specimen Anatomical Collection Method Collection Time Receive d Time (Source) Location / / Volume Laterality Blood specimen 08/28/2014 10:42 5 (specimen) AM EDT 10:48 AM EDT Resulting Agency Comment Spec In Lab Bryson Abdi MD CHEMISTRY ORDERABLES Performing Organization Address City/State/ZIP Code Phon e Number [place] [id number] CERNER MILLENNIUM POCT Glucose (08/28/2014 7:04 AM EDT) P athologist Signature POC Glucose 151 60 - [...] CARE TEST ORDERABLE S Performing Organization Address City/[facility]/ZIP [facility] [place] [address] CERNER MILLENNIUM urine, qualitative (08/28/2014 4:19 AM EDT) athologist Signature SG Urine 1.025 1.002 - CERNER 1.030 MILLENNIUM HCG Qual Negative CERNER MILLENNIUM Comment: If Specific [place] is less than 1.010, a negative result is obtained, and is still suspect ed, a repeat on a first morning specimen is recommended. Specimen Anatomical Collection Method Collection Time Receive d Time (Source) Location / / Volume Laterality Urine specimen 08/28/2014 4:19 AM 015 4:47 (specimen) EDT AM EDT Resulting Agency Comment Spec In Lab Bryson Abdi MD URINE ORDERABLES Performing Organization Address [facility]/ZIP Code Phon e Number [address] CERNER MILLENNIUM POCT Glucose (08/28/2014 3:47 AM EDT) athologist Signature POC Glucose 156 60 - 199 CERNER mg/dL ENNIUM Comment: Supplemental ranges: <140 mg/dL before meals <180 mg/dL all other times of the day Specimen Anatomical Collection Method Collection Time Receive d Time (Source) Location / / Volume Laterality Blood specimen 08/28/2014 3:47 AM 015 3:47 (specimen) EDT AM EDT Enrrique Schreiber MD POINT OF CARE TEST ORDERABLE S Performing Organization Address City/[facility]/ZIP Code Phon e Number [address] CERNER MILLENNIUM POCT Glucose (08/27/2014 11:27 PM EDT) athologist Signature POC Glucose 177 60 - 199 CERNER mg/dL ENNIUM Comment: Supplemental ranges: <140 mg/dL before meals <180 mg/dL all other times of the day Specimen Anatomical Collection Method Collection Time Receive d Time (Source) Location / / Volume Laterality Blood specimen 08/27/2014 11:27 03/27/201 5 (specimen) PM EDT 11:27 PM EDT Enrrique Schreiber MD POINT OF CARE TEST ORDERABLE S Performing Organization Address City/State/ZIP Code Phon e Number [address] CERNER MILLENNIUM POCT Glucose [...] CARE TEST ORDERABLE S Performing Organization Address City/[facility]/ZIP Code Phon e Number [address] CERNER MILLENNIUM (ABNORMAL) POCT Glucose (08/27/2014 6:03 PM EDT) athologist Signature POC Glucose 216 (H) 60 [...] CARE TEST ORDERABLE S Performing Organization Address City/[facility]/ZIP Code Phon e Number [address] CERNER MILLENNIUM (ABNORMAL) POCT [...] Organization Address City/State/ZIP Code Phon e Number [address] CERNER JAYSONENNIUM (ABNORMAL) POCT Glucose (08/27/2014 3:05 PM EDT) P athologist Signature POC Glucose 288 (H) 60 - 199 CERNER mg/dL [facility] Comment: Supplemental ranges: <140 mg/dL before meals <180 mg/dL all other times of the day Specimen Anatomical Collection Method Collection Time Receive d Time (Source) Location / / Volume Laterality Blood specimen 08/27/2014 3:05 PM 015 3:05 (specimen) EDT PM EDT Enrrique Schreiber MD POINT OF CARE TEST ORDERABLE S Performing Organization Address City/State/ZIP Code Phon e Number [address] CERKENNY TYLERENNIUM XR tibia fibula AP & lateral (08/27/2014 [...] / Volume Laterality Blood specimen 08/27/2014 10:27 5 (specimen) AM EDT 10:27 AM EDT Enrrique Schreiber MD POINT OF CARE TEST ORDERABLE S Performing Organization Address City/State/[place] [address] CERNER MILLENNIUM (ABNORMAL) POCT [...] CARE TEST ORDERABLE S Performing Organization Address City/[facility]/ZIP Code Phon e Number [address] CERNER MILLENNIUM (ABNORMAL) POCT [...] CARE TEST ORDERABLE S Performing Organization Address City/[facility]/ZIP Code Phon e Number [address] CERNER MILLENNIUM POCT Glucose [...] CARE TEST ORDERABLE S Performing Organization Address City/[facility]/ZIP Code Phon e Number [address] CERNER MILLENNIUM (ABNORMAL) POCT [...] Organization Address City/State/[place] [address] CERNER MILLENNIUM (ABNORMAL) POCT Glucose (08/26/2014 9:10 PM EDT) P athologist Signature POC Glucose 257 (H) 60 - 199 CERNER mg/dL [facility] Comment: Supplemental ranges: <140 mg/dL before meals <180 mg/dL all other times of the day Specimen Anatomical Collection Method Collection Time Receive d Time (Source) Location / / Volume Laterality Blood specimen 08/26/2014 9:10 PM 015 9:10 (specimen) EDT PM EDT Enrrique Schreiber MD POINT OF CARE TEST ORDERABLE S Performing Organization Address City/State/ZIP Code Phon e Number [address] CERNER MILLENNIUM (ABNORMAL) POCT Glucose (08/26/2014 7:01 PM EDT) P athologist Signature POC Glucose 285 (H) 60 - 199 CERNER mg/dL [facility] Comment: Supplemental ranges: <140 mg/dL before meals <180 mg/dL all other times of the day Specimen Anatomical Collection Method Collection Time Receive d Time (Source) Location / / Volume Laterality Blood specimen 08/26/2014 7:01 PM 015 7:01 (specimen) EDT PM EDT Enrrique Schreiber MD POINT OF CARE TEST ORDERABLE S Performing Organization Address City/State/ZIP Code Phon e Number [address] CERNER MILLENNIUM (ABNORMAL) Hemoglobin A1c (08/26/2014 5:00 PM EDT) [facility] gist Method Time Signature Hemoglobin A1C 10.5 (H) 4.3 - 5.6 CERNER % MILLENNIUM Comment: Reference Range: 4.3 - 5.6% 5.7 [...] Mellitus, Diabetes Care 2013; 36: Suppl. 1, S67-22 Est Avg Gluc 255 mg/dL CERNER MILLENNIUM Comment: eAG equivalents for HbA1c percentages: HbA1c(%) ?eAG(mg/dL) 6.0 ?126 6.5 ?140 7.0 ?154 7.5 ?169 8.0 ?183 8.5 ?197 9.0 ?212 9.5 ?226 10.0 ? 240 Limitations: The eAG calculation has not been validated on women, individuals below 18 years old and above 70 years old, and individuals with hemoglobinopathies. Additional resources are available on [facility] ADA website: [email or web address]/DHMCadacalc Godfrey BAHENA, Ryan J, Kylie R, et al. ??Tr anslating the A1C assay into estimated average glucose values. ??Diabetes Care 2008:31(8):2963-9174. Specimen Anatomical Collection Method Collection Time Receive d Time (Source) Location / / Volume Laterality Blood specimen Venous Draw / 08/26/2014 5:00 PM 2014 5:30 (specimen) Unknown EDT PM EDT Resulting Agency Comment Spec In Lab Enrrique Schreiber MD CHEMISTRY ORDERABLES Performing Organization Address City/[facility]/[place] [address] CERNER MILLENNIUM Antibody screen (08/26/2014 5:00 PM EDT) Analysis Performed At Patho logist Time Signature Ab Screen Negative CERKENNY Interp JAYSONENNIUM Expires at [phone] CERNER 235 on: MILLENNIUM Specimen Anatomical Collection Method Collection Time Receive d Time (Source) Location / / Volume Laterality Blood specimen 08/26/2014 5:00 PM 015 5:31 (specimen) EDT PM EDT Resulting Agency Comment Spec In Lab Enrrique Schreiber MD BLOOD BANK ORDERABLES Performing Organization Address City/[facility]/ZIP Code Phon e Number [address] SHIVANI TYLERENNIUM ABO/Rh Typing (08/26/2014 5:00 PM EDT) P athologist Signature ABORh Type O Pos CERNER JAYSONENNIUM Specimen Anatomical Collection Method Collection Time Receive d Time (Source) Location / / Volume Laterality Blood specimen 08/26/2014 5:00 PM 015 5:31 (specimen) EDT PM EDT Resulting Agency Comment Spec In Lab Enrrique Schreiber MD BLOOD BANK ORDERABLES Performing Organization Address City/[facility]/[place] [address] SHIVANI TYLERENNIUM (ABNORMAL) Differential, Automated (08/26/2014 5:00 PM EDT) [...] Organization Address City/State/ZIP Code Phon e Number [place] [id number] CERNER MILLENNIUM (ABNORMAL) Hemogram (08/26/2014 5:00 PM EDT) P athologist Signature WBC 14.0 (H) 4.0 - [...] Schreiber MD HEMATOLOGY ORDERABLES Performing Organization Address [facility]/ZIP [facility] Phon e Number [address] CERNER MILLENNIUM Prothrombin Time (08/26/2014 [...] bleeding disorders. INR 1.0 0.9 - 1.1 [facility] Specimen Anatomical Collection Method Collection Time Receive d Time (Source) Location / / Volume Laterality Blood specimen 08/26/2014 5:00 PM 015 5:18 (specimen) EDT PM EDT Resulting Agency Comment Spec In Lab Enrrique Schreiber MD HEMATOLOGY ORDERABLES Performing Organization Address City/[facility] Phon e Number [address] [facility] MILLENNIUM (ABNORMAL) Basic Metabolic Panel (non-fasting) (08/26/2014 5:00 PM EDT) athologist Signature Glucose Lvl 270 (H) 60 - 199 CERNER mg/dL [facility] Comment: Diabetes: >=200 mg/dL plus symp toms BUN 8 8 - 18 mg/dL [facility] MILLENNIUM Creatinine 0.65 (L) 0.70 - 1.20 mg/dL [facility] MILL ENNIUM Comment: Please note that the pediatric reference intervals supplied above were not validated at [facility]. Results from pediatri c patients should be [...] the following links into your internet browser. [email or web address] Specimen Anatomical Collection Method Collection Time Receive d Time (Source) Location / / Volume Laterality Blood specimen 08/26/2014 5:00 PM 015 5:18 (specimen) EDT PM EDT Resulting Agency Comment Spec In Lab Enrrique Schreiber MD CHEMISTRY ORDERABLES Performing Organization Address City/State/ZIP [place] [address] CERNER MILLENNIUM (ABNORMAL) POCT Glucose (08/26/2014 4:25 PM EDT) athologist Signature POC Glucose 273 (H) 60 [...] Organization Address City/State/[place] [address] SHIVANI [employer] CT lower extremity WO contrast (08/26/2014 12:21 [...] as uncontrolled Tibia fracture, left, initial encounter Tibia fracture, left, initial encounter documented in this encounter Active and Recently Administered Medications Times are shown in EDT. 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, Indication for (Active or Suspected): Prophylaxis enoxaparin (LOVENOX) injection 40 mg (CANCELED) 811 (Given - Provider: Fede Bird RN) 40 mg, Subcutaneous, EVERY 24 HOURS SCHE DULED (Daily), First dose on 08/28/14 at 0900, Until Discontinued, Routine insulin aspart (novoLOG) VIAL injection 1-4 Units (CAN CELED) 1722 (Given - Provider: Fede Bird RN)1904 (Given - Provider: Fede Bird RN - Comment: FS 285) 1-4 Units, Subcutaneous, EVERY 4 HOURS S CHEDULED, First dose on Sarah 08/26/14 at 1730, [...] Units (COMPLETED) 1515 (Given - Provider: Fede Bird RN) 15 Units, Subcutaneous, ONCE, 1 dose, Sat08/27/14 at 1530, Routi ne insulin aspart (novoLOG) VIAL injection 2-8 Units (CAN CELED) 2147 (Given - Provider: Coleen Choi, SUHA)2349 (Given - Provider: Coleen Choi, SUHA) 0227 (Given - Provider: Coleen Choi, SUHA)0429 (Given - Provider: Coleen Choi, SUHA)0714 (Given - Provider: Fede Bird RN)0800 (AUG Hold - Provider: Admin Adt - Reason: Transfer to a Procedural area) 2-8 Units, Subcutaneous, EVERY 4 HOURS S CHEDULED, First dose on Sarah 08/26/14 at 2145, Until Discontinued, CORRECTION BOLUS Moderate BG 140 - 160 Give 2 units BG 161 - 200 Give 4 units BG 201 - 240 Gi 0836 ( AUG Unhold - Provider: Admin Adt)0837 (AUG Hold - Provider: Admin Adt - Reason: Transfer to a Procedural area)1036 (AUG Unhold - Provider: Sharda Obregon, RN)1121 (Given - Provider: Sharda Obregon, SUHA) ve [...] order from Riri)1916 (Given - Provider: Fede Bird RN)2330 (Given - Provider: Coleen Choi, SUHA) oliverio [...] mg (CANCELED) 1609 (Given - Provider: Fede Bird RN) 1,000 mg, Oral, 2 TIMES DAILY WITH MEALS , First dose on 08/28/14 at 1700, Until Discontinued, Routine metFORMIN (GLUCOPHAGE) tablet 500 mg (COMPLETED) 1653 (Given - Provider: Fede Bird RN) 0714 (Given - Provider: Fede Bird , SUHA) 500 mg, Oral, 2 TIMES DAILY WITH MEALS, 2 doses, First dose on Sat08/27/14 at 1700, Last dose on 08/28/14 at 0800, STAT multivitamin Dyvn-Xn-VH-Min (THERAPEUTIC-M) 27-0.4 mg tablet 1 tablet 1530 (Not Given - Provider: Fede Bird RN - Reason: Order parameters not met) 0800 (AUG Hold - Provider: Admin Adt - Reason: Transfer to a Procedural area)0836 (MAR Unhold - Provider: Admin Adt)0837 (AUG Hold - Provider: Admin Adt - Reason: Transfer to a Procedural area)0900 (Automatically Held - Provider: Admin Adt) 0812 (Given - Provider: Fede Bird, SUHA) 1 tablet, Oral, DAILY, First dose on Sarah 08/26/14 at 1530, Until Discontinued, Routine 1241 (AUG Unhold - Provider: Admin Adt) polyethylene glycol (MIRALAX) packet 17 g 2105 (Given - Provider: Coleen Choi, SUHA) 0800 (AUG Hold - Provider: Admin Adt - R kenan: Transfer to a Procedural area)0836 ([facility] Unhold - Provider: Admin Adt)0837 ([facility] Hold - Provider: Admin Adt - Reason: Transfer to a Procedural area)0900 (Automatically Held - Provider: Admin Adt) 0813 (Given - Provider: Fede Bird , RN) 17 g, Oral, 2 TIMES DAILY, First dose on Sarah 08/26/14 at 2100, Until Discontinued, Routine 1241 ([facility] Unhold - Provider: Admin Adt)2002 (Not Given - Provider: Coleen Choi, SUHA - Reason: Patient/family refused - Comment: mult. loose stools) primidone (MYSOLINE) tablet 25 mg (CANCELED) 2099 (Giv en - Provider: Coleen Choi, RN) 0800 ([facility] Hold - Provider: Admin Adt - R kenan: Transfer to a Procedural area)0836 ([facility] Unhold - Provider: Admin Adt)0837 ([facility] Hold - Provider: Admin Adt - Reason: Transfer to a Procedural area)0900 (Automatically Held - Provider: Admin Adt) 0813 (Given - Provider: Fede Bird , SUHA) 25 mg, Oral, 2 TIMES DAILY, First dose o n Sarah 08/26/14 at 2100, Until Discontinued, Take with Food, Routine 1241 ([facility] Unhold - Provider: Admin Adt)2012 (Given - Provider: Coleen Choi, SUHA) senna-docusate (PERICOLACE) 8.6-50 mg per tablet 2 tab let 2104 (Given - Provider: Coleen Choi, SUAH) 0800 ([facility] Hold - Provider: Admin Adt - R kenan: Transfer to a Procedural area)0836 ([facility] Unhold - Provider: Admin Adt)0837 ([facility] Hold - Provider: Admin Adt - Reason: Transfer to a Procedural area)0900 (A utomatically Held - Provider: Admin Adt) 0812 (Given - Provider: Fede Bird, RN) 2 tablet, Oral, 2 TIMES DAILY, First dos e on Sarah 08/26/14 at 2100, Until Discontinued, Routine 1241 ([facility] Unhold - Provider: Admin Adt)2001 (Not Given - Provider: Coleen Choi, SUHA - Reason: See comment - Comment: mult. loose stools) sodium chloride 0.9 % flush 5 mL (CANCELED) 2105 (Give n - Provider: Coleen Choi RN) 0800 (AUG Hold - Provider: Admin Adt - R kenan: Transfer to a Procedural area)0836 (AUG Unhold - Provider: Admin Adt)0837 (MAR Hold - Provider: Admin Adt - Reason: Transfer to a Procedural area)0900 (Automatically Held - Provider: Admin Adt) 0900 (Not Given - Provider: Fede Rodriguez RN - Reason: See comment - Comment: ivf infusing) 5 mL, Intravenous, 2 TIMES DAILY, First dose on Sarah 08/26/14 at 2100, Until Discontinued, Routine 1058 (AUG Unhold - Provider: Sharda Obregon, SUHA)2008 (Given - Provider: Coleen Choi RN) Continuous Medication Order 08/26/2014 08/27/2014 08/28/2014 HYDROmorphone (DILAUDID) 1 mg/mL ASSESSOR 30 mL (CANCELED) 104 (New Syringe/Cartridge - Provider: Sharda Obregon RN) Intravenous, ASSESSOR ONLY, Starting Fri 08/27 at 1100, Until 08/27/14 at 2127, Recovery (Recovery-Hospital Unit) HYDROmorphone (DILAUDID) 1 mg/mL ASSESSOR 30 mL (CANCELED) 2143 (Rate/Dose Change - Provider: Coleen Choi RN)2144 (Not Given - Provider: Coleen Choi RN - Reason: See comment - Comment: ASSESSOR rate and dose were changed. A new ASSESSOR was not placed) Intravenous, ASSESSOR ONLY, Starting Fri 08/27 at 2145, Until 08/28/14 at 0645, Recovery (Recovery-Hospital Unit) sodium chloride 0.9% infusion () 2342 (New Bag - Provider: Coleen Choi, SUHA) 0800 (AUG Hold - Provider: Admin Adt - R kenan: Transfer to a Procedural area)0836 (AUG Unhold - Provider: Admin Adt)0837 (AUG Hold - Provider: Admin Adt - Reason: Transfer to a Procedural area)1058 (AUG Unhold - Provider: Sharda Obregon RN) 1,000 mL, at 100 mL/hr, Intravenous, CON TINUOUS, Starting 08/27/14 at 0015, Until 08/28/14 at 0014 sodium chloride 0.9% infusion () 1040 (Restarted - Provider: Sharda Obregon RN)1100 (Not Given - Provider: Sharda Obregon RN - Reason: See comment - Comment: bag from floor restarted)1324 (New Bag - Provider: Fede Bird, SUHA) 0100 (New Bag - Provider: Coleen miranda, SUHA) 100 mL/hr, at 100 mL/hr, Intravenous, CO NTINUOUS, Starting Sat08/27/14 at 1100, Until 08/28/14 at 0659, Recovery (Recovery-Hospital Unit) PRN Medication Order 08/26/2014 08/27/2014 08/28/2014 diaZEPam (VALIUM) tablet 5 mg 2138 (Given - Prov ider: Coleen Choi RN) 0814 (Given - Provider: Fede Bird RN) 5 mg, Oral, EVERY 6 HOURS PRN, Starting Sat08/27/14 at 2124, Until 08/28/14 at 2020, muscle spasms, Routine HYDROmorphone (DILAUDID) syringe 0.2-0.4 mg (CANCELED) 1032 (Given - Provider: Sharda Obregon RN)1040 (Given - Provider: Sharda Obregon RN)1051 (Given - Provider: Sharda Obregon RN)1103 (Given - Provider: Sharda Obregon RN)1110 (Given - Provider: Sharda bOregon RN) 0.2-0.4 mg, Intravenous, EVERY 5 MIN PRN , Starting Sat08/27/14 at 1007, Until Sat08/27/14 at 1208, Pain, For moderate pain (4-6) give: 0.2 mg every 5 minute prn For severe pain (7-10) give: 0.4 mg every 5 minutes prn Maximum dose: 4 mg per ho ur Hold for respiratory rate less than 10 per minute., PACU Recovery, Routine oxyCODONE (ROXICODONE) immediate release tablet 10 mg (CANCELED) 1904 (Given - Provider: Fede Bird, SUHA) 10 mg, Oral, EVERY 4 HOURS PRN, Starting Sarah 3/26/15 at 1507, Until Sarah 08/26/14 at 2211, [...] - Reason: Transfer to a Procedural area)0836 ([facility] Unhold - Provider: Admin Adt) 0431 (See [...] - Reason: Transfer to a Procedural area)1058 ([facility] Unhold - Provider: Sharda Obregon RN)1324 (Given - Provider: Fede Bird RN)2010 (See Alternative - Provider: Coleen Choi RN) 1756 (See Alternative - Provider: Fede Bird RN) 2328 (Given - Provider: Coleen Choi RN) oxyCODONE (ROXICODONE) immediate release tablet 15 mg (CANCELED) 2223 (Given - Provider: Coleen Choi RN) 0211 (Given - Provider: Coleen heck RN)0553 (Given - Provider: Coleen Choi RN)0800 ([facility] Hold - Provider: Admin Adt - Reason: Transfer to a Procedural area)0836 ([facility] Unhold - Provider: Admin Adt) 0431 (Given [...] Fede Bird RN)2009 (Given - Provider: Coleen Choi, SUHA) 2328 (See Alternative - Provider : Coleen [...] Bird RN)1143 (See Alternative - Provider: Fede Bird, SUHA)1449 (See Alternative - Provider: Fede Bird RN) [...] Obregon RN)1324 (See Alternative - Provider: Fede Bird, SUHA)2009 (See Alternative - Provider: Coleen Choi, RN) 1756 (See Alternative - Provider: Fede Bird, SUHA) 2328 (See Alternative - Provider : Coleen Choi, SUHA) documented in this encounter Care Teams Covering And Lining Supervisor Relationship Specialty Start Date End Date Roxanna Sarmiento PA PCP - General 06/14/10 05/02/[address] [place] [id number] documented as of this encounter
--- OUTSIDE RECORDS SUMMARY | 2022-01-18 11:50 | XMS_ITS | Encounter Summary ---
:1985 Author Organization [facility] Address [address] [place] [address] Care Team Providers Name Role Phone Unavailable Primary Care Provider Unavailable Encounter Details Date Type Department Care Team Description 05/20/2002 Results Only [facility] Tangela Ku, Bariatric Surgery - HANDLE BAR ASSEMBLER [place] [address] [address] [place] [address] [phone] Social History Tobacco Use Types Packs/Day Years Used Date Never Assessed Sex Assigned at Date Recorded Not on file documented as of this encounter Plan of Treatment Not on filedocumented as of this encounter Procedures Procedure Name Priority Date/Time Associated Comments Diagnosis CREATININE Routine 05/20/2002 16:05 Results for this EST procedure are i n the results section. URINE Routine 05/20/2002 16:05 Results for this [id number] EST proced ure are in RATIO (ACR) the results section. T3, TOTAL Routine 05/20/2002 16:05 Results for this EST procedure are i n the results section. TSH Routine 05/20/2002 16:05 Results for this EST procedure are i n the results section. T4 FREE Routine 05/20/2002 16:05 Results for this EST procedure are i n the results section. HEPATIC FUNCTION Routine 05/20/2002 16:05 Results for this PANEL (ALB,ALK EST procedure are in PHOS,ALT,AST,DBIL,TOT the re sults NUVIA,TOT PROT) section. LIPID PROFILE Routine 05/20/2002 16:05 Results fo r this (INCLUDES EST procedure are i n CHOLESTEROL, the results TRIGLYCERIDES, HDL, section. LDL) ZZHEMOGLOBIN A1C Routine 05/20/2002 10:18 Results for this EST procedure are i n the results section. documented in this encounter Results MICROALBUMIN (05/20/2002 16:05 EST) Creatinine, Urn 127.8 mg/dl [facility] [place] Ur Albumin mg/dl 1.0 mg/dl [facility] Ur Alb ug/mg Crea 7.8 ug/mg Crea [facility] Comment: Normal: ??<30 ug/mg Creat Microalbuminuria: ??30-300 ug/mg Creat Clinical albuminuria: ??>300 ug/mg Creat Specimen Performing Organization Address City/[facility] Phon e Number [facility] [address] [place] [address] SERVICES [facility] [address] [place] [address] TSH (05/20/2002 16:05 EST) Pathologist Sig nature TSH 1.77 0.50 - 5.00 uIU/ml [facility] Specimen Performing Organization Address [facility] Phon e Number [facility] [address] [place] [address] SERVICES [facility] [address] [place] [address] (ABNORMAL) T3, TOTAL (05/20/2002 16:05 EST) Pathologist Sig nature T3, Total 316 (H) 60 - 181 ng/dl [facility] Specimen Performing Organization Address [facility] Phon e Number [facility] [address] [place] [address] SERVICES [facility] [address] [place] [address] (ABNORMAL) LIPID PROFILE (INCLUDES CHOLESTEROL, TRIGLYCERIDES, HDL, LDL) (05/20/2002 16:05 EST) Cholesterol 160 mg/dl [facility] Comment: LAB Desirable:<200 Borderline:200-239 High Risk:>nz=155 Triglycerides 465 (H) 37 - 140 [facility] mg/dl LAB HDL 51 mg/dl [facility] Comment: LAB Highly Desirable:>60 Desirable:35-60 High Risk:<35 LDL, Calculated Triglyceride greater than 400 mg/dl, LDL calculation invalid. mg/dl [facility] Desirable:<130 LAB Borderline:130-159 High Risk:>cu=064 Chol/HDL Ratio 3.1 [facility] Specimen Performing Organization Address [facility]/ZIP Code Phon e Number [facility] [address] [place] [address] SERVICES [facility] [address] [place] [address] LIVER FUNCTION TESTS (05/20/2002 16:05 EST) Pathologist Sig nature Albumin 3.8 3.0 - 5.5 g/dl [facility] Total Protein 7.1 6.3 - 8.6 g/dl [facility] Total Alkaline 85 50 - 130 U/L [facility] Phosphatase ALT 22 0 - 45 U/L [facility] AST 17 8 - 50 U/L [facility] Unconjugated Bilirubin 0.1 0.1 - 1.1 mg/dl [facility] Conjugated Bilirubin 0.0 0.0 - 0.3 mg/dl [facility] B Bilirubin, Total 0.1 mg/dl [facility] Specimen Performing Organization Address [facility]/ZIP Code Phon e Number [facility] [address] [place] [address] SERVICES [facility] [address] [place] [address] T4 FREE (05/20/2002 16:05 EST) Pathologist Sig nature Free T4 1.2 0.8 - 1.8 ng/dl [facility] Specimen Performing Organization Address [facility]/ZIP Code Phon e Number [facility] [address] [place] [address] SERVICES [facility] [address] [place] [address] CREATININE (05/20/2002 16:05 EST) Pathologist Sig nature Creatinine 0.6 0.6 - 1.2 mg/dl [facility] Specimen Performing Organization Address City/[facility]/ZIP Code Phon e Number [facility] [address] [place] [address] SERVICES [facility] [address] [place] [address] (ABNORMAL) HEMOGLOBIN A1C (05/20/2002 10:18 EST) Pathologist Sig nature POCT Hgb A1C 7.0 (H)Comment: Test 4.5 - 5.7 % [facility] Performed at [facility] Specimen Performing Organization Address [facility]/ZIP Code Phon e Number [facility] [address] [place] [address] SERVICES [facility] [address] [place] [address] documented in this encounter Visit Diagnoses Not on filedocumented in this encounter
--- OUTSIDE RECORDS SUMMARY | 2022-01-18 11:50 | XMS_ITS | Encounter Summary ---
:1985 Author Organization [facility] Address [address] [place] [address] Care Team Providers Name Role Phone Jeffery Leon MD Primary Care Provider Encounter Details Date Type Department Care Team Description 04/19/2015 Hospital Encounter [facility] Unknown, Provider, [facility] 0 [facility] [phone] [place] [address] (Work) [phone] Social History Tobacco Use Types Packs/Day Years Used Date Never Assessed Sex Assigned at Date Recorded Not on file documented as of this encounter Discharge Disposition Disposition Code Departure Means Destination Home or Self Residential documented in this encounter Plan of Treatment Not on filedocumented as of this encounter Visit Diagnoses Not on filedocumented in this encounter Care Teams Student Career Development Specialist Relationship Specialty Start Date End Date Jeffery Leon MD PCP - General 04/09/15 documented as of this encounter
--- OUTSIDE RECORDS SUMMARY | 2022-01-18 11:50 | XMS_ITS | Encounter Summary ---
:1985 Author Organization [facility] Address [address] [place] [address] Care Team Providers Name Role Phone Jeffery Leon MD Primary Care Provider Encounter Details Date Type Department Care Team Description 08/23/2020 Lab Requisition [facility] Outr Resulting Lab, Pathology & Laboratory Provider [facility] [address] [place] [address] Social History Tobacco Use Types Packs/Day Years Used Date Never Smoker Smokeless Tobacco: Never Used Sex Assigned at Date Recorded Not on file documented as of this encounter Plan of Treatment Not on filedocumented as of this encounter Procedures Procedure Name Priority Date/Time Associated Diagnosis Comme nts RHEUMATOID FACTOR Routine 08/23/2020 11:16 Result s for this EDT procedure are i n the results section. documented in this encounter Results RHEUMATOID FACTOR (08/23/2020 11:16 EDT) Pathologist Sig nature Rheumatoid Factor <8.6 <12.0 IU/mL [facility] SERVICES Specimen Blood - Venous blood (substance) Performing Organization Address City/State/ZIP Code Phon e Number [facility] [address] [place] [address] SERVICES documented in this encounter Visit Diagnoses Not on filedocumented in this encounter Care Teams Spool Fixer Relationship Specialty Start Date End Date Jeffery Leon MD PCP - General 04/09/15 documented as of this encounter
--- OUTSIDE RECORDS SUMMARY | 2022-01-18 11:50 | XMS_ITS | Encounter Summary ---
:1985 Author Organization [facility] Address [address] [place] [address] Care Team Providers Name Role Phone Jeffery Leon MD Primary Care Provider Encounter Details Date Type Department Care Team Description 04/19/2015 Results Only [facility] Abimbola Layton NP [phone] [address] [facility] [place] [address] (Wo rk) Social History Tobacco Use Types Packs/Day Years Used Date Never Assessed Sex Assigned at Date Recorded Not on file documented as of this encounter Plan of Treatment Not on filedocumented as of this encounter Procedures Procedure Name Priority Date/Time Associated Diagnosis Comme nts PAP TEST- RESULT Routine 04/19/2015 0:00 EST Resu lts for this ONLY procedure are i n the results section. documented in this encounter Results PAP TEST- RESULT ONLY (04/19/2015 0:00 EST) Pathology Report: CYTOPATHOLOGY REPORT [facility] Reports generated via electronic interface contain cira ginal data; SERVICES however they are lacking the format of the original re port. Caution should be taken when reading/interpreting unfo rmatted reports. Name: ? ARIELA REAL ? Accession #: ? [id number] ? : ? 1985 (Age: 2 0) ??F ?Collect Da te: ? 04/19/2015 ? Location: ? [facility] ? Receive Date: ? 015 ? Provider: ABIMBOLA LAYTON FOAM FABRICATOR Copy to: ? Final Report SPECIMEN ADEQUACY ? Satisfactory for Evaluation - transformation zone component present GENERAL CATEGORIZATION ? Epithelial Cell Abnormality INTERPRETATION ? Squamous Cell Abnormality - Low grade squamous intraepithelial lesion (LSIL). EDUCATIONAL NOTES/RECOMMENDATIONS ? [facility] recommends foll owing ASCCP's 2012 Updated Consensus Guidelines for the Management of Abnormal Cervical Cancer Screening T ests and Cancer Precursors (JLGTD, 2013; 17(5):S1-S27). ??Conse nsus guidelines are available online at www.asccp.org. Last Menstrual Period: 04/09/2015 Hormonal/Contraceptive status: Orthotricyclen Specimen/Source: ??Pap Test, Cervix/Endocervix, ThinPr ep Imaging System with manual evaluation Document reviewed and electronically signed by: ? LAUREN RUIZ MD ? Report ??Date: 04/26/2015 14:31 HPV with Pap Test ? Date Ordered: ? 04/26/2015 ? Status: ?? Signed Out ?Date Complete: ? 04/29/2015 ? By: ??S ystem Interface ? Date Reported: ? 04/29/2015 ? Interpretation RESULT: Negative for HPV. No E6 or E7 mRNA is detected from HPV types 16,18,31,3 3,35, 39,45,51,52,56,58,59,66, and 68 by delivery merchandiser media arpan amplification. Comments Document reviewed and electronically signed by: ? System Interface ? Report date: 04/29/2015 By the signature above, the attending physician certif ies that he/she has personally conducted a gross and/or microscopic examin ation of the described specimens and rendered or confirmed the above diagnosi s. End of Report Specimen Performing Organization Address City/State/ZIP Code Phon e Number [facility] [address] [place] [id number] SERVICES documented in this encounter Visit Diagnoses Not on filedocumented in this encounter Care Teams Clark Driver Relationship Specialty Start Date End Date Jeffery Leon MD PCP - General 04/09/15 documented as of this encounter
--- OUTSIDE RECORDS SUMMARY | 2022-01-18 11:50 | XMS_ITS | Encounter Summary ---
:[address] [facility] Address [address] [place] [address] Care Team Providers Name Role Phone Jeffery Leon MD Primary Care Provider Encounter Details Date Type Department Care Team Description 07/05/1999 Hospital Encounter [facility] Lili Zhu [facility] [address] [address] [facility] [place] [id number] (Wo rk) Social History Tobacco Use Types Packs/Day Years Used Date Never Smoker Smokeless Tobacco: Never Used Sex Assigned at Date Recorded Not on file documented as of this encounter Plan of Treatment Not on filedocumented as of this encounter Visit Diagnoses Not on filedocumented in this encounter Care Teams Travel Sales Consultant Relationship Specialty Start Date End Date Jeffery Leon MD PCP - General 04/09/15 documented as of this encounter
--- OUTSIDE RECORDS SUMMARY | 2022-01-18 11:50 | XMS_ITS | Encounter Summary ---
:1985 Author Organization [facility] Address [address] [place] [address] Care Team Providers Name Role Phone Jeffery Leon MD Primary Care Provider Encounter Details Date Type Department Care Team Description 06/24/2021 Lab Requisition [facility] Outr Resulting Lab, Pathology & Laboratory Provider [facility] [address] [place] [id number] Social History Tobacco Use Types Packs/Day Years Used Date Never Smoker Smokeless Tobacco: Never Used Sex Assigned at Date Recorded Not on file documented as of this encounter Plan of Treatment Not on filedocumented as of this encounter Procedures Procedure Name Priority Date/Time Associated Diagnosis Comme nts COVID-19 TEST [facility] Today 06/23/2021 16:25 LAB PCR EST COVID-19 TESTING Routine 06/23/2021 16:25 Results for this EST procedure are i n the results section. documented in this encounter Results COVID-19 TEST [facility] LAB PCR (06/23/2021 16:25 EST) Specimen Swab Performing Organization Address City/State/ZIP Code Phon e Number [facility] [address] [place] [address] SERVICES COVID-19 TESTING (06/23/2021 16:25 EST) COVID-19 rt-PCR Negative Negative [facility] Result Comment: [facility]ORY This test has not been FDA c leared or approved. This test has been authorized by FDA under an EUA for use by authorized laboratories. This test has been authorized only for detection of nucleic acid fro SERVICES m 2018-nCoV, not for any oth er viruses or pathogens. This test is only authorized for the duration of the declaration that circumstances exist justifying the authorization of emergency use of in vitro d iagnostic tests for detectio n and/or diagnosis of 2019-nCoV under section 564(b)(1) of Act, 21 U.S.C ?? 360bbb-3(b) (1), unless the authorization is terminated or revoked sooner. Negative results do not prec lude 2019-nCoV infection and should not be used as the sole basis for treatment or other patient management decisions. Negative results must be combined with clinical observa tions, patient history, and epidemiological informatio n. Testing was performed using the keeley SARS-CoV-2 assay ([employer] on the [place]eeley 6800 System Performing Lab [place] [address] [facility] Lab [facility] SERVICES Specimen Swab Performing Organization Address City/State/ZIP Code Phon e Number [facility] [address] [place] [address] SERVICES documented in this encounter Visit Diagnoses Not on filedocumented in this encounter Care Teams Semi Conductor Assembler Relationship Specialty Start Date End Date Jeffery Leon MD PCP - General 04/09/15 documented as of this encounter
--- OUTSIDE RECORDS SUMMARY | 2022-01-18 11:50 | XMS_ITS | Encounter Summary ---
:1985 Author Organization [facility] Address [address] [place] [address] Care Team Providers Name Role Phone Unavailable Primary Care Provider Unavailable Encounter Details Date Type Department Care Team Description 08/16/2000 Hospital En[facility] [address] [place], [place] [id number] [place] [address] [place], [address] [place] [address] (Wo rk) Social History Tobacco Use Types Packs/Day Years Used Date Never Assessed Sex Assigned at Date Recorded Not on file documented as of this encounter Discharge Disposition Disposition Code Departure Means Destination Auto Discharge documented in this encounter Plan of Treatment Not on filedocumented as of this encounter Procedures Procedure Name Priority Date/Time Associated Diagnosis Comme nts SURGICAL PATHOLOGY Routine 08/16/2000 0:00 EST Re sults for this procedure are i n the results section. documented in this encounter Results SURGICAL PATHOLOGY (08/16/2000 0:00 EST) Pathology Report: SURGICAL PATHOLOGY REPORT [facility] Reports generated via electronic interface contain cira ginal data; LAB however they are lacking the format of the original re port. Caution should be taken when reading/interpreting unfo rmatted reports. Name: ? ARIELA REAL ? Accession #: ? [id number] ? : ? 1985 (Age: 14) ??F ? Collect Date: ? 08/16/2000 ? Location: ? [facility] ? Receive Date: ? 08/17/19 01 ? Provider: GREGOR AWAD MD Copy to: MERRICK WOOTEN MD ? Final Pathologic Diagnosis: A. ?Duodenum, biopsy: 1. ?Mild, focal epithelial lymphocytosis. ??See comment. B. ?Terminal ileum, biopsy: 1. ?No specific pathological features. C. ?Colon, right, biopsy: 1. ?Focal acute basal cryptitis. 2. ?Focal eosinophilic cryptitis. D. ?Colon, left, biopsy: 1. ?Focal acute basal cryptitis. 2. ?Focal, eosinophilic cryptitis. ??See comment. E. ?Rectum, biopsy: 1. ?Focal, acute basal cryptitis. ??See c omment. ?? Comment: ? A: The histological ? ?are insufficient for a diagnosis of Sprue. ??Serologic correlation is advised. D and E: ??Histological changes are non-specific and m aybe associated with a resolving infectious colitis or a low-grade Crohn' s c olitis. Clinical correlation and follow-up is advised. Th is case was reviewed with Dr Sofia Ro. (Joellen Byrne)/[facility] ?? Document reviewed and electronically signed by: Heri Mcnulty, [facility] Report ??Date: 08/20/2000 16:19 By the signature above, the attending physician certif ies that he/she has personally conducted a gross and/or microscopic examin ation of the described specimens and rendered or confirmed the above diagnosi s. Specimen(s) Received: A. ?Terminal ileum B. ?R colon C. ?L colon D. ?Rectum E. ?Duodenum Clinical History: ? R/O microscopic colitis; R/O sprue; Pt referred for colonoscopy for abdominal pain, diarrhea, nausea; colonoscopy normal t o ileum; EGD normal Gross Description: ? Received in [place]' s fixative labelled White and duodenum are six irregular fragments of kidd-yellow soft tissue wh ich range in size from 0.1 to 0.4 cm in greatest dimension . ??The specimen are submitted entirely as (A1)-(A3). Received in [place]' s fixative labelled White and term ileum are two irregularly shaped fragments of kidd-yellow soft tissue which measure 0.1 and 0.6 cm in greatest dimension. ??The specimen are submitted entirely as (B). Received in [place]' s fixative labelled White and R colon are two irregularly shaped fragments of kidd- yellow soft tissue which measure 0.7 x 0.2 x 0.1 cm and 0.5 x 0.2 x 0.1 cm and are submitted enti rely as (C). Received in [place]' s fixa tive labelled White and L colon are irregularly shaped fragments of kidd-yellow soft tiss ue which range in size from 0.1 to 0.4 cm in greatest dimension. ??The specimen are submitted entirely as (D). Received in [place]' s fixative mari d White and rectum is a kidd-yellow fragment of soft tissue which measures 0.6 x 0.2 x 0.1 cm and is submitted entirely as (E). ??(Dr. Robledo)/[facility] End of Report Specimen Performing Organization Address City/State/ZIP Code Phon e Number [facility] [address] [place] [address] SERVICES [facility] [address] [place] [address] documented in this encounter Visit Diagnoses Not on filedocumented in this encounter
--- OUTSIDE RECORDS SUMMARY | 2022-01-18 11:50 | XMS_ITS | Encounter Summary ---
:[address] [facility] Address [address] [place] [address] Care Team Providers Name Role Phone Jeffery Leon MD Primary Care Provider Encounter Details Date Type Department Care Team Description 11/04/2000 Hospital Encounter [facility] [address] [place] [address] Social History Tobacco Use Types Packs/Day Years Used Date Never Smoker Smokeless Tobacco: Never Used Sex Assigned at Date Recorded Not on file documented as of this encounter Plan of Treatment Not on filedocumented as of this encounter Procedures Procedure Name Priority Date/Time Associated Comments Diagnosis TRANSGLUTAMINASE IGA Routine 11/04/2000 15:37 Res ults for this EDT procedure are i n the results section. ENDOMYSIAL ANTIBODY, Routine 11/04/2000 15:37 Res ults for this SERUM EDT procedure are i n the results section. documented in this encounter Results TRANSGLUTAMINASE IGA (11/04/2000 15:37 EDT) Transglutaminase IgA <1.0 ??(Note) [facility] ? LAB REFERENCE RANGE: ?<1. 0 ? INTERPRETIVE CRITERIA: ?<1.0 ?? Antibody Not Detected ?> or = 1.0 ?? Antibody Detected ? IgA antibody recognizing tis xochitl transglutaminase (TG) is a ? marker of celiac disease ass ociated with gluten-sensitive ? enteropathy or dermatatitis herpetiformis. The TG IgA assay ? is similar in sensitivity an d specificity (80% and 95%, ? respectively) to the gliadin IgA assay for celiac ? disease. Over 90% of sera fr om celiac patients are ? positive for TG IgA and/or g liadin IgG. TG IgA, like ? gliadin antibodies, graduall y disappears from the ? circulation with adherence t o a gluten-free diet. ? TEST PERFORMED BY [facility] ?[address] ?[place] [address] ? TEST PERFORMED OR REFERRED B Y [facility] ? [facility] ? [address] ? [place], [place] ??[address] ? Specimen Performing Organization Address City/State/ZIP Code Phon e Number [facility] [address] [place] [address] SERVICES [facility] [address] [place] [address] ENDOMYSIAL ANTIBODY, SERUM (11/04/2000 15:37 EDT) Accession number [id number] [facility] ?? LAB Interpretation (Note) [facility] Endomysial Antibodies (IgA) : ??Negative ? LAB ? NORMAL VALUES: ? Negative in normal individua ls and patients with dermatitis herpetifor ? mis ? and or coeliac sprue adherin g to gluten-free diets. Report includes ? presence and titer of circul ating endomysial antibodies. Indeterminate ? staining results cannot be r eliably determined to be positive or negat ? oliverio. ? Signing Pathologist Lisa Nye III ?? LAB Tissue (Note) [facility] SERUM ? LAB ? Specimen Performing Organization Address City/State/ZIP Code Phon e Number [facility] [address] [place] [address] SERVICES [facility] [address] [place] [address] documented in this encounter Visit Diagnoses Not on filedocumented in this encounter Care Teams Fiberglass Boat Finisher Relationship Specialty Start Date End Date Jeffery Leon MD PCP - General 04/09/15 documented as of this encounter
--- OUTSIDE RECORDS SUMMARY | 2022-01-18 11:50 | XMS_ITS | Clinical Summary ---
:1985 Author Organization [facility] Address [address] [place] [address] Care Team Providers Name Role Phone Jeffery Leon MD Primary Care Provider Allergies Active Allergy Reactions Severity Noted Date Comments Acetaminophen Nausea And Vomiting 05/01/2020 Cefuroxime Axetil Anaphylaxis High 05/01/2020 Codeine Phosphate Nausea And Vomiting 05/01/2020 Morphine Sulfate 05/01/2020 Pain gets w orse Sulfa (Sulfonamide Nausea And Vomiting 05/01/2020 Antibiotics) Tramadol Nausea Only 04/17/2019 Medications Medication Sig Dispensed Refills Start Date End Date Status glipiZIDE 20 mg. 0 01/14/2019 Active (GLUCOTROL) 10 mg XL tablet liraglutide INJECT 1.8 MILLIGRAM 0 03/05/2019 Active (VICTOZA) 0.6 mg/0.1 SUBCUTANEOUSLY DAILY mL (18 mg/3 mL) injectable pen meclizine (ANTIVERT) TAKE 1 TABLET BY 0 03/10/2019 Active 25 mg tablet MOUTH ONCE DAILY NEEDED FOR MOTION SICKNESS montelukast TK 1 T PO D 0 04/03/2019 Activ e (SINGULAIR) 10 mg tablet norgestimate-ethinyl TK 1 T PO DAILY. 0 03/07/2019 Active estradioL (ORTHO START [address] SND AFTER TRI-CYCLEN) ONSET OF MENSES 0.18/0.215/0.25 mg-35 mcg (28) tablet insulin pen needles USE DAILY 0 03/06/2019 Active 31G x 516 phentermine 15 mg TK 1 C PO D 2 HOURS 0 03/13/2019 Active capsule AFTER BREAKFAST albuterol sulfate Inhale 180 mcg as 0 Active (PROAIR RESPICLICK) directed every 4 90 mcg/actuation hours as needed. inhaler blood glucose test [facility] Active strips (non-drug; combo route) route 3 times daily. Dimenhydrinate Take 50 mg by mouth 0 Active (DRAMAMINE) 50 mg every 6 hours as tablet,chewable needed. empagliflozin-linagl Take by mouth daily. 0 Active iptin 25-5 mg tablet ibuprofen (MOTRIN) Take 200 mg by mouth 0 Active 200 mg tablet every 6 hours as needed for Pain. lancets 1 lancet by misc 0 Act oliverio (non-drug; combo route) route as needed. loratadine-pseudoeph Take 1 Tab by mouth 0 Active edrine every 12 hours as (LORATADINE-D) 5-120 needed. mg per tablet metFORMIN Take 1,000 mg by 0 Act oliverio (GLUCOPHAGE) 1,000 mouth 2 times daily. mg tablet propRANolol Take 80 mg by mouth 0 Active (INDERAL) 80 mg 2 times daily. tablet Active Problems Problem Noted Date Type 2 diabetes mellitus 05/01/2020 Overview: part of PCOS A1C <7 Type II but well controlled. PCOS (polycystic ovarian syndrome) 05/01/2020 Allergic rhinitis 05/01/2020 Hyperlipidemia 05/01/2020 Obesity 05/01/2020 Closed left tibial fracture 08/26/2014 Tremor, essential 12/08/2010 Surgical History Surgery Date Site/Laterality Comments CHOLECYSTECTOMY OVARIAN CYST REMOVAL Medical History Medical History Date Comments Leg fracture 08/2014 Family History Medical History Relation Name Comments Depression Father Diabetes Father Heart Disease Father Asthma Mother Depression Mother Diabetes Mother Relation Name Status Comments Father Mother Social History Tobacco Use Types Packs/Day Years Used Date Never Smoker Smokeless Tobacco: Never Used Sex Assigned at Date Recorded Not on file Last Filed Vital Signs Vital Sign Reading Time Taken Comments Blood Pressure 120/68 04/05/2020 1439 EST Pulse 74 04/05/2020 1439 EST Temperature 35.8 ??C (96.4 ??F) 04/05/2020 1439 EST Respiratory Rate - - Oxygen Saturation - - Inhaled Oxygen Concentration - - Weight 95.3 kg (210 lb) 04/05/2020 1439 EST Height 166.4 cm (5' 5.5) 04/05/2020 1439 EST Body Mass Index 34.41 04/05/2020 1439 EST Plan of Treatment Health Maintenance Due Date Last Done Comments Eye Exam 1985 Foot Exam 1985 Hemoglobin A1C (Ha1C) 1985 Lipid Profile Screening (Cholesterol) 05/20/2003 05/20/2002 Microalbumin/Creatinine Ratio 05/20/2003 05/20/2002 Hepatitis B Vaccine (1 of 3 - Risk 3-dose series) 09/27/2003 Insurance Payer Benefit Plan Subscriber ID Effective Phone Address Typ e / Group Dates MEDICAID ACO MEDICAID ACO [id number] 2020-Pre [phone] [facility] [place] sent [address] [facility] [id number] EBARE,ALEAH Personal/Family Other [phone] (Home) [place] [address] EBARE,ALEAH Personal/Family Other [phone] (Home) [place] [address] EBARE,ALEAH Personal/Family Other [phone] (Home) [place] [address] Ariela Foreman Personal/Family Self [address] (Home) [place] [address] Ariela Foreman Personal/Family Self [address] (Home) [place] [address] KellenAriela Arik Personal/Family Self 1985 [phone] [address] [facility] [place] [address] Care Teams Bicycle Inspector Relationship Specialty Start Date End Date Jeffery Leon MD PCP - General 04/09/15
--- OUTSIDE RECORDS SUMMARY | 2022-01-18 11:50 | XMS_ITS | Encounter Summary ---
:1985 Author Organization [facility] Address [address] [place] [address] Care Team Providers Name Role Phone Jeffery Leon MD Primary Care Provider Encounter Details Date Type Department Care Team Description 01/26/2020 Lab Requisition [facility] Outr Resulting Lab, Pathology & Laboratory Provider [facility] [address] [place] [address] Social History Tobacco Use Types Packs/Day Years Used Date Never Assessed Sex Assigned at Date Recorded Not on file documented as of this encounter Plan of Treatment Not on filedocumented as of this encounter Procedures Procedure Name Priority Date/Time Associated Diagnosis Comme nts ANTI NUCLEAR AB Routine 01/26/2020 11:55 Results for this (SHERRI), IFA EDT procedure are i n the results section. documented in this encounter Results ANTI NUCLEAR AB (SHERRI), IFA (01/26/2020 11:55 EDT) Pathologist Sig nature SHERRI Interpretation Negative Negative [facility] Specimen Blood - Venous blood (substance) Narrative [facility] - 01/27/2020 15:33 EDT Results were obtained with the [employer] NOV A Lite HEp-2 SHERRI Kit by indirect immunofluorescence. Performing Organization Address City/State/ZIP Code Phon e Number [facility] [address] [place] [address] SERVICES documented in this encounter Visit Diagnoses Not on filedocumented in this encounter Care Teams Web Site Developer Relationship Specialty Start Date End Date Jeffery Leon MD PCP - General 04/09/15 documented as of this encounter
--- OUTSIDE RECORDS SUMMARY | 2022-01-18 11:50 | XMS_ITS | Encounter Summary ---
:1985 Author Organization [facility] Address [address] [place] [address] Care Team Providers Name Role Phone Jeffery Leon MD Primary Care Provider Reason for Visit Reason Comments New Patient Visit polyarthralgia Referral (Routine) - Authorization Not Required Specialty Diagnoses / Procedures Referred By Contact Refer red To Contact Rheumatology Diagnoses Polyarthralgia Pascual Forrest MD [facility] [address] [place], [place] [address] [address] [place] [address] Fax: Referral ID Status Reason Start Expiration Visits Visits Date Date Requested Authorized [id number] Authorization Not 1 1 Required Encounter Details Date Type Department Care Team Description 04/05/2020 Office Visit [facility] - FamaKellee A, Hype rmobility arthralgia (Primary Dx); [facility] [place] [facility] [place]algia; [address] [facility] [address] [facility] [place] [address] [address] [place] [address] Social History Tobacco Use Types Packs/Day Years [...] Body Mass Index 34.41 04/05/2020 1439 EST documented in this encounter Progress Notes Kellee Nunez MD - 04/05/2020 1400 EST [facility] Rheumatology Chief Complaint Patient presents with ??? New Patient Visit polyarthralgia HPI: Ariela Foreman is a 34 year old woman who is here at the request of Pascual Forrest MD for polyarthralgia. Ms. Foreman says she always has had problems with her joints. She has wondered about hypermobility. This summer, however, she had an episode of significant bilateral hand pain when she could not move herhands very well for about 2 weeks. She says she has never had this before involving both hands and her wrists. 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 She thinks that she may have overdone it. She says both hands were swollen, and it was difficult to make fists. She said they did not look swollen, but felt swollen. Any movement hurt her hands. Shewas treated with prednisone 20 mg twice a day for about 2 weeks. She says that this pain subsided after that. She has not had similar symptoms since then. Ms. Foreman describes a history of periodic tendinitis symptoms. She says that her kneecaps slip out of place. She notes that her left hip hurts often when she is sitting or walking too long. It is worse with movement. She also notes her right shoulder also is worse with movement. She says she rollsher ankles a lot. Regarding the shoulders, she says she fell down the stairs a few years ago injuring her shoulders. She says she wakes up at night due to dislocating her shoulders. She also says her joints pop and crack. She says her elbows used to dislocate as well. Ms. Foreman describes neuropathy in her feet since age of 14 due to diabetes. Of note she also has PCOS. She has been working with a can striper for right great toe pain. She says she has had discussions with Dr. Santana about a family history of hypermobility and a question of Apurva-Danlos syndrome. Ms. Foreman describes fatigue, and she attributes this to the medication she takes. She has lost some weight and is trying to lose weight for health reasons. She denies eye pain or eye or mouth dryness. She describes chronic asthma for which she takes medications. She has a history of nausea, and this is chronic. She denies any rash including psoriasis. Current Outpatient Medications Medication ??? albuterol sulfate (PROAIR RESPICLICK) 90 mcg/actuation inhaler ??? blood glucose test strips ??? Dimenhydrinate (DRAMAMINE) 50 mg tablet,chewable ??? empagliflozin-linagliptin 25-5 mg tablet ??? glipiZIDE (GLUCOTROL) 10 mg XL tablet ??? ibuprofen (MOTRIN) 200 mg tablet ??? insulin pen needles 31G x 5/16 ??? lancets ??? liraglutide (VICTOZA) 0.6 mg/0.1 mL (18 mg/3 mL) injectable pen ??? loratadine-pseudoephedrine (LORATADINE-D) 5-120 mg per tablet ??? meclizine (ANTIVERT) 25 mg tablet ??? metFORMIN (GLUCOPHAGE) 1,000 mg tablet ??? montelukast (SINGULAIR) 10 mg tablet ??? norgestimate-ethinyl estradioL (ORTHO TRI-CYCLEN) 0.18/0.215/0.25 mg-35 mcg (28) tablet ??? phentermine 15 mg capsule ??? propRANolol (INDERAL) 80 mg tablet No current facility-administered medications for this visit. Allergies include: Cefuroxime axetil, Acetaminophen, Codeine phosphate, Morphine sulfate, Sulfa (sulfonamide antibiotics), and Tramadol There is no problem list on file for this patient. Family History Problem Relation Age of Onset ??? Diabetes Mother ??? Asthma Mother ??? Depression Mother ??? Diabetes Father ??? Heart Disease Father ??? 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 Review of Systems: 13 point ROS was done with the patient. See scanned document for details. Pertinent positives and negatives are noted in the HPI. Physical Examination: BP 120/68 Pulse 74 Temp 35.8 ??C (96.4 ??F) Ht 166.4 cm (65.5) Wt 95.3 kg (210 lb) BMI 34.41 kg/m?? EYES: Conjunctivae not injected. ENT: No oral ulcers, dentition is good, underbite. NECK: No lymphadenopathy. LUNGS: Clear to auscultation bilaterally. CARDIOVASCULAR: Regular rate and rhythm. No murmur. No pedal edema. ABDOMEN: Soft, non tender. No hepatosplenomegaly. JOINT EXAM: No synovitis of the joints of the hands, wrists, or feet. Full painless ROM of shoulders, elbows, wrists, hips, knees and ankles. Hypermobile elbows, knees. Pes planus bilaterally. Tender points all four quadrants. SKIN: No rash on arms, legs, trunk. No nail pitting. No dilated capillary loops in the nail beds. NEURO: Strength 5/5. Reduced sensation to light touch feet. Labs: Lab Requisition on 01/26/2020 Component Date Value ??? SHERRI Interpretation 01/26/2020 Negative Labs 01/26/2020, NVR H: CRP 1.89 mg/dL; ESR 22; hemoglobin A1c 6.7%. Assessment and Plan: 1. Hypermobility arthralgia Ms. Foreman appears to have a history of hypermobility. This was more prominent when she was younger, but I can still see signs of hypermobility involving her elbows, knees and feet. Hypermobility is associated with chronic pain in adulthood. It often overlaps with fibromyalgia. Ms. Foreman also has symptoms of fibromyalgia and meets criteria for this. Regarding the bilateral hand pain that occurred thissummer, this is now resolved. He was possibly due to an acute tendinopathy from overuse. Tendinopathy is associated with diabetes mellitus. I believe her increased CRP is due to PCOS, diabetes, and obesity and not do to inflammatory arthritis. I see no signs of inflammatory arthritis on exam today or by her history. With a negative SHERRI, other autoimmune disease is unlikely. I would hold off on any additional work-up for rheumatologic disease. If hand swelling returns, you could check CCP antibodies and rheumatoid factor, and I would be happy to see her again. 2. Fibromyalgia 3. Bilateral hand pain I have not scheduled follow-up at this time. Kellee Nunez MD 05/01/2020 14:55 documented in this encounter Plan of Treatment Not on filedocumented as of this encounter Visit Diagnoses Diagnosis Hypermobility arthralgia - Primary Pain in joint, site unspecified Fibromyalgia Mylagia and myositis, unspecified Bilateral hand pain Pain in limb documented in this encounter Historical Medications This list may reflect changes made after this encounter. Medication Sig Dispensed Refills Start Date End Date propRANolol (INDERAL) 80 Take 80 mg by mouth 2 0 mg tablet times daily. metFORMIN (GLUCOPHAGE) Take 1,000 mg by mouth 0 1,000 mg tablet 2 times daily. loratadine-pseudoephedri Take 1 Tab by mouth 0 ne (LORATADINE-D) 5-120 every 12 hours as mg per tablet needed. lancets 1 lancet by misc 0 (non-drug; combo route) route as needed. ibuprofen (MOTRIN) 200 Take 200 mg by mouth 0 mg tablet every 6 hours as needed for Pain. empagliflozin-linaglipti Take by mouth daily. 0 n 25-5 mg tablet Dimenhydrinate Take 50 mg by mouth 0 (DRAMAMINE) 50 mg every 6 hours as tablet,chewable needed. blood glucose test 1 Strip by misc 0 strips (non-drug; combo route) route 3 times daily. albuterol sulfate Inhale 180 mcg as 0 (PROAIR RESPICLICK) 90 directed every 4 hours mcg/actuation inhaler as needed. phentermine 15 mg TK 1 C PO D 2 HOURS 0 9 capsule AFTER BREAKFAST insulin pen needles 31G USE DAILY 0 03/06/2019 x 10/16 norgestimate-ethinyl TK 1 T PO DAILY. START 0 10/2018 estradioL (ORTHO [address] SND AFTER ONSET OF TRI-CYCLEN) MENSES 0.18/0.215/0.25 mg-35 mcg (28) tablet montelukast (SINGULAIR) TK 1 T PO D 0 04/03/2019 10 mg tablet meclizine (ANTIVERT) 25 TAKE 1 TABLET BY MOUTH 0 03/10/2019 mg tablet ONCE DAILY NEEDED FOR MOTION SICKNESS liraglutide (VICTOZA) INJECT 1.8 MILLIGRAM 0 08/2018 0.6 mg/0.1 mL (18 mg/3 SUBCUTANEOUSLY DAILY mL) injectable pen glipiZIDE (GLUCOTROL) 10 20 mg. 0 01/14/2019 mg XL tablet added in this encounter Care Teams Software Sales Representative Relationship Specialty Start Date End Date Jeffery Leon MD PCP - General 04/09/15 documented as of this encounter
--- OUTSIDE RECORDS SUMMARY | 2022-01-18 11:50 | XMS_ITS | Encounter Summary ---
:1985 Author Organization [facility] Address [address] [place] [address] Care Team Providers Name Role Phone Jeffery Leon MD Primary Care Provider Encounter Details Date Type Department Care Team Description 05/20/2002 Hospital Encounter [facility] - Tangela Ku, PRE OWNED SALES MANAGER [address] [place] [address] Other Unknown, Provider, [address] [place] [address] Social History Tobacco Use Types Packs/Day Years Used Date Never Smoker Smokeless Tobacco: Never Used Sex Assigned at Date Recorded Not on file documented as of this encounter Plan of Treatment Not on filedocumented as of this encounter Visit Diagnoses Not on filedocumented in this encounter Care Teams Welfare Officer Relationship Specialty Start Date End Date Jeffery Leon MD PCP - General 04/09/15 documented as of this encounter
== END ==
PROVIDERS: PCP Family Medicine; Visit Provider Physician Assistant
DX: M79.642 Pain in left hand (principal)
CPT/HCPCS: 73130

== ENCOUNTER 2022-08-23 04:15 | Outpatient (CLI) | payer MEDICAID, SELFPAY ==
[2022-08-23 07:51] LABS: CREATININE 0.6 mg/dL (0.55-1.02); Estimated GFR 118.49 (mL/min/1.73m2)
== END 2022-08-23 04:16 | disposition home or self-care (01) ==
LOC: LBO 04:15
PROVIDERS: PCP Family Medicine; Visit Provider Family Medicine
DX: I10 Essential (primary) hypertension (principal)
CPT/HCPCS: 36415; 82565

== ENCOUNTER 2022-08-30 16:00 | Outpatient (REF) | payer OTHER, SELFPAY ==
[2022-08-30 22:21] LABS: COMMENT (LAB VIEW ONLY) 54.68 mg/dL; Microalb ug/mg Crea 10.6 ug/mg Cr
== END 2022-08-30 16:01 | disposition home or self-care (01) ==
LOC: LBN 16:00
PROVIDERS: PCP Family Medicine; Visit Provider Family Medicine
DX: E11.9 Type 2 diabetes mellitus without complications (principal)
CPT/HCPCS: 82043; 82570

== ENCOUNTER → 2023-07-30 15:19 | Outpatient (CLI) | payer MEDICAID, SELFPAY ==
--- NOTE | 2023-07-30 | DI.RAD_ITS ---
Exam(s) XR ANKLE LT COMPLETE EXAM: XR ANKLE LT COMPLETE CLINICAL HISTORY: M25.572 Pain left ankle and joints of left foot TECHNIQUE: 2D digital imaging was performed. Three views. COMPARISON: CR XR tib/fib LT from 02/09/2019 CR,XR XR ANKLE RT COMPLETE from 01/28/2021 FINDINGS: BONES: Intramedullary arabella and tibia. Old distal tibial and fibular fractures. No acute fracture is present. No bony destructive lesion is seen. JOINTS:The ankle mortise is normally aligned. Tibiotalar joint space is maintained. SOFT TISSUE: Normal. IMPRESSION: No acute abnormality. DATA REPOSITORY: RADIATION DOSE DELIVERED:
--- NOTE | 2023-07-30 | DI.RAD_ITS ---
Exam(s) XR FOOT LT COMPLETE EXAM: XR FOOT LT COMPLETE CLINICAL HISTORY: M79.672 Pain in left foot. TECHNIQUE: 2D digital imaging was performed. Three views. COMPARISON: No exams were available for comparison FINDINGS: BONES: No acute fracture is present. No bony destructive lesion is seen. JOINTS: No dislocation present. Hammertoe deformity of the 2nd toe. SOFT TISSUE: Swelling of the dorsum of the foot. IMPRESSION: No acute bony abnormality. DATA REPOSITORY: RADIATION DOSE DELIVERED:
== END ==
PROVIDERS: PCP Family Medicine; Visit Provider Nurse Practitioner Family
DX: M25.572 Pain in left ankle and joints of left foot
CPT/HCPCS: 73610; 73630

== ENCOUNTER 2023-09-05 05:06 | Outpatient (CLI) | payer SELFPAY ==
[2023-09-05] MEDS: Levalbuterol HFA 15 GM INH 4 PUFF IH (14:15)
[2023-09-05] MEDS: Inhaler, Assist Device 1 EACH MC (14:15)
--- NOTE | 2023-09-06 10:20 | W.PFT ---
Date of service: 09/05/23 Time of Service: 12:49 Pulmonary Function Test Result Indications: Asthma Interpretation Spirometry: There is no airflow limitation. No bronchodilator response. Lung Volumes: Normal lung volumes Diffusion Capacity: Normal diffusion Airway Pressure: Normal airways resistance Impression Normal pulmonary function testing Clinical Correlation therefore is recommended.
== END 2023-09-05 05:07 | disposition home or self-care (01) ==
LOC: RT 05:06
PROVIDERS: PCP Family Medicine; Visit Provider Nurse Practitioner Family
DX: J45.909 Unspecified asthma, uncomplicated (principal)
CPT/HCPCS: 94060; 94726; 94729

== ENCOUNTER 2023-10-23 14:02 | Outpatient (REF) | payer MEDICAID, SELFPAY | END 2023-10-23 14:03 | disposition home or self-care (01) | LOC: LBN 14:02 | PROVIDERS: PCP Family Medicine; Visit Provider Physician Assistant | DX: B99.9 Unspecified infectious disease (principal); R82.89 Other abnormal findings on cytological and histological examination of urine | CPT/HCPCS: 87070; 87205 ==

== ENCOUNTER 2023-10-24 16:01 | Outpatient (REF) | payer MEDICAID, SELFPAY | END 2023-10-24 16:02 | disposition home or self-care (01) | LOC: LBN 16:01 | PROVIDERS: PCP Family Medicine; Visit Provider Podiatrist | DX: L03.90 Cellulitis, unspecified (principal); E11.621 Type 2 diabetes mellitus with foot ulcer; L97.512 Non-pressure chronic ulcer of other part of right foot with fat layer exposed | CPT/HCPCS: 87070; 87075; 87205 ==

== ENCOUNTER 2023-11-05 15:38 | Outpatient (REF) | payer MEDICAID, SELFPAY ==
--- NOTE | 2023-11-05 15:25 | PAPFT_PTH ---
PATIENT: Ariela Foreman LOC: [facility] U#:[id number] AGE/SX: 38/F ROOM: RE11/05/[address]: Pascual Forrest MD : 1985 BED: DIS: 11/05/2023 SPEC #: [id number] RECD: 11/06/23 13:21 STATUS: LISA REShahriar #: [id number] NUSRAT: 11/05/23 15:[address]: Pascual Forrest DEPT: [facility] Cytology RECD BY: Sandra Lebron Tissues: 1 - CX/ENDOCX FOR PAP SMEARS Procedures: PAP THIN PREP/[facility] Screening Comments: [id number]
[2023-11-05 20:56] LABS: COMMENT (LAB VIEW ONLY) 36.29 mg/dL
== END 2023-11-05 15:39 | disposition home or self-care (01) ==
LOC: LBN 15:38
PROVIDERS: PCP Family Medicine; Visit Provider Family Medicine
DX: E11.9 Type 2 diabetes mellitus without complications (principal)
CPT/HCPCS: 88142; 82043; 82570

== ENCOUNTER → 2023-11-28 00:55 | Outpatient (CLI) | payer MEDICAID, SELFPAY ==
--- NOTE | 2023-11-28 07:45 | DI.RAD_ITS ---
Exam(s) XR FOOT RT COMPLETE EXAM: XR FOOT RT COMPLETE CLINICAL HISTORY: Pain in right foot,M79.671. TECHNIQUE: 2D digital imaging was performed of the right foot. Three images were obtained. AP, obl ique and lateral views were obtained. COMPARISON: No exams were available for comparison FINDINGS: BONES: No acute fracture is present. No bony destructive lesion is seen. There is a small enthesophyt e at the posterior calcaneus. JOINTS: No dislocation present. There appear to be hammertoe deformities of the 2nd through 5th toes. SOFT TISSUE: Normal. IMPRESSION: No acute abnormality. DATA REPOSITORY: RADIATION DOSE DELIVERED:
--- NOTE | 2023-11-28 07:45 | DI.RAD_ITS ---
Exam(s) XR FOOT LT COMPLETE EXAM: XR FOOT LT COMPLETE CLINICAL HISTORY: Pain in left foot,M79.672. TECHNIQUE: 2D digital imaging was performed of the left foot. Images were obtained. AP, oblique a nd lateral views were obtained. COMPARISON: CR XR FOOT LT COMPLETE from 07/30/2023 FINDINGS: BONES: No acute fracture is present. No bony destructive lesion is seen. The distal aspect of an intr amedullary arabella is seen in the distal tibia. There are fracture deformities seen in the distal tibia and fibula. JOINTS: No dislocation present. There are hammertoe deformities of the 2nd, 3rd and 4th toes. SOFT TISSUE: Normal. IMPRESSION: Chronic changes of the foot as described above. DATA REPOSITORY: RADIATION DOSE DELIVERED:
== END ==
PROVIDERS: PCP Family Medicine; Visit Provider Podiatrist
DX: M79.672 Pain in left foot (principal); M79.671 Pain in right foot
CPT/HCPCS: 73630

== ENCOUNTER 2023-12-02 17:56 | Outpatient (REF) | payer MEDICAID, SELFPAY ==
[2023-12-02 19:53] LABS: C Diff PCR Negative (Negative)
[2023-12-03 21:14] LABS: Campylobacter PCR Negative (Negative); Salmonella PCR Negative (Negative); Shiga Toxin PCR Negative (Negative); Shigella/Enteroinvasive Ecoli Negative (Negative)
== END 2023-12-02 17:57 | disposition home or self-care (01) ==
LOC: LBN 17:56
PROVIDERS: PCP Family Medicine; Visit Provider Physician Assistant
DX: R19.8 Other specified symptoms and signs involving the digestive system and abdomen (principal); R19.7 Diarrhea, unspecified
CPT/HCPCS: 87493; 87505; 87177

== ENCOUNTER 2024-04-02 02:23 | Outpatient (CLI) | payer MEDICAID, SELFPAY ==
--- NOTE | 2024-04-02 07:30 | DI.RAD_ITS ---
Exam(s) XR TOE RT GREAT EXAM: XR TOE RT GREAT CLINICAL HISTORY: Ulcer to the plantar medial aspect of the hallux,diabetic ulcer,E11.621,L97. TECHNIQUE: 2D digital imaging was performed. COMPARISON: CR XR FOOT RT COMPLETE from 11/28/2023 FINDINGS: BONES: No acute fracture is present. No bony destructive lesion is seen. JOINTS: No dislocation present. Number toe deformities of 2nd through 5th toes. SOFT TISSUE: Normal. No foreign body or gas collection. IMPRESSION: No acute abnormality.. DATA REPOSITORY: RADIATION DOSE DELIVERED:
== END 2024-04-02 02:43 ==
LOC: DI 02:23
PROVIDERS: PCP Family Medicine; Visit Provider Podiatrist
DX: E11.621 Type 2 diabetes mellitus with foot ulcer (principal); L97.512 Non-pressure chronic ulcer of other part of right foot with fat layer exposed
CPT/HCPCS: 73660

== ENCOUNTER 2024-07-10 16:20 | Outpatient (CLI) | payer MEDICAID, SELFPAY ==
--- NOTE | 2024-07-10 16:15 | DI.RAD_ITS ---
Exam(s) XR LUMBAR SPINE COMPLETE EXAM: XR LUMBAR SPINE COMPLETE CLINICAL HISTORY: M54.9 Dorsalgia,back pain. TECHNIQUE: 2D digital imaging was performed of the lumbar spine. Five images were obtained. AP, la teral, right oblique, left oblique and L5-S1 spot views were obtained. COMPARISON: No exams were available for comparison FINDINGS: BONES: No fracture or destructive lesion. Vertebral bodies are unremarkable. No facet hypertrophy osmany ntified. DISKS: Intervertebral disc spaces are maintained. ALIGNMENT: Lumbar spinal alignment is within normal limits. No spondylolysis or spondylolisthesis. SOFT TISSUE: There are surgical clips in the right upper quadrant of the abdomen. IMPRESSION: No acute abnormality. DATA REPOSITORY: RADIATION DOSE DELIVERED:
--- NOTE | 2024-07-10 16:15 | DI.RAD_ITS ---
Exam(s) XR CHEST 2V PA LATERAL EXAM: XR CHEST 2V PA LATERAL CLINICAL HISTORY: R05.9 cough TECHNIQUE: 2D digital imaging was performed of the chest. Two images were obtained. PA and lateral views were obtained. COMPARISON: No exams were available for comparison FINDINGS: MEDIASTINUM: Normal. HEART: Normal. PULMONARY VASCULATURE: Normal. LUNGS: No focal consolidating infiltrates. Mild peribronchial thickening which may reflect a bronchi tis. PLEURAL SPACE: No pleural effusion or pneumothorax. BONE:Within normal limits for the patient's age. OTHER FINDINGS:Normal. IMPRESSION: Mild peribronchial thickening which may reflect bronchitis. No focal consolidating infiltrates. DATA REPOSITORY: RADIATION DOSE DELIVERED:
--- NOTE | 2024-07-10 17:05 | DI.VRAD_ITS ---
PROCEDURE INFORMATION: Exam: XR Chest Exam date and time: 07/10/2024 4:48 PM Age: 38 years old Clinical indication: Cough TECHNIQUE: Imaging protocol: Radiologic exam of the chest. Views: 2 views. COMPARISON: CT NECK W 06/23/2021 8:58 PM FINDINGS: Lungs: Unremarkable. No consolidation. Pleural spaces: Unremarkable. No pleural effusion. No pneumothorax. Heart/Mediastinum: Unremarkable. No cardiomegaly. Bones/joints: Unremarkable. IMPRESSION: No acute findings. Dictated and Authenticated by: Herminia Juares MD. Orderin Chioma Sales MD
--- NOTE | 2024-07-10 17:08 | DI.VRAD_ITS ---
PROCEDURE INFORMATION: Exam: XR Lumbosacral Spine Exam date and time: 07/10/2024 4:42 PM Age: 38 years old Clinical indication: Dorslagia and other: Pain TECHNIQUE: Imaging protocol: Radiologic exam of the lumbosacral spine. Views: 4 or 5 views. COMPARISON: CT RENAL COLIC WO CONTRAST 11/25/2017 4:28 PM FINDINGS: Bones/joints: There is no evidence of acute fracture.There is no evidence of malalignment or dislocation. Intervertebral disc spaces are maintained. Soft tissues: Unremarkable. IMPRESSION: 1. There is no evidence of acute fracture.There is no evidence of malalignment or dislocation. 2. Intervertebral disc spaces are maintained. Dictated and Authenticated by: Herminia Juares MD. Orderin Chioma Sales MD
== END 2024-07-10 16:40 ==
LOC: DI 16:20
PROVIDERS: PCP Family Medicine; Visit Provider Physician Assistant
DX: R05.9 Cough, unspecified (principal); M54.9 Dorsalgia, unspecified
CPT/HCPCS: 71046; 72110

== ENCOUNTER 2024-10-23 19:20 | Outpatient (REF) | payer MEDICAID, SELFPAY ==
[2024-10-23 21:21] LABS: Abs Immature Grans 0.06 10^3/uL (0.0-0.06); Absolute Basophil Count 0.12 10^3/uL (0.0-0.2); Absolute Eosinophil Count 0.59 10^3/uL (0.0-0.7); Absolute Lymphocyte Count 4.17 10^3/uL (1.2-3.4); Basophils % 0.9 %; Eosinophils % 4.3 %; HCT 45.1 % (36.0-46.0); HGB 14.8 g/dL (11.2-15.7); Immature Grans % 0.4 %; Lymphocytes % 30.4 %; MCH 26.8 pg (27.0-33.0); MCHC 32.8 % (32.0-36.0); MCV 82 fL (80-95); MPV 9.9 fL (8.0-11.0); Monocytes % 5.5 %; Neutrophils % 58.5 %; Platelet Count 375 10^3/uL (130-400); RBC 5.52 10^6/uL (3.93-5.22); RDW-SD 38.2 fL; WBC 13.72 10^3/uL (4.4-10.8)
[2024-10-23 21:23] LABS: Absolute Monocyte Count 0.75 10^3/uL (0.1-0.8); Absolute Neutrophil Count 8.03 10^3/uL (1.2-6.7)
[2024-10-23 21:23] LABS: Bilirubin Negative (Negative); Blood Trace-lysed (Negative); Clarity Clear (Clear); Glucose >=1000 mg/dL (Negative); Ketones Negative (Negative); Leukocyte Esterase Negative (Negative); Nitrite Negative (Negative); Urobilinogen 0.2 mg/dL (Up to 0.2); pH 5.5 (5-8)
[2024-10-23 21:26] LABS: Anion Gap 6.4 mmol/L (3-11); BUN 10 mg/dL (7-18); CO2 29.6 mmol/L (21.0-32.0); CREATININE 0.8 mg/dL (0.55-1.02); Calcium 9.3 mg/dL (8.5-10.1); Chloride 102 mmol/L (98-107); Estimated GFR 95.46 (mL/min/1.73m2); Glucose 189 mg/dL (74-106); Potassium 4.6 mmol/L (3.5-5.1); Sodium 138 mmol/L (136-145)
[2024-10-23 21:31] LABS: Bacteria Rare HPF (Negative); C & S Indicated? No; Casts Negative LPF (Negative); Crystals Negative HPF (Negative); Epithelial Cells Rare HPF (Negative); Mucus Negative (Negative); RBC 0-2 HPF (0-2); WBC 0-2 HPF (0-5)
== END 2024-10-23 19:21 | disposition home or self-care (01) ==
LOC: LBN 19:20
PROVIDERS: PCP Family Medicine; Visit Provider Nurse Practitioner Family
DX: R10.9 Unspecified abdominal pain (principal); R30.0 Dysuria
CPT/HCPCS: 80048; 81003; 81015; 85025

== ENCOUNTER 2024-10-27 10:42 | Outpatient (CLI) | payer MEDICAID, SELFPAY ==
--- NOTE | 2024-10-27 09:45 | DI.US_ITS ---
Exam(s) US RENAL PELVIC TRANSVAGINAL EXAM: US RENAL PELVIC TRANSVAGINAL CLINICAL HISTORY: eval pathology pelvic/perineal pain R10.2. TECHNIQUE: Rai scale imaging and color doppler were used. COMPARISON: CT RENAL COLIC WO CONTRAST from 11/25/2017 FINDINGS: Renal ultrasound: Right kidney: cm Echogenicity: Normal Hydronephrosis: No Cyst or mass: No Nephrolithiasis: No Left kidney: 12.4cm Echogenicity: Normal Hydronephrosis: No Cyst or mass: No Nephrolithiasis: No Bladder:Normal. Both ureteral jets were visualized. Prevoid vol:245 cc Postvoid vol:20 cc Pelvic ultrasound: The uterus is retroverted and measures 7.2 x 3.2 x 4.3 cm. The endometrium measures 5 millimeters in thickness. No evidence of fibroids. The right ovary is normal in size and appearance. The left ovary was unable to be visualized. IMPRESSION: Negative renal ultrasound. Unremarkable uterus and right ovary. Left ovary was not visualized DATA REPOSITORY:
== END 2024-10-27 11:02 ==
LOC: DI 10:43
PROVIDERS: PCP Family Medicine; Visit Provider Nurse Practitioner Family
DX: R10.2 Pelvic and perineal pain (principal)
CPT/HCPCS: 76770; 76830; 76856

== ENCOUNTER 2024-12-04 01:57 | Emergency (ER) | payer MEDICAID, SELFPAY ==
[2024-12-04 02:01] VITALS: BP 142/90; PULSE 109; RESP 18; TEMP 37.1; O2SAT 98
--- NOTE | 2024-12-04 02:17 | ED.GENADUL_ITS ---
Discharge Plan Disposition Patient Disposition: Home Condition: Good Discharge Details Clinical Impression: Pharyngitis Primary Care Provider: Pascual Forrest ED Provider: Delfina Huggins Meds and New Rx's Prescriptions: Continued meloxicam 15 mg tablet 15 mg PO DAILY PRN (Reason: arthralgia) Qty: 90 3RF (DME) BreatheRite MDI Spacer Spacer See Rx Instructions .ROUTE .MEDSUPPLY Qty: 1 0RF Rx Instructions: As directed Trulicity 3 mg/0.5 mL pen injector 3 mg subcut QWEEK Qty: 2 4RF ondansetron 4 mg tablet,disintegrating 4 mg PO .Q6-8H PRN (Reason: nausea and vomiting) Qty: 14 0RF Dramamine 50 mg tablet,chewable 50 mg PO Q4H PRN Qty: 15 0RF meclizine 25 mg tablet 25 mg PO DAILY PRN (Reason: motion sickness) Qty: 30 0RF (DME) FreeStyle Janee 2 [place] Misc See Rx Instructions .ROUTE .MEDSUPPLY Qty: 1 0RF Rx Instructions: As directed montelukast [Singulair] 10 mg tablet 10 mg PO DAILY PRN (Reason: allergic symptoms) Qty: 90 1RF albuterol sulfate 90 mcg/actuation HFA aerosol inhaler 1 - 2 puff Inhalation q 4 h PRN (Reason: bronchospasm) Qty: 1 1RF metformin 1,000 mg tablet 1,000 mg PO BID Qty: 180 3RF propranolol 80 mg capsule,extended release 24 hr 80 mg PO DAILY Qty: 90 3RF Jardiance 25 mg tablet 25 mg PO QAM Qty: 90 3RF glipizide 10 mg tablet extended release 24hr 20 mg PO DAILY Qty: 180 3RF phentermine 15 mg capsule 15 mg PO DAILY Qty: 30 2RF Rx Instructions: must administer 2 hours after breakfast cyclobenzaprine 10 mg tablet 10 mg PO HS PRN (Reason: muscle spasm) Qty: 10 0RF (DME) lancets [OneTouch UltraSoft Lancets] Misc See Rx Instructions .ROUTE .MEDSUPPLY Qty: 300 3RF Rx Instructions: test TID norgestimate-ethinyl estradiol 0.18/0.215/0.25 mg-35 mcg (28) tablet 1 tab PO DAILY Qty: 28 11RF Rx Instructions: start Saturday after onset of menses (DME) FreeStyle Janee 2 Sensor Kit See Rx Instructions .ROUTE .MEDSUPPLY Qty: 1 11RF Rx Instructions: As directed Discharge Instructions Instructions: Sore Throat, Adult ED Additional Instructions: Continue to take over the counter pain medication for your symptoms; follow the directions on the bottle. Steroid should be in effect within four hours after it was given; this should help your pain. Once you are able, please try to stay hydrated with fluids. Warm drinks may help. Call your primary care doctor in the morning to schedule an appointment within 72 hours to followup on your visit here. Return to the emergency department for new or worsening symptoms, including fever, rash, inability to swallow your spit, if you are not able to swallow liquids or take your medications at home, or if you have any other concerns. Referrals: Pascual Forrest MD [Primary Care Provider, Medicine] HPI General Date/Time Provider Initiated Documentation: 12/04/24 01:58 . HPI Narrative: 39yo F with hx DM presenting with sore throat x 3 days. Covid/flu/strep negative on 12/02/24. Pain has worsened and she is now have difficulty swallowing liquids and is unable to take her home medications. Associated body aches, headache, and general malaise. No fevers, rash, nausea, vomiting, or other concerns. Otherwise in her usual state of health . Related Data Home Medications ?Medication ?Instructions ?Recorded ?Confirmed dimenhydrinate 50 mg chewable 50 mg PO Q4H PRN #15 tab -caps 03/10/19 12/04/24 tablet (Dramamine) meclizine 25 mg tablet 25 mg PO DAILY PRN motion si ckness 03/10/19 12/04/24 #30 tab-caps lancets (OneTouch UltraSoft #300 ea 07/20/19 12/01/24 Lancets) meloxicam 15 mg tablet 15 mg PO DAILY PRN arthralgi a #90 07/11/21 12/04/24 tabs inhalational spacing device #1 ea 08/20/23 12/01/24 (BreatheRite MDI Spacer) albuterol sulfate 90 mcg/actuation 1 - 2 puff inhalati on q 4 h PRN 05/14/24 12/04/24 aerosol inhaler bronchospasm ##1 flash glucose scanning reader #1 ea 05/14/24 12/01/24 (FreeStyle Janee 2 [place]) metformin 1,000 mg tablet 1,000 mg PO BID #180 tabs 12/04/24 montelukast 10 mg tablet 10 mg PO DAILY PRN allergic 05/14/24 12/04/24 (Singulair) symptoms #90 tabs propranolol 80 mg capsule,24 80 mg PO DAILY #90 caps 1 07/15/23 12/04/24 hr,extended release cyclobenzaprine 10 mg tablet 10 mg PO HS PRN muscle sp asm #10 07/10/24 12/04/24 tabs norgestimate-ethinyl estradiol 1 tab PO DAILY #28 tab- caps 09/07/24 12/04/24 0.18mg/0.215mg/0.25mg-0.035mg(28)tablet dulaglutide 3 mg/0.5 mL 3 mg (0.5 mL) subcut QWEEK # 2 mL 09/17/24 12/04/24 subcutaneous [facility] ondansetron 4 mg disintegrating 4 mg PO .Q6-8H PRN rony sea and 10/23/24 12/04/24 tablet vomiting #14 tabs flash glucose sensor (FreeStyle #1 ea 11/06/24 5 Janee 2 Sensor kit) empagliflozin 25 mg tablet 25 mg PO QAM #90 tabs 12/0112/04/24 (Jardiance) glipizide 10 mg tablet, extended 20 mg (2 x 10 mg) PO DAILY #180 12/01/24 12/04/24 release 24 hr tab-caps phentermine 15 mg capsule 15 mg PO DAILY #30 caps 07/06/2712/04/24 Previous Rx's ?Medication ?Instructions ?Recorded dimenhydrinate 50 mg chewable 50 mg PO Q4H PRN #15 tab -caps 03/10/19 tablet (Dramamine) meclizine 25 mg tablet 25 mg PO DAILY PRN motion si ckness 03/10/19 #30 tab-caps lancets (OneTouch UltraSoft #300 ea 07/20/19 Lancets) meloxicam 15 mg tablet 15 mg PO DAILY PRN arthralgi a #90 07/11/21 tabs inhalational spacing device #1 ea 08/20/23 (BreatheRite MDI Spacer) albuterol sulfate 90 mcg/actuation 1 - 2 puff inhalati on q 4 h PRN 05/14/24 aerosol inhaler bronchospasm ##1 flash glucose scanning reader #1 ea 05/14/24 (FreeStyle Janee 2 [place]) metformin 1,000 mg tablet 1,000 mg PO BID #180 tabs montelukast 10 mg tablet 10 mg PO DAILY PRN allergic 05/14/24 (Singulair) symptoms #90 tabs propranolol 80 mg capsule,24 80 mg PO DAILY #90 caps 1 07/15/23 hr,extended release cyclobenzaprine 10 mg tablet 10 mg PO HS PRN muscle sp asm #10 07/10/24 tabs norgestimate-ethinyl estradiol 1 tab PO DAILY #28 tab- caps 09/07/24 0.18mg/0.215mg/0.25mg-0.035mg(28)tablet dulaglutide 3 mg/0.5 mL 3 mg (0.5 mL) subcut QWEEK # 2 mL 09/17/24 subcutaneous pen injector (Trulicity) ondansetron 4 mg disintegrating 4 mg PO .Q6-8H PRN rony sea and 10/23/24 tablet vomiting #14 tabs flash glucose sensor (FreeStyle #1 ea 11/06/24 Janee 2 Sensor kit) empagliflozin 25 mg tablet 25 mg PO QAM #90 tabs 12/01 (Jardiance) glipizide 10 mg tablet, extended 20 mg (2 x 10 mg) PO DAILY #180 12/01/24 release 24 hr tab-caps phentermine 15 mg capsule 15 mg PO DAILY #30 caps 06/27 Allergies Allergy/AdvReac Type Severity Reaction Status Date / Time cefuroxime axetil (From Allergy Severe Anaphylaxsi Verified 12/04/24 02:09 Ceftin) s sodium nitrite Allergy Severe Throat Verified 12/04/24 02:09 Swelling tree and shrub pollen Allergy Severe Other (See Verified 12/04/24 02:09 Comment) acetaminophen (From Tylenol) AdvReac Intermediate Nausea Verified 12/04/24 02:09 codeine AdvReac Intermediate Nausea Verified 12/04/24 02:09 morphine AdvReac Intermediate pains in Verified 12/04/24 02:09 her head Sulfa (Sulfonamide AdvReac Intermediate Nausea Verified 12/04/24 02:09 Antibiotics) sulfacetamide AdvReac Intermediate GI Symptoms Verified 12/04/24 02:09 shellfish derived AdvReac Unknown Nausea Verified 12/04/24 02:09 tramadol AdvReac Severe Verified 12/04/24 02:09 headache maple Allergy Severe Anaphylaxsi Uncoded 12/04/24 02:09 s General Stated Complaint: GenMedical MARISOL: 4 Review of Systems Narrative: see HPI Exam Narrative Exam Narrative: General: Alert, non-toxic Head: Normocephalic, atraumatic Neck: Trachea midline, ?Neck supple. ENT: ?MMM.? Oropharynx injected with patchy white exudate. Uvula midline. Cardiac: ?RRR, no murmurs appreciated Resp: No respiratory distress. CTAB. Abd: ?Non-distended Neurologic: GCS 15. ? Moves all extremities freely against gravity Course Vital Signs Vital signs: Vital Signs Temperature 37.1 C 12/04/24 02:01 Pulse 109 H 12/04/24 02:01 Respiratory Rate 18 12/04/24 02:01 Blood Pressure 142/90 H 12/04/24 02:01 Pulse Oximetry 98 12/04/24 02:01 Temperature 37.1 C 12/04/24 02:01 Temperature Source Oral 12/04/24 02:01 Pulse 109 H 12/04/24 02:01 Respiratory Rate 18 12/04/24 02:01 Respiratory Effort Normal, Non-Labored 12/04/24 02:07 Blood Pressure 142/90 H 12/04/24 02:01 Pulse Oximetry 98 12/04/24 02:01 Pain Level 9 12/04/24 02:01 Medical Decision Making 39yo F with hx DM presenting with sore throat x 3 days, now have difficulty swallowing liquids and is unable to take her home medications. Slightly tachycardiac to low 100's on arrival after ambulating into triage, vital signs otherwise reassuring. Non-toxic on exam, no difficulty with secretions, no respiratory distress, no neck swelling, uvula midline. Appears well hydrated. Does not appear septic. Not consistent with peritonsillar abscess, epiglotittis, deep space neck infection; would not get bloodwork or CT imaging. Respiratory viral swab negative for covid and flu; strep swab negative. Given difficulty swallowing home medications, will treat with IM toradol and IM dexamethasone here. Offered to observe patient in ED with plan for PO trial once steroid takes effect; she would prefer to go home and return if she remains unable to swallow home medications & fluids. Repeat HR remains low 100's (? mild volume depletion); she remains well appearing and does not appear septic. Appropriate for discharge home with strict return precautions. Discharged; discharge instructions and return precautions were reviewed with patient and supportive partner at bedside. All questions were answered and they are in full agreement with the plan. PFSH All Active Problems (Updated 12/04/24 @ 02:54 by Delfina Huggins MD) Pharyngitis (Acute) Gynecologic exam normal (Acute) Acute sinusitis (Acute) Hammertoe of right foot (Acute) Acquired hallux extensus of right foot (Acute) Hallux limitus of right foot (Acute) Plantar fasciitis, right (Acute) Achilles tendon contracture, right (Acute) Ulcer of right foot limited to breakdown of skin (Acute) Elevated blood pressure reading without diagnosis of hypertension (Acute) Plantar verruca (Acute) Pain in right foot (Acute) Pain in left foot (Acute) Cellulitis (Acute) Diabetic ulcer of right foot with fat layer exposed (Acute) Type 2 diabetes mellitus with peripheral neuropathy (Acute) COVID-19 (Acute ~02/02/22) Raynaud phenomenon (Acute) Diabetes mellitus (Chronic) Leukocytosis (Acute) Diabetic retinopathy (Acute ~04/2021) 05/01/21 SHIPPEE-MILD IN THE RIGHT EYE-KB Hypermobile joint syndrome of multiple sites (Acute) Arthralgia (Acute) Chronic seasonal allergic rhinitis due to pollen (Acute) Migraine (Chronic) History of vertigo (Acute) Abnormal auditory perception of both ears (Acute) Vertigo (Acute) Asthma (Chronic) Polycystic ovarian syndrome (Chronic) Dysuria (Acute) Pain, joint, hip, left (Acute) Hypermobility arthralgia (Acute) Ulcer of toe of right foot (Acute) Polyarthropathy (Acute) Left hand pain (Acute) Obesity (Chronic) Fracture of lower extremity (Acute) Gastroesophageal reflux disease (Acute) Patellofemoral stress syndrome (Acute) Status post cholecystectomy (Acute) Status post ovarian cystectomy (Acute) Leg pain, left (Chronic) LGSIL (low grade squamous intraepithelial dysplasia) (Acute) 04/19/15 Benign essential tremor (Acute) Medical History Type II diabetes mellitus with complication, uncontrolled DX AGE 14 Surgical History Laparoscopic, Ovarian Cystectomy LEG FRACTURE 08/2014 Cholecystectomy Family History Mother Diabetes Hyperlipidemia Asthma Depression Father , AGE 56 Diabetes Depression Heart disease Sister Diabetes Maternal Grandfather Lung cancer Paternal Grandfather No problems noted. Maternal Grandmother , AGE 78 Diabetes Hyperlipidemia Brother No problems noted. 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[employer] Pets and animals: Yes Pets and animals: cat(s) and dog(s) Sexually active: Yes Do you think of yourself as: straight/heterosexual Current gender identity: female What is your relationship status?: living with partner How often do you talk on the phone with friends or family?: twice per week How often do you get together with friends or relatives?: once per week How often do you attend mandaen or baptism services?: decline to answer Do you belong to any clubs or organized social groups?: yes Panel score (0-1 are the most socially isolated patients): 3 What type of physical activity do you participate in: walking and aerobic Duration: 15-30 minutes/day Frequency: 1-2 times per week Joceline/Jew: No preference Special joceline needs: No Seatbelt use: always Helmet use: Yes Helmet use: always Drive intox or ride w/intox local truck driver: No Do you feel safe at home: Yes Do you feel safe in your relationship?: Yes
[2024-12-04] MEDS: Dexamethasone 10 MG/ML VIAL IM (02:21)
[2024-12-04] MEDS: Ketorolac 15 MG/ML VIAL IM (02:22)
[2024-12-04 02:50] VITALS: BP 146/86; PULSE 109; RESP 18; O2SAT 98
== END 2024-12-04 03:03 | disposition home or self-care (01) ==
PROVIDERS: Emergency Provider Student in an Organized Health Care Education/Training Program; PCP Family Medicine
DX: J02.9 Acute pharyngitis, unspecified (principal); E11.9 Type 2 diabetes mellitus without complications; Z79.84 Long term (current) use of oral hypoglycemic drugs; Z79.85 Long-term (current) use of injectable non-insulin antidiabetic drugs
CPT/HCPCS: 87426; 87880; 96372; 99284; 87081; 99283; J1100; J1885

== ENCOUNTER 2025-01-06 02:27 | Outpatient (CLI) | payer MEDICAID, SELFPAY ==
[2025-01-06 15:34] LABS: Abs Immature Grans 0.12 10^3/uL (0.0-0.06); HCT 43.5 % (36.0-46.0); HGB 14.4 g/dL (11.2-15.7); MCH 26.5 pg (27.0-33.0); MCHC 33.1 % (32.0-36.0); MCV 80 fL (80-95); MPV 9.5 fL (8.0-11.0); Platelet Count 343 10^3/uL (130-400); RBC 5.43 10^6/uL (3.93-5.22); RDW 13.4 % (11.7-14.6); RDW-SD 38.3 fL; WBC 16.38 10^3/uL (4.4-10.8)
[2025-01-06 15:57] LABS: RBC Morphology Normal
[2025-01-06 16:11] LABS: Anion Gap 10.1 mmol/L (3-11); BUN 9 mg/dL (7-18); CO2 24.9 mmol/L (21.0-32.0); Calcium 9.3 mg/dL (8.5-10.1); Chloride 101 mmol/L (98-107); Estimated GFR 116.30 (mL/min/1.73m2); Glucose 129 mg/dL (74-106); Potassium 4.0 mmol/L (3.5-5.1); Sodium 136 mmol/L (136-145)
[2025-01-06 16:37] LABS: Hemoglobin A1C 7.4 % (<5.7)
== END 2025-01-06 02:28 | disposition home or self-care (01) ==
LOC: LBO 02:27
PROVIDERS: Nurse Practitioner Family; PCP Family Medicine; Visit Provider Family Medicine
DX: D64.9 Anemia, unspecified (principal); E87.1 Hypo-osmolality and hyponatremia; Z13.1 Encounter for screening for diabetes mellitus
CPT/HCPCS: 36415; 80048; 83036; 85025

== ENCOUNTER 2025-01-12 16:16 | Outpatient (CLI) | payer MEDICAID, SELFPAY ==
--- NOTE | 2025-01-12 13:44 | DI.RAD_ITS ---
Exam(s) XR TOE RT GREAT XR FOOT RT COMPLETE EXAM: XR TOE RT GREAT CLINICAL HISTORY: ulcer. TECHNIQUE: 2D digital imaging was performed. Three views of the great toe. Three views of the foot. COMPARISON: No exams were available for comparison FINDINGS: BONES: No acute fracture is present. No bony destructive lesion is seen. JOINTS: No dislocation present. No significant degenerative changes. SOFT TISSUE: Normal. No foreign body or abnormal gas collection. IMPRESSION: Negative right great toe and foot. DATA REPOSITORY: RADIATION DOSE DELIVERED:
== END 2025-01-12 16:36 ==
LOC: DI 16:18
PROVIDERS: PCP Family Medicine; Visit Provider Podiatrist
DX: M20.5X1 Other deformities of toe(s) (acquired), right foot (principal)
CPT/HCPCS: 73630; 73660

== ENCOUNTER 2025-01-18 06:55 | Day surgery (SDC) | payer MEDICAID, SELFPAY ==
[2025-01-18] VITALS (13 sets, daily range): BP systolic 94–150; BP diastolic 50–90; PULSE 80–94; RESP 17–22; TEMP 36–36.9; O2SAT 94–97; BMI 35.1
[2025-01-18] MEDS: Lactated Ringers 1,000 ML 80 ML IV (07:37)
--- NOTE | 2025-01-18 08:00 | ANES.PREOP_ITS ---
General Info Date of Service Date Performed: 01/18/25 Height: 5 ft 5.25 in Weight: 96.4 kg Body Mass Index (BMI): 35.1 Surgical Procedure: Operation Date: 01/18/25 07:40 Proposed Procedure Side Surgeon p Exostectomy Right Rubia Sharp DPHu s Flexor Tenotomy, 2nd Rt Toe Right Rubia SharpSTEVIEHu Meds Allergies and Home Medications Allergies Allergy/AdvReac Type Severity Reaction Status Date / Time cefuroxime axetil (From Allergy Severe Anaphylaxsi Verified 01/18/25 07:29 Ceftin) s sodium nitrite Allergy Severe Other (See Verified 01/18/25 07:29 Comment) tree and shrub pollen Allergy Severe Other (See Verified 01/18/25 07:29 Comment) morphine AdvReac Severe Other (See Verified 01/18/25 07:29 Comment) acetaminophen (From Tylenol) AdvReac Intermediate Nausea Verified 01/18/25 07:29 codeine AdvReac Intermediate Nausea Verified 01/18/25 07:29 Sulfa (Sulfonamide AdvReac Intermediate Nausea Verified 01/18/25 07:29 Antibiotics) sulfacetamide AdvReac Intermediate GI Symptoms Verified 01/18/25 07:29 shellfish derived AdvReac Unknown Nausea Verified 01/18/25 07:29 tramadol AdvReac Severe Verified 01/18/25 07:29 headache maple Allergy Severe Anaphylaxsi Uncoded 01/18/25 07:29 s Home Medication ?Medication ?Instructions ?Recorded dimenhydrinate 50 mg chewable 50 mg PO Q4H PRN #15 tab -caps 03/10/19 tablet (Dramamine) meclizine 25 mg tablet 25 mg PO DAILY PRN motion si ckness 03/10/19 #30 tab-caps lancets (OneTouch UltraSoft #300 ea 07/20/19 Lancets) meloxicam 15 mg tablet 15 mg PO DAILY PRN arthralgi a #90 07/11/21 tabs inhalational spacing device #1 ea 08/20/23 (BreatheRite MDI Spacer) albuterol sulfate 90 mcg/actuation 1 - 2 puff inhalati on q 4 h PRN 05/14/24 aerosol inhaler bronchospasm ##1 flash glucose scanning reader #1 ea 05/14/24 (FreeStyle Janee 2 [place]) metformin 1,000 mg tablet 1,000 mg PO BID #180 tabs montelukast 10 mg tablet 10 mg PO DAILY PRN allergic 05/14/24 (Singulair) symptoms #90 tabs propranolol 80 mg capsule,24 80 mg PO DAILY #90 caps 1 07/15/23 hr,extended release cyclobenzaprine 10 mg tablet 10 mg PO HS PRN muscle sp asm #10 07/10/24 tabs norgestimate-ethinyl estradiol 1 tab PO DAILY #28 tab- caps 09/07/24 0.18mg/0.215mg/0.25mg-0.035mg(28)tablet dulaglutide 3 mg/0.5 mL 3 mg (0.5 mL) subcut QWEEK # 2 mL 09/17/24 [facility] ondansetron 4 mg disintegrating 4 mg PO .Q6-8H PRN rony sea and 10/23/24 tablet vomiting #14 tabs flash glucose sensor (FreeStyle #1 ea 11/06/24 Janee 2 Sensor kit) empagliflozin 25 mg tablet 25 mg PO QAM #90 tabs 12/01 (Jardiance) glipizide 10 mg tablet, extended 20 mg (2 x 10 mg) PO DAILY #180 12/01/24 release 24 hr tab-caps phentermine 15 mg capsule 15 mg PO DAILY #30 caps 06/27 clotrimazole 1 % vaginal cream 1 appful vaginal QHS #4 5 grams 12/25/24 Current Visit Medications: Current Medications Generic Name Dose Route Start Last Admin Trade Name Anne Marie PRN Reason Stop Dose Admin Ringer's Solution 1,000 mls @ 80 mls/hr 01/18/25 06:00 01/18/25 07:37 IV 01/18/25 23:59 80 mls/hr INFUSION VIRAL Administration Clindamycin Phosphate/Dextrose 300 mg in 50 mls @ 100 mls/hr 01/18/25 07:55 Cleocin In D5w IVPB 01/18/25 08:24 NOW ONE IV Miscellaneous Supplies 1 each 01/18/25 06:00 Iv Access IV 01/18/25 23:59 DIRECTED VIRAL Sodium Chloride 0 ml 01/18/25 06:00 Normal Saline Flush 10 Ml Syr IV 01/18/25 23:59 PRN PRN Sodium Chloride 0 ml 01/18/25 06:00 Normal Saline 10 Ml Vial IJ 01/18/25 23:59 DIRECTED PRN Sterile Water 0 ml 01/18/25 06:00 Water,Injection,Sterile 10 Ml Vial IJ 01/18/25 23:59 DIRECTED PRN PFSH Active Problems Active Problems: Problem Status Onset Code Gynecologic exam normal Acute Z01.419 Acute sinusitis Acute J01.90 Hammertoe of right foot Acute M20.41 Acquired hallux extensus of right foot Acute M20.5X1 Hallux limitus of right foot Acute M20.5X1 Plantar fasciitis, right Acute M72.2 Achilles tendon contracture, right Acute M67.01 Ulcer of right foot limited to breakdown of skin Acute L97.511 Elevated blood pressure reading without diagnosis of hypertension Acute R03.0 Plantar verruca Acute B07.0 Pain in right foot Acute M79.671 Pain in left foot Acute M79.672 Cellulitis Acute L03.90 Diabetic ulcer of right foot with fat layer exposed Acute E11.621, L97.512 Type 2 diabetes mellitus with peripheral neuropathy Acute E11.42 COVID-19 Acute ~0902/22 U07.1 Raynaud phenomenon Acute I73.00 Diabetes mellitus Chronic E11.9 Leukocytosis Acute D72.829 Diabetic retinopathy Acute ~04/2021 E11.319 Hypermobile joint syndrome of multiple sites Acute M24.80 Arthralgia Acute M25.50 Chronic seasonal allergic rhinitis due to pollen Acute J30.1 Migraine Chronic G43.909 History of vertigo Acute Z87.898 Abnormal auditory perception of both ears Acute H93.293 Vertigo Acute R42 Dysuria Acute R30.0 Pain, joint, hip, left Acute M25.552 Hypermobility arthralgia Acute M25.50 Ulcer of toe of right foot Acute L97.519 Polyarthropathy Acute M13.0 Left hand pain Acute M79.642 Obesity Chronic E66.9 Fracture of lower extremity Acute S82.90XA Gastroesophageal reflux disease Acute K21.9 Patellofemoral stress syndrome Acute M22.2X9 Status post cholecystectomy Acute Z90.49 Status post ovarian cystectomy Acute Z98.890, Z87.42 Leg pain, left Chronic M79.605 Polycystic ovarian syndrome Chronic E28.2 LGSIL (low grade squamous intraepithelial dysplasia) Acute Benign essential tremor Acute G25.0 Asthma Chronic J45.909 Medical History Medical History Fibromyalgia Type II diabetes mellitus with complication, uncontrolled DX AGE 14 Surgical History Surgical History Laparoscopic, Ovarian Cystectomy LEG FRACTURE 08/2014 Cholecystectomy Tobacco Smoking/Tobacco Use Status: Never Passive smoking exposure: Yes Second hand exposure: Yes Alcohol Alcohol Intake: never Substance Use Substance use: Never Substance use type: does not use Prental History History 0 Para 0 Hx # Term Pregnancies Multiple births Hx # Pregnancies Ectopic pregnancies AB induced Hx Number of Living Children AB spontaneous Vital Signs and Lab Results Vital Signs Most Recent Vital Signs in EMR: Most Recent Vital Signs Temp Pulse Resp BP Pulse Ox 36.1 C L 82 18 118/77 97 01/18/25 07:00 01/18/25 07:00 01/18/25 07:00 01/18/25 07:00 01/18/25 07:00 Point of Care Results Point of Care Results: POC- Test(urine) Negative 01/18/25 07:30 Finger Stick Blood Glucose 327 01/18/25 07:37 Lab Results Complete Blood Count: WBC, (4.4-10.8) 16.38 10^3/uL H 01/06/25, 15:18 RBC, (3.93-5.22) 5.43 10^6/uL H 01/06/25, 15:18 Hgb, (11.2-15.7) 14.4 g/dL 01/06/25, 15:18 Hct, (36.0-46.0) 43.5 % 01/06/25, 15:18 Plt Count, (130-400) 343 10^3/uL 01/06/25, 15:18 Complete Metabolic Panel: Sodium, (136-145) 136 mmol/L 01/06/25, 15:18 Potassium, (3.5-5.1) 4.0 mmol/L 01/06/25, 15:18 Chloride, (98-107) 101 mmol/L 01/06/25, 15:18 Carbon Dioxide, (21.0-32.0) 24.9 mmol/L 01/06/25, 15 :18 BUN, (7-18) 9 mg/dL 01/06/25, 15:18 Creatinine, (0.55-1.02) 0.6 mg/dL 01/06/25, 15:18 Est GFR (CKD-EPI 2020), (mL/min/1.73m2) 116.30 01/06/25, 15:18 Calcium, (8.5-10.1) 9.3 mg/dL 01/06/25, 15:18 Glucose, (74-106) 129 mg/dL H 01/06/25, 15:18 Hemoglobin A1c, (<5.7) 7.4 % H 01/06/25, 15:19 Anesthesia Assessment and Plan Anesthesia History Personal History: Awareness Under Anesthesia Family History: No Family History of Anesthesia Complications Exercise Tolerance Exercise Tolerance: Metabolic Equivalents>4 Pertinent Negatives Pertinent Negatives: No Symptoms of GERD Cardiac & Pulmonary Exam Cardiac Exam: Normal S1/S2 Heart Sounds Pulmonary Exam: Wheezing Present (left lower lobe) Implantable Cardiac Device Does patient have a Pacemaker or an ICD?: No Airway Exam Known Difficult Airway: No Mallampati Class: 2 Mouth Opening: Normal (> 3cm) Thyromental Distance: Greater than 3 cm Neck Range of Motion: Full ROM Neck Circumference: Normal Teeth Condition: Normal Dentition ASA Classification ASA Score: ASA 3 Emergency Case?: No NPO Status NPO Status: NPO Clears >2 hours, Solids >8 hours Status Status: Negative HCG Anesthesia Plan Resuscitation Status: Full Code Anesthesia Technique: General Anesthesia Airway Planned: LMA Monitors Used: Standard Monitors and SedLine Preoperative Comments:: Neg. HCG, Pt held GLP1, SGLT2 and stimulant for appropriate interval. History of awareness under anesthesia. Pt also describes EDS diagnosis. Abbie Christensen ENTRY WRITER
[2025-01-18] MEDS: CLINDAMYCIN 300 MG/50 ML BAG 100 MG IVPB (08:24)
[2025-01-18] MEDS: Lidocaine 1% Pres-Free 30 ML VIAL (08:45)
--- NOTE | 2025-01-18 09:18 | DI.RAD_ITS ---
Exam(s) XR FOOT RT LIMITED EXAM: XR FOOT RT LIMITED CLINICAL HISTORY: Ulcer of right foot. TECHNIQUE: 2D and realtime digital imaging was performed. CONTRAST MATERIAL: None COMPARISON: CR XR TOE RT GREAT from 01/12/2025 FINDINGS: Fluoroscopy was provided intraoperatively during surgical procedure on the right foot. See operative procedure report for details. IMPRESSION: Total fluoroscopy time 3 seconds RADIATION DOSE DELIVERED: Ka,r=0.0106mGy
--- NOTE | 2025-01-18 09:21 | PDOC.DSDIS_ITS ---
Date of service: 01/18/25 Discharge Plan Disposition Patient Disposition: Home Condition: Stable Discharge Details Attending Provider: Rubia Sharp Primary Care Provider: Pascual Forrest Home Meds and New Rx's Prescriptions: No Action meloxicam 15 mg tablet 15 mg PO DAILY PRN (Reason: arthralgia) Qty: 90 3RF (DME) BreatheRite MDI Spacer Spacer See Rx Instructions .ROUTE .MEDSUPPLY Qty: 1 0RF Rx Instructions: As directed Trulicity 3 mg/0.5 mL pen injector 3 mg subcut QWEEK Qty: 2 4RF ondansetron 4 mg tablet,disintegrating 4 mg PO .Q6-8H PRN (Reason: nausea and vomiting) Qty: 14 0RF Dramamine 50 mg tablet,chewable 50 mg PO Q4H PRN Qty: 15 0RF meclizine 25 mg tablet 25 mg PO DAILY PRN (Reason: motion sickness) Qty: 30 0RF (DME) FreeStyle Janee 2 [place] Misc See Rx Instructions .ROUTE .MEDSUPPLY Qty: 1 0RF Rx Instructions: As directed montelukast [Singulair] 10 mg tablet 10 mg PO DAILY PRN (Reason: allergic symptoms) Qty: 90 1RF albuterol sulfate 90 mcg/actuation HFA aerosol inhaler 1 - 2 puff Inhalation q 4 h PRN (Reason: bronchospasm) Qty: 1 1RF metformin 1,000 mg tablet 1,000 mg PO BID Qty: 180 3RF propranolol 80 mg capsule,extended release 24 hr 80 mg PO DAILY Qty: 90 3RF Jardiance 25 mg tablet 25 mg PO QAM Qty: 90 3RF glipizide 10 mg tablet extended release 24hr 20 mg PO DAILY Qty: 180 3RF phentermine 15 mg capsule 15 mg PO DAILY Qty: 30 2RF Rx Instructions: must administer 2 hours after breakfast cyclobenzaprine 10 mg tablet 10 mg PO HS PRN (Reason: muscle spasm) Qty: 10 0RF clotrimazole 1 % cream 1 appful vaginal QHS Qty: 45 0RF (DME) lancets [OneTouch UltraSoft Lancets] Misc See Rx Instructions .ROUTE .MEDSUPPLY Qty: 300 3RF Rx Instructions: test TID norgestimate-ethinyl estradiol 0.18/0.215/0.25 mg-35 mcg (28) tablet 1 tab PO DAILY Qty: 28 11RF Rx Instructions: start Saturday after onset of menses (DME) FreeStyle Janee 2 Sensor Kit See Rx Instructions .ROUTE .MEDSUPPLY Qty: 1 11RF Rx Instructions: As directed Discharge Instructions Additional Instructions: Please keep your dressings clean, dry and intact. Do not let the dressings get wet. Keep your right foot elevated at all times. Please use a surgical shoe for weightbearing. Stand Alone Forms: Podiatry Instructions-DSU Activity:: Elevate Remove Dressings/Wound Care:: Do Not Remove Shower/Bathe:: Cover Diet:: As Tolerated Discharge Orders Discharge Orders: Discharge Order (Routine); Ordered 01/18/25 Ordered By: Rubia Sharp DS: Diagnosis Discharge Diagnosis (1) Hammertoe of right foot: Status: Acute (2) Acquired hallux extensus of right foot: Status: Acute (3) Hallux limitus of right foot: Status: Acute (4) Ulcer of right foot limited to breakdown of skin: Status: Acute (5) Exostosis: Status: Acute (6) Diabetes mellitus: Status: Chronic
--- NOTE | 2025-01-18 09:25 | ROE_ITS ---
Operative Note Operative Note PRE-OP DIAGNOSIS: 1. Exostosis, right hallux. 2. Nonhealing ulcer, right hallux. 3. Hammertoe, right second toe POST-OP DIAGNOSIS: same PROCEDURE: 1. Percutaneous exostectomy, right hallux 2. Hammertoe, right second toe SURGEON: Rubia Sharp ANESTHESIA TYPE: Local By Surgeon (10 mL 1% lidocaine plain preop) Refer to Anesthesia Record ESTIMATED BLOOD LOSS: 5 PATHOLOGY: none sent COMPLICATIONS: None Patient was transported to: same day Patient's condition: stable Indications: 39-year-old female patient with past medical history significant for diabetes, EDS, GERD, asthma, with nonhealing ulcer to the right hallux. Patient has also been developing an ulcer to the right second toe. Patient has exhausted conservative wound care measures however ulcers persist. There is a bony exosto sis subright hallux IPJ. There is hammertoe to the right second toe both resulting in ulceration. I discussed the benefits of an exostectomy to the right hallux IPJ to reduce the bony prominence and thereby doing a surgical offloading to see if the ulcer would heal. Patient does also have a flexion contracture at the right second toe resulting in a distal tip ulcer. A flexor tenotomy was recommended for this. I discussed all the risks, benefits and possible complications of the procedure including but not limited to pain, nerve pain, CRPS, infection, infection to bone, need for further surgery or amputation, wound dehiscence, delayed healing, nonhealing, recurrence, DVT, PE, stroke, CA or with anesthesia. Patient accepts all risks. No guarantees or warranties were made or implied. Consent form signed, reviewed in chart. Medical clearance reviewed. No contraindications noted to the procedure. Findings: Bony prominence to the right hallux plantar medially at the hallux IPJ level. Flexion contracture to the right second toe Procedure Description: Patient was identified in preop holding site was marked. Consent form signed reviewed in chart. Patient was then brought to the operating room placed on the operating table in supine position with the anesthesia team. After induction of anesthesia, local analgesia was obtained using a digital block to the right hallux as well as the right second toe using 10 mL of 1% lidocaine plain preoperatively. The right lower extremity was then scrubbed, prepped and draped in the usual aseptic manner. Intraoperative fluoroscopy was used to identify the location of the right hallux exostosis as well as puncture site. Next, u sing a sterile #11 blade an incision was made to the plantar aspect of the right second toe at the level of the PIPJ the same incision was then used to transect the flexor tendon to the right second toe. Contracture was noted to be reduced. 4-0 Vicryl was used to reapproximate the plantar skin. Next, a less than 5 mm stab incision was made, with a sterile #11 blade, at the glabrous junction of the right hallux just distal to the hallux interphalangeal joint level this was deepened using sterile #11 blade. Blunt dissection was performed to dissect the deeper tissue to the level of bone. Next, a Tenex bone probe was used to remove the plantar shelf of the hallux IPJ level at 30s intervals to prevent thermal necrosis, continuous irrigation was used. This was performed until the bony prominence was significantly reduced. Next, the incision site was reapproximated using 4-0 nylon. Dressings were then applied with Xeroform gauze, 4 x 4, Kerlix and an Merlin wrap. Patient tolerated the procedure and anesthesia well advised since he been resting status intact to the right foot. Patient was transferred to PACU for further monitoring. Patient was given instructions for postoperative care. Patient was sent pain medication. Patient has an appointment in office on . Date of Procedure: 01/18/25
--- NOTE | 2025-01-18 15:42 | W.ANESPOSTOP ---
Postoperative Evaluation Date, Time and Location Date Performed: 01/18/25 Time Performed: 10:00 Patient Location: Day Surgery Unit Vital Signs Most Recent Imported Vital Signs: Most Recent Vital Signs Temp Pulse Resp BP Pulse Ox 36 C L 81 18 141/87 H 95 01/18/25 10:58 01/18/25 10:58 01/18/25 10:58 01/18/25 10:58 01/18/25 10:58 Pain Score Most Recent Pain Score: Most Recent Pain Score Pain Level 0 01/18/25 10:58 Assessment Mental Status: Awake (Alert & Oriented to Patient Baseline) Airway and Respiratory Function: Patent airway with normal (patient baseline) respiratory exam Cardiovascular Function: Hemodynamically Stable Hydration Status: Adequately Hydrated Nausea & Vomiting: No Nausea or Vomiting Pain: Pt. Denies Any Pain Peripheral Nerve Block: Patient did not receive a nerve block
== END 2025-01-18 11:40 | disposition home or self-care (01) ==
PROVIDERS: PCP Family Medicine; Visit Provider Podiatrist
PROC: (CPT 28288; principal; 2025-01-18 07:30)
PROC: (CPT 28285; 2025-01-18 07:30)
DX: M20.41 Other hammer toe(s) (acquired), right foot (principal); M20.5X1 Other deformities of toe(s) (acquired), right foot; L97.511 Non-pressure chronic ulcer of other part of right foot limited to breakdown of skin
CPT/HCPCS: 28124; 28010; 00123; 76000; 81025; 73620; J0736; J1100; J2003; J2405; J2704; J3010

== ENCOUNTER 2025-05-10 09:24 | Outpatient (REF) | payer OTHER, SELFPAY ==
[2025-05-12 11:19] LABS: Chlamydia Result Negative (Negative); GC Result Negative (Negative)
== END 2025-05-10 09:25 | disposition home or self-care (01) ==
LOC: LBN 09:24
PROVIDERS: PCP Family Medicine; Visit Provider Obstetrics & Gynecology
DX: B37.2 Candidiasis of skin and nail (principal); N76.0 Acute vaginitis; E11.9 Type 2 diabetes mellitus without complications
CPT/HCPCS: 87491; 87591; 87480; 87510; 87660